=== PATIENT | female | born 1960 | race Caucasian/White ===

== ENCOUNTER 2020-01-17 07:58 | Outpatient (CLI) | payer OTHER, SELFPAY ==
--- NOTE | ~2020-01-17 | MM_ITS ---
EXAMINATION: MM screening [facility] w [facility]ianca HISTORY: Screening mammogram TECHNIQUE: Craniocaudal and mediolateral oblique 3-D tomosynthesis images were obtained and synthetic 2-D images were generated. CAD analysis was submitted and interpreted. COMPARISON: 12/21/2018, 12/15/2017, 12/09/2016 BREAST PARENCHYMAL COMPOSITION: The breasts are heterogeneously dense, which may obscure small masses . FINDINGS: Stable asymmetry is present in the outer left breast on the craniocaudal view. There is no evidence of suspicious mass, calcification, or architectural distortion to suggest malignancy in eith er breast. There has been no suspicious interval change. IMPRESSION: 1. No mammographic evidence of malignancy. 2. Recommend routine screening mammography in one year. BI-RADS Category 2: Benign finding(s). Reviewed, dictated and finalized at location A. PLANS INTELLIGENCE OFFICER
== END 2020-01-17 07:59 | disposition home or self-care (01) ==
LOC: ANHIMG 08:00
PROVIDERS: PCP Nurse Practitioner; Visit Provider Obstetrics & Gynecology
DX: Z12.31 Encounter for screening mammogram for malignant neoplasm of breast (principal)
CPT/HCPCS: 77063; 77067

== ENCOUNTER 2021-01-22 15:34 | Outpatient (CLI) | payer OTHER, SELFPAY ==
--- NOTE | ~2021-01-22 | MM_ITS ---
EXAMINATION: MM screening [facility] BI w bianca HISTORY: Screening mammogram TECHNIQUE: Craniocaudal and mediolateral oblique 3-D tomosynthesis images were obtained and synthetic 2-D images were generated. CAD analysis was submitted and interpreted. COMPARISON: 01/17/2020, 12/21/2018 BREAST PARENCHYMAL COMPOSITION: The breasts are heterogeneously dense, which may obscure small masses . FINDINGS: There is no evidence of suspicious mass, calcification, or architectural distortion to sugg est malignancy in either breast. There has been no suspicious interval change. IMPRESSION: 1. No mammographic evidence of malignancy. 2. Recommend routine screening mammography in one year. BI-RADS Category 1: Negative Reviewed, dictated and finalized at location A. DATABASE DEVELOPER
== END 2021-01-22 15:35 | disposition home or self-care (01) ==
PROVIDERS: PCP Nurse Practitioner; Visit Provider Obstetrics & Gynecology
DX: Z12.31 Encounter for screening mammogram for malignant neoplasm of breast (principal)
CPT/HCPCS: 77063; 77067

== ENCOUNTER 2022-02-08 07:11 | Outpatient (CLI) | payer OTHER, SELFPAY ==
--- NOTE | ~2022-02-08 | MM_ITS ---
EXAMINATION: MM screening [facility] BI w bianca HISTORY: Screening mammogram TECHNIQUE: Craniocaudal and mediolateral oblique 3-D tomosynthesis images were obtained and synthetic 2-D images were generated. CAD analysis was submitted and interpreted. COMPARISON: 01/22/2021, 01/17/2020, 12/21/2018 BREAST PARENCHYMAL COMPOSITION: The breasts are heterogeneously dense, which may obscure small masses . FINDINGS: No suspicious mass, calcification, or architectural distortion are identified in either ray ast to suggest malignancy. There has been no suspicious interval change. IMPRESSION: 1. No mammographic evidence of malignancy. 2. Recommend routine screening mammography in one year. BI-RADS Category 1: Negative Reviewed, dictated and finalized at location A. IPLE SCLEROSIS NURSE
== END 2022-02-08 07:12 | disposition home or self-care (01) ==
LOC: ANHIMG 07:12
PROVIDERS: PCP Nurse Practitioner; Visit Provider Obstetrics & Gynecology
DX: Z12.31 Encounter for screening mammogram for malignant neoplasm of breast (principal)
CPT/HCPCS: 77063; 77067

== ENCOUNTER 2023-04-02 13:32 | Outpatient (CLI) | payer BC, SELFPAY ==
--- NOTE | ~2023-04-02 | MM_ITS ---
EXAMINATION: MM screening [facility] BI w bianca HISTORY: Screening mammogram TECHNIQUE: Craniocaudal and mediolateral oblique 3-D tomosynthesis images were obtained and synthetic 2-D images were generated. CAD analysis was submitted and interpreted. COMPARISON: 02/08/2022, 01/22/2021, 01/17/2020 BREAST PARENCHYMAL COMPOSITION: The breasts are heterogeneously dense, which may obscure small masses . FINDINGS: No suspicious mass, calcification, or architectural distortion are identified in either ray ast to suggest malignancy. There has been no suspicious interval change. IMPRESSION: 1. No mammographic evidence of malignancy. 2. Recommend routine screening mammography in one year. BI-RADS Category 1: Negative Reviewed, dictated and finalized at location A. H TECH
== END 2023-04-02 13:33 | disposition home or self-care (01) ==
LOC: ANHIMG 13:35
PROVIDERS: PCP Nurse Practitioner; Visit Provider Obstetrics & Gynecology
DX: Z12.31 Encounter for screening mammogram for malignant neoplasm of breast (principal)
CPT/HCPCS: 77063; 77067

== ENCOUNTER 2024-02-25 13:50 | Outpatient (CLI) | payer BC, SELFPAY ==
[2024-02-25 14:56] LABS: Basophils Absolute Auto 0.1 K/mm3 (0.0-0.1); Basophils Percent Auto 0.7 % (0.2-1.2); Eosinophils Absolute Auto 0.1 K/mm3 (0-0.3); Eosinophils Percent Auto 1.9 % (0-4.4); Hematocrit 39.3 % (37.0-47.0); Immature Granulocyte Absolute 0.01 K/mm3 (0.00-0.031); Immature Granulocyte Percent A 0.1 % (0-0.5); Lymphocytes Absolute Auto 2.17 K/mm3 (0.9-3.2); Lymphocytes Percent Auto 32.1 % (18.3-44.2); Mean Corpuscular HGB Conc 33.1 g/dl (32-36); Mean Corpuscular Hemoglobin 29.5 pg (26-34); Mean Corpuscular Volume 89.1 fl (80-100); Mean Platelet Volume 8.8 fl (7.4-10.4); Monocytes Absolute Auto 0.5 K/mm3 (0.1-0.6); Monocytes Percent Auto 7.3 % (2.6-8.5); Neutrophils Absolute Auto 3.9 K/mm3 (1.3-6.7); Neutrophils Percent Auto 57.9 % (45.5-73.1); Platelet Count Result 264 k/mm3 (150-375); Red Blood Count 4.41 M/mm3 (4.2-5.4); Red Cell Distribution Width 12.7 % (11.5-14.5); White Blood Count 6.8 K/mm3 (4.5-10.0)
[2024-02-25 15:06] LABS: Albumin Level 4.3 g/dL (3.5-5.1); Estimated Glomerular Filt Rate > 60; Glucose 84 mg/dL (65-110)
[2024-02-25 15:12] LABS: Urine Cotinine NEGATIVE
[2024-02-25 16:07] LABS: MRSA (PCR) NOT DETECTED (NOT DETECTE)
[2024-02-25 16:36] LABS: Hemoglobin A1C 5.5 % (<5.7)
== END 2024-02-25 13:51 | disposition home or self-care (01) ==
LOC: ANHSURGERY 13:59
PROVIDERS: PCP Nurse Practitioner; Visit Provider Orthopaedic Surgery
DX: Z01.812 Encounter for preprocedural laboratory examination (principal); M17.11 Unilateral primary osteoarthritis, right knee
CPT/HCPCS: 80307; 82040; 82565; 82947; 83036; 85025; 87641

== ENCOUNTER 2024-03-23 00:40 | Day surgery (SDC) | payer BC, SELFPAY ==
[2024-02-25 14:08] VITALS: BMI 24.2
--- NOTE | 2024-02-25 14:25 | PC.NURSE ---
Report to the Outpatient Waiting Room, entrance under the green pavilion located off [facility], at time __0830am on date _03/23/24 . Planned Procedure Time: _10:30am .? Time changes happen often and if your time is changed the preop area will call you the afternoon before. - You and your visitor will be asked to self-screen and do not enter if you have any COVID symptoms. Please call surgeon if you need to reschedule. - A mask is optional within the hospital at this time. Patients may have clear liquids (water, carbonated beverages, clear teas, apple juice) until 3 hours prior to surgery with a maximum of 20 ounces. - No food from midnight until time of surgery and no smoking. This includes no chewing gum, candy or mints.(0730am) Take only the following medications with a SIP of water on the morning of surgery: None DO NOT STOP ANY OF YOUR OTHER PRESCRIPTION MEDICATIONS PRIOR TO SURGERY EXCEPT THE FOLLOWING Medications to discontinue per physician Hold Vitamins and supplements for 3 days prior per Anesthesia Date to take last dose____03/19/24 Hold Tirepatide for 10 days prior to surgery, date to take last dose 03/11/24. Please no make-up, nail pashto, hairspray, perfume, deodorant, or body powder the day of surgery.? No jewelry (including any body piercings) or valuables the day of surgery, leave them at home.? Please take a shower or bath the night before, or the morning of, surgery with an antibacterial soap.? Wear comfortable, loose fitting clothing.? - Jewelry must be removed prior to entering the operating room.? Rings and piercings that are not removed may be cut off. - The hospital will not accept responsibility for valuables.? - Please leave all valuables, including medications, at home the day of surgery. If you are going home after surgery, a licensed armored car driver must drive you home.? - NO public transportation without another adult if you receive anesthesia. - We recommend that an adult stay with you for 24 hours following discharge. - We also recommend that you do not drive, make important decision, drink alcoholic beverages, or take any drugs that were not prescribed by your health care provider for at least 24 hours after your discharge time. Follow any additional instructions given to you from your surgeon. Telephone instructions given to _patient and asked if any additional questions and then verbalized understanding. Patient advised to call surgeon office or pre surgery nurse liaison [phone] if any additional questions.
[2024-03-23] VITALS (11 sets, daily range): BP systolic 101–155; BP diastolic 58–93; PULSE 64–86; RESP 14–18; TEMP 36.3–37.3; O2SAT 96–100
--- NOTE | ~2024-03-23 | XR_ITS ---
EXAMINATION: [id number] DATE: 03/23/2024 15:15 INDICATION: Postoperative evaluation following right total knee arthroplasty. TECHNIQUE: Anteroposterior and lateral views of the right knee were obtained. COMPARISON: None. FINDINGS: Right total knee arthroplasty with patellar resurfacing appears well seated and in near anatomic alig nment. No fractures identified. Expected postoperative subcutaneous and intra-articular gas. IMPRESSION: 1. Right total knee arthroplasty, negative for postoperative purposes. Reviewed, dictated and finalized at location B. S CLIPPER
[2024-03-23] MEDS: TRANEXAMIC ACID 1,000MG/ISO100 1,000 MG/100 ML BAG 200 MG IVPB (10:30)
[2024-03-23] MEDS: ACETAMINOPHEN 500 MG TABLET 1000 MG PO (10:30)
[2024-03-23] MEDS: LACTATED RINGERS 1,000 ML 30 ML IV CONT ×2 (10:30→15:00)
--- NOTE | 2024-03-23 12:07 | P.PNAN_ITS ---
Anes - Initial Pre Proc Eval Procedure: Operation Date: 03/23/24 11:30 Proposed Procedures p Right Total Knee Arthroplasty - Rodney Saucedo MD Date/Time: 03/23/24 12:07 Surgeon: Rodney Saucedo MD Pre Op Diagnosis: Prim OA Rt Knee Patient Data Age: 63 Gender: F Height: 1.71 m Weight: 72 kg Last Vital Signs Temp 97.4 F L 03/23/24 10:30 Pulse 69 03/23/24 10:30 Resp 14 03/23/24 10:30 BP 148/90 H 03/23/24 10:30 Pulse Ox 100 03/23/24 10:30 O2 Del Method Room Air 03/23/24 10:30 Allergies Allergy/AdvReac Type Severity Reaction Status Date / Time No Known Allergies Allergy Verified 03/23/24 10:50 Home Medications ?Medication ?Instructions ?Recorded ?Confirmed ?Type multivitamin (Daily Multi-Vitamin 1 tablet PO DAILY 12/10/23 03/12/24 History tablet) tirzepatide 2.5 mg/0.5 mL 2.5 mg subcut WEEKLY 12/10/23 03/12/24 History subcutaneous pen injector cholecalciferol (vitamin D3) 25 25 mcg PO DAILY 02/25/24 03/12/24 History mcg (1,000 unit) tablet vitamin B complex-vitamin B12 1 drp sublingual DAILY PRN 02/25/24 03/12/24 History 1,200 mcg/mL sublingual drops supplement aspirin 81 mg tablet,delayed 81 mg PO BID 14 days #28 tabs 03/23/24 Rx release meloxicam 15 mg tablet 15 mg PO DAILY #30 tabs 03/23/24 Rx oxycodone-acetaminophen 5 mg-325 1 - 2 tablet PO Q4-6H PRN pain 7 03/23/24 Rx mg tablet days #30 tabs prednisone 5 mg tablet 5 mg PO DAILY 3 weeks #21 tabs 03/23/24 Rx Laboratory Tests 03/23/24 09:51 Blood Type O Positive Antibody Screen Negative Patient hx anesthesia problems: none Family hx anesthesia problems: none Results Review: All pre-operative results and documents have been reviewed as part of the pre- operative evaluation. PMFSH Past Medical History Medical History SCC (squamous cell carcinoma) right leg (knee) Mild episode of recurrent major depressive disorder Internal hemorrhoids Hyperlipidemia Cervical spinal stenosis Skin cancer Surgical History Surgical History History of appendectomy H/O: hysterectomy H/O knee surgery (~08/21/18) Left Knee PKA Family History Family History Mother Hypertension Heart disease Diabetes mellitus Social History Social History Smoking status: Never smoker Alcohol intake: current Alcohol use details: moderate Substance use: never Substance use type: marijuana Other substance usage details: Gummies and Vape socially Living arrangements: with family Occupation/Education: occupation 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 ) Neurological: alert and oriented Last oral intake: >/= 8 hours ASA classification: II Emergent: no Anesthetic plan: proceed Anesthesia type and monitoring: general ETT and standard monitoring Results Review: All pre-operative results and documents have been reviewed as part of the pre- operative evaluation. Prev hyperlipidemia, now diet controlled. Pt exercises w wts, 3 x weekly, no cp or sob. Informed Consent: The patient's anesthetic plan and its attendant risks and benefits were discussed with the patient/family/POA. Questions were solicited and answers provided to the satisfaction of the patient/family/POA.
--- NOTE | 2024-03-23 12:21 | WPDHPUPDATE1 ---
History and Physical Update Update Date/Time: 03/23/24 12:21 History and Physical has been reviewed, including an updated exam of the patient. There are NO changes in the patient's condition. Risks, benefits, and alternatives have been discussed and questions answered. Patient agrees to proceed with procedure.
[2024-03-23] MEDS: ceFAZolin 2 GM/D5W 50 ML 2 GM/50 ML BAG IVPB ×2 (12:40→21:03)
[2024-03-23] MEDS: SODIUM CHLORIDE 0.9% IV 37.7 ML, MORPHINE SULFATE INJ (*CRX) 2 MG, ROPivacaine HCL 1% 2... INFILTRATE (13:05)
[2024-03-23] MEDS: GENTAMICIN BONE CEMENT REFOBACIN 1 EACH TOPICAL (14:23)
[2024-03-23] MEDS: TRANEXAMIC ACID 1,000 MG/10 ML AMPUL 1000 MG IV PUSH (14:24)
[2024-03-23] MEDS: ONDANSETRON INJ 4 MG/2 ML VIAL IV PUSH ×2 (15:44→21:22)
--- NOTE | 2024-03-23 15:51 | P.OP_ITS ---
Procedure Note - Detailed Date of Procedure 03/23/24 Pre-op Diagnosis Right knee degenerative arthritis. Post-op Diagnosis Same Procedure Performed Calipered, kinematically aligned total knee replacement right knee. Surgeon Rodney Saucedo MD Glass Cutter Hand Dinah Hernandez PA-C Anesthesia General Findings According to the calipered kinematic alignment principles, the knee was balanced by the following verification checks incorporating 6 caliper measurements, using an insert goniometer to select the insert thickness, and adjusting the tibial resection following the kinematic alignment algorithm (see figure 160.10 published in [employer] chapter on kinematic alignment total knee arthroplasty.) The steps verified the femoral and tibial components were kinematically aligned coincident to the patient's pre arthritic joint lines, which closely restored the kotzebue tibial compartment forces and ligament laxities without ligament release. The FlashpointK BluPandariKA knee, designed specifically for kinematic alignment, fit optimally. The record of verification checks were documented and scanned into the chart. Distal Femoral Resection: Distal Medial 6 mm(cartilage worn), Distal Lateral 8 mm Target thickness of 8mm Unworn, 6mm Worn (No Cartilage). Posterior Femoral Resection: Posterior Medial 5 mm(cartilage worn), Posterior Lateral 7 mm. Target thickness of 7mm Unworn, 5mm Worn (No Cartilage). Description of Procedure General anesthesia was administered. A well-padded tourniquet was placed high on the thigh. The limb was prepped and draped in the usual sterile fashion. The limb was exsanguinated and the tourniquet inflated to 300 mmHg. A longitudinal incision was created over the midline of the knee. Sharp dissection was taken through subcutaneous tissues. Electrocautery was used for hemostasis. A trivector approach to the knee joint was performed. The ACL, anterior horns of the menisci, and fat pad were excised, and a subperiosteal dissection was carried along the posterior medial border of the tibia. The thickness of the kotzebue patella was measured with a caliper. The patella was resected using the oscillating saw. The best fitting anatomic patella button was selected. The fixation holes were drilled. When the patella and patella buttons combined thickness was thicker than the kotzebue patella, the patella was recut. Starting midway between the top of the notch in the anterior femoral cortex, I drilled a 9 mm diameter hole parallel to the anterior cortex to minimize flexion of the femoral component and promote patella tracking. I verified the existence of a 5-10 mm bone bridge between the posterior aspect of the hole and the anterior limit of the intercondylar notch. An intraosseous positioning eber was inserted 10 cm into the femur perpendicular to the distal joint line and parall el to the anterior cortex. I used a distal femoral referencing guide that compensated 2 mm when the cartilage was worn on the distal medial femoral condyle, and 2 mm when the cartilage was worn on the distal lateral femoral condyle. The basis for setting the distal and posterior femoral resection guide is knowing that the varus and valgus grade II to IV Kellegren-Gregory osteoarthritic knees have negligible bone wear at 0? and 90? and that the mean full-thickness cartilage wear approximates 2 mm. I measured the thickness of distal femoral resections with a caliper to +/- 0.5 mm. The thickness of each resection was adjusted to match the thickness of the respective condyle of the femoral component within 0.5 mm of target after compensating for cartilage wear and kerf. When the distal r esection was 1-2 mm too thin, a recut guide was used to adjust the cut. When the distal resection was too thick, a 1 or 2 mm thick washer was fixed to the back of the 4-in-1 chamfer block to mary ann a corrective gap between the femoral component and distal femur. I set posterior femoral referencing guide at 0? orientation to position the pin holes for the 4 in 1 chamfer block. The kiel wing measured the width of the distal femoral resection and selected the size of the 4 in 1 chamfer block and femoral component. The AP sizer confirmed the size. I measured the thickness of the posterior femoral resections with a caliper before making the anterior and chamfer cuts. I adjusted the thicknesses of each resection to match the thickness of the respective condyle of the femoral component within +/-0.5 mm after compensating for cartilage wear and curve. When a posterior resection femoral resection was 1-2 mm too thick or thin a corrective correction was made by shifting or rotating the 4 in 1 chamfer block as needed. The chamfer block was secured in the correct position with compression screws. The anterior and chamfer femoral resections were made. These caliper measurements and mable ections verified that the femoral component was set coincident with the patient's pre-arthritic distal and posterior femoral joint lines. I removed all the medial and lateral femoral and tibial osteophytes to restore the pre arthritic length of the medial and lateral collateral ligaments. I tyrone AP lines along the major axis of the lateral tibial plateau in between the tibial spines which identified the flexion extension plane of the knee. A conventional extramedullary tibial resection guide was applied to the ankle. An kiel wing was placed medially in the saw slot. The varus valgus angle of the tibial resection guide was adjusted until the guide paralleled the proximal tibial articular surface after compensating for cartilage and bone wear. The slope of flexion extension angle of the tibial resection guide was adjusted until the kiel wing paralleled the slope of the medial tibia after compensating for wear. The AP axis of the tibial resection guide was adjusted parallel to th e two lines. The proximal tibia was resected, partially releasing the insertion of the posterior cruciate ligament. The thickness of the medial and lateral lateral tibial condyle was measured at the base of the tibial spines. I visually verified the slope of the medial border of the resection was parallel to the patient's pre arthritic slope after compensating for cartilage and bone wear. I removed the remnants of the posterior horns of the menisci and posterior osteophytes and cauterized the inferior lateral genicular vessels. The Aquamantys bipolar device was also used to for additional hemostasis. When the knee had a preoperative flexion contracture of 20? or more I teased the capsule off the posterior femur with a curved 3 quarter-inch osteotome. I administered the posterior femoral periosteal injection by delivering 10 cc using a 20 gauge spinal needle at the most medial and 10 cc at the most lateral femoral spur surface which reduced the risk of injury to the posterior neurovascular structures. I followed 6 options in a decision tree to fine tune the varus valgus and posterior slope orientation of the tibial component to restore the patient's pre arthritic tibial joint line and limb alignment. First, I adjusted the varus- valgus orientation of the proximal tibia resection working in 1 degree to 2 degree increments until there was negligible medial and lateral lift off of the distal femoral and proximal tibial resection from the spacer block during a varus valgus laxity assessment in extension. I selected the largest anatomic shape trial tibial base plate that fit within the cortical boundary of the proximal tibial resection. The base plate was best fit parallel to the cortical boundary which set the Internal-external orientation of the anterior to posterior and medial to lateral positions. The best fit method set the AP axis of the tibial base plate and insert parallel to the flexion extension plane of the pre arthritic knee. I pinned the trial t ibial base plate, prepared the cruciate slot, and fixed the base plate to the tibia with the cruciate stem. I inserted the trial femoral component. The knee was placed in full extension. Varus valgus laxity is of the knee with trial components were assessed. When asymmetric laxity was observed a 1-2 degree varus or valgus recut guide was used to fine tune the tibial resection until the laxity was 1 degree or less in full extension like the kotzebue knee. The following steps determined the optimal insert thickness within +/-1 mm. First I inserted an insert goniometer that matched the thickness of the spacer block. I reduced the patella and then with the knee in maximum extension, I verified the knee hyperextended a few degrees and had negligible varus valgus laxity, like the pre arthritic knee. Next, I measured the external tibial orientation which was the angle the insert goniometer intersected the sagittal line on the medial condyle of the femoral trial component. Then with the knee in 15-30 degrees flexion I verified a 3-4 mm gap in the lateral compartment and no gap in the medial compartment during a 2nd varus valgus laxity test. Next, I placed the knee in 90? of flexion and the foot resting on the operating table and measured the internal tibial orientation. I repeated the steps until I identified the insert thickness that provided the highest external tibia orient ation in extension and the highest internal tibial orientation at 90? flexion without anterior lift-off of the insert from the tibial base plate. The insert with this thickness was implanted. I applied a posterior drawer test with the tibia distracted by gravity and verified no posterior subluxation of the tibia relative to the femur. The patella remained centered on the trochlea and tracked well throughout the entire arc of flexion and extension. I used pulse lavage to clean the bony surfaces of debris and dried bone. I cemented the tibial, femoral, and patellar components using 1 bag of methylmethacrylate with Gentamycin, then rechecked the stability at full extension, 15-30 degrees, and 90? flexion and verified congregation of the entire arc of motion of the knee. The circulating nurse confirmed the sponge and needle counts were correct. I used pulse lavage to rinse the joint and wound. The extensor mechanism was closed with interrupted #1 Vicryl suture and #1 running Stratafix suture. The subcutaneous layer was closed with interrupted #1 Vicryl suture followed by 2-0 Stratafix and 3-0 Stratafix. Steri-Strips placed on the skin. Silver impregnated occlusive dressing applied to the wound. A light gauze wrap and Joseph bandage were placed. The patient was transferred to the recovery room in stable condition. There were no complications. Implants Medacta GMK spheriKA Femoral component SpheriKA size 3+, tibial component size 3, vitamin-E flex insert, thickness 10mm, Anatomic patella implant size 2. Tourniquet Time Total Tourniquet Time: 81 Drains No Pathology None sent Complications No immediate complications Condition Stable Disposition PACU [facility] Billing Surgery - Charge Forward: Surgery Billing
[2024-03-23] MEDS: oxyCODONE/ACETAMINOPHEN (*CRX) 10-325 MG TABLET 1 TAB PO (16:34)
[2024-03-23] MEDS: SENNA/DOCUSATE SODIUM TABLET 2 TAB PO (16:39)
[2024-03-23] MEDS: MELOXICAM 7.5 MG TABLET PO (16:40)
[2024-03-23] MEDS: predniSONE 5 MG TABLET PO (16:40)
--- NOTE | 2024-03-23 16:57 | ADMGEN ---
This patient, Lisa Baxter, was admitted to [facility] Surg Room 322-01. Patient/family oriented to hospital policies and general routines including ID bracelet, bed and alarms, visiting hours, pain management, procedures, bathroom and other care routines, personal items, smoking policy, room service/diet, and visiting hours. Information on how to activate the Rapid Response Team has been discussed. Patient/Family are encouraged to report perceived risks to care and to ask questions if they do not understand what they are told or what they should do.
[2024-03-23] MEDS: ACETAMINOPHEN 325 MG TABLET 650 MG PO (17:57)
[2024-03-23] MEDS: FAMOTIDINE 20 MG TABLET PO (21:03)
[2024-03-23] MEDS: ASPIRIN 81 MG ENTERIC TABLET PO (21:03)
[2024-03-24 03:26] VITALS: BP 115/60; PULSE 73; RESP 17; TEMP 36.6; O2SAT 99
[2024-03-24] MEDS: ceFAZolin 2 GM/D5W 50 ML 2 GM/50 ML BAG IVPB (05:55)
[2024-03-24] MEDS: ACETAMINOPHEN 325 MG TABLET 650 MG PO (05:56)
[2024-03-24] MEDS: ONDANSETRON INJ 4 MG/2 ML VIAL IV PUSH (05:58)
[2024-03-24 07:13] LABS: Basophils Percent Auto 0.3 % (0.2-1.2); Eosinophils Percent Auto 0.3 % (0-4.4); Hemoglobin 11.1 g/dL (12.0-15.0); Immature Granulocyte Absolute 0.05 K/mm3 (0.00-0.031); Immature Granulocyte Percent A 0.4 % (0-0.5); Lymphocytes Absolute Auto 1.55 K/mm3 (0.9-3.2); Lymphocytes Percent Auto 13.4 % (18.3-44.2); Mean Corpuscular HGB Conc 32.6 g/dl (32-36); Mean Corpuscular Hemoglobin 29.3 pg (26-34); Mean Corpuscular Volume 89.7 fl (80-100); Mean Platelet Volume 9.1 fl (7.4-10.4); Monocytes Absolute Auto 0.8 K/mm3 (0.1-0.6); Monocytes Percent Auto 6.8 % (2.6-8.5); Neutrophils Absolute Auto 9.1 K/mm3 (1.3-6.7); Neutrophils Percent Auto 78.8 % (45.5-73.1); Platelet Count Result 235 k/mm3 (150-375); Red Blood Count 3.79 M/mm3 (4.2-5.4); Red Cell Distribution Width 12.9 % (11.5-14.5); White Blood Count 11.5 K/mm3 (4.5-10.0)
[2024-03-24 07:20] LABS: Anion Gap 5 mmol/L (4-12); Blood Urea Nitrogen 13 mg/dL (7-17); Calcium 9.1 mg/dL (8.4-10.2); Carbon Dioxide 28 mmol/L (22-30); Chloride 103 mmol/L (98-107); Estimated CRCL calculation 61 ml/min; Estimated Glomerular Filt Rate > 60; Glucose 91 mg/dL (65-110); Potassium 3.8 mmol/L (3.4-5.0); Sodium 136 mmol/L (137-145)
--- NOTE | 2024-03-24 07:48 | P.DS_ITS ---
DS: Admitting Diagnosis Discharge Date 03/24/24 Admitting Diagnosis Knee arthritis. DS: Discharge Diagnosis Discharge Diagnosis (1) Status post total right knee replacement: Code(s): Z96.651 - Presence of right artificial knee joint Status: Acute Assessment and Plan: Postop day 1: Right total knee arthroplasty. Patient tolerated procedure well. No complications. Pain manageable with pain medication. No numbness or tingling. We had a lengthy discussion regarding postoperative wound care, limitations, expectations, and exercises. Patient shows good understanding. She has had initial physical therapy and is tolerating it well. DVT prophylaxis: 81 mg baby aspirin b.i.d. for 14 days. Pain medication: Percocet. Meloxicam. Prednisone. Patient has followup appointment with Dr. Sauceod in 3 weeks. DS: Summary Hospital Course Reason for hospitalization: Total knee arthroplasty Hospital Course: Patient tolerated procedure well. Has had initial PT/OT. Status at Discharge Functional status at discharge: uses cane/walker Overall status at discharge: patient is progressing back to baseline Time Spent with Patient Time attestation: Total time spent providing and/or coordinating discharge services: Exam Narrative: Elderly 63-year-old normal weight female. Resting comfortably in bed. Alert and oriented x3. No acute distress. Wearing compression socks bilaterally. Dressing intact without drainage. Mild swelling. No ecchymosis. No erythema. No hematoma. Range of motion limited due to pain. Quad fires. Calf nontender. Neurologic status intact. No varicosities. Distal pulses palpable. DS: Data Data Completed and Pending Labs on day of discharge: Labs from last 24 hours 03/24/24 03/23/24 06:37 09:51 WBC 11.5 H RBC 3.79 L Hgb 11.1 L Hct 34.0 L MCV 89.7 MCH 29.3 MCHC 32.6 RDW 12.9 Plt Count 235 MPV 9.1 Immature Gran % (Auto) 0.4 Neut % (Auto) 78.8 H Lymph % (Auto) 13.4 L Frio % (Auto) 6.8 Eos % (Auto) 0.3 Baso % (Auto) 0.3 Lymph # (Auto) 1.55 Frio # (Auto) 0.8 H Eos # (Auto) 0.0 Baso # (Auto) 0.0 Abs Immat Gran (auto) 0.05 H Absolute Neuts (auto) 9.1 H Absolute Nucleated RBC 0.000 Nucleated RBC % 0.0 Sodium 136 L Potassium 3.8 Chloride 103 Carbon Dioxide 28 Anion Gap 5 BUN 13 Creatinine 0.82 Estim Creat Clear Calc 61 Estimated GFR > 60 Glucose 91 Calcium 9.1 Blood Type O Positive Antibody Screen Negative Discharge Plan Discharge Patient Disposition: Home, Self-Care Discharge Instructions: See green instruction sheets Patient Language: Spanish Stand Alone Forms: General Discharge Instructions Follow-up/Referrals: Dinah Hernandez PA [Physician Collections Professional] - Discharge Medications: New meloxicam 15 mg tablet 15 mg PO DAILY Qty: 30 0RF Rx Instructions: Cut in half. Take 1/2 in morning and 1/2 at night. Take with food. Stop if stomach upset. prednisone 5 mg tablet 5 mg PO DAILY 21 Days Qty: 21 0RF aspirin 81 mg tablet,delayed release (DR/EC) 81 mg PO BID 14 Days Qty: 28 0RF oxycodone-acetaminophen 5-325 mg tablet 1 - 2 tablet PO Q4-6H PRN (Reason: pain) 7 Days Qty: 30 0RF Continued multivitamin [Daily Multi-Vitamin] Tablet 1 tablet PO DAILY tirzepatide 2.5 mg/0.5 mL pen injector 2.5 mg subcut WEEKLY Patient Comments: HOLD 10 days prior per Anesthesia Rx Instructions: for 4 weeks cholecalciferol (vitamin D3) 25 mcg (1,000 unit) tablet 25 mcg PO DAILY Rx Instructions: Take 2 tablets (50 mcg total) by mouth daily. vitamin B complex-vit B12 1,200 mcg/mL drops 1 drp sublingual DAILY PRN (Reason: supplement)
[2024-03-24] MEDS: MELOXICAM 7.5 MG TABLET PO (08:25)
[2024-03-24] MEDS: SENNA/DOCUSATE SODIUM TABLET 2 TAB PO (08:25)
[2024-03-24] MEDS: FAMOTIDINE 20 MG TABLET PO (08:25)
[2024-03-24] MEDS: polyethylene glycoL 3350 17 GM POWD.PACK PO (08:25)
[2024-03-24] MEDS: ASPIRIN 81 MG ENTERIC TABLET PO (08:25)
--- NOTE | 2024-03-24 10:41 | WPDANESPN ---
Anes - Prog Note Post-Op Date/Time: 03/24/24 10:41 Cardiovascular status: normal Respiratory status: normal Airway patency: baseline Mental status: baseline Post-Op hydration status: normal Vital Signs: Last Vital Signs Temp 97.8 F 03/24/24 03:26 Pulse 73 03/24/24 03:26 Resp 17 03/24/24 03:26 BP 115/60 03/24/24 03:26 Pulse Ox 99 03/24/24 03:26 O2 Del Method Room Air 03/24/24 09:39 O2 Flow Rate 8 03/23/24 15:00 Pain Score (VAS): 0/10 I/O: Intake & Output 03/23/24 03/24/24 03/24/24 23:59 07:59 15:59 Intake Total 287 600 Balance 287 600 Laboratory Tests 03/24/24 06:37 03/24/24 06:37 03/23/24 03/24/24 09:51 06:37 WBC 11.5 H RBC 3.79 L Hgb 11.1 L Hct 34.0 L MCV 89.7 MCH 29.3 MCHC 32.6 RDW 12.9 Plt Count 235 MPV 9.1 Immature Gran % (Auto) 0.4 Neut % (Auto) 78.8 H Lymph % (Auto) 13.4 L [place] % (Auto) 6.8 Eos % (Auto) 0.3 Baso % (Auto) 0.3 Lymph # (Auto) 1.55 [place] # (Auto) 0.8 H Eos # (Auto) 0.0 Baso # (Auto) 0.0 Abs Immat Gran (auto) 0.05 H Absolute Neuts (auto) 9.1 H Absolute Nucleated RBC 0.000 Nucleated RBC % 0.0 Sodium 136 L Potassium 3.8 Chloride 103 Carbon Dioxide 28 Anion Gap 5 BUN 13 Creatinine 0.82 Estim Creat Clear Calc 61 Estimated GFR > 60 Glucose 91 Calcium 9.1 Antibody Screen Negative Post-procedural complaints: none Patient Feedback: Patient satisfied with anesthetic care.
--- OUTSIDE RECORDS SUMMARY | 2024-03-30 04:02 | XMS_ITS | Clinical Summary ---
Author Organization [facility] Address [address] [place] [address] Care Team Providers Care Human Resources Benefits Administrator Name Role Phone Unavailable Primary Care Provider Unavailabl e Source Comments [facility] [employer],non-owned Affiliates and Associated Physician Practices is amultiple site organization consisting of ambulatory clinics and hospital sitesin [place], [place], [place] and [place]. This disclosure is being madepursuant to the Care Everywhere program and may not contain all information available regarding this patient. Last updated 17.[facility] [employer] Social History Tobacco Use Types Packs/Day Years Used Date Smoking Tobacco: Never Assessed Sex and Gender Information Value Date Recorded Sex Assigned at Not on file Gender Identity Not on file Sexual Orientation Not on file Plan of Treatment Health Maintenance Due Date Last Done Comments COLOGUARD (AGES 45-75) - COL ON CA SCREENING 1960 COLON MONITORING 1960 COLONOSCOPY - COLON CA SCREENING 1960 CT COLONOGRAPHY - COLON CA SCREENING 1960 Colorectal Cancer Screening 1960 FIT - COLON CA SCREENING 1960 FLEX SIG - COLON CA SCREENING 1960 LIPID TESTING 1960 MAMMOGRAM 1960 PAP SMEAR 1960 HIV SCREENING 05/09/1975 HEPATITIS C SCREENING 05/04/1978 DTAP/TDAP/TD VACCINES (1 - Tdap) 05/09/1979 PNEUMOCOCCAL VACCINE 50+ (1 of 1 - PCV) 2010 ZOSTER VACCINE (1 of 2) 2010 COVID-19 VACCINE ( - 2023-2 5 season) 2023 INFLUENZA VACCINE (#1) 2023 DEPRESSION SCREENING 03/10/2024 Respiratory Syncytial Virus (RSV) Vaccine Pt: or over 60 yrs (1 - 1-dose 75+ series) 05/09/2035 HEPATITIS B VACCINE Aged Out No longe r eligible based on patient's age to complete this topic HIB VACCINE Aged Out No longer eligi ble based on patient's age to complete this topic HPV VACCINE Aged Out No longer eligi ble based on patient's age to complete this topic MENINGOCOCCAL (Group B) VACCINE Aged Out No longer eligible based on patient's age to complete this topic MENINGOCOCCAL VACCINE Aged Out No latasha julien eligible based on patient's age to complete this topic PNEUMOCOCCAL VACCINE Aged Out No long er eligible based on patient's age to complete this topic
--- OUTSIDE RECORDS SUMMARY | 2024-03-30 04:02 | XMS_ITS | Referral Summary ---
Author Organization [facility] Address [address] [place] [address] Care Team Providers Care Enroute Controller Name Role Phone Unavailable Primary Care Provider Unavailabl e Source Comments [facility],non-owned Affiliates and Associated Physician Practices is amultiple site organization consisting of ambulatory clinics and hospital sitesin [place], [place], [place] and [place]. This disclosure is being madepursuant to the Care Everywhere program and may not contain all information available regarding this patient. Last updated 17.[facility] [employer] Social History Tobacco Use Types Packs/Day Years Used Date Smoking Tobacco: Never Assessed Sex and Gender Information Value Date Recorded Sex Assigned at Not on file Gender Identity Not on file Sexual Orientation Not on file Plan of Treatment Not on file
--- OUTSIDE RECORDS SUMMARY | 2024-03-30 04:03 | XMS_ITS | Encounter Summary ---
Author Organization [facility] Address [address] [place] [address]. [place], [place] [address] [place] [address] Care Team Providers Care Veterinary Pathologist Name Role Phone Radha De La Cruz Primary Care Provider [phone] Reason for Referral * Consultation (Routine) - Authorized Specialty Diagnoses / Procedures Referred By Doug cartagena Referred To Contact ORTHOPAEDICS Diagnoses Chronic pain of right knee Procedures OFFICE/OUTPATIENT NEW LOW MDM 30-44 MINUTES OFFICE/OUTPT VISIT,NEW,LEVL IV OFFICE/OUTPT VISIT,NEW,LEVL V OFFICE/OUTPT VISIT,EST,LEVL III OFFICE/OUTPT VISIT,EST,LEVL IV OFFICE/OUTPT VISIT,EST,LEVL V Radha De La Cruz FNP [address] [place] [address] Phone: tel: fax: Rodney Saucedo MD [address] [place] [address] Phone: tel:[phone] fax: Referral ID Status Reason Start Date Expiration Date Visits Requested Visits Authorized [id number] Authorized Specialty Services 11/27/2023 11/26/2024 99 [address] Rodney Saucedo [facility] Reason for Visit * Reason Comments Knee Pain Right knee pain x a couple months Encounter Details Date Type Department Care Team (Late st Contact Info) Description 11/27/2023 3:00 PM CDT Office Visit [facility] [address] [place] [address] Radha De La Cruz FNP [address] [place] [address] Knee Pain (Right knee pain x a couple months ) Social History Tobacco Use Types Packs/Day Years Used Date Smoking Tobacco: Never Smokeless Tobacco: Never Tobacco Cessation:Counseling Given: Not Answered Alcohol Use Standard Drinks/Week Comments Yes 0 (1 standard drink = 0.6 oz pur e alcohol) AUDIT-C Answer Date Recorded Frequency of Alcohol Consumption 2-4 times a fri02/19/2018 Average Number of Drinks Not on file 018 Frequency of Binge Drinking Not on file 02/07 PHQ-2 Answer Date Recorded Patient Health Questionnaire-2 Score 0 07/08/2022 Comments No Sex and Gender Information Value Date Recorded Sex Assigned at Not on file Legal Sex Female 2:50 AM CDT Gender Identity Not on file Sexual Orientation Not on file documented as of this encounter Last Filed Vital Signs Vital Sign Reading Time Taken Comments Blood Pressure 122/78 11/27/2023 3:00 PM CDT Pulse 68 11/27/2023 3:00 PM CDT Temperature 36.7 ??C (98 ??F) 11/27/2023 3:00 PM CDT Respiratory Rate 18 11/27/2023 3:00 PM CDT Oxygen Saturation 98% 11/27/2023 3:00 PM CDT Inhaled Oxygen Concentration - - Weight 68.5 kg (151 lb) 11/27/2023 3:00 PM CDT Height 170.2 cm (5' 7 ) 11/27/2023 3:00 PM CDT Body Mass Index 23.65 11/27/2023 3:00 PM CDT documented in this encounter Patient Instructions * Patient Instructions* LEORA Joyner - 11/27/2023 3:00 PM CDT Referral Information Referral Call - You will receive a call regarding this referral. Depending on the type of referral,this call may come from the [facility] Referral team at [phone] or from an [facility] hospital or an [facility] clinic. Insurance Authorization - Our referral specialists will contact your insurance company to get priorauthorization, if applicable. Working with insurance companies can be cumbersome, but we are dedicated to processing your referral timely and efficiently. Please know you have a caring and competent team working on your behalf [facility] continuum of care as quickly as possible. If you have questions or concerns regarding your referral, or have not heard anything in 5 days, please call [phone]. Friday - Friday, 7:30 a.m. - 5 p.m. documented in this encounter Progress Notes * LEORA Joyner - 11/27/2023 3:00 PM CDT Lisa is a 63-year-old female patient. Reason for Visit: Knee Pain (Right knee pain x a couple months ) History of Present Illness: Lisa is a 63-year-old female patient here for right knee pain. She reports having right knee pain for several months. It worsened when she started working out regularly a few months ago. She has noticed that her right knee has been swollen. She is able to do her workout without difficulty. She does have more pain with weightbearing. She has a history of requiring a left knee replacement in 2019 due to significant osteoarthritis. She would like a referral to Dr. Saucedo for management of her right knee pain. She does have difficulty squatting. She does not kneel since she had her last knee replacement. Shecan go up and down stairs okay. She can get in and out of the car okay. She is not taking anything for the knee pain. Past Medical History: Diagnosis Date Cervical spinal stenosis 01/04/2022 H/O left knee surgery 08/21/2018 Left knee surgery [address] Dr. Dony Reyes. Left knee unicompartment replacement. Hyperlipidemia Hyperlipidemia 04/01/2014 Date Onset: 06/18/2013 Internal hemorrhoids Mild episode of recurrent major depressive disorder (CMS/HCC) 07/08/2019 SCC (squamous cell carcinoma), leg, right 06/14/[address] Barraza Past Surgical History: Procedure Laterality Date APPENDECTOMY COLONOSCOPY STOMA DX INCLUDING COLLJ SPEC SPX HYSTERECTOMY KNEE SURGERY 08/04/2018 Dr. Reyes. Left knee unicompartment replacement. Medications: Current Outpatient Medications: Multiple Vitamin (ONCE DAILY) Tab, Take 1 tablet by mouth., Disp: , Rfl: tirzepatide (ZEPBOUND) 2.5 MG/0.5ML injection, Inject 2.5 mg into the skin once a week. (Patient taking differently: Inject 5 mg into the skin once a week.), Disp: 2 mL, Rfl: 0 vitamin D3 (CHOLECALCIFEROL) 25 mcg tablet, Take 2 tablets (50 mcg total) by mouth daily., Disp: , Rfl: buPROPion XL (WELLBUTRIN XL) 300 MG 24 hr tablet, take 1 tablet by mouth every day (Patient not taking: Reported on 11/27/2023), Disp: 90 tablet, Rfl: 1 No Known Allergies No family history on file. No family status information on file. Social History Socioeconomic History Marital status: Single Tobacco Use Smoking status: Never Smokeless tobacco: Never Substance and Sexual Activity Alcohol use: Yes Drug use: No ROS: Review of Systems Constitutional: Negative. Musculoskeletal: Chronic worsening right knee pain Vitals: Filed Vitals: 11/27/23 1500 BP: 122/78 Pulse: 68 Resp: 18 Temp: 98 ??F (36.7 ??C) TempSrc: Temporal SpO2: 98% Weight: 68.5 kg (151 lb) Height: 1.702 m (5' 7 ) Physical Exam Constitutional: Appearance: Normal appearance. HENT: Head: Normocephalic and atraumatic. Pulmonary: Effort: Pulmonary effort is normal. Musculoskeletal: Comments: She has arthritic changes present to the right knee. There is some swelling present to the medial aspect. She has crepitus with range of motion. She is able to fully flex and extend the knee. Her gait is normal There is no warmth or redness of the joint Skin: General: Skin is warm and dry. Neurological: Mental Status: She is alert and oriented to person, place, and time. Psychiatric: Mood and Affect: Mood normal. Behavior: Behavior normal. Thought Content: Thought content normal. Judgment: Judgment normal. Diagnoses/Impression: Encounter Diagnose(s) ICD-10-CM SNOMED CT(R) 1. Chronic pain of right knee M25.561 PAIN OF KNEE REGION XR KNEE RT 3V G89.29 Ambulatory referral to Orthopedics (OTHER) Plan Orders Placed: Orders Placed This Encounter XR KNEE RT 3V Ambulatory referral to Orthopedics (OTHER) Will proceed with x-ray of the right knee and referral to Ortho as requested LEORA JOYNER 11/27/2023 3:09 PM Cosigned by Mery Witt DO at 11/27/2023 5:26 PM CDT documented in this encounter Plan of Treatment Scheduled Referrals Name Type Priority Associated Diagnoses Orde r Schedule Ambulatory referral to Orthopedics (OTHER) Referral Routine Chronic pain of right knee Ordered: 11/27/2023 documented as of this encounter Results * XR KNEE RT 3V (11/27/2023 3:40 PM CDT) Anatomical Region Laterality Modality Knee Computed Tomogra phy 11/29/2023 7:58 AM CDT Impressions 11/29/2023 8:01 AM CDT IMPRESSION: No acute findings. Referred By: ?? Interpreted By: Ronal Tran MD, 11/29/2023 7:58 AM Narrative 11/29/2023 8:01 AM CDT [address] [place] [address] IMAGING STUDIES: XR KNEE RT 3V ? DATE: 11/27/2023 3:31 PM CLINICAL HISTORY: chronic knee pain. COMPARISON: No Comparisons. FINDINGS: No evidence of acute fracture, dislocation or osseous erosion. Near-total loss of medial joint space with mild sclerosis and moderate osteophyte. Moderate tibial spine spurring. ??Lateral joint space is well-maintained. ??Mild patellofemoral degenerative change. Small joint effusion Procedure Note Ronal Tran MD - 11/29/2023 [facility] [address] [place] [address] IMAGING STUDIES: XR KNEE RT 3V DATE: 11/27/2023 3:31 PM CLINICAL HISTORY: chronic knee pain. COMPARISON: No Comparisons. FINDINGS: No evidence of acute fracture, dislocation or osseous erosion. Near-total loss of medial joint space with mild sclerosis and moderateosteophyte. Moderate tibial spine spurring. Lateral joint space is well-maintained.Mild patellofemoral degenerative change. Small joint effusion IMPRESSION: No acute findings. Referred By: Interpreted By: Ronal Tran MD, 11/29/2023 7:58 AM [facility] Final Result documented in this encounter Visit Diagnoses Diagnosis Chronic pain of right knee- Primary Chronic pain of right knee documented in this encounter Additional Health Concerns Assessment Noted Time PHQ-9 Depression Total Score: 0 06/02/19 22 10:42 AM CDT documented as of this encounter Care Teams Veterinary Pathologist Relationship Specialty Start Date End Date Radha De La Cruz FNP [address] [place] [address] [place] [id number] PCP - General Nurse Practitioner Family 01/28/18 documented as of this encounter
--- OUTSIDE RECORDS SUMMARY | 2024-03-30 04:03 | XMS_ITS | Encounter Summary ---
Author Organization [facility] Address [address] [place] [address]. [place], [place] [id number] [place] [id number] Care Team Providers Care Stretching Machine Operator Name Role Phone Radha De La Cruz [facility] Primary Care Provider [phone] Reason for Visit * Reason Comments URI Started Friday after mowing and burning brush. Nasal congestion, cough, this am woke up with chest tightness and wheezing, and when she coughs it hurts in her chest, body aches started today Encounter Details Date Type Department Care Team (Late st Contact Info) Description 07/08/2022 9:40 AM CDT Office Visit [facility] [address] [place] [address] Sridhar Salazar MD [address] [place] [address] URI (Started Friday after mowing and burning brush. Nasal congestion, cough, this am woke up with chest tightness and wheezing, and when she coughs it hurts in her chest, body aches started today) Social History Tobacco Use Types Packs/Day Years Used Date Smoking Tobacco: Never Smokeless Tobacco: Never Tobacco Cessation:Counseling Given: No Alcohol Use Standard Drinks/Week Comments Yes 0 [...] on file Sexual Orientation Not on file COVID-19 Exposure Response Date Recorded In the last 10 days, have yo u been in contact with someone who was confirmed or suspected to have Coronavirus/COVID-19? No / Unsure 07/08/2022 9:37 AM CDT documented as of this encounter Last Filed Vital Signs Vital Sign Reading Time Taken Comments Blood Pressure 128/80 07/08/2022 9:43 AM CDT Pulse 70 07/08/2022 9:43 AM CDT Temperature 37.3 ??C (99.1 ??F) 07/08/2022 9:43 AM CD T Respiratory Rate 16 07/08/2022 9:43 AM CDT Oxygen Saturation 97% 07/08/2022 9:43 AM CDT Inhaled Oxygen Concentration - - Weight 78.5 kg (173 lb) 07/08/2022 9:43 AM CDT Height 170.2 cm (5' 7 ) 07/08/2022 9:43 AM CDT Body Mass Index 27.1 07/08/2022 9:43 AM CDT documented in this encounter Patient Instructions * Patient Instructions* Sridhar Salazar MD - 07/08/2022 9:40 AM CDT Can take tylenol 1000mg 3x daily as needed for fever, chills, body aches or fatigue - 500mg tablet 2-2-2 Can take mucinex DM 2x daily for congestion related symptoms until they resolve Finish steroid course Increase fluid intake documented in this encounter Progress Notes * Sridhar Salazar MD - 07/08/2022 9:40 AM CDT Lisa Baxter is a 62-year-old female who presents today alone for evaluation of URI (Started Friday after mowing and burning brush. Nasal congestion, cough, this am woke up with chest tightness and wheezing, and when she coughs it hurts in her chest, body aches started today) History of Present Illness: Pt is coming in today with a 4 day history of cough, congestion, chest tightness, wheezing, myalgias. Pt denies N/V/D. Pt has been taking otc. Rapid covid/influenza testing performed in office. Pts rapid test was negative. PE notable for bilateral mid ear effusion. Pt counseled likely viral uri and on supportive measures. Health Maitenance due was reviewed Health Maintenance Due Topic Date Due ??? Annual Physical Never done ??? Hepatitis C Never done ??? COVID-19 Vaccine (2 - Booster for Komal series) 08/14/2020 Current Outpatient Medications Medication Sig Dispense Refill ??? amLODIPine (NORVASC) 2.5 MG tablet Take 1 tablet (2.5 mg total) by mouth daily. 90 tablet 1 ??? atorvastatin (LIPITOR) 10 MG tablet TAKE 1 TABLET BY MOUTH EVERYDAY AT BEDTIME 90 tablet 1 ??? buPROPion XL (WELLBUTRIN XL) 300 MG 24 hr tablet TAKE 1 TABLET BY MOUTH EVERY DAY 90 tablet 1 ??? dextromethorphan-guaiFENesin ER (MUCINEX DM) 30-600 MG TABLET SR 12 HR 12 hr tablet Take 1 tablet by mouth every 12 (twelve) hours as needed. 28 tablet 0 ??? Krill Oil 1000 MG Cap Take 1 capsule by mouth daily. ??? lisinopril (PRINIVIL) 30 MG tablet Take 1 tablet (30 mg total) by mouth daily. 90 tablet 1 ??? methylPREDNISolone, ARVIND, (MEDROL DOSEPAK) 4 MG tablet Take 1 tablet (4 mg total) by mouth daily. 6 TABLETS ON DAY ONE, 5 TABLETS DAY TWO, 4 TABLETS DAY THREE, 3 TABLETS DAY FOUR, 2 TABLETS DAY FIVE, AND 1 TABLET DAY SIX 1 each 0 ??? Multiple Vitamin (ONCE DAILY) Tab Take 1 tablet by mouth. No current facility-administered medications for this visit. Past Medical History: Diagnosis Date ??? Cervical spinal stenosis 01/04/2022 ??? H/O left knee surgery 08/21/[address] Dony Reyes. Left knee unicompartment replacement. ??? Hyperlipidemia ??? Hyperlipidemia 04/01/2014 Date Onset: 06/18/2013 ??? Internal hemorrhoids ??? Mild episode of recurrent major depressive disorder (CMS/HCC) 07/08/2019 ??? SCC (squamous cell carcinoma), leg, right 06/14/[address] Barraza Past Surgical History: Procedure Laterality Date ??? APPENDECTOMY ??? COLONOSCOPY ??? HYSTERECTOMY ??? KNEE SURGERY 08/04/2018 Dr. Reyes. Left knee unicompartment replacement. Social History Tobacco Use ??? Smoking status: Never ??? Smokeless tobacco: Never Substance Use Topics ??? Alcohol use: Yes ??? Drug use: No No family history on file. No Known Allergies Review of Systems: Review of Systems Constitutional: Negative for chills and fever. HENT: Positive for congestion. Negative for sore throat. Eyes: Negative for pain and discharge. Respiratory: Positive for cough, chest tightness and wheezing. Negative for shortness of breath. Cardiovascular: Negative for chest pain and palpitations. Gastrointestinal: Negative for abdominal pain, diarrhea, nausea and vomiting. Genitourinary: Negative for dysuria and hematuria. Musculoskeletal: Negative for neck pain and neck stiffness. Skin: Negative for rash. Neurological: Negative for seizures, syncope and headaches. Psychiatric/Behavioral: Negative for agitation and confusion. Objective / Physical Exam: Filed Vitals: 07/08/22 0943 BP: 128/80 Pulse: 70 Resp: 16 Temp: 99.1 ??F (37.3 ??C) SpO2: 97% Weight: 78.5 kg (173 lb) Height: 5' 7 (1.702 m) Body mass index is 27.1 kg/m??. Physical Exam Vitals and nursing note reviewed. Constitutional: General: She is not in acute distress. Appearance: Normal appearance. She is well-developed. She is not ill-appearing, toxic-appearing or diaphoretic. HENT: Head: Normocephalic and atraumatic. Right Ear: External ear normal. Tympanic membrane is bulging. Tympanic membrane is not erythematous. A middle ear effusion is present. Left Ear: External ear normal. Tympanic membrane is bulging. Tympanic membrane is not erythematous.A middle ear effusion is present. Nose: Nose normal. Mouth/Throat: Oropharynx is clear and moist and mucous membranes are normal. Eyes: General: No scleral icterus. Right eye: No discharge. Left eye: No discharge. Conjunctiva/sclera: Conjunctivae normal. Cardiovascular: Rate and Rhythm: Normal rate and regular rhythm. Heart sounds: No murmur heard. Pulmonary: Effort: Pulmonary effort is normal. No respiratory distress. Breath sounds: Normal breath sounds. No stridor. No wheezing, rhonchi or rales. Abdominal: General: Bowel sounds are normal. Palpations: Abdomen is soft. Tenderness: There is no abdominal tenderness. Musculoskeletal: General: No deformity or signs of injury. Normal range of motion. Cervical back: Normal range of motion and neck supple. Skin: General: Skin is warm and dry. Neurological: General: No focal deficit present. Mental Status: She is alert and oriented to person, place, and time. Psychiatric: Mood and Affect: Mood normal. Behavior: Behavior normal. Assessment/Plan: Lisa was seen today for uri. Diagnoses and all orders for this visit: Acute cough - CORONAVIRUS (COVID-19) INFLUENZA A & B ANTIGEN IA PANEL - dextromethorphan-guaiFENesin ER (MUCINEX DM) 30-600 MG TABLET SR 12 HR 12 hr tablet; Take 1 tablet by mouth every 12 (twelve) hours as needed. Viral URI with cough - methylPREDNISolone, ARVIND, (MEDROL DOSEPAK) 4 MG tablet; Take 1 tablet (4 mg total) by mouth daily.6 TABLETS ON DAY ONE, 5 TABLETS DAY TWO, 4 TABLETS DAY THREE, 3 TABLETS DAY FOUR, 2 TABLETS DAY FIVE, AND 1 TABLET DAY SIX - dextromethorphan-guaiFENesin ER (MUCINEX DM) 30-600 MG TABLET SR 12 HR 12 hr tablet; Take 1 tablet by mouth every 12 (twelve) hours as needed. Fluid level behind tympanic membrane of both ears - methylPREDNISolone, ARVIND, (MEDROL DOSEPAK) 4 MG tablet; Take 1 tablet (4 mg total) by mouth daily.6 TABLETS ON DAY ONE, 5 TABLETS DAY TWO, 4 TABLETS DAY THREE, 3 TABLETS DAY FOUR, 2 TABLETS DAY FIVE, AND 1 TABLET DAY SIX Followup Plan: Return if symptoms worsen or fail to improve. Instructions on the sign/symptoms of worsening problems were given and verbal acknowledgement of understanding was noted. Those present were instructed to call the office during business hours or go to convenient care when the office is closed. If it's an emergency then go to an ER if necessary to address these worsening conditions. Sridhar Salazar MD, MPH Board Certified Family Medicine and Obesity Medicine [facility], [facility] 07/08/2022 documented in this encounter Plan of Treatment Not on file documented as of this encounter Procedures Procedure Name Priority Date/Time Associated Diagnosis Comments CORONAVIRUS (COVID-19) INFLUENZA A & B ANTIGEN IA PANEL Routine 07/08/2022 Acute cough documented in this encounter Results * CORONAVIRUS (COVID-19) INFLUENZA A & B ANTIGEN IA PANEL (07/08/2022) Pathologist [facility] CORONAVIRUS ANTIGEN IA NEGATIVE [facility] ([facility]), [place] INFLUENZA A NEGATIVE [facility]), [place] INFLUENZA B NEGAT[facility] [place] Internal Control: VALID [facility] ([address]), [place] NASAL STRUCTURE / Unknown 07/08/2022 us Sridhar Salazar MD MICROBIOLOGY - GENERAL ORDER ANAND Final Result [facility] ([address]), [address] [address], documented in this encounter Visit Diagnoses Diagnosis Acute cough- Primary Viral URI with cough Acute upper respiratory infections of unspecified site Fluid level behind tympanic membrane of both ears documented in this encounter Additional Health Concerns Infection Onset Date Last Indicated Resolved Time COVID-19 Rule Out 07/08/2022 07/08/2022 07/08/2022 10:09 AM CDT Assessment Noted Time PHQ-9 Depression Total Score: 0 06/02/19 22 10:42 AM CDT documented as of this encounter Care Teams Stretching Machine Operator Relationship Specialty Start Date End Date Radha De La Cruz FNP [address] [place] [address] [place] [address] PCP - General Nurse Practitioner Family 01/28/18 documented as of this encounter
--- OUTSIDE RECORDS SUMMARY | 2024-03-30 04:03 | XMS_ITS | Encounter Summary ---
Author Organization [facility] Address [address] [place] [address]. [place], [place] [id number] [place] [id number] Care Team Providers Care Cloth Printing Utility Worker Name Role Phone Radha De La Cruz Primary Care Provider [phone] Encounter Details Date Type Department Care Team (Latest Contact Info) Description 05/07/2023 Travel Social History Tobacco Use Types Packs/Day Years Used Date Smoking Tobacco: Never Smokeless Tobacco: Never Alcohol Use Standard Drinks/Week Comments Yes 0 [...] on file documented as of this encounter Plan of Treatment Not on file documented as of this encounter Visit Diagnoses Not on filedocumented in this encounter Additional Health Concerns Assessment Noted Time PHQ-9 Depression Total Score: 0 06/02/19 22 10:42 AM CDT documented as of this encounter Care Teams Cloth Printing Utility Worker Relationship Specialty Start Date End Date Radha De La Cruz FNP [address] [place] [address] [place] [address] PCP - General Nurse Practitioner Family 01/28/18 documented as of this encounter
--- OUTSIDE RECORDS SUMMARY | 2024-03-30 04:03 | XMS_ITS | Encounter Summary ---
Author Organization [facility] Address [address] [place] [address]. [place], [place] [id number] [place] [id number] Care Team Providers Care Stenotype Machine Operator Name Role Phone Radha De La Cruz Primary Care Provider [phone] Encounter Details Date Type Department Care Team (Latest Contact Info) Description 09/09/2023 Travel Social History Tobacco Use Types Packs/Day [...] documented as of this encounter Care Teams Stenotype Machine Operator Relationship Specialty Start Date End Date Radha De La Cruz FNP [address] [place] [address] [place] [address] PCP - General Nurse Practitioner Family 01/28/18 documented as of this encounter
--- OUTSIDE RECORDS SUMMARY | 2024-03-30 04:03 | XMS_ITS | Encounter Summary ---
Author Organization [facility] Address [address] [place] [address]. [place], [place] [id number] [place] [address] Care Team Providers Care Ux Design Manager Name Role Phone Radha De La Cruz Primary Care Provider [phone] Reason for Referral * Imaging (Routine) - Authorized Specialty Diagnoses / Procedures Referred By Doug cartagena Referred To Contact RADIOLOGY Diagnoses Anosmia Procedures MRI BRAIN WWO CON Radha De La Cruz FNP [address] [place] [address] Phone: tel: fax: [address] [place] [address] Phone: tel: fax: Referral ID Status Reason Start Date Expiration Date V isits Requested Visits Authorized [id number] Authorized 05/07/2023 05/07/2024 1 1 RAL SCRAP WORKER * Medication Prior Authorization - Closed Specialty Diagnoses / Procedures Referred By Doug cartagena Referred To Contact Diagnoses Overweight (BMI 25.0-29.9) Encounter for weight management Radha De La Cruz FNP [address] [place] [address] Phone: tel: fax: Referral ID Status Reason Start Date Expiration Date Visits Re quested Visits Authorized [id number] Closed 1 1 RAL SCRAP WORKER Reason for Visit * Reason Comments Physical Patient is here for her annual wellness visit Encounter Details Date Type Department Care Team (Late st Contact Info) Description 05/07/2023 11:00 AM GENERAL SCRAP WORKER Office Visit [facility] [address] [place], [place] [id number] Radha De La Cruz FNP [address] [place] [address] Physical (Patient is here for her annual wellness visit ) Social History Tobacco Use Types Packs/Day [...] Sign Reading Time Taken Comments Blood Pressure 122/76 05/07/2023 10:58 AM GENERAL SCRAP WORKER Pulse 74 05/07/2023 10:58 AM GENERAL SCRAP WORKER Temperature 35.6 ??C (96 ??F) 05/07/2023 10:58 AM GENERAL SCRAP WORKER Respiratory Rate 18 05/07/2023 10:58 AM GENERAL SCRAP WORKER Oxygen Saturation 98% 05/07/2023 10:58 AM GENERAL SCRAP WORKER Inhaled Oxygen Concentration - - Weight 78 kg (172 lb) 05/07/2023 10:58 AM GENERAL SCRAP WORKER Height 170.2 cm (5' 7 ) 05/07/2023 10:58 AM GENERAL SCRAP WORKER Body Mass Index 26.94 05/07/2023 10:58 AM GENERAL SCRAP WORKER documented in this encounter Patient Instructions * Patient Instructions* LEORA Horne - 05/07/2023 11:00 AM GENERAL SCRAP WORKER Consider getting influenza and RSV vaccines at the health dept Call the pharmay when refills are needed Consider getting the MRI done and we will let you know the results when available Follow a healthy diet and exercise regularly Take Zepbound weekly as rx. Follow up in 4 weeks. RAL SCRAP WORKER RAL SCRAP WORKER RAL SCRAP WORKER RAL SCRAP WORKER documented in this encounter Progress Notes * LEORA Horne - 05/07/2023 11:00 AM CST Lisa is a 62-year-old female patient. Reason for Visit: Physical (Patient is here for her annual wellness visit ) History of Present Illness: Lisa is a 62 year old female here for annual wellness physical. Her PMH includes hyperlipidemia, hypertension, prediabetes, depression, stress. She has history of athletic team physician annually. Dr. Antoinette Zapata. Her Pap smear was abnormal showing an positive HPV so she required a colposcopy which was negative. She will follow-up with him again in 1 year. Her mammogram is up-to-date in March 2023. She declines COVID-vaccine. She is willing to get the influenza and RSV vaccines which she will do at the health department She has not had a colonoscopy for about 10 years. Her athletic team physician ordered Cologuard but it has been greater than 3 years. She is willing to get another 1. She denies any family history of colon cancer. No changes in her bowels. She is on lisinopril 30 mg daily for hypertension. Her blood pressure has been well-controlled on this. She is on bupropion XL 300 mg daily for depression and stress which she feels works well for her. Last labs were in October 2022. They were all normal except her lipids were elevated. She had quit taking her atorvastatin due to muscle aches. She was prescribed rosuvastatin and she is tolerating itwell. I encouraged her to get Friday wellness labs to get a lipid panel soon. When I saw her in October 2022, she reported having decreased taste and smell. Today she tells me that she is still having the same issues. She says that she had a URI illness prior to the symptoms starting but did not do a COVID test. She denies having any headaches, dizzy spells, no weakness. No vision changes. She has known history of chronic sinus issues. She denies any facial trauma. She is requesting a GLP-1 for weight loss. Her BMI is 26.94. She does have a history of prediabetesbut her last hemoglobin A1c was 5.6 in October 2022. She says she tries eat healthy and exercises and her excess weight is not improving. Past Medical History: Diagnosis Date Cervical spinal stenosis 01/04/2022 H/O left knee surgery 08/21/[address] Dony Reyes. Left knee unicompartment replacement. Hyperlipidemia Hyperlipidemia 04/01/2014 Date Onset: 06/18/2013 Internal hemorrhoids Mild episode of recurrent major depressive disorder ([facility]/HCC) 07/08/2019 SCC (squamous cell carcinoma), leg, right 06/14/[address] Barraza Past Surgical History: Procedure Laterality Date APPENDECTOMY COLONOSCOPY HYSTERECTOMY KNEE SURGERY 08/04/2018 Dr. Reyes. Left knee unicompartment replacement. Medications: Current Outpatient Medications: buPROPion XL (WELLBUTRIN XL) 300 MG 24 hr tablet, TAKE 1 TABLET BY MOUTH EVERY DAY, Disp: 90 tablet, Rfl: 1 Krill Oil 1000 MG Cap, Take 1 capsule by mouth daily., Disp: , Rfl: lisinopril (PRINIVIL) 30 MG tablet, Take 1 tablet (30 mg total) by mouth daily. CALL FOR AN APPOINTMENT, Disp: 30 tablet, Rfl: 0 Multiple Vitamin (ONCE DAILY) Tab, Take 1 tablet by mouth., Disp: , Rfl: rosuvastatin (CRESTOR) 5 MG tablet, take 1 tablet by mouth everyday at bedtime, Disp: 90 tablet, Rfl: 0 No Known Allergies No family history on file. No family status information on file. Social History Socioeconomic History Marital status: Single Tobacco Use Smoking status: Never Smokeless tobacco: Never Substance and Sexual Activity Alcohol use: Yes Drug use: No ROS: Review of Systems Constitutional: Negative for chills, fever, malaise/fatigue and weight loss. HENT: Negative for congestion, ear pain, hearing loss, sinus pain, sore throat and tinnitus. Decreased taste and smell Eyes: Negative for blurred vision and double vision. Respiratory: Negative for cough, shortness of breath and wheezing. Cardiovascular: Negative for chest pain, palpitations, orthopnea and leg swelling. Gastrointestinal: Negative for abdominal pain, constipation, diarrhea, heartburn, nausea and vomiting. Musculoskeletal: Negative for back pain, myalgias and neck pain. Skin: Negative. Neurological: Negative for dizziness, tingling, tremors, sensory change, speech change, focal weakness, seizures, weakness and headaches. Psychiatric/Behavioral: Positive for depression (stable). Vitals: Filed Vitals: 05/07/23 1058 BP: 122/76 Pulse: 74 Resp: 18 Temp: 96 ??F (35.6 ??C) TempSrc: Temporal SpO2: 98% Weight: 78 kg (172 lb) Height: 1.702 m (5' 7 ) Physical Exam Constitutional: Appearance: Normal appearance. HENT: Head: Normocephalic and atraumatic. Right Ear: Tympanic membrane, ear canal and external ear normal. Left Ear: Tympanic membrane, ear canal and external ear normal. Nose: Nose normal. Mouth/Throat: Mouth: Mucous membranes are moist. Pharynx: Oropharynx is clear. Eyes: Conjunctiva/sclera: Conjunctivae normal. Pupils: Pupils are equal, round, and reactive to light. Cardiovascular: Rate and Rhythm: Normal rate and regular rhythm. Pulses: Normal pulses. Heart sounds: Normal heart sounds. Pulmonary: Breath sounds: Normal breath sounds. Abdominal: General: Bowel sounds are normal. There is no distension. Palpations: Abdomen is soft. There is no mass. Tenderness: There is no abdominal tenderness. Musculoskeletal: General: Normal range of motion. Cervical back: Neck supple. Lymphadenopathy: Cervical: No cervical adenopathy. Skin: General: Skin is warm and dry. Neurological: Mental Status: She is alert and oriented to person, place, and time. Psychiatric: Mood and Affect: Mood normal. Behavior: Behavior normal. Thought Content: Thought content normal. Judgment: Judgment normal. Diagnoses/Impression: Encounter Diagnose(s) ICD-10-CM SNOMED CT(R) 1. Annual physical exam Z00.00 PATIENT ENCOUNTER STATUS 2. Encounter for weight management Z76.89 PATIENT ENCOUNTER STATUS tirzepatide (ZEPBOUND) 2.5 MG/0.5ML injection 3. Overweight (BMI 25.0-29.9) E66.3 BODY MASS INDEX 25-29 - OVERWEIGHT tirzepatide (ZEPBOUND) 2.5 MG/0.5ML injection 4. Anosmia R43.0 LOSS OF SENSE OF SMELL MRI BRAIN WWO CON 5. Primary hypertension I10 ESSENTIAL HYPERTENSION 6. Mixed hyperlipidemia E78.2 MIXED HYPERLIPIDEMIA 7. Mild episode of recurrent major depressive disorder (CMS/HCC) F33.0 RECURRENT MAJOR DEPRESSIVE EPISODES, MILD 8. Colon cancer screening Z12.11 PATIENT ENCOUNTER STATUS COLOGUARD (EXACT SCIENCE) Plan Orders Placed: Orders Placed This Encounter MRI BRAIN WWO CON tirzepatide (ZEPBOUND) 2.5 MG/0.5ML injection COLOGUARD (EXACT SCIENCE) Doing well. Will continue to discuss breast cancer screening and screen per patient preference and guidelines. Self-breast exams are a level D recommendation by the USPSTF. Follow up with PCM if any abnormalities are noted. Mammograms should continue annually. Reviewed with the patient BMI, blood pr essure, diet, exercise, and encouraged healthy lifestyle choices. I recommended weight-bearing exercise to decrease risks of osteoporosis. Screened for substance use, risk factors for STIs, diet and exercise habits, and symptoms of depression. Colon screening starting at 45. Recommended preventive immunizations according to age. Pt declines COVID-vaccine. She wants to get influenza and RSV at the health department Mammogram is up-to-date Patient sees her athletic team physician annually Declines colonoscopy but willing to get Cologuard Discussed her anosmia as well as taste distortion. I advised that she get an MRI of the brain sinceher symptoms are persistent greater than 6 months. She does not have any other neurological symptoms at this time. Patient request GLP-1 for weight management. We discussed the potential side effects. Prescription for zepbound sent to the pharmacy at 2.5 mg weekly. Follow-up in 4 weeks Instructions Patient Instructions Consider getting influenza and RSV vaccines at the health dept Call the pharmay when refills are needed Consider getting the MRI done and we will let you know the results when available Follow a healthy diet and exercise regularly Take Wegovy weekly as rx. Follow up in 4 weeks. RADHA K DE LA CRUZ, PARTRIDGE FARMER 05/07/2023 7:41 AM Cosigned by Mery Witt DO at 2023 4:55 PM GENERAL SCRAP WORKER RAL SCRAP WORKER RAL SCRAP WORKER * Lizabeth Post RN - 05/07/2023 11:00 AM CST Patient informed of test results on my chart documented in this encounter Plan of Treatment Scheduled Orders Name Type Priority Associated Diagnoses Orde r Schedule MRI BRAIN WWO CON MRI Routine Anosmia Expected: 05/07/2023, Expires: 05/07/2024 documented as of this encounter Procedures Procedure Name Priority Date/Time Associated Diagnosis Comments COLOGUARD (EXACT SCIENCE) Routine 07/07/2023 9:30 AM CDT Colon cancer screening documented in this encounter Results * COLOGUARD (EXACT SCIENCE) (07/07/2023 9:30 AM CDT) COLOGUARD RESULT Negative Negative [facility] (CLIA #:[id number]) Comment: NEGATIVE TEST RESULT. A negative Cologuard result indicates a low likelihood that a colorectal cancer (CRC) or advanced adenoma (adenomatous polyps with more advanced pre-malignant features) ??is present. The chance that a person with a negative Cologuard test has a colorectal cancer is less than 1 in 1500 (negative predictive value >99.9%) or has an ??advanced adenoma is less than ??5.3% (negative predictive value 94.7%). These data are based on a prospective cross-sectional study of 10,000 individuals at average risk for colorectal cancer who were screened with both Cologuard and colonoscopy. (Etta Sauer, N Engl J Med 2014;370(14):1286- 1297) The normal value (reference range) for this assay is negative. COLOGUARD RE-SCREENING RECOMMENDATION: Periodic colorectal cancer screening is an important part of preventive healthcare for asymptomatic individuals at average risk for colorectal cancer. ??Following a negative Cologuard result, the [place] [employer] and U.S. Multi-Society Task Force screening guidelines recommend a Cologuard re-screening interval of 3 years. References: [place] [employer] Guideline for Colorectal Cancer Screening: https://www.cancer.org/cancer/jrdva-ywbrbb-icyhix/wqwuuxidq-hsqfsxdjf-islpeya/ac s-rec ommendations.html.; Herman DK, Rom KNIGHT, Durga CarlinK, Colorectal Cancer Screening: Recommendations for Physicians and Patients from the U.S. Multi-Society Task Force on Colorectal Cancer Screening , Am J Gastroenterology 2017; 112:8906-6643. TEST DESCRIPTION: Composite algorithmic analysis of stool DNA-biomarkers with hemoglobin immunoassay. ?? Quantitative values of individual biomarkers are not reportable and are not associated with individual biomarker result reference ranges. Cologuard is intended for colorectal cancer screening of adults of either sex, 45 years or older, who are at average-risk for colorectal cancer (CRC). Cologuard has been approved for use by the U.S. FDA. The performance of Cologuard was established in a cross sectional study of average-risk adults aged 50-84. Cologuard performance in patients ages 45 to 49 years was estimated by sub-group analysis of near-age groups. Colonoscopies performed for a positive result may find as the most clinically significant lesion: colorectal cancer [4.0%], advanced adenoma (including sessile serrated polyps greater than or equal to 1cm diameter) [20%] or non- advanced adenoma [31%]; or no colorectal neoplasia [45%]. These estimates are derived from a prospective cross-sectional screening study of 10,000 individuals at average risk for colorectal cancer who were screened with both Cologuard and colonoscopy. (Etta Cortés al, N Engl J Med 2014;370(14):1635-7598.) Cologuard may produce a false negative or false positive result (no colorectal cancer or precancerous polyp present at colonoscopy follow up). A negative Cologuard test result does not guarantee the absence of CRC or advanced adenoma (pre-cancer). The current Cologuard screening interval is every 3 years. ([place] [employer] and U.S. Multi-Society Task Force). Cologuard performance data in a 10,000 patient pivotal study using colonoscopy as the reference method can be accessed at the following location: www.[employer]/results. Additional description of the Cologuard test process, warnings and precautions can be found at www.cologuard.com. STOOL STOOL SPECIMEN / Unknown 07/07/2023 9:30 AM CDT 07/10/2023 10:57 AM CDT Radha COREY BODY FLUIDS AND STOOLS ORDERA BLES Final Result [facility], [employer] [address] [place] [address], [place] [phone] [facility] (CLIA #:[id number]) [address] [place] [address] documented in this encounter Visit Diagnoses Diagnosis Annual physical exam- Primary Routine general medical examination at a health care facility Encounter for weight management Overweight (BMI 25.0-29.9) Overweight Anosmia Disturbances of sensation of smell and taste Primary hypertension Unspecified essential hypertension Mixed hyperlipidemia Mild episode of recurrent major depressive disorder (CMS/HCC) Colon cancer screening Special screening for malignant neoplasms, colon documented in this encounter Additional Health Concerns Assessment Noted Time PHQ-9 Depression Total Score: 0 06/02/19 22 10:42 AM CDT documented as of this encounter Care Teams Ux Design Manager Relationship Specialty Start Date End Date Radha De La Cruz FNP [address] [place] [address] [place] [address] PCP - General Nurse Practitioner Family 01/28/18 documented as of this encounter
--- OUTSIDE RECORDS SUMMARY | 2024-03-30 04:03 | XMS_ITS | Encounter Summary ---
Author Organization [facility] Address [facility] [facility]. [place], [place] [id number] [place] [address] Care Team Providers Care Lead Pharmacy Technician Name Role Phone Radha De La Cruz Primary Care Provider [phone] Encounter Details Date Type Department Care Team (Late st Contact Info) Description 11/01/2022 Orders Only [facility] [address] [place], [place] [id number] Reyna Perkins LPN Social History Tobacco Use Types Packs/Day Years [...] documented as of this encounter Visit Diagnoses Diagnosis Mixed hyperlipidemia- Primary documented in this encounter Additional Health Concerns Assessment Noted Time PHQ-9 Depression Total Score: 0 06/02/19 22 10:42 AM CDT documented as of this encounter Care Teams Lead Pharmacy Technician Relationship Specialty Start Date End Date Radha De La Cruz FNP [address] [place] [address] [place] [address] PCP - General Nurse Practitioner Family 01/28/18 documented as of this encounter
--- OUTSIDE RECORDS SUMMARY | 2024-03-30 04:03 | XMS_ITS | Encounter Summary ---
Author Organization [facility] Address Formerly [facility]. [place], [place] [address] [place] [address] Care Team Providers Care Web Applications Programmer Name Role Phone Radha De La Cruz [facility] Primary Care Provider [phone] Reason for Visit * Reason Comments Medication Management Stopped taking desi rvastatin on 08/2022. States her legs felt heavy and sore, and can not take that anymore. Encounter Details Date Type Department Care Team (Late st Contact Info) Description 10/31/2022 4:00 PM CDT Office Visit [facility] [address] [place] [address] Radha De La Cruz [address] [place] [address] Medication Management (Stopped taking atorvastatin on 08/2022. States her legs felt heavy and sore, and can not take that anymore. ) Social History Tobacco Use Types Packs/Day [...] Sign Reading Time Taken Comments Blood Pressure 124/74 10/31/2022 3:57 PM CDT Pulse 74 10/31/2022 3:57 PM CDT Temperature 37.2 ??C (98.9 ??F) 10/31/2022 3:57 PM CD T Respiratory Rate 18 10/31/2022 3:57 PM CDT Oxygen Saturation 100% 10/31/2022 3:57 PM CDT Inhaled Oxygen Concentration - - Weight 77.1 kg (170 lb) 10/31/2022 3:57 PM CDT Height 170.2 cm (5' 7 ) 10/31/2022 3:57 PM CDT Body Mass Index 26.63 10/31/2022 3:57 PM CDT documented in this encounter Patient Instructions * Patient Instructions* LEORA Joyner - 10/31/2022 4:00 PM CDT Take the Augmentin as directed for the sinus symptoms You may use nasal saline rinse to help remove the thick discharge from the nose Report back to me in a week and a half regarding the sense of taste and smell If not improving, will consider doing imaging Start rosuvastatin and let me know if you have any recurrent muscle aches Come back tomorrow morning for fasting blood work. You must fast for 12 hours. You can come anytimeafter 745. documented in this encounter Progress Notes * LEORA Joyner - 10/31/2022 4:00 PM CDT Lisa is a 62-year-old female patient. Reason for Visit: Medication Management (Stopped taking atorvastatin on 08/2022. States her legs felt heavy and sore, and can not take that anymore. ) History of Present Illness: Lisa is a 62-year-old female patient who is here today for medication refills and a checkup. Herpast medical history includes hyperlipidemia, hypertension, prediabetes, depression, stress. She stopped taking atorvastatin couple months ago due to her legs feeling heavy and sore. She did not like the side effect. The sx went away after stopping it. She is on lisinopril 30 mg daily plus amlodipine 2.5 mg daily for hypertension. Her blood pressure has been well controlled on this. She is on bupropion XL 300 mg daily for depression/stress. She says she is feeling better taking the medication and would like to continue it. Last labs were in January 2022 for the Friday wellness. Hemoglobin A1c was stable at 5.9%. Lipid panel was in the normal range (on statin) and vitamin D was normal She noted a sudden change in her smell. Her smell is ammonia like. Bread is the worst. Nothing smells normal . No known covid or COVID symptoms prior to the symptoms starting. The taste distortionwas ammonia too and seems to be getting a little better. She has had a lot of hard thick mucous that is dried every morning in her nose. She continues with sinus drainage through out the day. It is thick in her nose. No headaches. No cough or sore throat. She has not had any changes in her vision. No dizziness. No weakness. No numbness or tingling in the arms or legs. Past Medical History: Diagnosis Date Cervical spinal [...] knee unicompartment replacement. Medications: Current Outpatient Medications: amLODIPine (NORVASC) 2.5 MG tablet, TAKE 1 TABLET BY MOUTH EVERY DAY, Disp: 30 tablet, Rfl: 0 buPROPion XL (WELLBUTRIN XL) 300 MG 24 hr tablet, TAKE 1 TABLET BY MOUTH EVERY DAY, Disp: 90 tablet, Rfl: 1 Krill Oil 1000 MG Cap, Take 1 capsule by mouth daily., Disp: , Rfl: lisinopril (PRINIVIL) 30 MG tablet, TAKE 1 TABLET BY MOUTH EVERY DAY, Disp: 90 tablet, Rfl: 1 Multiple Vitamin (ONCE DAILY) Tab, Take 1 tablet by mouth., Disp: , Rfl: atorvastatin (LIPITOR) 10 MG tablet, TAKE 1 TABLET BY MOUTH EVERYDAY AT BEDTIME (Patient not taking: Reported on 10/31/2022), Disp: 90 tablet, Rfl: 0 No Known Allergies No family history on file. No family status information on file. reports that she has never smoked. She has never used smokeless tobacco. She reports current alcohol use. She reports that she does not use drugs. ROS: Review of Systems Constitutional: Negative for chills, fever and malaise/fatigue. HENT: See HPI Respiratory: Negative for cough and shortness of breath. Cardiovascular: Negative for chest pain, palpitations and leg swelling. Musculoskeletal: Negative for myalgias. Neurological: Negative for dizziness, tingling, tremors, sensory change, focal weakness, weakness and headaches. Endo/Heme/Allergies: Negative for environmental allergies. Psychiatric/Behavioral: Positive for depression (Stable). The patient is not nervous/anxious and does not have insomnia. Vitals: Filed Vitals: 10/31/22 1557 BP: 124/74 Pulse: 74 Resp: 18 Temp: 98.9 ??F (37.2 ??C) TempSrc: Tympanic SpO2: 100% Weight: 77.1 kg (170 lb) Height: 5' 7 (1.702 m) Physical Exam Constitutional: Appearance: Normal appearance. HENT: Head: Normocephalic and atraumatic. Right Ear: Tympanic membrane, ear canal and external ear normal. Left Ear: Tympanic membrane, ear canal and external ear normal. Nose: Comments: His mucosa is erythematous and swollen bilaterally. There is no sinus discomfort with palpation. I do not see any discharge right now. Mouth/Throat: Mouth: Mucous membranes are moist. Pharynx: Oropharynx is clear. Eyes: Conjunctiva/sclera: Conjunctivae normal. Cardiovascular: Rate and Rhythm: Normal rate and regular rhythm. Pulmonary: Effort: Pulmonary effort is normal. Breath sounds: Normal breath sounds. Musculoskeletal: Cervical back: Neck supple. Lymphadenopathy: Cervical: No cervical adenopathy. Skin: General: Skin is warm and dry. Neurological: General: No focal deficit present. Mental Status: She is alert and oriented to person, place, and time. Gait: Gait normal. Psychiatric: Mood and Affect: Mood normal. Behavior: Behavior normal. Thought Content: Thought content normal. Judgment: Judgment normal. Diagnoses/Impression: Encounter Diagnose(s) ICD-10-CM SNOMED CT(R) 1. Mixed hyperlipidemia E78.2 MIXED HYPERLIPIDEMIA LIPID PANEL rosuvastatin (CRESTOR) 5 MG tablet 2. Primary hypertension I10 ESSENTIAL HYPERTENSION CBC W/DIFF AUTOMATED COMPREHENSIVE METABOLIC PANEL THYROID STIM HORMONE, TSH 3. Prediabetes R73.03 PREDIABETES HEMOGLOBIN, GLYCOSYLATED 4. Mild episode of recurrent major depressive disorder (CMS/HCC) F33.0 RECURRENT MAJOR DEPRESSIVE EPISODES, MILD 5. Situational stress F43.9 STRESS 6. Acute non-recurrent frontal sinusitis J01.10 ACUTE FRONTAL SINUSITIS amoxicillin-clavulanate (AUGMENTIN) 875-125 MG tablet 7. Anosmia R43.0 LOSS OF SENSE OF SMELL 8. Taste impairment R43.2 TASTE SENSE ALTERED Plan Orders Placed: Orders Placed This Encounter CBC W/DIFF AUTOMATED COMPREHENSIVE METABOLIC PANEL HEMOGLOBIN, GLYCOSYLATED LIPID PANEL THYROID STIM HORMONE, TSH rosuvastatin (CRESTOR) 5 MG tablet amoxicillin-clavulanate (AUGMENTIN) 875-125 MG tablet She will come back fasting tomorrow morning for annual labs. Further recommendations once those results are reviewed. Hyperlipidemia: She was intolerant of atorvastatin. We will try rosuvastatin low-dose, 5 mg daily, patient encouraged to let me know if she has any recurrence of her myalgias. We will uptitrate as tolerated. Hypertension: Continue lisinopril and amlodipine as it is controlling her blood pressure well She has prediabetes: We will get a follow-up hemoglobin A1c For depression,/situational stress continue Wellbutrin XL 300 mg daily She has anosmia and taste impairment. This correlated with the same time she noticed a lot of thickmucus in the nose that is dry and discolored. We will treat with Augmentin 875 twice daily as it could be related to sinus infection. If her symptoms do not quickly improve with antibiotic use, we will consider MRI of the brain. She has no other neurological symptoms. I encouraged her to use nasal saline to help with the removal of the thick mucus. I asked her to call and report to me on November 12 on how her symptoms are. She should call soonerif she has any new or worsening symptoms Instructions Patient Instructions Take the Augmentin as directed for the sinus symptoms You may use nasal saline rinse to help remove the thick discharge from the nose Report back to me in a week and a half regarding the sense of taste and smell If not improving, will consider doing imaging Start rosuvastatin and let me know if you have any recurrent muscle aches Come back tomorrow morning for fasting blood work. You must fast for 12 hours. You can come anytimeafter 745. LEORA JOYNER 10/31/2022 4:07 PM Cosigned by Mery Witt DO at 10/31/2022 5:14 PM CDT documented in this encounter Plan of Treatment Not on file documented as of this encounter Results * THYROID STIM HORMONE, TSH (11/01/2022 7:55 AM CDT) Pathologist [facility] [place] TSH 2.201 0.358 - 3.740 uIU/ML 11/01/2022 8:52 AM CDT [facility] Comment: HIGH DOSES OF BIOTIN MAY INTERFERE WITH THIS TEST RESULT. CORRELATION TO CLINICAL HISTORY AND PRESENTATION RECOMMENDED. 11/01/2022 7:55 AM CDT us Radha [facility] Final Result [facility] [address] [place] [address], * (ABNORMAL) LIPID PANEL (11/01/2022 7:55 AM CDT) CHOLESTEROL 268(H) 0 - 200 MG/DL 11/01/2022 8:52 AM CDT [facility] TRIGLYCERIDES 105 0 - 150 MG/DL 11/01/2022 8:52 AM CDT [facility] HDL 67 >40 MG/DL 11/01/2022 8:52 AM [facility] LDL (CALCULATED) 180(H) <100 MG/DL 11/01/2022 8:52 AM [facility] NON HDL CHOLESTEROL 201(H) 0 - 130 MG/DL 11/01/2022 8:52 AM [facility] Comment: NOTE: WHEN THE TRIGLYCERIDES ARE >200 mg/dL, NON HDL C IS A SECONDARY TARGET OF THERAPY, WITH A GOAL 30 mg/dL HIGHER THAN THE IDENTIFIED LDL C GOAL. CHOL/HDL RATIO 4.0 0.0 - 4.5 11/01/2022 8:52 AM [facility] VLDL CALCULATION 21 5 - 55 MG/DL 11/01/2022 8:52 AM [facility] LIPID INTERPRETATION 11/01/2022 8:52 AM [facility] Comment: NIH CONCENSUS REPORT RECOMMENDATIONS: ?ADULT ?CHILD ??LOW RISK: ?CHOLESTEROL ? <200 ? <170 ?TRIGLYCERIDE ?<150 ?--- ?HDL ? >=60 ?--- ?LDL ? <100 ? <110 ??BORDERLINE: ?CHOLESTEROL ? 200-239 ?? 170-199 ?TRIGLYCERIDE ?150-199 ? --- ?HDL ?40-59 ?--- ?LDL ? 100-159 ?? 110-129 ??HIGH RISK: ?CHOLESTEROL ? >=240 ?>=200 ?TRIGLYCERIDE ?>=200 ? --- ?HDL ?<40 ?--- ?LDL ? >=160 ?>=130 11/01/2022 7:55 AM CDT Radha De La Cruz [facility] Final Result Performing Organization Address [facility] de Phone Number [facility] [address] [place] [address], * HEMOGLOBIN, GLYCOSYLATED (11/01/2022 7:55 AM CDT) HGB A1C 5.6 0.0 - 5.6 % 11/01/2022 8:36 AM CDT [facility] Comment: ADA GUIDELINES 2010 5.7 TO 6.4% INCREASED RISK OF DIABETES > OR = 6.5% CONSISTENT WITH DIABETES ESTIMATED AVG GLUCOSE 114 mg/dL 11/01/2022 8:36 AM CDT [facility] 11/01/2022 7:55 AM CDT Radha De La Cruz [facility] Final Result Performing Organization Address [facility] de Phone Number [facility] [address] [place] [address], * (ABNORMAL) COMPREHENSIVE METABOLIC PANEL (11/01/2022 7:55 AM CDT) GLUCOSE 90 70 - 99 MG/DL 11/01/2022 8:52 AM CDT [facility] BUN 18 7 - 18 MG/DL 11/01/2022 8:52 AM CDT [facility] CREATININE S/P/B 0.97 0.50 - 1.20 MG/DL 11/01/2022 8:52 AM CDT [facility] SODIUM S/P/B 138 136 - 145 MMOL/L 11/01/2022 8:52 AM CDT [facility] POTASSIUM S/P/B 4.3 3.5 - 5.1 MMOL/L 11/01/2022 8:52 AM CDT [facility] CHLORIDE S/P/B 103 100 - 108 MMOL/L 11/01/2022 8:52 AM CDT [facility] CO2 27.5 21.0 - 32.0 MMOL/L 11/01/2022 8:52 AM CDT [facility] CALCIUM S/P/B 9.5 8.5 - 10.1 MG/DL 11/01/2022 8:52 AM CDT [facility] BILIRUBIN TOTAL S/P/B 0.4 0.2 - 1.2 MG/DL 11/01/2022 8:52 AM CDT [facility] Comment: THIS ASSAY IS NOT RECOMMENDED FOR PATIENTS UNDERGOING TREATMENT WITH ELTROMBOPAG DUE TO THE POTENTIAL FOR FALSELY ELEVATED RESULTS. TOTAL PROTEIN S/P/B 6.9 6.4 - 8.2 G/DL 11/01/2022 8:52 AM CDT [facility] ALBUMIN S/P/B 3.8 3.4 - 5.0 G/DL 11/01/2022 8:52 AM CDT [facility] AST 16 15 - 37 U/L 11/01/2022 8:52 AM CDT [facility] ALT 24 14 - 55 U/L 11/01/2022 8:52 AM CDT [facility] ALKALINE PHOSPHATASE S/P/B 75 50 - 136 U/L 11/01/2022 8:52 AM CDT [facility] ANION GAP 7.5 5.0 - 15.0 MMOL/L 11/01/2022 8:52 AM CDT [facility] BUN CREATININE RATIO 18.6 6 - 26 11/01/2022 8:52 AM CDT [facility] A/G RATIO 1.2 1.0 - 2.5 RATIO 11/01/2022 8:52 AM CDT [facility] GFR ESTIMATE 66(L) >90 ML/MIN/1.7 3 M2 11/01/2022 8:52 AM CDT [facility] Comment: NOTE: eGFR is not calculated for patients <18 years of age. This is an estimated GFR calculation using the new CKD EPI creatinine equation without race and so does not require a correction factor for race. This estimated GFR should not be used for calculating drug doses. 11/01/2022 7:55 AM CDT us Radha De La Cruz CHIEF FINANCIAL OFFICER LABORATORY Final Result [facility] [address] [address], * CBC W/DIFF AUTOMATED (11/01/2022 7:55 AM CDT) WBC 5.25 4.50 - 11.00 x10'3/uL 11/01/2022 8:27 AM CDT [facility] RBC 4.41 4.00 - 5.20 x10'6/uL 11/01/2022 8:27 AM CDT [facility] HGB 13.5 12.0 - 16.0 G/DL 11/01/2022 8:27 AM CDT [facility] HCT 39.5 36.0 - 46.0 % 11/01/2022 8:27 AM CDT [facility] MCV 89.6 80.0 - 100.0 FL 11/01/2022 8:27 AM CDT [facility] MCH 30.6 26.0 - 34.0 PG 11/01/2022 8:27 AM CDT [facility] MCHC 34.2 31.0 - 37.0 G/DL 11/01/2022 8:27 AM CDT [facility] RDW 12.8 11.6 - 14.8 % 11/01/2022 8:27 AM CDT [facility] PLT 247 140 - 415 x10'3/uL 11/01/2022 8:27 AM CDT [facility] MPV 8.9 7.0 - 12.0 FL 11/01/2022 8:27 AM CDT [facility] CBC COMMENT AUTOMATED RBC MORPHOLOGY AND PLATELET EVALUATION NORMAL 11/01/2022 8:27 AM CDT [facility] NEUTROPHILS % 60.1 40.0 - 74.0 % 11/01/2022 8:27 AM CDT [facility] LYMPHOCYTES % 26.7 14.0 - 46.0 % 11/01/2022 8:27 AM CDT [facility] MONOCYTES % 9.9 4.0 - 13.0 % 11/01/2022 8:27 AM CDT [facility] EOSINOPHILS 2.5 0.0 - 7.0 % 11/01/2022 8:27 AM CDT [facility] BASOPHILS 0.6 0.0 - 3.0 % 11/01/2022 8:27 AM CDT [facility] IMMATURE GRANS % 0.2 0.0 - 0.43 % 11/01/2022 8:27 AM CDT [facility] NRBC 0.0 % 11/01/2022 8:27 AM CDT [facility] ABS. NEUTROPHILS TOTAL 3.16 1.69 - 7.81 x10'3/uL 11/01/2022 8:27 AM CDT [facility] ABS. LYMPHOCYTES 1.40 0.21 - 5.42 x10'3/uL 11/01/2022 8:27 AM CDT [facility] ABS. MONOCYTES 0.52 0.04 - 1.37 x10'3/uL 11/01/2022 8:27 AM CDT [facility] ABS. EOSINOPHILS 0.13 0.00 - 0.68 x10'3/uL 11/01/2022 8:27 AM CDT [facility] ABS. BASOPHILS 0.03 0.00 - 0.08 x10'3/uL 11/01/2022 8:27 AM CDT [facility] ABS. IMMATURE GRANULOCYTES 0.01 0.00 - 0.06 x10'3/uL 11/01/2022 8:27 AM CDT [facility] ABS. NUCLEATED RBC'S 0.00 0.00 x10'3/uL 11/01/2022 8:27 AM CDT [facility] 11/01/2022 7:55 AM CDT us Radha [facility] Final Result [facility] [address] [place] [address], documented in this encounter Visit Diagnoses Diagnosis Mixed hyperlipidemia- Primary Primary hypertension Unspecified essential hypertension Prediabetes Other abnormal glucose Mild episode of recurrent major depressive disorder (CMS/HCC) Situational stress Other psychological or physical stress, not elsewhere classified Acute non-recurrent frontal sinusitis Anosmia Disturbances of sensation of smell and taste Taste impairment Disturbances of sensation of smell and taste documented in this encounter Additional Health Concerns Assessment Noted Time PHQ-9 Depression Total Score: 0 06/02/19 22 10:42 AM CDT documented as of this encounter Care Teams Web Applications Programmer Relationship Specialty Start Date End Date Radha De La Cruz FNP [address] [place] [address] [place] [address] PCP - General Nurse Practitioner Family 01/28/18 documented as of this encounter
--- OUTSIDE RECORDS SUMMARY | 2024-03-30 04:03 | XMS_ITS | Encounter Summary ---
Author Organization [facility] Address [address] [place] [address]. [place], [place] [address] [place] [address] Care Team Providers Care Manager Universal Name Role Phone Radha De La Cruz Primary Care Provider [phone] Encounter Details Date Type Department Care Team (Latest Contact Info) Description 10/31/2022 Travel Social History Tobacco Use Types Packs/Day [...] documented as of this encounter Care Teams Manager Universal Relationship Specialty Start Date End Date Radha De La Cruz FNP [address] [place] [address] [place] [address] PCP - General Nurse Practitioner Family 01/28/18 documented as of this encounter
--- OUTSIDE RECORDS SUMMARY | 2024-03-30 04:03 | XMS_ITS | Clinical Summary ---
Author Organization [facility] Address [facility]. [place], [place] [address] [place] [address] Care Team Providers Care Staff Internist Office Based Only Name Role Phone Radha De La Cruz SUPERVISOR [employer]ING[employer] Primary Care Provider [phone] Allergies No known active allergies Medications Multiple Vitamin (ONCE DAILY) Tab Take 1 tablet by mouth. Active tirzepatide (ZEPBOUND) 2.5 MG/0.5ML injectionIndic ations:Overwei ght (BMI 25.0-29.9),Enc ounter for weight management Inject 2.5 mg into the skin once a week. 2 mL 4 Active Additional Information Patient taking differently: 5 mgSubcutaneous Weekly, Reported on 09/09/2023 buPROPion XL (WELLBUTRIN XL) 300 MG 24 hr tabletIndicati ons:Anxiety take 1 tablet by mouth every day 90 tablet 1 4 Active Additional Information Patient not taking.Reported on 11/27/2023 vitamin D3 (CHOLECALCIFER OL) 25 mcg tablet Take 2 tablets (50 mcg total) by mouth daily. Active Active Problems Problem Noted Date Diagnosed Date Prediabetes 03/14/2022 Situational stress 03/14/2022 Primary hypertension 02/15/2022 Family history of heart dise ase in male family member before age 55 02/15/2022 Cervical spinal stenosis 01/04/2022 Mild episode of recurrent major depressive disor manish 07/08/2019 H/O left knee surgery 08/21/2018 Overview (08/24/2018): Left knee surgery by Dr. Dony Reyes. Left knee unicompartment replacement. Hyperlipidemia 04/01/2014 Overview (02/19/2018): Date Onset: 06/18/2013 Encounters Date Type Department Care Team Description 12/29/2023 Scan HEALTH INFO SRVCS Scanned, [facility] from Last 3 Months Immunizations Name Administration Dates Next Due Fluzone 6 Months+ Quad (0.5 mL Prefilled Syringe) 01/04/2022,01/23/2021 Influenza (Generic) 01/27/2017,01/26/2017,2014 Influenza Adult (Generic) 01/17/2020,01/18/2019, 12/09/2017 Shingrix 05/29/2021,03/06/2021 Td (TDVAX) 10/19/2007 Td (Tenivac) preservative free 10/19/2007 Tdap (Generic) 09/15/2017 Social History Tobacco Use Types Packs/Day Years [...] on file Sexual Orientation Not on file Last Filed Vital Signs Vital Sign Reading [...] Mass Index 23.65 11/27/2023 3:00 PM CDT Plan of Treatment Health Maintenance Due Date Last Done Comments Hepatitis C 1978 PHQ-2 (Physician [place]) 07/09/2023 07/08/2022 COVID-19 Vaccine ( - season) 2023 06/19/2020 Influenza Adult (#1) 2023 01/04/2022, 01/23/2021, 01/17/2020, Additional history exists Annual Physical 05/07/2024 05/07/2023 Mammogram Screening 04/02/2025 04/02/2023, 02/08/2022, 01/22/2021, Additional history exists Colorectal Cancer Screening FIT-DNA (3 Years) 07/06/2026 07/07/2023, 07/07/2023 DTaP, Tdap and Td Vaccines (2 - Td or Tdap) 09/16/2027 09/15/2017, 10/19/2007, 10/19/2007 RSV Immunization or 60+ Years (1 - 1-dose 75+ series) 05/09/2035 Zoster Vaccines Completed 05/29/2021, 03/06/2021 Meningococcal Vaccine Aged Out No latasha julien eligible based on patient's age to complete this topic Pneumococcal Vaccine: Pediatrics (0 to 5 Years) and At-Risk Patients (6 to 64 Years) Aged Out No longer eligible based on patient's age to complete this topic RSV Immunizations Under 20 Months Aged Out No longer eligible based on patient's age to complete this topic Procedures Procedure Name Priority Date/Time Associated Diagnosis Comments COLOGUARD (EXACT SCIENCE) Routine 07/07/2023 9:30 AM CDT Colon cancer screening MAMMOGRAM GENERIC (SCAN ORDER) 04/02/2023 from Last 3 Months or Most Recently Relevant to Health Maintenance Results * COLOGUARD (EXACT SCIENCE) (07/07/2023 9:30 AM CDT) COLOGUARD RESULT Negative Negative EX [employer] [facility] (CLIA #:[id number]) Comment: NEGATIVE TEST RESULT. A negative Cologuard [...] screened with both Cologuard and colonoscopy. (Etta Estrada. et al, N Engl J Med 2014;370(14):1286- 1297) The normal value (reference range) for this assay is negative. COLOGUARD RE-SCREENING RECOMMENDATION: Periodic colorectal cancer screening is an important part of preventive healthcare for asymptomatic individuals at average risk for colorectal cancer. ??Following a negative Cologuard result, the [place] [employer] Society and U.S. Multi-Society Task Force screening guidelines recommend a Cologuard re-screening interval of 3 years. References: [place] [employer] Guideline for Colorectal Cancer Screening: https://www.cancer.org/cancer/pyyec-rfjdql-iqqbtv/ceodendyi-jgztnoszw-bmghhyp/ac s-rec ommendations.html.; Herman DK, Rom CR, Durga CarlinK, Colorectal Cancer Screening: Recommendations for Physicians and Patients from the U.S. Multi-Society Task Force on Colorectal Cancer Screening , Am J Gastroenterology 2017; 112:1468-7543. TEST DESCRIPTION: Composite algorithmic analysis of stool [...] (Etta Cortés al, N Engl J Med 2014;370(14):5315-9605.) Cologuard may produce a false negative or false positive result (no colorectal cancer or precancerous polyp present at colonoscopy follow up). A negative Cologuard test result does not guarantee the absence of CRC or advanced adenoma (pre-cancer). The current Cologuard screening interval is every 3 years. ([place] [employer] Society and U.S. Multi-Society Task Force). Cologuard performance data in a 10,000 patient pivotal study using colonoscopy as the reference method can be accessed at the following location: www.[employer]/results. Additional description of the Cologuard test process, warnings and precautions can be found at www.[employer].com. STOOL STOOL SPECIMEN / Unknown 07/07/2023 9:30 AM CDT 07/10/2023 10:57 AM CDT Radha De La Cruz SUPERVISOR CONTINGENTS BODY FLUIDS AND STOOLS ORDERA BLES Final Result [facility] [address] [place] [address], [facility] (CLIA #:[id number]) [address] [place] [address] * MAMMOGRAM GENERIC (SCAN ORDER) (04/02/2023) Anatomical Region Laterality Modality Other 04/02/2023 us Doc [facility] Scanned SCANNING Final Resu lt from Last 3 Months or Most Recently Relevant to Health Maintenance Insurance [facility] Care Teams Staff Internist Office Based Only Relationship Specialty Start Date End Date Radha De La Cruz FNP [address] [place] [address] [place] [address] PCP - General Nurse Practitioner Family 01/28/18
--- OUTSIDE RECORDS SUMMARY | 2024-03-30 04:03 | XMS_ITS | Encounter Summary ---
Author Organization [facility] Address [address] [place] [address]. [place], [place] [address] [place] [address] Care Team Providers Care Air Pollution Engineer Name Role Phone Radha De La CruzP Primary Care Provider [phone] Reason for Visit * Reason Comments Medication Management Encounter Details Date Type Department Care Team (Late st Contact Info) Description 09/09/2023 11:00 AM CDT Office Visit [facility] [address] [place] [address] Radha De La Cruz FNP [address] [place] [address] Medication Management Social History Tobacco Use Types Packs/Day Years [...] Sign Reading Time Taken Comments Blood Pressure 122/82 09/09/2023 11:34 AM CDT Pulse 64 09/09/2023 11:10 AM CDT Temperature 36.7 ??C (98 ??F) 09/09/2023 11:10 AM CDT Respiratory Rate 16 09/09/2023 11:10 AM CDT Oxygen Saturation 98% 09/09/2023 11:10 AM CDT Inhaled Oxygen Concentration - - Weight 66.7 kg (147 lb) 09/09/2023 11:10 AM CDT Height 170.2 cm (5' 7 ) 09/09/2023 11:10 AM CDT Body Mass Index 23.02 09/09/2023 11:10 AM CDT documented in this encounter Patient Instructions * Patient Instructions* LEORA Joyner - 09/09/2023 11:00 AM CDT Stop Crestor and recheck labs in 6 to 8 weeks Stay off lisinopril. Monitor blood pressures 3 times a week and send me readings in 3 to 4 weeks documented in this encounter Progress Notes * LEORA Joyner - 09/09/2023 11:00 AM CDT Lisa is a 63-year-old female patient. Reason for Visit: Medication Management History of Present Illness: Lisa is a 63-year-old female patient who is here today for medication refills and a checkup. Herpast medical history includes hyperlipidemia, hypertension, prediabetes, depression, stress. Her last labs were done in October 2022. Lipid panel was elevated. The rest of the labs were normal.She is advised to start taking atorvastatin. She didn't tolerate it. Is now on Crestor 5 mg daily and is tolerating it well. She was on lisinopril 30 mg daily for hypertension. Her blood pressure was running in low 100s after losing weight so stopped taking it 4 weeks ago. She is checking her BP regularly and running 119 to 130/ under 80. She is on bupropion XL 300 mg daily for depression/stress. She says she is feeling better taking the medication and would like to continue it. She would like to continue lowering the dose once she finishes her 3-month supply which will be for couple more months. She is taking Zepbound for weight loss. Her weight is down 25 pounds since her last office visit [facility] 2023. Patient reports that she is getting this medication from [facility] weight loss clinic. She met with a physician and gets it compounded. She has been seen twice. She is doing gym work out 3 times a week and working on weight training also. She started it 06/03/2023. Past Medical History: Diagnosis Date Cervical spinal [...] tablet, take 1 tablet by mouth every day, Disp: 90 tablet, Rfl: 1 Multiple Vitamin (ONCE DAILY) Tab, Take 1 tablet by mouth., Disp: , Rfl: tirzepatide (ZEPBOUND) 2.5 MG/0.5ML injection, Inject 2.5 mg into the skin once a week. (Patient taking differently: Inject 5 mg into the skin once a week.), Disp: 2 mL, Rfl: 0 Review of patient's allergies indicates: No Known Allergies No family history on file. No family status information on file. reports that she has never smoked. She has never used smokeless tobacco. She reports current alcohol use. She reports that she does not use drugs. ROS: Review of Systems Constitutional: Positive for weight loss. Negative for chills, fever and malaise/fatigue. HENT: See HPI Respiratory: Negative for cough and shortness of breath. Cardiovascular: Negative for chest pain, palpitations and leg swelling. Gastrointestinal: Negative for abdominal pain, constipation, diarrhea, nausea and vomiting. Musculoskeletal: Negative for myalgias. Neurological: Negative for dizziness, tingling, tremors, sensory change, focal weakness, weakness and headaches. Endo/Heme/Allergies: Negative for environmental allergies. Psychiatric/Behavioral: Positive for depression (Stable). Negative for suicidal ideas. The patient is not nervous/anxious and does not have insomnia. Vitals: Filed Vitals: 09/09/23 1110 09/09/23 1134 BP: 126/80 122/82 Pulse: 64 Resp: 16 Temp: 98 ??F (36.7 ??C) TempSrc: Temporal SpO2: 98% Weight: 66.7 kg (147 lb) Height: 1.702 m (5' 7 ) Physical Exam Constitutional: Appearance: Normal appearance. HENT: Head: Normocephalic and atraumatic. Eyes: Conjunctiva/sclera: Conjunctivae normal. Cardiovascular: Rate and [...] Diagnoses/Impression: Encounter Diagnose(s) ICD-10-CM SNOMED CT(R) 1. Mild episode of recurrent major depressive disorder (CMS/HCC) F33.0 RECURRENT MAJOR DEPRESSIVE EPISODES, MILD 2. Anxiety F41.9 ANXIETY 3. Mixed hyperlipidemia E78.2 MIXED HYPERLIPIDEMIA 4. Prediabetes R73.03 PREDIABETES Plan Orders Placed: Orders Placed This Encounter vitamin D3 (CHOLECALCIFEROL) 25 mcg tablet Her blood pressure has normalized with 25 pound weight loss. She has been off lisinopril for 4 weeks and her blood pressure is in the normal range. I encouraged her to stay off of lisinopril and monitor blood pressure 3 times a week and report readings to me in 3 to 4 weeks She would like to stop taking her cholesterol medicine. Advised that she could put on hold for now and do fasting lab work at the end of October and we can reevaluate at that time whether she needs itor not. Continue healthy diet and continue to workout regularly She is on bupropion XL 300 mg daily for anxiety and depression. She feels like she has mentally improved and would like to continue to try to get off this medication. She has a large supply left at home. She will continue her 300 mg dose for now and contact me if she wants to try lowering the dose She has prediabetes. She will repeat hemoglobin A1c next month Follow-up in 3 months or sooner if needed Instructions Patient Instructions Stop Crestor and recheck labs in 6 to 8 weeks Stay off lisinopril. Monitor blood pressures 3 times a week and send me readings in 3 to 4 weeks LEORA JOYNER 09/09/2023 11:11 AM I personally spent a total of 35 minutes on the day of the encounter. This includes ahnp-bc-mene and cfh-rcxm-gl-face time I provided on the day of the encounter & excludes time spent performing separately reportable services. documented in this encounter Plan of Treatment Not on file documented as of this encounter Visit Diagnoses Diagnosis Mild episode of recurrent major depressive disorder (CMS/HCC)- Primary Anxiety Anxiety state, unspecified Mixed hyperlipidemia Prediabetes Other abnormal glucose documented in this encounter Additional Health Concerns Assessment Noted Time PHQ-9 Depression Total Score: 0 06/02/19 22 10:42 AM CDT documented as of this encounter Care Teams Air Pollution Engineer Relationship Specialty Start Date End Date Radha De La Cruz FNP [address] [place] [address] [place] [address] PCP - General Nurse Practitioner Family 01/28/18 documented as of this encounter
--- OUTSIDE RECORDS SUMMARY | 2024-03-30 04:03 | XMS_ITS | Encounter Summary ---
Author Organization [facility] Address [address] [facility] [place] [address] Care Team Providers Care Director Of Sales Support Name Role Phone Unavailable Primary Care Provider Unavailabl e Encounter Details Date Type Department Care Team (Late st Contact Info) Description 05/19/2018 Lab Requisition [facility] Care DermPath Lab [address] [place] [id number] Enrique Lubin MD [address] [place], [place] [id number] Social History Tobacco Use Types Packs/Day Years Used Date Smoking Tobacco: Never Assessed Sex and Gender Information Value Date Recorded Sex Assigned at Not on file Gender Identity Not on file Sexual Orientation Not on file documented as of this encounter Plan of Treatment Not on file documented as of this encounter Procedures Procedure Name Priority Date/Time Associated Diagnosis Comments DERMATOPATHOLOGY Routine 05/18/2018 12:0 0 AM CDT documented in this encounter Results * DERMATOPATHOLOGY (05/18/2018 12:00 AM CDT) Case Report Dermatopathology Report ? Case: [id number] ? Authorizing Provider: ??Enrique Lubin MD ? Collected: ? 05/18/2018 12:00 AM ? Pathologist: ? Cassi Espinoza MD ?Received: ?05/19/2018 09:10 AM ? Specimen: ?Skin, right forearm ? 1:40 PM CDT DERMATOPATHOLOGY LABORATORY Final Diagnosis Specimen A. SKIN, right forearm: NON-INFLAMMATORY PURPURA (D69.2) (see microscopic description and comment) 1:40 PM T DERMATOPATHOLOGY LABORATORY Clinical History R/O neoplasia. 1:40 PM CDT DERMATOPATHOLOGY LABORATORY Gross Description Specimen A: Received is one formalin filled container labeled with the patient's name and designated right forearm. The specimen consists of a shave biopsy measuring [id number]. Jar 0. 1:40 PM T DERMATOPATHOLOGY LABORATORY Microscopic Description Specimen A. SKIN, right forearm: Sections show extravasation of red blood cells into the dermis from small cutaneous vessels. No associated inflammation is present in the vessel collins. COMMENT: These histological findings are consistent with a non-inflammatory purpura, which include idiopathic thrombocytopenic purpura, senile purpura, psychogenic purpura, traumatic purpura, and drug purpuras. 1:40 PM T DERMATOPATHOLOGY LABORATORY Disclaimer An external and internal positive and negative controls are appropriate for the histochemical, immunohistochemical and immunofluorescence stain(s) in this case (if any), except where stated explicitly. The performance characteristics of the stain(s) cited in this report were developed and its performance characteristic determined by the Dermatopathology Laboratory at [facility], directed by Dr. Jayna Guzman. These tests need not be, and therefore are not, approved by the [place] Food and Drug Administration. The tests are used for clinical purposes. Billing Codes Specimen Charges Stain Charges 95432 1 1:40 PM CDT DERMATOPATHOLOGY LABORATORY Embedded Images 1:40 PM CDT DERMATOPATHOLOGY LABORATORY Pathology/Cytolog y TISSUE SPECIMEN FROM SKIN / Unknown 05/18/2018 05/19/2018 9:10 AM CDT Enrique Lubin MD LAB - PATHOLOGY/CYTO LOGY ORDERABLES DERMATOPATHOLOGY LABORATORY [facility] - Department of Dermatology [address] [place] [address] 5th Floor Lab [address] [phone] documented in this encounter Visit Diagnoses Not on filedocumented in this encounter
--- OUTSIDE RECORDS SUMMARY | 2024-03-30 04:03 | XMS_ITS | Encounter Summary ---
Author Organization [facility] Address [address] [place] [address]. [place], [place] [address] [place] [address] Care Team Providers Care Toll Mechanic Name Role Phone Radha De La Cruz Primary Care Provider [phone] Encounter Details Date Type Department Care Team (Latest Contact Info) Description 11/27/2023 Travel Social History Tobacco Use Types Packs/Day [...] documented as of this encounter Care Teams Toll Mechanic Relationship Specialty Start Date End Date Radha De La Cruz FNP [address] [place] [address] [place] [address] PCP - General Nurse Practitioner Family 01/28/18 documented as of this encounter
--- OUTSIDE RECORDS SUMMARY | 2024-03-30 04:03 | XMS_ITS | Encounter Summary ---
Author Organization [facility] Address [address] [place] [address]. [place], [place] [id number] [place] [address] Care Team Providers Care Matte Cutter Name Role Phone Radha De La Cruz Primary Care Provider [phone] Encounter Details Date Type Department Care Team (Latest Contact Info) Description 11/19/2023 Travel Social History Tobacco Use Types Packs/Day [...] documented as of this encounter Care Teams Matte Cutter Relationship Specialty Start Date End Date Radha De La Cruz FNP [address] [place] [address] [place] [address] PCP - General Nurse Practitioner Family 01/28/18 documented as of this encounter
--- OUTSIDE RECORDS SUMMARY | 2024-03-30 04:03 | XMS_ITS | Encounter Summary ---
Author Organization [facility] Address [address] [place] [address]. [place], [place] [address] [place] [address] Care Team Providers Care Net Development Manager Name Role Phone Radha De La Cruz [facility] Primary Care Provider [phone] Encounter Details Date Type Department Care Team (Latest Contact Info) Description 07/08/2022 Travel Social History Tobacco Use Types Packs/Day [...] AM CDT documented as of this encounter Plan of Treatment Not on file documented as of this encounter Visit Diagnoses Not on filedocumented in this encounter Additional Health Concerns Infection Onset Date Last Indicated Resolved Time COVID-19 Rule Out 07/08/2022 07/08/2022 07/08/2022 10:09 AM CDT Assessment Noted Time PHQ-9 Depression Total Score: 0 06/02/19 10:42 AM CDT documented as of this encounter Care Teams Net Development Manager Relationship Specialty Start Date End Date Radha De La Cruz FNP [address] [place] [address] [place] [address] PCP - General Nurse Practitioner Family 01/28/18 documented as of this encounter
--- OUTSIDE RECORDS SUMMARY | 2024-03-30 04:03 | XMS_ITS | Patient Health Summary ---
Author Organization [facility] Address [address] [place] [address] Care Team Providers Care User Interface Designer Name Role Phone Unavailable Primary Care Provider Unavailabl e Note from [facility],non-owned Affiliates and Associated Physician Practices is amultiple site organization consisting of ambulatory clinics and hospital sitesin [place], [place], [place] and [place]. This disclosure is being madepursuant to the Care Everywhere program and may not contain all information available regarding this patient. Last updated 17.[facility] Social History Tobacco Use Types Packs/Day Years Used Date Smoking Tobacco: Never Assessed Sex and Gender Information Value Date Recorded Sex Assigned at Not on file Gender Identity Not on file Sexual Orientation Not on file Procedures * DERMATOPATHOLOGY(Performed 05/06/2022) * DERMATOPATHOLOGY(Performed 11/08/2020) * DERMATOPATHOLOGY(Performed 05/18/2018) Results * DERMATOPATHOLOGY (05/06/2022 12:00 AM INCINERATOR PLANT LABORER) Only the most recent of3 resultswithin the time period is included. Case Report Dermatopathology Report ? Case: [id number] ? Authorizing Provider: ??Enrique Bourne MD ?Collected: ? 05/06/2022 12:00 AM ? Ordering Location: ? [facility] Care DermPath Lab ?Received: ?05/06/2022 03:45 PM ? Pathologist: ? Kimberli Beyer, ? MD ? Specimen: ?Skin, right abdomen ? 3 1:28 PM [facility] DERMATOPATHOLOGY LABORATORY Final Diagnosis Specimen A. SKIN, right abdomen: BASAL CELL CARCINOMA, SUPERFICIAL MULTIFOCAL (C44.519) NOT PRESENT AT SAMPLED MARGIN 3 1:28 PM [facility] DERMATOPATHOLOGY LABORATORY Clinical History R/O Benign Nevus vs. Neoplasm. Please Check Margins. 3 1:28 PM [facility] DERMATOPATHOLOGY LABORATORY Gross Description Specimen A: Received is one formalin filled container labeled with the patient's name and designated right abdomen. The specimen consists of a shave biopsy measuring [id number] and it is inked. Jar 0. 3 1:28 PM [facility] DERMATOPATHOLOGY LABORATORY Microscopic Description Specimen A. SKIN, right abdomen: Attached to the undersurface of the epidermis, there are small aggregates of basaloid cells with a high nuclear to cytoplasmic ratio and peripheral palisading. This lesion is not present at the sampled margin of the specimen. 3 1:28 PM [facility] DERMATOPATHOLOGY LABORATORY Disclaimer An external and internal positive and negative controls are appropriate for the histochemical, immunohistochemical and immunofluorescence stain(s) in this case (if any), except where stated explicitly. The performance characteristics of the stain(s) cited in this report were developed and its performance characteristic determined by the Dermatopathology Laboratory at [facility], directed by Dr. Jayna Guzman. These tests need not be, and therefore are not, approved by the [place] Food and Drug Administration. The tests are used for clinical purposes. Billing Codes Specimen Charges Stain Charges 47180 1 3 1:28 PM INCINERATOR PLANT LABORER DERMATOPATHOLOGY LABORATORY Embedded Images 3 1:28 PM INCINERATOR PLANT LABORER DERMATOPATHOLOGY LABORATORY Pathology/Cytolog y TISSUE SPECIMEN FROM SKIN / Unknown 05/06/2022 05/06/2022 3:45 PM INCINERATOR PLANT LABORER Enrique Bourne MD LAB - PATHOLOGY/CYTO LOGY ORDERABLES DERMATOPATHOLOGY LABORATORY [facility] - Department of Dermatology [address] [phone]
--- OUTSIDE RECORDS SUMMARY | 2024-03-30 04:03 | XMS_ITS | Encounter Summary ---
Author Organization [facility] Address [address] [place] [address]. [place], [place] [address] [place] [address] Care Team Providers Care Toll Service Observer Name Role Phone Radha De La Cruz [facility] Primary Care Provider [phone] Reason for Visit * Reason Comments Mammogram (SCAN) Encounter Details Date Type Department Care Team ([facility] Contact Info) Description 04/02/2023 Scan HEALTH INFO [facility] Scanned, Doc Med Group Mammogram (SCAN) Social History Tobacco Use Types Packs/Day Years [...] Procedure Name Priority Date/Time Associated Diagnosis Comments MAMMOGRAM GENERIC (SCAN ORDER) 04/02/2023 documented in this encounter Results * MAMMOGRAM GENERIC (SCAN ORDER) (04/02/2023) Anatomical Region Laterality Modality Other 04/02/2023 us Doc Med Group Scanned SCANNING Final Resu lt documented in this encounter Visit Diagnoses Not on filedocumented in this encounter Additional Health Concerns Assessment Noted Time PHQ-9 Depression Total Score: 0 06/02/19 22 10:42 AM CDT documented as of this encounter Care Teams Toll Service Observer Relationship Specialty Start Date End Date Radha De La Cruz FNP [address] [place] [address] [place] [address] PCP - General Nurse Practitioner Family 01/28/18 documented as of this encounter
--- OUTSIDE RECORDS SUMMARY | 2024-03-30 04:03 | XMS_ITS | Encounter Summary ---
Author Organization [facility] Address [address] [place] [address]. [place], [place] [address] [place] [address] Care Team Providers Care Canceling And Cutting Control Clerk Name Role Phone Radha De La CruzP Primary Care Provider [phone] Reason for Visit * Reason Comments Follow Up 3 week follow up Encounter Details Date Type Department Care Team (Late st Contact Info) Description 05/31/2022 1:00 PM CDT Office Visit [facility] [address] [place], [place] [id number] Radha De La Cruz [facility] [address] [place] [id number] Follow Up (3 week follow up) Social History Tobacco Use Types Packs/Day Years [...] Date Recorded Patient Health Questionnaire-2 Score 0 05/31/2022 Comments No Sex and Gender Information Value Date Recorded Sex Assigned at Not on file Legal Sex Female 2:50 AM CDT Gender Identity Not on file Sexual Orientation Not on file COVID-19 Exposure Response Date Recorded In the last 10 days, have duncan reagan been in contact with someone who was confirmed or suspected to have Coronavirus/COVID-19? No / Unsure 05/31/2022 12:47 PM CDT documented as of this encounter Last Filed Vital Signs Vital Sign Reading Time Taken Comments Blood Pressure 124/72 05/31/2022 12:57 PM CDT Pulse 78 05/31/2022 12:57 PM CDT Temperature 36.9 ??C (98.5 ??F) 05/31/2022 12:57 PM C DT Respiratory Rate 18 05/31/2022 12:57 PM CDT Oxygen Saturation 98% 05/31/2022 12:57 PM CDT Inhaled Oxygen Concentration - - Weight 78.6 kg (173 lb 3.2 oz) 05/31/2022 12:57 PM CDT Height 170.2 cm (5' 7 ) 05/31/2022 12:57 PM CDT Body Mass Index 27.13 05/31/2022 12:57 PM CDT documented in this encounter Patient Instructions * Patient Instructions* LEORA Joyner - 05/31/2022 1:00 PM CDT Call the pharmacy when medication refills are needed Continue to follow heart healthy diet and exercise regularly. See me in 6 months or sooner if needed documented in this encounter Progress Notes * LEORA Joyner - 05/31/2022 1:00 PM CDT Lisa is a 62-year-old female patient. Reason for Visit: Follow Up (3 week follow up) History of Present Illness: Lisa is a 62-year-old female patient who is here today for follow-up on hypertension. She was last seen 3 weeks ago. Her blood pressure had been running high Despite being on lisinopril 30 mg daily. Due to having the elevated blood pressures, amlodipine 2.5 mg was added. She has been monitoring her blood pressures and they are running in the 110s to 120s over 60s to 70s. She says she feels better. No headaches, chest pain, shortness of breath, dizziness. She has not noticed any side effects from the amlodipine. At last office visit, she was also having some left pinpoint upper arm pain. EKG was done and it was normal. X-ray of the humerus was done and it was normal. She has a history of chronic neck pain. We discussed that it could be related to the neck pain. Therefore, she is seeing a chiropractor and she says that the arm pain is improving. She is working on losing weight through diet and exercise. This was advised by her hoop maker. Her goal weight is 160 pounds which would put her at a BMI of 25. She is down 3 pounds since her last office visit 3 weeks ago. Past Medical History: Diagnosis Date ??? Cervical [...] knee unicompartment replacement. Medications: Current Outpatient Medications: ??? amLODIPine (NORVASC) 2.5 MG tablet, Take 1 tablet (2.5 mg total) by mouth daily., Disp: 30 tablet, Rfl: 0 ??? atorvastatin (LIPITOR) 10 MG tablet, TAKE 1 TABLET BY MOUTH EVERYDAY AT BEDTIME, Disp: 90 tablet, Rfl: 1 ??? buPROPion XL (WELLBUTRIN XL) 300 MG 24 hr tablet, TAKE 1 TABLET BY MOUTH EVERY DAY, Disp: 90 tablet, Rfl: 1 ??? Krill Oil 1000 MG Cap, Take 1 capsule by mouth daily., Disp: , Rfl: ??? lisinopril (PRINIVIL) 30 MG tablet, Take 1 tablet (30 mg total) by mouth daily., Disp: 90 tablet, Rfl: 1 ??? Multiple Vitamin (ONCE DAILY) Tab, Take 1 tablet by mouth., Disp: , Rfl: No Known Allergies No family history on file. No family status information on file. Social History Socioeconomic History ??? Marital status: Tobacco Use ??? Smoking status: Never ??? Smokeless tobacco: Never Substance and Sexual Activity ??? Alcohol use: Yes ??? Drug use: No ROS: Review of Systems Constitutional: Positive for weight loss (Intentional). Negative for malaise/fatigue. Respiratory: Negative for cough and shortness of breath. Cardiovascular: Negative for chest pain, palpitations and leg swelling. Musculoskeletal: Arm pain is improving Neurological: Negative for dizziness and headaches. Vitals: Filed Vitals: 05/31/22 1257 BP: 124/72 Pulse: 78 Resp: 18 Temp: 98.5 ??F (36.9 ??C) TempSrc: Tympanic SpO2: 98% Weight: 78.6 kg (173 lb 3.2 oz) Height: 5' 7 (1.702 m) Physical Exam Constitutional: Appearance: Normal appearance. HENT: Head: Normocephalic and atraumatic. Cardiovascular: Rate and Rhythm: Normal rate. Pulmonary: Effort: Pulmonary effort is normal. Breath sounds: Normal breath sounds. Musculoskeletal: Cervical back: Normal range of motion and neck supple. No tenderness. Skin: General: Skin is warm and dry. Neurological: Mental Status: She is alert and oriented to person, place, and time. Psychiatric: Mood and Affect: Mood normal. Behavior: Behavior normal. Thought Content: Thought content normal. Judgment: Judgment normal. Diagnoses/Impression: Encounter Diagnose(s) ICD-10-CM ICD-9-CM SNOMED CT(R) 1. Primary hypertension I10 401.9 ESSENTIAL HYPERTENSION amLODIPine (NORVASC) 2.5 MG tablet 2. Mixed hyperlipidemia E78.2 272.2 MIXED HYPERLIPIDEMIA 3. Prediabetes R73.03 790.29 PREDIABETES 4. Situational stress F43.9 V62.89 STRESS 5. Cervical spinal stenosis M48.02 723.0 SPINAL STENOSIS IN CERVICAL REGION Plan Orders Placed: Orders Placed This Encounter ??? amLODIPine (NORVASC) 2.5 MG tablet Blood pressure is under good control at this time with the amlodipine 2.5 mg plus lisinopril 30 mg daily. Continue to monitor blood pressure weekly with a goal of less than 130 over less than 85. Continue to work on following a healthy diet and exercise for weight loss We will monitor labs again in the fall to assess the prediabetes and hyperlipidemia. Continue Wellbutrin for situational stress, anxiety Discussed the chronic neck pain and at this time she feels that it is under good control and does not want anything else done at this point Follow-up in 6 months or sooner if needed Instructions Patient Instructions Call the pharmacy when medication refills are needed Continue to follow heart healthy diet and exercise regularly. See me in 6 months or sooner if needed LEORA JOYNER 05/31/2022 1:11 PM Cosigned by Mery Witt DO at 05/31/2022 4:30 PM CDT documented in this encounter Plan of Treatment Not on file documented as of this encounter Visit Diagnoses Diagnosis Primary hypertension- Primary Unspecified essential hypertension Mixed hyperlipidemia Prediabetes Other abnormal glucose Situational stress Other psychological or physical stress, not elsewhere classified Cervical spinal stenosis Spinal stenosis in cervical region documented in this encounter Additional Health Concerns Assessment Noted Time PHQ-9 Depression Total Score: 0 06/02/19 22 10:42 AM CDT documented as of this encounter Care Teams Canceling And Cutting Control Clerk Relationship Specialty Start Date End Date Radha De La Cruz FNP [address] [place] [address] [place] [address] PCP - General Nurse Practitioner Family 01/28/18 documented as of this encounter
--- OUTSIDE RECORDS SUMMARY | 2024-03-30 04:03 | XMS_ITS | Encounter Summary ---
Author Organization [facility] Address [address] [facility] [place] [address] Care Team Providers Care Mortar Man Name Role Phone Unavailable Primary Care Provider Unavailabl e Encounter Details Date Type Department Care Team (Late st Contact Info) Description 11/09/2020 Lab Requisition [facility] [address] [place] [address] Enrique Bourne MD [address] [place] [address] Social History Tobacco Use Types Packs/Day Years Used Date Smoking Tobacco: Never Assessed Sex and Gender Information Value Date Recorded Sex Assigned at Not on file Gender Identity Not on file Sexual Orientation Not on file documented as of this encounter Plan of Treatment Not on file documented as of this encounter Procedures Procedure Name Priority Date/Time Associated Diagnosis Comments DERMATOPATHOLOGY Routine 11/08/2020 3:33 AM CDT documented in this encounter Results * DERMATOPATHOLOGY (11/08/2020 3:33 AM CDT) Case Report Dermatopathology Report ? Case: [id number] ? Authorizing Provider: ??Enrique Bourne MD ?Collected: ? 11/08/2020 03:33 AM ? Ordering Location: ? [facility] ?Received: ?11/09/2020 06:56 AM ? Pathologist: ? Cathy Jernigan MD ? Specimen: ?Skin, right knee ? 11:10 AM [facility] Final Diagnosis Specimen A. SKIN, right knee: SQUAMOUS CELL CARCINOMA, WELL DIFFERENTIATED (C44.722) 11:10 AM [facility]ER[facility] Clinical History R/O verruca vs SCC. 11:10 AM [facility] Gross Description Specimen A: Received is one formalin filled container labeled with the patient's name and designated right knee. The specimen consists of a shave biopsy measuring [id number]. Jar 0. 11:10 AM [facility] DERMATOPATH[facility] Microscopic Description Specimen A. SKIN, right knee: Arising in the epidermis and extending into the dermis there are irregularly shaped aggregates of keratinocytes showing evidence of premature cornification. 11:10 AM [facility] DERMATOPATHOLOGY [facility]OR[facility]ORY Disclaimer An external and internal positive and negative controls are appropriate for the histochemical, immunohistochemical and immunofluorescence stain(s) in this case (if any), except where stated explicitly. The performance characteristics of the stain(s) cited in this report were developed and its performance characteristic determined by the Dermatopathology Laboratory at [facility], directed by Dr. Jayna Guzman. These tests need not be, and therefore are not, approved by the [place] Food and Drug Administration. The tests are used for clinical purposes. Billing Codes Specimen Charges Stain Charges 96677 1 09/03/202 1 11:10 AM CDT DERMATOPATHOLOGY LABORATORY Embedded Images 1 11:10 AM CDT DERMATOPATHOLOGY LABORATORY Pathology/Cytolo gy TISSUE SPECIMEN FROM SKIN / Unknown 11/08/2020 3:33 AM CDT 11/09/2020 6:56 AM CDT Enrique Bourne MD LAB - PATHOLOGY/CYTO LOGY ORDERABLES DERMATOPATHOLOGY LABORATORY [facility] - Department of Dermatology [facility] [address] [place] [address], [address] [phone] documented in this encounter Visit Diagnoses Not on filedocumented in this encounter
--- OUTSIDE RECORDS SUMMARY | 2024-03-30 04:03 | XMS_ITS | Encounter Summary ---
Author Organization [facility] Address [address] [place] [address]. [place], [place] [address] [place] [address] Care Team Providers Care Cable Puller Name Role Phone Radha De La Cruz [facility] Primary Care Provider [phone] Reason for Visit * Reason Onset Date Comments Medication 06/23/2023 Encounter Details Date Type Department Care Team (Late st Contact Info) Description 06/23/2023 Telephone [facility] [address] [place] [address] Radha De La Cruz [facility] [address] [place] [address] Medication Social History Tobacco Use Types Packs/Day Years [...] on file documented as of this encounter Progress Notes * Suri Jj LPN - 06/24/2023 9:49 AM CDTAddended by: SURI JJ on: 06/24/2023 09:49 AM Modules accepted: Orders * Suri Jj LPN - 06/24/2023 9:49 AM CDT Rx. Sent to pharm. * LEORA Horne - 06/23/2023 7:38 PM CDT Ok to refill x 90 days * Susanna Medina LPN - 06/23/2023 2:50 PM CDT Patient asking for refill on lisinopril. I checked the PDMP; Dr. Duque is filled. Last refill # 15 in May 2023. Patient notes she is no longer seeing Dr. Duque re; does not feel like he can offer anything morefor her. Patient asking if Isabela GLEZP-C would fill? * Kalie Dubois - 06/23/2023 2:43 PM CDT Patient is needing a refill on her Lisinopril sais they only gave her 7 pills last time BEN [place] documented in this encounter Plan of Treatment Not on file documented as of this encounter Visit Diagnoses Diagnosis Primary hypertension Unspecified essential hypertension documented in this encounter Additional Health Concerns Assessment Noted Time PHQ-9 Depression Total Score: 0 06/02/19 22 10:42 AM CDT documented as of this encounter Care Teams Cable Puller Relationship Specialty Start Date End Date Radha De La Cruz FNP [address] [place] [address] [place] [address] PCP - General Nurse Practitioner Family 01/28/18 documented as of this encounter
--- OUTSIDE RECORDS SUMMARY | 2024-03-30 04:03 | XMS_ITS | Encounter Summary ---
Author Organization [facility] Address [address] [place] [address]. [place], [place] [address] [place] [address] Care Team Providers Care Electrical Control Assembler Name Role Phone Radha De La Cruz Primary Care Provider [phone] Encounter Details Date Type Department Care Team (Latest Contact Info) Description 12/29/2023 Scan HEALTH INFO [facility] Scanned, Doc Med Group Social History Tobacco Use Types Packs/Day Years [...] documented as of this encounter Care Teams Electrical Control Assembler Relationship Specialty Start Date End Date Radha De La Cruz FNP [address] [place] [address] [place] [address] PCP - General Nurse Practitioner Family 01/28/18 documented as of this encounter
--- OUTSIDE RECORDS SUMMARY | 2024-03-30 04:03 | XMS_ITS | Encounter Summary ---
Author Organization [facility] Address [facility] [facility]. [place], [place] [address] [place] [address] Care Team Providers Care Puppy Walker Name Role Phone Radha De La Cruz [facility] Primary Care Provider [phone] Encounter Details Date Type Department Care Team (Late st Contact Info) Description 09/23/2022 Orders Only [facility] [address] [place] [phone] Radha De La Cruz [facility] [address] [place] [address] Social History Tobacco Use Types Packs/Day Years [...] documented as of this encounter Care Teams Puppy Walker Relationship Specialty Start Date End Date Radha De La Cruz FNP [address] [place] [address] [place] [address] PCP - General Nurse Practitioner Family 01/28/18 documented as of this encounter
--- OUTSIDE RECORDS SUMMARY | 2024-03-30 04:03 | XMS_ITS | Encounter Summary ---
Author Organization [facility] Address [facility]. [place], [place] [address] [place] [address] Care Team Providers Care Hemodialysis Technician Name Role Phone Radha De La Cruz [facility] Primary Care Provider [phone] Encounter Details Date Type Department Care Team (Late st Contact Info) Description 11/20/2023 [facility] Only [facility] [address] [place] [id number] Radha De La Cruz [facility] [address] [place] [id number] Social History Tobacco Use Types Packs/Day Years [...] as of this encounter Plan of Treatment Scheduled Orders Name Type Priority Associated Diagnoses Orde r Schedule LIPID PANEL Lab Routine Mixed hyperlipidemia Expected: 11/19/2024, Expires: 11/19/2025 documented as of this encounter Visit Diagnoses Diagnosis Mixed hyperlipidemia- Primary documented in this encounter Additional Health Concerns Assessment Noted Time PHQ-9 Depression Total Score: 0 06/02/19 22 10:42 AM CDT documented as of this encounter Care Teams Hemodialysis Technician Relationship Specialty Start Date End Date Radha De La Cruz FNP [address] [place] [address] [place] [address] PCP - General Nurse Practitioner Family 01/28/18 documented as of this encounter
--- OUTSIDE RECORDS SUMMARY | 2024-03-30 04:03 | XMS_ITS | Encounter Summary ---
Author Organization [facility] Address [address] [place] [address]. [place], [place] [address] [place] [address] Care Team Providers Care Corrugator Helper Name Role Phone Radha De La Cruz PUBLIC WORKS COMMISSIONER Primary Care Provider [phone] Encounter Details Date Type Department Care Team (Late st Contact Info) Description 11/19/2023 8:20 AM CDT Laboratory Only [facility] [address] [place], [place] [id number] Mihir Lauren MD [facility] [place] [address] Social History Tobacco Use Types Packs/Day Years [...] Progress Notes * Suri Jj LPN - 11/19/2023 8:20 AM CDT Pt. Notified. Verbalized understanding. documented in this encounter Plan of Treatment Not on file documented as of this encounter Procedures Procedure Name Priority Date/Time Associated Diagnosis Comments [facility] LIPID W/CALC LDL Routine 11/19/2023 8:35 AM CDT [facility] HEMOGLOBIN A1C Routine 11/19/2023 8:35 AM CDT documented in this encounter Results * (ABNORMAL) LIPID PROFILE (11/19/2023 8:35 AM CDT) CHOLESTEROL 233(H) <200 MG/DL 11/19/2023 2:25 PM CDT [facility] TRIGLYCERIDES 95 <150 MG/DL 11/19/2023 2:25 PM CDT [facility] HDL 68 >40.0 MG/DL 11/19/2023 2:25 PM CDT [facility] LDL (CALCULATED) 146(H) <100 MG/DL 11/19/2023 2:25 PM CDT [facility] NON HDL CHOLESTEROL 165(H) <130 MG/DL 11/19/2023 2:25 PM CDT [facility] CHOL/HDL RATIO 3.4 0.0 - 4.5 11/19/2023 2:25 PM CDT [facility] VLDL CALCULATION 19 5 - 55 MG/DL 11/19/2023 2:25 PM CDT [facility] LIPID INTERPRETATION 11/19/2023 2:25 PM CDT [facility] Comment: NIH CONCENSUS REPORT RECOMMENDATIONS: ?ADULT ?CHILD ??LOW RISK: ?CHOLESTEROL ? <200 ? <170 ?TRIGLYCERIDE ?<150 ?--- ?HDL ? >=60 ?--- ?LDL ? <100 ? <110 ??BORDERLINE: ?CHOLESTEROL ? 200-239 ?? 170-199 ?TRIGLYCERIDE ?150-199 ? --- ?HDL ?40-59 ?--- ?LDL ? 100-159 ?? 110-129 ??HIGH RISK: ?CHOLESTEROL ? >=240 ?>=200 ?TRIGLYCERIDE ?>=200 ? --- ?HDL ?<40 ?--- ?LDL ? >=160 ?>=130 11/19/2023 8:35 AM CDT us Mihir Lauren MD LABORATORY Final Result [facility] [address] [place] [address], [place] [phone] * HEMOGLOBIN A1C (11/19/2023 8:35 AM CDT) HGB A1C 5.2 <5.7 % 11/19/2023 11:50 PM CDT [facility] Comment: ADA GUIDELINES 2010 5.7 TO 6.4% INCREASED RISK OF DIABETES > OR = 6.5% CONSISTENT WITH DIABETES ESTIMATED AVG GLUCOSE 103 mg/dL 11/19/2023 11:50 PM CDT [facility] 11/19/2023 8:35 AM CDT Mhiir Lauren MD LABORATORY Final Result [facility] [address] [place] [address], documented in this encounter Visit Diagnoses Not on filedocumented in this encounter Additional Health Concerns Assessment Noted Time PHQ-9 Depression Total Score: 0 06/02/19 22 10:42 AM CDT documented as of this encounter Care Teams Corrugator Helper Relationship Specialty Start Date End Date Radha De La Cruz FNP [address] [place] [address] [place] [address] PCP - General Nurse Practitioner Family 01/28/18 documented as of this encounter
--- OUTSIDE RECORDS SUMMARY | 2024-03-30 04:03 | XMS_ITS | Encounter Summary ---
Author Organization [facility] Address [address] [place] [address]. [place], [place] [address] [place] [address] Care Team Providers Care Personalized Living Manager Nurse Name Role Phone Radha De La Cruz Primary Care Provider [phone] Encounter Details Date Type Department Care Team (Late st Contact Info) Description 11/27/2023 3:30 PM CDT - 11/27/2023 11:59 PM CDT Hospital Encounter [facility] Diagnostic Imaging [address] [place] [address] Radha De La Cruz FNP [address] [place] [phone] Discharge Disposition: Home or Self Care (Routine Discharge) Social History Tobacco Use Types Packs/Day Years [...] on file documented as of this encounter Medications at Time of Discharge buPROPion XL (WELLBUTRIN XL) 300 MG 24 hr tabletIndications :Anxiety take 1 tablet by mouth every day 90 tablet 1 08/06/2023 Multiple Vitamin (ONCE DAILY) Tab Take 1 tablet by mouth. tirzepatide (ZEPBOUND) 2.5 MG/0.5ML injectionIndicati ons:Overweight (BMI 25.0-29.9),Encoun ter for weight management Inject 2.5 mg into the skin once a week. 2 mL 05/07/2023 vitamin D3 (CHOLECALCIFEROL) 25 mcg tablet Take 2 tablets (50 mcg total) by mouth daily. documented as of this encounter Progress Notes * Eileen Munoz - 11/27/2023 3:30 PM CDT Pt. Notified. Verbalized understanding. documented in this encounter Plan of Treatment Not on file documented as of this encounter Procedures Procedure Name Priority Date/Time Associated Diagnosis Comments XR KNEE RT 3V Routine 11/27/2023 3:40 PM CDT Chronic pain of right knee documented in this encounter Results * XR KNEE RT 3V (11/27/2023 3:40 PM CDT) Anatomical Region Laterality Modality Knee Computed Tomogra phy 11/29/2023 7:58 AM CDT Impressions 11/29/2023 8:01 AM CDT IMPRESSION: No acute findings. Referred By: ?? Interpreted By: Ronal Tran MD, 11/29/2023 7:58 AM Narrative 11/29/2023 8:01 AM CDT [address] [place] [address] IMAGING STUDIES: XR KNEE RT 3V ? [...] Procedure Note Ronal Tran MD - 11/29/2023 [facility] [address] [place] [address] IMAGING STUDIES: XR KNEE RT 3V DATE: [...] Visit Diagnoses Diagnosis Chronic pain of right knee documented in this encounter Additional Health Concerns Assessment Noted Time PHQ-9 Depression Total Score: 0 06/02/19 22 10:42 AM CDT documented as of this encounter Care Teams Personalized Living Manager Nurse Relationship Specialty Start Date End Date Radha De La Cruz FNP [address] [place] [address] [place] [address] PCP - General Nurse Practitioner Family 01/28/18 documented as of this encounter
--- OUTSIDE RECORDS SUMMARY | 2024-03-30 04:03 | XMS_ITS | Encounter Summary ---
Author Organization [facility] Address [address] [place] [address]. [place], [place] [address] [place] [address] Care Team Providers Care Sourcing Manager Name Role Phone Radha De La Cruz Primary Care Provider [phone] Encounter Details Date Type Department Care Team (Late st Contact Info) Description 11/01/2022 7:56 AM CDT - 11/01/2022 11:59 PM CDT Hospital Encounter [facility] [address] [place], [place] [id number] Radha De La Cruz FNP [address] [place] [id number] Discharge Disposition: Home or Self Care (Routine [...] this encounter Medications at Time of Discharge Multiple Vitamin (ONCE DAILY) Tab Take 1 tablet by mouth. amLODIPine (NORVASC) 2.5 MG tabletIndications:Pr imary hypertension TAKE 1 TABLET BY MOUTH EVERY DAY 30 tablet 10/24/2022 4 amoxicillin-clavulan ate (AUGMENTIN) 875-125 MG tabletIndications:Ac gonzales non-recurrent frontal sinusitis Take 1 tablet (875 mg total) by mouth 2 (two) times daily for 10 days. 20 tablet 10/31/2022 3 buPROPion XL (WELLBUTRIN XL) 300 MG 24 hr tabletIndications:An xiety TAKE 1 TABLET BY MOUTH EVERY DAY 90 tablet 1 07/17/2022 3 Krill Oil 1000 MG Cap Take 1 capsule by mouth daily. 4 lisinopril (PRINIVIL) 30 MG tabletIndications:Pr imary hypertension TAKE 1 TABLET BY MOUTH EVERY DAY 90 tablet 1 10/01/2022 4 rosuvastatin (CRESTOR) 5 MG tabletIndications:Mi xed hyperlipidemia Take 1 tablet (5 mg total) by mouth nightly at bedtime. 30 tablet 2 10/31/2022 3 documented as of this encounter Plan of Treatment Not on file documented as of this encounter Procedures Procedure Name Priority Date/Time Associated Diagnosis Comments HEMOGLOBIN, GLYCOSYLATED Routine 11/01/2022 7:55 AM CDT Prediabetes COMPREHENSIVE METABOLIC PANEL Routine 11/01/2022 7:55 AM CDT Primary hypertension LIPID PANEL Routine 11/01/2022 7:55 AM CDT Mixed hyperlipidemia CBC W/DIFF AUTOMATED Routine 11/01/2022 7:55 AM CDT Primary hypertension THYROID STIM HORMONE TSH Routine 11/01/2022 7:55 AM CDT Primary hypertension documented in this encounter Results * CBC W/DIFF AUTOMATED (11/01/2022 7:55 AM CDT) WBC 5.25 4.50 - 11.00 x10'3/uL 11/01/2022 8:27 AM CDT [facility] RBC 4.41 4.00 - 5.20 x10'6/uL 11/01/2022 8:27 AM CDT [facility] HGB 13.5 12.0 - 16.0 G/DL 11/01/2022 8:27 AM CDT [facility] HCT 39.5 36.0 - 46.0 % 11/01/2022 8:27 AM CDT [facility] MCV 89.6 80.0 - 100.0 FL 11/01/2022 8:27 AM CDT [facility] MCH 30.6 26.0 - 34.0 PG 11/01/2022 8:27 AM CDT [facility] MCHC 34.2 31.0 - 37.0 G/DL 11/01/2022 8:27 AM CDT [facility] RDW 12.8 11.6 - 14.8 % 11/01/2022 8:27 AM CDT [facility] PLT 247 140 - 415 x10'3/uL 11/01/2022 8:27 AM CDT [facility] MPV 8.9 7.0 - 12.0 FL 11/01/2022 8:27 AM CDT [facility] CBC COMMENT AUTOMATED RBC MORPHOLOGY AND PLATELET EVALUATION NORMAL 11/01/2022 8:27 AM CDT [facility] NEUTROPHILS % 60.1 40.0 - 74.0 % 11/01/2022 8:27 AM CDT [facility] LYMPHOCYTES % 26.7 14.0 - 46.0 % 11/01/2022 8:27 AM CDT [facility] MONOCYTES % 9.9 4.0 - 13.0 % 11/01/2022 8:27 AM CDT [facility] EOSINOPHILS 2.5 0.0 - 7.0 % 11/01/2022 8:27 AM CDT [facility] BASOPHILS 0.6 0.0 - 3.0 % 11/01/2022 8:27 AM CDT [facility] IMMATURE GRANS % 0.2 0.0 - 0.43 % 11/01/2022 8:27 AM CDT [facility] NRBC 0.0 % 11/01/2022 8:27 AM CDT [facility] ABS. NEUTROPHILS TOTAL 3.16 1.69 - 7.81 x10'3/uL 11/01/2022 8:27 AM CDT [facility] ABS. LYMPHOCYTES 1.40 0.21 - 5.42 x10'3/uL 11/01/2022 8:27 AM CDT [facility] ABS. MONOCYTES 0.52 0.04 - 1.37 x10'3/uL 11/01/2022 8:27 AM CDT [facility] ABS. EOSINOPHILS 0.13 0.00 - 0.68 x10'3/uL 11/01/2022 8:27 AM CDT [facility] ABS. BASOPHILS 0.03 0.00 - 0.08 x10'3/uL 11/01/2022 8:27 AM CDT [facility] ABS. IMMATURE GRANULOCYTES 0.01 0.00 - 0.06 x10'3/uL 11/01/2022 8:27 AM CDT [facility] ABS. NUCLEATED RBC'S 0.00 0.00 x10'3/uL 11/01/2022 8:27 AM CDT [facility] 11/01/2022 7:55 AM CDT [facility] Final Result [address] [place] [address], * (ABNORMAL) COMPREHENSIVE METABOLIC PANEL (11/01/2022 7:55 AM CDT) [facility] GLUCOSE 90 70 - 99 MG/DL 11/01/2022 8:52 AM CDT [facility] BUN 18 7 - 18 MG/DL 11/01/2022 8:52 AM CDT [facility] CREATININE S/P/B 0.97 0.50 - 1.20 MG/DL 11/01/2022 8:52 AM CDT [facility] SODIUM S/P/B 138 136 - 145 MMOL/L 11/01/2022 8:52 AM CDT [facility] POTASSIUM S/P/B 4.3 3.5 - 5.1 MMOL/L 11/01/2022 8:52 AM CDT [facility] CHLORIDE S/P/B 103 100 - 108 MMOL/L 11/01/2022 8:52 AM CDT [facility] CO2 27.5 21.0 - 32.0 MMOL/L 11/01/2022 8:52 AM CDT [facility] CALCIUM S/P/B 9.5 8.5 - 10.1 MG/DL 11/01/2022 8:52 AM CDT [facility] BILIRUBIN TOTAL S/P/B 0.4 0.2 - 1.2 MG/DL 11/01/2022 8:52 AM CDT [facility] Comment: THIS ASSAY IS NOT RECOMMENDED FOR PATIENTS UNDERGOING TREATMENT WITH ELTROMBOPAG DUE TO THE POTENTIAL FOR FALSELY ELEVATED RESULTS. TOTAL PROTEIN S/P/B 6.9 6.4 - 8.2 G/DL 11/01/2022 8:52 AM CDT [facility] ALBUMIN S/P/B 3.8 3.4 - 5.0 G/DL 11/01/2022 8:52 AM CDT [facility] AST 16 15 - 37 U/L 11/01/2022 8:52 AM CDT [facility] ALT 24 14 - 55 U/L 11/01/2022 8:52 AM CDT [facility] ALKALINE PHOSPHATASE S/P/B 75 50 - 136 U/L 11/01/2022 8:52 AM CDT [facility] ANION GAP 7.5 5.0 - 15.0 MMOL/L 11/01/2022 8:52 AM CDT [facility] BUN CREATININE RATIO 18.6 6 - 26 11/01/2022 8:52 AM CDT [facility] A/G RATIO 1.2 1.0 - 2.5 RATIO 11/01/2022 8:52 AM CDT [facility] GFR ESTIMATE 66(L) >90 ML/MIN/1.7 3 M2 11/01/2022 8:52 AM CDT [facility] Comment: NOTE: eGFR is not calculated for patients <18 years of age. This is an estimated GFR calculation using the new CKD EPI creatinine equation without race and so does not require a correction factor for race. This estimated GFR should not be used for calculating drug doses. 11/01/2022 7:55 AM CDT Radha De La Cruz [facility] Final Result Performing Organization Address City/[facility]/ZIP Co de Phone Number [facility] [address] [place] [address], * HEMOGLOBIN, GLYCOSYLATED (11/01/2022 7:55 AM CDT) [facility] Signature HGB A1C 5.6 0.0 - 5.6 % 11/01/2022 8:36 AM CDT [facility] Comment: ADA GUIDELINES 2010 5.7 TO 6.4% INCREASED RISK OF DIABETES > OR = 6.5% CONSISTENT WITH DIABETES ESTIMATED AVG GLUCOSE 114 mg/dL 11/01/2022 8:36 AM CDT [facility] 11/01/2022 7:55 AM CDT Radha De La Cruz SECURITIES RESEARCH ANALYST [facility] Final Result [facility] [address] [address], * (ABNORMAL) LIPID PANEL (11/01/2022 7:55 AM CDT) [facility] CHOLESTEROL 268(H) 0 - 200 MG/DL 11/01/2022 8:52 AM CDT [facility] TRIGLYCERIDES 105 0 - 150 MG/DL 11/01/2022 8:52 AM CDT [facility] HDL 67 >40 MG/DL 11/01/2022 8:52 AM CDT [facility] LDL (CALCULATED) 180(H) <100 MG/DL 11/01/2022 8:52 AM CDT [facility] NON HDL CHOLESTEROL 201(H) 0 - 130 MG/DL 11/01/2022 8:52 AM CDT [facility] Comment: NOTE: WHEN THE TRIGLYCERIDES ARE >200 mg/dL, NON HDL C IS A SECONDARY TARGET OF THERAPY, WITH A GOAL 30 mg/dL HIGHER THAN THE IDENTIFIED LDL C GOAL. CHOL/HDL RATIO 4.0 0.0 - 4.5 11/01/2022 8:52 AM CDT [facility] VLDL CALCULATION 21 5 - 55 MG/DL 11/01/2022 8:52 AM CDT [facility] LIPID INTERPRETATION 11/01/2022 8:52 AM CDT [facility] Comment: [facility] REPORT RECOMMENDATIONS: ?ADULT ?CHILD ??LOW RISK: [...] 7:55 AM CDT Radha De La Cruz SECURITIES RESEARCH ANALYST [facility] Final Result Performing Organization Address [facility] de Phone Number [facility] [address] * THYROID STIM HORMONE, TSH (11/01/2022 7:55 AM CDT) TSH 2.201 0.358 - 3.740 uIU/ML 11/01/2022 8:52 AM CDT [facility] Comment: HIGH DOSES OF BIOTIN MAY INTERFERE WITH THIS TEST RESULT. CORRELATION TO CLINICAL HISTORY AND PRESENTATION RECOMMENDED. 11/01/2022 7:55 AM CDT Radha De La Cruz SECURITIES RESEARCH ANALYST [facility] Final Result Performing Organization Address [facility] de Phone Number [facility] [address] [facility] [place] [address], documented in this encounter Visit Diagnoses Diagnosis Primary hypertension Unspecified essential hypertension Mixed hyperlipidemia Prediabetes Other abnormal glucose documented in this encounter Additional Health Concerns Assessment Noted Time PHQ-9 Depression Total Score: 0 06/02/19 22 10:42 AM CDT documented as of this encounter Care Teams Sourcing Manager Relationship Specialty Start Date End Date Radha De La Cruz FNP [address] [place] [address] [place] [address] PCP - General Nurse Practitioner Family 01/28/18 documented as of this encounter
--- OUTSIDE RECORDS SUMMARY | 2024-03-30 04:03 | XMS_ITS | Encounter Summary ---
Author Organization [facility] Address [address] [place] [address] Care Team Providers Care Rainbow Trout Farm Manager Name Role Phone Unavailable Primary Care Provider Unavailabl e Encounter Details Date Type Department Care Team (Late st Contact Info) Description 05/06/2022 Lab Requisition [facility] [address] [place] [id number] Enrique Bourne MD [address] [place] [address] Social History Tobacco Use Types [...] Priority Date/Time Associated Diagnosis Comments DERMATOPATHOLOGY Routine 05/06/2022 12:0 0 AM CONTAINER FILLER documented in this encounter Results * DERMATOPATHOLOGY (05/06/2022 12:00 AM CONTAINER FILLER) Case Report Dermatopathology Report ? Case: [id number] ? Authorizing Provider: ??Enrique Bourne MD ?Collected: ? 05/06/2022 12:00 AM ? Ordering Location: ? [facility] ?Received: ?05/06/2022 03:45 PM ? Pathologist: ? Kimberli Beyer, ? MD ? Specimen: ?Skin, right abdomen ? 3 1:28 PM [facility] Final Diagnosis Specimen A. SKIN, right abdomen: BASAL CELL CARCINOMA, SUPERFICIAL MULTIFOCAL (C44.519) NOT PRESENT AT SAMPLED MARGIN 3 1:28 PM [facility] Clinical History R/O Benign Nevus vs. Neoplasm. Please Check Margins. 3 1:28 PM [facility] Gross Description Specimen A: Received is one formalin filled container labeled with the patient's name and designated right abdomen. The specimen consists of a shave biopsy measuring [id number] and it is inked. Jar 0. 3 1:28 PM [facility] Microscopic Description Specimen A. SKIN, right abdomen: Attached to the undersurface of the epidermis, there are small aggregates of basaloid cells with a high nuclear to cytoplasmic ratio and peripheral palisading. This lesion is not present at the sampled margin of the specimen. 3 1:28 PM [facility] Disclaimer An external and internal positive and negative controls are appropriate for the histochemical, immunohistochemical and immunofluorescence stain(s) in this case (if any), except where stated explicitly. The performance characteristics of the stain(s) cited in this report were developed and its performance characteristic determined by the Dermatopathology Laboratory at [facility], directed by Dr. Jayna Guzman. These tests need not be, and therefore are not, approved by the [place] Food and Drug Administration. The tests are used for clinical purposes. Billing Codes Specimen Charges Stain Charges 50455 1 3 1:28 PM [facility] Embedded Images 3 1:28 PM [facility] Pathology/Cytolog y TISSUE SPECIMEN FROM SKIN / Unknown 05/06/2022 05/06/2022 3:45 PM CONTAINER FILLER Enrique Bourne MD LAB - PATHOLOGY/CYTO LOGY ORDERABLES DERMATOPATHOLOGY LABORATORY [facility] - Department of Dermatology [address] [phone] documented in this encounter Visit Diagnoses Not on filedocumented in this encounter
--- OUTSIDE RECORDS SUMMARY | 2024-03-30 04:03 | XMS_ITS | Encounter Summary ---
Author Organization [facility] Address [address] [place] [address]. [place], [place] [id number] [place] [address] Care Team Providers Care Residential Mortgage Underwriter Name Role Phone Radha De La Cruz CIRCULATING NURSE Primary Care Provider [phone] Encounter Details Date Type Department Care Team (Latest Contact Info) Description 05/31/2022 Travel Social History Tobacco Use Types Packs/Day [...] PM CDT documented as of this encounter Plan of Treatment Not on file documented as of this encounter Visit Diagnoses Not on filedocumented in this encounter Additional Health Concerns Assessment Noted Time PHQ-9 Depression Total Score: 0 06/02/19 22 10:42 AM CDT documented as of this encounter Care Teams Residential Mortgage Underwriter Relationship Specialty Start Date End Date Radha De La Cruz FNP [address] [place] [address] [place] [address] PCP - General Nurse Practitioner Family 01/28/18 documented as of this encounter
--- OUTSIDE RECORDS SUMMARY | 2024-03-30 04:04 | XMS_ITS | Encounter Summary ---
Author Organization [facility] Address [address] [place] [address]. [place], [place] [id number] [place] [address] Care Team Providers Care Medical Resident Name Role Phone Radha DeL a Cruz [facility] Primary Care Provider Reason for Visit * Reason Onset Date Comments Poison Jacey/ Poison [place]/ Poison [place] 10/03/2021 Encounter Details Date Type Department Care Team (Late st Contact Info) Description 10/03/2021 Telephone [facility] [address] [place] [address] Radha De La Cruz FNP [address] [place] [address] Poison Jacey/ Poison [place]/ Poison [place] Social History Tobacco Use Types Packs/Day Years Used Date Smoking Tobacco: Never Smokeless Tobacco: Never Alcohol Use Standard Drinks/Week Comments Yes 0 (1 standard drink = 0.6 oz pur e alcohol) AUDIT-C Answer Date Recorded Frequency of Alcohol Consumption 2-4 times a fri02/19/2018 Average Number of Drinks Not on file 018 Frequency of Binge Drinking Not on file 02/07 PHQ-2 Answer Date Recorded PHQ-2 Score - If the patient scores above 3, please move on to questions 3-9 0 06/01/2021 Comments No Sex and Gender Information Value Date Recorded Sex Assigned at Not on file Legal Sex Female 2:50 AM CDT Gender Identity Not on file Sexual Orientation Not on file COVID-19 Exposure Response Date Recorded In the last 10 days, have yo u been in contact with someone who was confirmed or suspected to have Coronavirus/COVID-19? No / Unsure 09/25/2021 3:15 PM CDT documented as of this encounter Progress Notes * Reyna Perkins LPN - 10/03/2021 4:40 PM CDT Pt notified of new orders. Medication added and sent to [facility]. * LEORA Horne - 10/03/2021 3:16 PM CDT Triamcinolone 0.1 % cream. Apply bid to affected area. Do not use on face. OV If sx worsen * Reyna Perkins LPN - 10/03/2021 1:58 PM CDT Called pt asked when she noticed the rash. She said on last Thursday 09/28 she was cutting down a lot of brush and by Friday 09/29 she noticed the rash appearing. Isabela johnson advise * Suri Martinez - 10/03/2021 12:21 PM CDT Pt called asking to see if [facility] would give her something for poison jacey/oak she has it on her neck both wrist and her leg she is worried about it getting in her eyes. documented in this encounter Plan of Treatment Not on file documented as of this encounter Visit Diagnoses Diagnosis Rash- Primary Rash and other nonspecific skin eruption documented in this encounter Additional Health Concerns Assessment Noted Time PHQ-9 Depression Total Score: 0 06/02/19 22 10:42 AM CDT documented as of this encounter Care Teams Medical Resident Relationship Specialty Start Date End Date Radha De La Cruz FNP [address] [place] [address] [place] [address] PCP - General Nurse Practitioner Family 01/28/18 documented as of this encounter
--- OUTSIDE RECORDS SUMMARY | 2024-03-30 04:04 | XMS_ITS | Encounter Summary ---
Author Organization [facility] Address Formerly [facility], [facility] [facility]. [place], [place] [id number] [place] [address] Care Team Providers Care Retail And Restaurant Associate Name Role Phone Radha De La Cruz [facility] Primary Care Provider [phone] Reason for Visit * Reason Comments Ear Problem Complains of fluid i n her right ear,complains of drainage down her throat, sl runny nose,hoarsenessx 1 week; JSD Encounter Details Date Type Department Care Team (Late st Contact Info) Description 09/25/2021 3:00 PM CDT Office Visit [facility] [address] [place] [address] Radha De La Cruz, [facility] [address] [place] [address] Ear Problem (Complains of fluid in her right ear,complains of drainage down her throat, sl runny nose,hoarsenessx 1 week; JSD) Social History Tobacco Use Types Packs/Day Years [...] Sign Reading Time Taken Comments Blood Pressure 128/70 09/25/2021 3:21 PM CDT Pulse 80 09/25/2021 3:21 PM CDT Temperature 36.6 ??C (97.8 ??F) 09/25/2021 3:21 PM CD T Respiratory Rate 12 09/25/2021 3:21 PM CDT Oxygen Saturation 99% 09/25/2021 3:21 PM CDT Inhaled Oxygen Concentration - - Weight 81.2 kg (179 lb) 09/25/2021 3:21 PM CDT Height 170.2 cm (5' 7 ) 09/25/2021 3:21 PM CDT Body Mass Index 28.04 09/25/2021 3:21 PM CDT documented in this encounter Patient Instructions * Patient Instructions* LEORA Joyner - 09/25/2021 3:00 PM CDT We will treat the sinus infection with Augmentin 875 twice a day for 10 days May continue Flonase. May use Mucinex as needed for nasal symptoms Prednisone 40 mg daily x3 days Follow-up office visit in 10 to 14 days if symptoms are not significantly better. Will consider referral to ENT if ear symptoms persist. documented in this encounter Progress Notes * LEORA Joyner - 09/25/2021 3:00 PM CDT Lisa is a 61-year-old female patient. Reason for Visit: Ear Problem (Complains of fluid in her right ear,complains of drainage down her throat, sl runny nose,hoarsenessx 1 week; JSD) History of Present Illness: Lisa is a 61-year-old female patient here for sinus symptoms and ear pain. She was seen here last week for similar symptoms. At that time she also had redness and drainage from her eye. COVID testing was negative. She was given antibiotic eyedrop and the eye symptoms resolved in a couple of days. Now she has persistent nasal drainage, congestion, postnasal drainage, sinus pressure, right ear pain and pressure. She has been afebrile. She does not have a cough. She has been using Flonase and Claritin and it is not helping. Past Medical History: Diagnosis Date ??? H/O left knee surgery 08/21/2018 Left [...] unicompartment replacement. Medications: Current Outpatient Medications: ??? ATORVASTATIN 10 MG tablet, TAKE 1 TABLET BY MOUTH EVERYDAY AT BEDTIME, Disp: 90 tablet, Rfl: 1 ??? buPROPion XL 300 MG 24 hr tablet, Take 1 tablet (300 mg total) by mouth daily., Disp: 30 tablet, Rfl: 0 ??? Krill Oil 1000 MG Cap, Take 1 capsule by mouth daily., Disp: , Rfl: ??? Multiple Vitamin (ONCE DAILY) Tab, Take 1 tablet by mouth., Disp: , Rfl: No Known Allergies No family history on file. No family status information on file. Social History Socioeconomic History ??? Marital status: Tobacco Use ??? Smoking status: Never Smoker ??? Smokeless tobacco: Never Used Substance and Sexual Activity ??? Alcohol use: Yes ??? Drug use: No ROS: Review of Systems Constitutional: Negative for chills, fever and malaise/fatigue. HENT: Positive for congestion, ear pain and sinus pain. Negative for ear discharge and sore throat. Respiratory: Negative for cough and shortness of breath. Cardiovascular: Negative for chest pain. Musculoskeletal: Negative for myalgias. Neurological: Negative for dizziness and headaches. Vitals: Filed Vitals: 09/25/21 1521 BP: 128/70 Pulse: 80 Resp: 12 Temp: 97.8 ??F (36.6 ??C) TempSrc: Temporal SpO2: 99% Weight: 81.2 kg (179 lb) Height: 5' 7 (1.702 m) PainSc: 0 (0-10 Scale) Physical Exam Vitals and nursing note reviewed. Constitutional: General: She is not in acute distress. Appearance: Normal appearance. She is not ill-appearing. HENT: Head: Normocephalic and atraumatic. Left Ear: Tympanic membrane, ear canal and external ear normal. Ears: Comments: She has fluid present behind the right TM. No erythema Nose: Comments: Frontal sinus pain with palpation Mouth/Throat: Mouth: Mucous membranes are moist. Pharynx: Oropharynx is clear. Cardiovascular: Rate and Rhythm: Normal rate and regular rhythm. Pulmonary: Effort: Pulmonary effort is normal. Breath sounds: Normal breath sounds. Musculoskeletal: Cervical back: Neck supple. Lymphadenopathy: Cervical: No cervical adenopathy. Skin: General: Skin is warm and dry. Neurological: Mental Status: She is alert and oriented to person, place, and time. Diagnoses/Impression: Encounter Diagnose(s) ICD-10-CM ICD-9-CM SNOMED CT(R) 1. Acute non-recurrent frontal sinusitis J01.10 461.1 ACUTE FRONTAL SINUSITIS amoxicillin-clavulanate (AUGMENTIN) 875-125 MG tablet 2. Non-recurrent acute serous otitis media of right ear H65.01 381.01 ACUTE NON- SUPPURATIVE OTITIS MEDIA - SEROUS predniSONE (DELTASONE) 20 MG tablet Plan Orders Placed: Orders Placed This Encounter ??? amoxicillin-clavulanate (AUGMENTIN) 875-125 MG tablet ??? predniSONE (DELTASONE) 20 MG tablet We will treat the sinusitis with Augmentin 875 twice a day for 10 days May continue Flonase. May use Mucinex as needed for nasal symptoms Prednisone 40 mg daily x3 days Follow-up office visit in 10 to 14 days if symptoms are not significantly better. Will consider referral to ENT if her ear symptoms persist. Instructions Patient Instructions We will treat the sinus infection with Augmentin 875 twice a day for 10 days May continue Flonase. May use Mucinex as needed for nasal symptoms Prednisone 40 mg daily x3 days Follow-up office visit in 10 to 14 days if symptoms are not significantly better. Will consider referral to ENT if ear symptoms persist. LEORA JOYNER 09/25/2021 3:30 PM Cosigned by Mery Witt DO at 09/25/2021 5:27 PM CDT documented in this encounter Plan of Treatment Not on file documented as of this encounter Visit Diagnoses Diagnosis Acute non-recurrent frontal sinusitis- Primary Non-recurrent acute serous otitis media of right ear documented in this encounter Additional Health Concerns Assessment Noted Time PHQ-9 Depression Total Score: 0 06/02/19 22 10:42 AM CDT documented as of this encounter Care Teams Retail And Restaurant Associate Relationship Specialty Start Date End Date Radha De La Cruz FNP [address] [place] [address] [place] [address] PCP - General Nurse Practitioner Family 01/28/18 documented as of this encounter
--- OUTSIDE RECORDS SUMMARY | 2024-03-30 04:04 | XMS_ITS | Encounter Summary ---
Author Organization [facility] Address [address] [place] [address]. [place], [place] [id number] [place] [address] Care Team Providers Care Rn Faculty Name Role Phone Radha De La Cruz GOVERNMENT CLERK Primary Care Provider [phone] Encounter Details Date Type Department Care Team (Latest Contact Info) Description 03/19/2022 Travel Social History Tobacco Use Types Packs/Day [...] please move on to questions 3-9 0 02/11/2022 Comments No Sex and Gender Information Value Date Recorded Sex Assigned at Not on file Legal Sex Female 2:50 AM CDT Gender Identity Not on file Sexual Orientation Not on file COVID-19 Exposure Response Date Recorded In the last 10 days, have yo u been in contact with someone who was confirmed or suspected to have Coronavirus/COVID-19? No / Unsure 03/19/2022 7:59 AM NEWS WRITER documented as of this encounter Plan of Treatment Not on file documented as of this encounter Visit Diagnoses Not on filedocumented in this encounter Additional Health Concerns Assessment Noted Time PHQ-9 Depression Total Score: 0 06/02/19 10:42 AM CDT documented as of this encounter Care Teams Rn Faculty Relationship Specialty Start Date End Date Radha De La Cruz FNP [address] [place] [address] [place] [address] PCP - General Nurse Practitioner Family 01/28/18 documented as of this encounter
--- OUTSIDE RECORDS SUMMARY | 2024-03-30 04:04 | XMS_ITS | Encounter Summary ---
Author Organization [facility] Address [address] [place] [address]. [place], [place] [address] [place] [address] Care Team Providers Care Setter Out Name Role Phone Radha De La Cruz COMBAT SYSTEMS OPERATOR Primary Care Provider [phone] Reason for Visit * Reason Onset Date Comments Consult 02/18/2022 Encounter Details Date Type Department Care Team (Late st Contact Info) Description 02/18/2022 Telephone [facility] [id number] Meredith High, RMA Consult Social History Tobacco Use Types Packs/Day Years [...] suspected to have Coronavirus/COVID-19? No / Unsure 02/15/2022 3:14 PM METAL SOLDERER documented as of this encounter Progress Notes * RUBINA Avitia - 02/18/2022 9:47 AM CST Left message to schedule cardiology consult per Radha De La Cruz NP L SOLDERER documented in this encounter Plan of Treatment Not on file documented as of this encounter Visit Diagnoses Not on filedocumented in this encounter Additional Health Concerns Assessment Noted Time PHQ-9 Depression Total Score: 0 06/02/19 22 10:42 AM CDT documented as of this encounter Care Teams Setter Out Relationship Specialty Start Date End Date Radha De La Cruz FNP [address] [place] [address] [place] [address] PCP - General Nurse Practitioner Family 01/28/18 documented as of this encounter
--- OUTSIDE RECORDS SUMMARY | 2024-03-30 04:04 | XMS_ITS | Encounter Summary ---
Author Organization [facility] Address [address] [place] [address]. [place], [place] [address] [place] [address] Care Team Providers Care Health Support Specialist Name Role Phone Radha De La Cruz CUPROUS CHLORIDE OPERATOR Primary Care Provider [phone] Encounter Details Date Type Department Care Team (Latest Contact Info) Description 02/11/2022 Travel Social History Tobacco Use Types Packs/Day [...] suspected to have Coronavirus/COVID-19? No / Unsure 02/11/2022 2:59 PM ELECTRIC CONTAINER TESTER documented as of this encounter Plan of Treatment Not on file documented as of this encounter Visit Diagnoses Not on filedocumented in this encounter Additional Health Concerns Assessment Noted Time PHQ-9 Depression Total Score: 0 06/02/19 10:42 AM CDT documented as of this encounter Care Teams Health Support Specialist Relationship Specialty Start Date End Date Radha De La Cruz FNP [address] [place] [address] [place] [address] PCP - General Nurse Practitioner Family 01/28/18 documented as of this encounter
--- OUTSIDE RECORDS SUMMARY | 2024-03-30 04:04 | XMS_ITS | Encounter Summary ---
Author Organization [facility] Address [address] [place] [address]. [place], [place] [address] [place] [address] Care Team Providers Care Metal Turner Name Role Phone Radha De La Cruz CLOTH COVERER Primary Care Provider [phone] Encounter Details Date Type Department Care Team (Latest Contact Info) Description 01/04/2022 Travel Social History Tobacco Use Types Packs/Day [...] please move on to questions 3-9 0 01/04/2022 Comments No Sex and Gender Information Value Date Recorded Sex Assigned at Not on file Legal Sex Female 2:50 AM CDT Gender Identity Not on file Sexual Orientation Not on file COVID-19 Exposure Response Date Recorded In the last 10 days, have yo u been in contact with someone who was confirmed or suspected to have Coronavirus/COVID-19? No / Unsure 01/04/2022 8:36 AM CDT documented as of this encounter Plan of Treatment Not on file documented as of this encounter Visit Diagnoses Not on filedocumented in this encounter Additional Health Concerns Assessment Noted Time PHQ-9 Depression Total Score: 0 06/02/19 10:42 AM CDT documented as of this encounter Care Teams Metal Turner Relationship Specialty Start Date End Date Radha De La Cruz FNP [address] [place] [address] [place] [address] PCP - General Nurse Practitioner Family 01/28/18 documented as of this encounter
--- OUTSIDE RECORDS SUMMARY | 2024-03-30 04:04 | XMS_ITS | Encounter Summary ---
Author Organization [facility] Address [facility]. [place], [place] [address] [place] [address] Care Team Providers Care Pest Control Service Representative Name Role Phone Radha De La Cruz [facility] Primary Care Provider [phone] Reason for Visit * Reason Comments Hypertension Follow Up Pt presents today for HTN and Lisinopril 20 mg f/u. States BP has still been irregular. SR Encounter Details Date Type Department Care Team (Late st Contact Info) Description 03/14/2022 2:20 PM DIRECTOR OPERATING Office Visit [facility] [address] [address] Radha De La Cruz [address] [place] [address] Hypertension Follow Up (Pt presents today for HTN and Lisinopril 20 mg f/u. States BP has still been irregular. SR ) Social History Tobacco Use Types Packs/Day [...] suspected to have Coronavirus/COVID-19? No / Unsure 03/14/2022 2:12 PM DIRECTOR OPERATING documented as of this encounter Last Filed Vital Signs Vital Sign Reading Time Taken Comments Blood Pressure 134/82 03/14/2022 2:48 PM DIRECTOR OPERATING Pulse 67 03/14/2022 2:18 PM DIRECTOR OPERATING Temperature 37 ??C (98.6 ??F) 03/14/2022 2:18 PM DIRECTOR OPERATING Respiratory Rate 15 03/14/2022 2:18 PM DIRECTOR OPERATING Oxygen Saturation 97% 03/14/2022 2:18 PM DIRECTOR OPERATING Inhaled Oxygen Concentration - - Weight 78 kg (172 lb) 03/14/2022 2:18 PM DIRECTOR OPERATING Height 170.2 cm (5' 7 ) 03/14/2022 2:18 PM DIRECTOR OPERATING Body Mass Index 26.94 03/14/2022 2:18 PM DIRECTOR OPERATING documented in this encounter Progress Notes * Radha De La Cruz, OPTICAL GLASS SILVERER - 03/14/2022 2:20 PM CST Lisa is a 61-year-old female patient. Reason for Visit: Hypertension Follow Up (Pt presents today for HTN and Lisinopril 20 mg f/u. States BP has still been irregular. SR ) History of Present Illness: Lisa is a 61 year old female pt who is here today for follow up on Hypertension. She saw Luba for elevated blood pressure readings on 02/11/2022. She was started on lisinopril 5 mg daily.She saw me for follow-up on 02/15/2022. We discussed cardiology referral due to family history of early heart disease (her brother of an CO at age 47). I also ordered an EKG and echocardiogram. EKG was okay. The echocardiogram is scheduled for 03/19/2022. She has not yet seen the civil division commander deputy sheriff. She has an appointment with Dr. Olivia on 03/28/2022. She sent in her blood pressure readings on the and were still running high so I increased lisinopril to 10 mg daily. She reported on 02/26/2022 elevated readings so it was increased to 20 mg daily. Today, patient reports that some days her blood pressure is good and running 120s over 70-80. On workdays it can go up to the 150 160/90 range. She reports very stressful job. No chest pain, dizziness. HOBBS or SOB. She checks her BP at various times of the day. She had lipids done in January 2022 and they were normal. Hemoglobin A1c showed prediabetes at 5.9%. She is on bupropion XL 300 mg daily for depression. She feels like she is doing well on that and does not think she needs medication adjustment. She has work- related stress but knows there is nothingthat can be done about that. She says she is handling it fine. Past Medical History: Diagnosis Date ??? Cervical [...] unicompartment replacement. Medications: Current Outpatient Medications: ??? atorvastatin (LIPITOR) 10 MG tablet, TAKE 1 TABLET BY MOUTH EVERYDAY AT BEDTIME, Disp: 90 tablet, Rfl: 1 ??? buPROPion XL (WELLBUTRIN XL) 300 MG 24 hr tablet, TAKE 1 TABLET BY MOUTH EVERY DAY, Disp: 90 tablet, Rfl: 1 ??? Krill Oil 1000 MG Cap, Take 1 capsule by mouth daily., Disp: , Rfl: ??? lisinopril (PRINIVIL) 10 MG tablet, Take 2 tablets (20 mg total) by mouth daily., Disp: 90 tablet, Rfl: 0 ??? Multiple Vitamin (ONCE DAILY) Tab, Take 1 tablet by mouth., Disp: , Rfl: No Known Allergies No family history on file. No family status information on file. reports that she has never smoked. She has never used smokeless tobacco. She reports current alcohol use. She reports that she does not use drugs. ROS: Review of Systems Constitutional: Negative for malaise/fatigue and weight loss. Respiratory: Negative for shortness of breath. Cardiovascular: Negative for chest pain, palpitations and leg swelling. Neurological: Negative for dizziness and headaches. Psychiatric/Behavioral: Positive for depression (stable). The patient is not nervous/anxious. Situational stress Vitals: Filed Vitals: 03/14/22 1418 BP: 126/84 Pulse: 67 Resp: 15 Temp: 98.6 ??F (37 ??C) TempSrc: Skin SpO2: 97% Weight: 78 kg (172 lb) Height: 5' 7 (1.702 m) Physical Exam Constitutional: Appearance: Normal appearance. HENT: Head: Normocephalic and atraumatic. Cardiovascular: Rate and Rhythm: Normal rate and [...] 1. Primary hypertension I10 401.9 ESSENTIAL HYPERTENSION 2. Mixed hyperlipidemia E78.2 272.2 MIXED HYPERLIPIDEMIA 3. Family history of heart disease in male family member before age 55 Z82.49 V17.49 FAMILY HISTORYOF CARDIOVASCULAR DISEASE IN FIRST DEGREE MALE RELATIVE LESS THAN 55 YEARS OF AGE 4. Mild episode of recurrent major depressive disorder (CMS/HCC) F33.0 296.31 RECURRENT MAJOR DEPRESSIVE EPISODES, MILD 5. Situational stress F43.9 V62.89 STRESS 6. Prediabetes R73.03 790.29 PREDIABETES Plan Hypertension: She is still having some random elevated blood pressure readings which she attributesto her situational stress on her workdays. Her blood pressure today is pretty good. She is only been on the lisinopril for about 4 weeks. I would like her to proceed with the echocardiogram next week and see Dr. Olivia the following weekfor evaluation prior to adding another hypertensive agent. I encouraged her to continue to check her blood pressure and to record the readings and bring them along to her appointment with the civil division commander deputy sheriff. Hyperlipidemia: Her lipid panel and November was within normal range. I encouraged her to continue to follow a heart healthy diet. I also encouraged her to try to limit her salt intake. Proceed with cardiology consult due to hypertension, and family history of early heart disease For the depression, it is stable on bupropion XL 300 mg daily Call the pharmacy when medication refills are needed LEORA JOYNER 03/14/2022 2:23 PM Cosigned by Mery Witt DO at 03/14/2022 5:23 PM DIRECTOR OPERATING CTOR OPERATING CTOR OPERATING documented in this encounter Plan of Treatment Not on file documented as of this encounter Visit Diagnoses Diagnosis Primary hypertension- Primary Unspecified essential hypertension Mixed hyperlipidemia Family history of heart disease in male family member before age 55 Family history of other cardiovascular diseases Mild episode of recurrent major depressive disorder (CMS/HCC) Situational stress Other psychological or physical stress, not elsewhere classified Prediabetes Other abnormal glucose documented in this encounter Additional Health Concerns Assessment Noted Time PHQ-9 Depression Total Score: 0 06/02/19 22 10:42 AM CDT documented as of this encounter Care Teams Pest Control Service Representative Relationship Specialty Start Date End Date Radha De La Cruz FNP [address] [place] [address] [place] [address] PCP - General Nurse Practitioner Family 01/28/18 documented as of this encounter
--- OUTSIDE RECORDS SUMMARY | 2024-03-30 04:04 | XMS_ITS | Encounter Summary ---
Author Organization [facility] Address [address] [place] [address]. [place], [place] [address] [place] [address] Care Team Providers Care Sheet Taker Name Role Phone John De La Cruz Primary Care Provider Reason for Referral * Imaging (Routine) - Closed Specialty Diagnoses / Procedures Referred By Doug cartagena Referred To Contact RADIOLOGY Diagnoses Chronic neck pain Spondylolisthesis Narrowing of intervertebral disc space Procedures MRI CERV SPINE WO CON John De La Cruz FNP [address] [place] [address] [place] [address] Phone: tel: fax: Referral ID Status Reason Start Date Expiration Date Visits Re quested Visits Authorized [id number] Closed 10/31/2021 11/30/2022 1 1 Reason for Visit * Imaging (Routine) - Closed Specialty Diagnoses / Procedures Referred By Doug cartagena Referred To Contact RADIOLOGY Diagnoses Chronic neck pain Spondylolisthesis Narrowing of intervertebral disc space Procedures MRI CERV SPINE WO John Tillman FNP [address] [place] [address] [place] [address] Phone: tel: fax: Referral ID Status Reason Start Date Expiration Date Visits Re quested Visits Authorized [id number] Closed 10/31/2021 11/30/2022 1 1 Encounter Details Date Type Department Care Team (Late st Contact Info) Description 11/14/2021 10:49 AM CDT - 11/14/2021 11:59 PM CDT Hospital Encounter [facility] MRI [address] [place] [address] John De La Cruz FNP [address] [place] [address] Discharge Disposition: Home or Self Care (Routine [...] suspected to have Coronavirus/COVID-19? No / Unsure 11/14/2021 10:47 AM CDT documented as of this encounter Medications at Time of Discharge Multiple Vitamin (ONCE DAILY) Tab Take 1 tablet by mouth. ATORVASTATIN 10 MG tabletIndications:Mi xed hyperlipidemia TAKE 1 TABLET BY MOUTH EVERYDAY AT BEDTIME 90 tablet 1 07/25/2021 2 buPROPion XL (WELLBUTRIN XL) 300 MG 24 hr tabletIndications:An xiety TAKE 1 TABLET BY MOUTH EVERY DAY 30 tablet 1 10/29/2021 2 Krill Oil 1000 MG Cap Take 1 capsule by mouth daily. 4 triamcinolone (KENALOG) 0.1 % creamIndications:Loi h Apply topically 2 (two) times daily. To affected areas. Do not use on face. 45 g 10/03/2021 documented as of this encounter Progress Notes * Suri Jj LPN - 11/14/2021 11:00 AM CDT Pt. Notified. Verbalized understanding. Pt. Will proceed with Pain management consult. Pt. States that symptoms have not worsened since last OV. documented in this encounter Plan of Treatment Not on file documented as of this encounter Procedures Procedure Name Priority Date/Time Associated Diagnosis Comments MRI CERV SPINE WO CON Routine 11/14/2021 11:38 AM CDT Chronic neck pain Spondylolisthesis Narrowing of intervertebral disc space documented in this encounter Results * MRI CERV SPINE WO CON (11/14/2021 11:38 AM CDT) Anatomical Region Laterality Modality Spine Computed Tomogra phy 11/15/2021 8:48 AM CDT Impressions 11/15/2021 9:08 AM CDT IMPRESSION: 1. ??Moderate spinal stenosis at C4-5 and C5-6. Worsening of spinal stenosis at these 2 levels since 2008 exam.. 2. ??Neural foramen narrowing with locations and percentages as detailed above. Ordered By: JOHN DE LA CRUZ Interpreted By: Miranda Tran, 11/15/2021 8:48 AM Narrative 11/15/2021 9:08 AM CDT IMAGING STUDIES: ??MRI CERV SPINE WO CON ?DATE: ??11/14/2021 10:51 AM INDICATION: ??spondylolistheses, disc space narrowing c spine xray 06/01/21 Neck pain, chronic, degenerative changes on xray ?? . COMPARISON: ??April 01, 2007 This exam is slightly limited due to patient motion. FINDINGS: 1. ??The vertebral bodies have a grossly normal height and marrow signal. Normal signal within the cervical spinal cord and visualized posterior fossa..Mild advancement of multilevel endplate degenerative change. Stable multilevel disc dehydration.. Moderate loss of disc space height at C4-5 and C5-6. Development of minimal grade 1 anterior spondylolisthesis of C3 on C4. Stable minimal retrolisthesis of C4 on C5 and C5 on C6. No neck mass.. 2 ??At C2-C3: ??No disc herniation or spinal stenosis. Bilateral neural foramen are patent. 3 ??At C3-C4: Development of mild posterior disc/osteophyte complex. Mild narrowing of the AP dimension of thecal sac. Development of minor 25% bilateral neural foramen narrowing due to degenerative change. 4 ??At C4-C5: Mild increase in moderate posterior disc/osteophyte complex. Slight worsening of spinal stenosis which is of a moderate degree on today's exam. Stable 25% right-sided neural foramen narrowing due to degenerative change. Mild advancement of left-sided neural foramen narrowing which is approximately 75% on today's exam. Prior narrowing of 50% 5 ??At C5-C6: Minimal increase in posterior disc/osteophyte complex. Moderate spinal stenosis with mild increase since prior exam. Interval increase in bilateral neural foramen narrowing. 90% on the left side. 75% on the right side. 6 ??At C6-C7: No disc herniation or spinal stenosis. Bilateral neural foramen are patent. Stable benign bilateral perineural cysts in the neural foramen. 7 ??At C7-T1: No disc herniation or spinal stenosis. Bilateral neural foramen are patent. Procedure Note Ronal Tran MD - 11/15/2021 IMAGING STUDIES: MRI CERV SPINE WO CONDATE: 11/14/2021 10:51 AM INDICATION: spondylolistheses, disc space narrowing c spine xray 06/01/21 Neck pain, chronic, degenerative changes on xray . COMPARISON: April 01, 2007 This exam is slightly limited due to patient motion. FINDINGS: 1. The vertebral bodies have a grossly normal height and marrow signal.Normal signal within the cervical spinal cord and visualized posteriorfossa..Mild advancement of multilevel endplate degenerative change. Stablemultilevel disc dehydration.. Moderate loss of disc space height at C4-5and C5-6. Development of minimal grade 1 anterior spondylolisthesis of C3on C4. Stable minimal retrolisthesis of C4 on C5 and C5 on C6. No neckmass.. 2 At C2-C3: No disc herniation or spinal stenosis. Bilateral neuralforamen are patent. 3 At C3-C4: Development of mild posterior disc/osteophyte complex. Mildnarrowing of the AP dimension of thecal sac. Development of minor 25%bilateral neural foramen narrowing due to degenerative change. 4 At C4-C5: Mild increase in moderate posterior disc/osteophyte complex.Slight worsening of spinal stenosis which is of a moderate degree ontoday's exam. Stable 25% right-sided neural foramen narrowing due todegenerative change. Mild advancement of left-sided neural foramennarrowing which is approximately 75% on today's exam. Prior narrowing of50% 5 At C5-C6: Minimal increase in posterior disc/osteophyte complex.Moderate spinal stenosis with mild increase since prior exam. Intervalincrease in bilateral neural foramen narrowing. 90% on the left side. 75%on the right side. 6 At C6-C7: No disc herniation or spinal stenosis. Bilateral neuralforamen are patent. Stable benign bilateral perineural cysts in the neuralforamen. 7 At C7-T1: No disc herniation or spinal stenosis. Bilateral neuralforamen are patent. IMPRESSION: 1. Moderate spinal stenosis at C4-5 and C5-6. Worsening of spinalstenosis at these 2 levels since 2007 exam.. 2. Neural foramen narrowing with locations and percentages as detailedabove. Ordered By: JOHN DE LA CRUZ Interpreted By: Miranda Tran, 11/15/2021 8:48 AM John [facility] MRI Final Result documented in this encounter Visit Diagnoses Diagnosis Chronic neck pain Cervicalgia Spondylolisthesis Congenital spondylolisthesis Narrowing of intervertebral disc space Degeneration of intervertebral disc, site unspecified documented in this encounter Additional Health Concerns Assessment Noted Time PHQ-9 Depression Total Score: 0 06/02/19 22 10:42 AM CDT documented as of this encounter Care Teams Sheet Taker Relationship Specialty Start Date End Date John De La Cruz FNP [address] [place] [address] [place] [address] PCP - General Nurse Practitioner Family 01/28/18 documented as of this encounter
--- OUTSIDE RECORDS SUMMARY | 2024-03-30 04:04 | XMS_ITS | Encounter Summary ---
Author Organization [facility] Address [address] [place] [address]. [place], [place] [id number] [place] [address] Care Team Providers Care Academic Support Center Director Name Role Phone Radha De La CruzP Primary Care Provider [phone] Encounter Details Date Type Department Care Team (Late st Contact Info) Description 09/19/2021 8:16 AM CDT - 09/19/2021 11:59 PM CDT Hospital Encounter [facility] [address] [place] [address] Radha De La Cruz, LEORA [address] [place] [address] [place] [address] Discharge Disposition: Home or Self Care (Routine [...] suspected to have Coronavirus/COVID-19? No / Unsure 09/19/2021 7:55 AM CDT documented as of this encounter Medications at Time of Discharge Multiple Vitamin (ONCE DAILY) Tab Take 1 tablet by mouth. ATORVASTATIN 10 MG tabletIndications:M ixed hyperlipidemia TAKE 1 TABLET BY MOUTH EVERYDAY AT BEDTIME 90 tablet 1 07/25/2021 2 buPROPion XL 300 MG 24 hr tabletIndications:A nxiety Take 1 tablet (300 mg total) by mouth daily. 30 tablet 09/07/2021 2 ciprofloxacin (CILOXAN) 0.3 % ophthalmic solutionIndications :Bacterial conjunctivitis of both eyes Administer 1 drop, every 2 hours, while awake, for 2 days. Then 1 drop qid while awake for 5 days 5 mL 09/19/2021 2 Krill Oil 1000 MG Cap Take 1 capsule by mouth daily. 4 documented as of this encounter Plan of Treatment Not on file documented as of this encounter Procedures Procedure Name Priority Date/Time Associated Diagnosis Comments CORONAVIRUS (COVID 19) PCR Routine 09/19/2021 9:18 AM CDT Nasal congestion documented in this encounter Results * CORONAVIRUS (COVID 19) PCR (09/19/2021 9:18 AM CDT) SPEC DESCRIPTION NASAL 09/21/19 8:17 AM CDT [facility] CORONAVIRUS SARS COV 2 PCR (RESP) NEGATIVE NEGATIVE 09/20/2021 1:34 PM CDT [facility] Comment: THE SARS-CoV-2 TEST HAS BEEN AUTHORIZED BY THE FDA UNDER AN EUA FOR USE BY AUTHORIZED LABORATORIES. PERFORMED BY NUCLEIC ACID AMPLIFICATION PCR FIRST TEST NO 09/20/2021 8:17 AM CDT [facility] EMPLOYED IN HEALTHCARE NO 09/20/2021 8:17 AM CDT [facility] SYMPTOMATIC DEFINED BY CDC YES 09/20/2021 8:17 AM CDT [facility] DATE OF SYMPTOM ONSET [id number]/20/2021 8:17 AM CDT [facility] HOSPITALIZATION STATUS NO 09/20/2021 8:17 AM CDT [facility] PATIENT IN ICU NO 09/20/2021 8:17 AM CDT [facility] RESIDENT OF [facility] NO 09/20/2021 8:17 AM CDT [facility] NASOPHARYNGEAL SWAB / Unknown 09/19/2021 9:18 AM CDT Radha COREY MICROBIOLOGY - GENERAL ORDERA BLES Final Result Performing Organization Address City/State/[facility] Co de Phone Number [facility] [address] [place] [address], documented in this encounter Visit Diagnoses Diagnosis Nasal congestion Other diseases of nasal cavity and sinuses documented in this encounter Additional Health Concerns Infection Onset Date Last Indicated Resolved Time COVID-19 Rule Out 09/19/2021 09/19/2021 09/19/2021 9:16 AM CDT Assessment Noted Time PHQ-9 Depression Total Score: 0 06/02/19 22 10:42 AM CDT documented as of this encounter Care Teams Academic Support Center Director Relationship Specialty Start Date End Date Radha De La Cruz FNP [address] [place] [address] [place] [address] PCP - General Nurse Practitioner Family 01/28/18 documented as of this encounter
--- OUTSIDE RECORDS SUMMARY | 2024-03-30 04:04 | XMS_ITS | Encounter Summary ---
Author Organization [facility] Address [address] [place] [address]. [place], [place] [id number] [place] [address] Care Team Providers Care Surgical Scheduler Name Role Phone Radha De La Cruz BRAND REPRESENTATIVE Primary Care Provider Encounter Details Date Type Department Care Team (Latest Contact Info) Description 11/14/2021 Travel Social History Tobacco Use Types Packs/Day [...] documented as of this encounter Care Teams Surgical Scheduler Relationship Specialty Start Date End Date Radha De La Cruz FNP [address] [place] [address] [place] [address] PCP - General Nurse Practitioner Family 01/28/18 documented as of this encounter
--- OUTSIDE RECORDS SUMMARY | 2024-03-30 04:04 | XMS_ITS | Encounter Summary ---
Author Organization [facility] Address [address] [place] [address]. [place], [place] [address] [place] [address] Care Team Providers Care Transportation Program Director Name Role Phone Radha De La Cruz MARKET RESEARCH SENIOR PROJECT MANAGER Primary Care Provider [phone] Encounter Details Date Type Department Care Team (Latest Contact Info) Description 01/22/2022 Travel Social History Tobacco Use Types Packs/Day [...] suspected to have Coronavirus/COVID-19? No / Unsure 01/22/2022 9:36 AM PRODUCTION ASSEMBLY OPERATOR documented as of this encounter Plan of Treatment Not on file documented as of this encounter Visit Diagnoses Not on filedocumented in this encounter Additional Health Concerns Assessment Noted Time PHQ-9 Depression Total Score: 0 06/02/19 10:42 AM CDT documented as of this encounter Care Teams Transportation Program Director Relationship Specialty Start Date End Date Radha De La Cruz FNP [address] [place] [address] [place] [address] PCP - General Nurse Practitioner Family 01/28/18 documented as of this encounter
--- OUTSIDE RECORDS SUMMARY | 2024-03-30 04:04 | XMS_ITS | Encounter Summary ---
Author Organization [facility] Address [address] [place] [address]. [place], [place] [address] [place] [address] Care Team Providers Care Wheat Farmer Name Role Phone Radha De La Cruz PIE CRUST MIXER Primary Care Provider [phone] Encounter Details Date Type Department Care Team (Latest Contact Info) Description 09/25/2021 Travel Social History Tobacco Use Types Packs/Day [...] documented as of this encounter Care Teams Wheat Farmer Relationship Specialty Start Date End Date Radha De La Cruz FNP [address] [place] [address] [place] [address] PCP - General Nurse Practitioner Family 01/28/18 documented as of this encounter
--- OUTSIDE RECORDS SUMMARY | 2024-03-30 04:04 | XMS_ITS | Encounter Summary ---
Author Organization [facility] Address [address] [place] [address]. [place], [place] [address] [place] [address] Care Team Providers Care Lithographer Apprentice Name Role Phone Radha De La Cruz SERVICES EXECUTIVE Primary Care Provider [phone] Encounter Details Date Type Department Care Team (Latest Contact Info) Description 03/28/2022 Travel Social History Tobacco Use Types Packs/Day [...] suspected to have Coronavirus/COVID-19? No / Unsure 03/28/2022 2:57 PM SNOW BLOWER documented as of this encounter Plan of Treatment Not on file documented as of this encounter Visit Diagnoses Not on filedocumented in this encounter Additional Health Concerns Assessment Noted Time PHQ-9 Depression Total Score: 0 06/02/19 10:42 AM CDT documented as of this encounter Care Teams Lithographer Apprentice Relationship Specialty Start Date End Date Radha De La Cruz FNP [address] [place] [address] [place] [address] PCP - General Nurse Practitioner Family 01/28/18 documented as of this encounter
--- OUTSIDE RECORDS SUMMARY | 2024-03-30 04:04 | XMS_ITS | Encounter Summary ---
Author Organization [facility] Address [address] [place] [address]. [place], [place] [address] [place] [address] Care Team Providers Care Nurse Licensed Practical Name Role Phone Radha De La Cruz [facility] Primary Care Provider Reason for Visit * Reason Onset Date Comments Follow Up Call 10/08/2021 Office visit due ? Encounter Details Date Type Department Care Team (Late st Contact Info) Description 10/08/2021 Telephone [facility] [address] [place] [address] Radha De La Cruz [facility] [address] [place] [address] Follow Up Call (Office visit due? ) Social History Tobacco Use Types Packs/Day [...] Progress Notes * Reyna Perkins LPN - 10/08/2021 12:43 PM CDT Pt has already picked up the 30 day supply. * Reyna Perkins LPN - 10/08/2021 12:43 PM CDT Ok to refill x 90 days per Isabela. * Susanna Medina LPN - 10/08/2021 8:45 AM CDTSummary: Office visit. Wellbutrin refilled. I advised patient she was due for visit. Patient voiced I was just seen . Is patient due for a visit? documented in this encounter Plan of Treatment Not on file documented as of this encounter Visit Diagnoses Not on filedocumented in this encounter Additional Health Concerns Assessment Noted Time PHQ-9 Depression Total Score: 0 06/02/19 22 10:42 AM CDT documented as of this encounter Care Teams Nurse Licensed Practical Relationship Specialty Start Date End Date Radha De La Cruz FNP [address] [place] [address] [place] [address] PCP - General Nurse Practitioner Family 01/28/18 documented as of this encounter
--- OUTSIDE RECORDS SUMMARY | 2024-03-30 04:04 | XMS_ITS | Encounter Summary ---
Author Organization [facility] Address [address] [place] [address]. [place], [place] [address] [place] [address] Care Team Providers Care Account Support Associate Name Role Phone Radha De La Cruz Primary Care Provider Reason for Referral * Consultation/Treatment (Routine) - Closed Specialty Diagnoses / Procedures Referred By Contact Referred To Contact PAIN MANAGEMENT / HS Pain Management Diagnoses Abnormal MRI, cervical spine Spinal stenosis Procedures OFFICE/OUTPT VISIT,NEW,LEVL III OFFICE/OUTPT VISIT,NEW,LEVL IV OFFICE/OUTPT VISIT,NEW,LEVL V OFFICE/OUTPT VISIT,EST,LEVL III OFFICE/OUTPT VISIT,EST,LEVL IV OFFICE/OUTPT VISIT,EST,LEVL V Radha De La Cruz FNP [address] [place] [address] Phone: tel: fax: [facility] [place] [address] Phone: [phone]: [phone] Referral ID Status Reason Start Date Expiration Date V isits Requested Visits Authorized [id number] Closed Specialty Services 11/15/2021 12/16/2022 10 10 Encounter Details Date Type Department Care Team (Late st Contact Info) Description 11/15/2021 Orders Only [facility] [address] [place] [address] Radha De La Cruz FNP [address] [place] [address] Social History Tobacco Use Types Packs/Day Years [...] of this encounter Plan of Treatment Scheduled Referrals Name Type Priority Associated Diagnoses Orde r Schedule Ambulatory Referral to Pain Management Referral Routine Abnormal MRI, cervical spine Spinal stenosis Ordered: 11/15/2021 documented as of this encounter Visit Diagnoses Diagnosis Abnormal MRI, cervical spine- Primary Nonspecific (abnormal) findings on radiological and other examination of musculoskeletal system Spinal stenosis Spinal stenosis, unspecified region other than cervical documented in this encounter Additional Health Concerns Assessment Noted Time PHQ-9 Depression Total Score: 0 06/02/19 22 10:42 AM CDT documented as of this encounter Care Teams Account Support Associate Relationship Specialty Start Date End Date Radha De La Cruz FNP [address] [place] [address] PCP - General Nurse Practitioner Family 01/28/18 documented as of this encounter
--- OUTSIDE RECORDS SUMMARY | 2024-03-30 04:04 | XMS_ITS | Encounter Summary ---
Author Organization [facility] Address [facility]. [place], [place] [address] [place] [address] Care Team Providers Care Ditching Machine Operator Name Role Phone Radha De La Cruz LEORA Primary Care Provider [phone] Reason for Visit * Reason Comments Blood Pressure Here for elevated b/ p ; pt reports her b/p at obstetrician gynecologist today was 190/110; pt also reports that her bilateral hands are tingling.JSD Encounter Details Date Type Department Care Team (Late st Contact Info) Description 02/11/2022 4:00 PM [facility] Office Visit [address] [place] [address] Erica Hall FNP Blood Pressure (Here for elevated b/p ; pt reports her b/p at obstetrician gynecologist today was 190/110; pt also reports that her bilateral hands are tingling.JSD) Social History Tobacco Use Types Packs/Day Years [...] Coronavirus/COVID-19? No / Unsure 02/11/2022 2:59 PM [facility] documented as of this encounter Last Filed Vital Signs Vital Sign Reading Time Taken Comments Blood Pressure 152/84 02/11/2022 3:38 PM [facility] Pulse 80 02/11/2022 3:38 PM [facility] Temperature 37.2 ??C (98.9 ??F) 02/11/2022 3:38 PM CS T Respiratory Rate 12 02/11/2022 3:38 PM [facility] Oxygen Saturation 98% 02/11/2022 3:38 PM [facility] Inhaled Oxygen Concentration - - Weight 78.9 kg (174 lb) 02/11/2022 3:38 PM [facility] Height 170.2 cm (5' 7 ) 02/11/2022 3:38 PM [facility] Body Mass Index 27.25 02/11/2022 3:38 PM [facility] documented in this encounter Patient Instructions * Patient Instructions* LEORA Rowe - 02/11/2022 4:00 PM [facility] -Monitor blood pressure at home. -Try to limit salt in diet. -Make sure to take blood pressure medication every day. -Go to emergency room (ER) if any chest pain, shortness of breath, vision changes, severe headache,stroke symptoms (difficulty speaking, tingling or numbness on one side of face or body, muscle weakness on one side of body, unresponsiveness) develop. -Get blood work done in 2 weeks. -Follow up in 1 week. Return to clinic sooner if needed. [facility] documented in this encounter Progress Notes * LEORA Rowe - 02/11/2022 4:00 PM CST Lisa is a 61-year-old female patient. Reason for Visit: Blood Pressure (Here for elevated b/p ; pt reports her b/p at obstetrician gynecologist today was 190/110; pt also reports that her bilateral hands are tingling.JSD) History of Present Illness: Patient came here for a blood pressure check. She saw her MAPPING ENGINEER earlier today and her blood pressure was 190/110. She came here for blood pressure check and her blood pressure was elevated in the office. So she is being worked into my schedule for elevated blood pressure. She denies chest pain, shortness of breath, tingling or numbness on one side of her face or body. She does complain of her bilateral hands tingling a little , but no other areas of her arms. This started at our office when she found out her blood pressure was high. She normally does not have this. She denies speech difficulties, mental status changes, new or severe headache. Denies vision changes. Drinks 2 cups of coffee a day, no other caffeine. Is a non smoker. She says she does not eat a lot of processed food and does not salt her food much. Brother had hypertension and DM and of [place] at 47, mom had hypertension and DM and has . Past Medical History: Diagnosis Date ??? Cervical [...] Left knee unicompartment replacement. Medications: Current Outpatient Medications Medication Sig ??? atorvastatin (LIPITOR) 10 MG tablet TAKE 1 TABLET BY MOUTH EVERYDAY AT BEDTIME ??? buPROPion XL (WELLBUTRIN XL) 300 MG 24 hr tablet TAKE 1 TABLET BY MOUTH EVERY DAY ??? Krill Oil 1000 MG Cap Take 1 capsule by mouth daily. ??? lisinopril (PRINIVIL) 5 MG tablet Take 1 tablet (5 mg total) by mouth daily. ??? Multiple Vitamin (ONCE DAILY) Tab Take 1 tablet by mouth. No Known Allergies ROS: Review of Systems Constitutional: Negative for chills, fever and malaise/fatigue. HENT: Negative for congestion and sinus pain. Eyes: Negative for blurred vision and double vision. No vision changes Respiratory: Negative for cough and shortness of breath. Cardiovascular: Negative for chest pain and palpitations. No syncope Gastrointestinal: Negative for abdominal pain and blood in stool. Skin: Negative for rash. Neurological: Positive for tingling (see HPI). Negative for dizziness, tremors, speech change, focal weakness, loss of consciousness and headaches. Psychiatric/Behavioral: Negative for depression. The patient is not nervous/anxious. Objective: Filed Vitals: 02/11/22 1538 BP: (!) 152/84 Pulse: 80 Resp: 12 Temp: 98.9 ??F (37.2 ??C) TempSrc: Tympanic SpO2: 98% Weight: 78.9 kg (174 lb) Height: 5' 7 (1.702 m) Body mass index is 27.25 kg/m??. Physical Exam: Const: Alert, in no acute distress, non toxic, calm, pleasant, conversational Head: Atraumatic, normocephalic Face: Face symmetric Eyes: PERRLA, sclera clear Ears: Hearing in tact to conversational voice Nose: External nose without obvious deformity Oral Cavity: Lip appearance without pallor or cyanosis, oral mucosa moist without pallor or cyanosis Pharynx; Pharynx pink without lesions Neck: Neck soft, supple, no masses, no thyromegaly, trachea midline Respiratory: Respirations non labored, Lungs clear all lung smyth CV: Heart regular without murmur, gallops or rubs Peripheral vascular: 2+ radial pulse bilaterally Neuro: Alert and oriented x3, speech WNL, coumminication ability WNL, normal gait for age, CN 2-12 grossly in tact, +5 hand carbon paste mixer operator and hip flexion bilat, patellar reflexes +2 bilat, romberg neg, heel to toe straight line walking WNL MSK: Bilateral hands without obvious deformity Lymphatic: No neck lymphadenopathy Skin: Warm and dry with good color Psych: Mood normal, affect appropriate Diagnoses/Impression: Lisa was seen today for blood pressure. Diagnoses and all orders for this visit: Primary hypertension - lisinopril (PRINIVIL) 5 MG tablet; Take 1 tablet (5 mg total) by mouth daily. - THYROID STIM HORMONE, TSH; Future - COMPREHENSIVE METABOLIC PANEL; Future Mixed hyperlipidemia - COMPREHENSIVE METABOLIC PANEL; Future Paresthesia of both hands Plan: Patient has new onset hypertension. We will start lisinopril 5 mg daily. CMP and TSH ordered to do in 2 weeks. Advised of rare risk of altered kidney function and hyperkalemia with HARVEY inhibitor's. Also advised the risk of dry cough. If she develops this, we can stop medication and switch to another one. I recommend she try to limit salt in her diet, read labels carefully to look for hidden sources of salt. Monitor blood pressure at home. Discussed risks of elevated blood pressure including stroke and heart attack. Go to ER if any chest pain, shortness of breath, stroke symptoms develop. Discussed these in detail with the patient. Recent A1c, vitamin D and lipid profile reviewed with patient. We will check a CMP and TSH in 2 weeks to monitor hyperlipidemia, new onset hypertension. Tingling of hands possibly related to anxiety, it does not sound like a stroke symptom. We will monitor. Further work-up may be needed if tingling persists. Follow-up on blood pressure with me or Isabela De La Cruz,her PCP in 1 week, RTC sooner if needed. Instructions: Patient Instructions -Monitor blood pressure at home. -Try to limit salt in diet. -Make sure to take blood pressure medication every day. -Go to emergency room (ER) if any chest pain, shortness of breath, vision changes, severe headache,stroke symptoms (difficulty speaking, tingling or numbness on one side of face or body, muscle weakness on one side of body, unresponsiveness) develop. -Get blood work done in 2 weeks. -Follow up in 1 week. Return to clinic sooner if needed. LEORA ROWE Cosigned by Richard Huerta MD at 02/13/2022 9:57 PM [facility] documented in this encounter Plan of Treatment Not on file documented as of this encounter Visit Diagnoses Diagnosis Primary hypertension- Primary Unspecified essential hypertension Mixed hyperlipidemia Paresthesia of both hands documented in this encounter Additional Health Concerns Assessment Noted Time PHQ-9 Depression Total Score: 0 06/02/19 22 10:42 AM CDT documented as of this encounter Care Teams Ditching Machine Operator Relationship Specialty Start Date End Date Radha De La Cruz FNP [address] [place] [address] [place] [address] PCP - General Nurse Practitioner Family 01/28/18 documented as of this encounter
--- OUTSIDE RECORDS SUMMARY | 2024-03-30 04:04 | XMS_ITS | Encounter Summary ---
Author Organization [facility] Address [address] [place] [address]. [place], [place] [address] [place] [address] Care Team Providers Care Lead Technical Architect Name Role Phone Radha De La Cruz Primary Care Provider [phone] Encounter Details Date Type Department Care Team (Late st Contact Info) Description 01/22/2022 9:36 AM DISC SANDER - 01/22/2022 11:59 PM [facility] Hospital Encounter [facility] [address] [place] [address] Radha De La Cruz FNP [address] [place] [facility]246 Discharge Disposition: Home or Self Care (Routine [...] In the last 10 days, have duncan u been in contact with someone who was confirmed or suspected to have Coronavirus/COVID-19? No / Unsure 01/22/2022 9:36 AM DISC SANDER documented as of this encounter Medications at Time of Discharge Multiple Vitamin (ONCE DAILY) Tab Take 1 tablet by mouth. ATORVASTATIN 10 MG tabletIndications:Mi xed hyperlipidemia TAKE 1 TABLET BY MOUTH EVERYDAY AT BEDTIME 90 tablet 1 07/25/2021 2 buPROPion XL (WELLBUTRIN XL) 300 MG 24 hr tabletIndications:An xiety TAKE 1 TABLET BY MOUTH EVERY DAY 90 tablet 1 01/15/2022 3 Krill Oil 1000 MG Cap Take 1 capsule by mouth daily. 4 triamcinolone (KENALOG) 0.1 % creamIndications:Loi h Apply topically 2 (two) times daily. To affected areas. Do not use on face. 45 g 10/03/2021 2 documented as of this encounter Progress Notes * Suri Jj LPN - 01/22/2022 9:40 AM CST Pt. Notified. Verbalized understanding. SANDER documented in this encounter Plan of Treatment Not on file documented as of this encounter Procedures Procedure Name Priority Date/Time Associated Diagnosis Comments HEMOGLOBIN, GLYCOSYLATED Routine 01/22/2022 9:25 AM DISC SANDER Prediabetes LIPID PANEL Routine 01/22/2022 9:25 AM DISC SANDER Mixed hyperlipidemia VITAMIN D, 25 OH Routine 01/22/2022 9:25 AM DISC SANDER Encounter for vitamin deficiency screening documented in this encounter Results * VITAMIN D, 25 OH (01/22/2022 9:25 AM DISC SANDER) VITAMIN D 25 HYDROXY S/P/B 40 30 - 100 NG/ML 01/23/2022 12:50 PM DISC SANDER [facility] Comment: ? INTERPRETATION ? DEFICIENT ??<20 ? INSUFFICIENT 20-29 ?SUFFICIENT 30-100 01/22/2022 9:25 AM DISC SANDER Radha De La Cruz [facility] Final Result Performing Organization Address [facility] de Phone Number [facility] [address] [facility] [place] [address], * (ABNORMAL) HEMOGLOBIN, GLYCOSYLATED (01/22/2022 9:25 AM DISC SANDER) Pathologist [facility] HGB A1C 5.9(H) 0.0 - 5.6 % 01/22/2022 1:39 PM DISC SANDER [facility] Comment: ADA GUIDELINES 2010 5.7 TO 6.4% INCREASED RISK OF DIABETES > OR = 6.5% CONSISTENT WITH DIABETES ESTIMATED AVG GLUCOSE 123 mg/dL 01/22/2022 1:39 PM DISC SANDER [facility] 01/22/2022 9:25 AM DISC SANDER Radha De La Cruz [facility] Final Result Performing Organization Address [facility] de Phone Number [facility] [address] [place] [address], * LIPID PANEL (01/22/2022 9:25 AM DISC SANDER) CHOLESTEROL 187 0 - 200 MG/DL 01/23/2022 12:50 PM DISC SANDER [facility] TRIGLYCERIDES 121 0 - 150 MG/DL 01/23/2022 12:50 PM DISC SANDER [facility] HDL 70 >40 MG/DL 01/23/2022 12:50 PM DISC SANDER [facility] LDL (CALCULATED) 93 <100 MG/DL 01/23/2022 12:50 PM DISC SANDER [facility] NON HDL CHOLESTEROL 117 0 - 130 MG/DL 01/23/2022 12:50 PM [facility] Comment: NOTE: WHEN THE TRIGLYCERIDES ARE >200 mg/dL, NON HDL C IS A SECONDARY TARGET OF THERAPY, WITH A GOAL 30 mg/dL HIGHER THAN THE IDENTIFIED LDL C GOAL. CHOL/HDL RATIO 2.7 0.0 - 4.5 01/23/2022 12:50 PM [facility] VLDL CALCULATION 24 5 - 55 MG/DL 01/23/2022 12:50 PM [facility] LIPID INTERPRETATION 01/23/2022 12:50 PM [facility] Comment: NIH CONCENSUS REPORT RECOMMENDATIONS: ?ADULT ?CHILD ??LOW RISK: ?CHOLESTEROL ? <200 ? <170 ?TRIGLYCERIDE ?<150 ?--- ?HDL ? >=60 ?--- ?LDL ? <100 ? <110 ??BORDERLINE: ?CHOLESTEROL ? 200-239 ?? 170-199 ?TRIGLYCERIDE ?150-199 ? --- ?HDL ?40-59 ?--- ?LDL ? 100-159 ?? 110-129 ??HIGH RISK: ?CHOLESTEROL ? >=240 ?>=200 ?TRIGLYCERIDE ?>=200 ? --- ?HDL ?<40 ?--- ?LDL ? >=160 ?>=130 01/22/2022 9:25 AM DISC SANDER us Rad[facility] Final Result Performing Organization Address City/State/[facility] de Phone Number [facility] [address] [place] [address], documented in this encounter Visit Diagnoses Diagnosis Mixed hyperlipidemia Prediabetes Other abnormal glucose Encounter for vitamin deficiency screening Screening for other and unspecified endocrine, nutritional, metabolic, and immunity disorders documented in this encounter Additional Health Concerns Assessment Noted Time PHQ-9 Depression Total Score: 0 06/02/19 22 10:42 AM CDT documented as of this encounter Care Teams Lead Technical Architect Relationship Specialty Start Date End Date Radha De La Cruz FNP [address] [place] [address] [place] [address] PCP - General Nurse Practitioner Family 01/28/18 documented as of this encounter
--- OUTSIDE RECORDS SUMMARY | 2024-03-30 04:04 | XMS_ITS | Encounter Summary ---
Author Organization [facility] Address [address] [place] [address]. [place], [place] [address] [place] [address] Care Team Providers Care Line Service Person Name Role Phone Radha De La Cruz Primary Care Provider [phone] Reason for Referral * Imaging (Routine) - Closed Specialty Diagnoses / Procedures Referred By Doug cartagena Referred To Contact RADIOLOGY Diagnoses Primary hypertension Family history of heart disease in male family member before age 55 Procedures USE ECHOCARDIOGRAM Radha De La Cruz FNP [address] [facility] [address] [place] [address] Phone: tel: fax: Referral ID Status Reason Start Date Expiration Date Visits Re quested Visits Authorized [id number] Closed 02/15/2022 02/15/2023 1 1 FURNACE OPERATOR Reason for Visit * Imaging (Routine) - Closed Specialty Diagnoses / Procedures Referred By Doug cartagena Referred To Contact RADIOLOGY Diagnoses Primary hypertension Family history of heart disease in male family member before age 55 Procedures USE ECHOCARDIOGRAM Radha De La Cruz FNP [address] [facility] [address] Phone: tel: fax: Referral ID Status Reason Start Date Expiration Date Visits Re quested Visits Authorized [id number] Closed 02/15/2022 02/15/2023 1 1 Encounter Details Date Type Department Care Team (Late st Contact Info) Description 03/19/2022 8:00 AM PIT FURNACE OPERATOR - 03/19/2022 11:59 PM PIT FURNACE OPERATOR Hospital Encounter [facility] Ultrasound [address] [place] [address] Radha De La Cruz FNP [address] [place] [address] Discharge Disposition: Home or Self Care (Routine [...] Coronavirus/COVID-19? No / Unsure 03/19/2022 7:59 AM PIT FURNACE OPERATOR documented as of this encounter Medications at Time of Discharge Multiple Vitamin (ONCE DAILY) Tab Take 1 tablet by mouth. atorvastatin (LIPITOR) 10 MG tabletIndications:Mi xed hyperlipidemia TAKE 1 TABLET BY MOUTH EVERYDAY AT BEDTIME 90 tablet 1 01/29/2022 3 buPROPion XL (WELLBUTRIN XL) 300 MG 24 hr tabletIndications:An xiety TAKE 1 TABLET BY MOUTH EVERY DAY 90 tablet 1 01/15/2022 3 Krill Oil 1000 MG Cap Take 1 capsule by mouth daily. 4 lisinopril (PRINIVIL) 10 MG tabletIndications:Pr imary hypertension Take 2 tablets (20 mg total) by mouth daily. 90 tablet 02/26/2022 3 documented as of this encounter Progress Notes * Jazmyne Acosta RN - 03/19/2022 8:00 AM CST Pt notified. FURNACE OPERATOR documented in this encounter Plan of Treatment Not on file documented as of this encounter Procedures Procedure Name Priority Date/Time Associated Diagnosis Comments USE ECHOCARDIOGRAM Routine 03/19/2022 8: 36 AM PIT FURNACE OPERATOR Primary hypertension Family history of heart disease in male family member before age 55 documented in this encounter Results * USE ECHOCARDIOGRAM (03/19/2022 8:36 AM PIT FURNACE OPERATOR) Anatomical Region Laterality Modality Cardiac Ultrasound Radha [facility] Final Result documented in this encounter Visit Diagnoses Diagnosis Primary hypertension Unspecified essential hypertension Family history of heart disease in male family member before age 55 Family history of other cardiovascular diseases documented in this encounter Additional Health Concerns Assessment Noted Time PHQ-9 Depression Total Score: 0 06/02/19 22 10:42 AM CDT documented as of this encounter Care Teams Line Service Person Relationship Specialty Start Date End Date Radha De La Cruz FNP [address] [place] [address] [place] [address] PCP - General Nurse Practitioner Family 01/28/18 documented as of this encounter
--- OUTSIDE RECORDS SUMMARY | 2024-03-30 04:04 | XMS_ITS | Encounter Summary ---
Author Organization [facility] Address [address] [place] [address]. [place], [place] [address] [place] [address] Care Team Providers Care Datapower Developer Name Role Phone Radha De La Cruz [facility] Primary Care Provider [phone] Reason for Visit * Reason Onset Date Comments Concerns 09/24/2021 Encounter Details Date Type Department Care Team (Late st Contact Info) Description 09/24/2021 Telephone [facility] [address] [place] [address] Radha De La Cruz [facility] [address] [place] [address] Concerns Social History Tobacco Use Types Packs/Day Years [...] AM CDT documented as of this encounter Progress Notes * Lizabeth Post RN - 09/25/2021 8:10 AM CDT Appt made for 320 today. * LEORA Horne - 09/24/2021 10:14 PM CDT I need to see her again. You can fit her in my schedule on Friday for acute visit * Reyna Perkins LPN - 09/24/2021 9:23 AM CDT Called pt she said that she is using the Flonase daily and taking Claritin. But nothing is helping and getting worse. Now painful. Offered OV with CC or another provider in the office but wanted to wait for Isabela to advise. * Kalie Dubois - 09/24/2021 8:48 AM CDT Patient called was seen on 09/19 said she still has fluid on her ear wanting to see if she needs to be seen again or what she should do [phone] documented in this encounter Plan of Treatment Not on file documented as of this encounter Visit Diagnoses Not on filedocumented in this encounter Additional Health Concerns Assessment Noted Time PHQ-9 Depression Total Score: 0 06/02/19 22 10:42 AM CDT documented as of this encounter Care Teams Datapower Developer Relationship Specialty Start Date End Date Radha De La Cruz FNP [address] [place] [address] [place] [address] PCP - General Nurse Practitioner Family 01/28/18 documented as of this encounter
--- OUTSIDE RECORDS SUMMARY | 2024-03-30 04:04 | XMS_ITS | Encounter Summary ---
Author Organization [facility] Address [address] [place] [address]. [place], [place] [address] [place] [address] Care Team Providers Care Pharmacy Tech Customer Service Name Role Phone John De La Cruz Primary Care Provider [phone] Encounter Details Date Type Department Care Team (Late st Contact Info) Description 02/15/2022 4:06 PM SCALE MODEL MAKER - 02/15/2022 11:59 PM [facility] Hospital Encounter [facility] Cardiopulmonary Services [address] [place] [id number] John De La Cruz FNP [address] [place] [facility]246 Discharge Disposition: Home or Self Care (Routine [...] Coronavirus/COVID-19? No / Unsure 02/15/2022 3:14 PM SCALE MODEL MAKER documented as of this encounter Medications at [...] capsule by mouth daily. 4 lisinopril (PRINIVIL) 5 MG tabletIndications:Pr imary hypertension Take 1 tablet (5 mg total) by mouth daily. 30 tablet 1 02/11/2022 2 documented as of this encounter Plan of Treatment Not on file documented as of this encounter Procedures Procedure Name Priority Date/Time Associated Diagnosis Comments ECG 12-LEAD Routine 02/15/2022 4:19 PM SCALE MODEL MAKER Primary hypertension documented in this encounter Results * ECG 12 lead (Hosp Performed) (02/15/2022 4:19 PM SCALE MODEL MAKER) 02/15/2022 4:19 PM SCALE MODEL MAKER Narrative [facility] - 02/17/2022 9:26 PM SCALE MODEL MAKER ? HFG ? Test Date: ?2022-02-15 Pat Name: ? LISA GROTTS ? Department: ?? 100 ? Room: ? Gender: ? Female ? Patient Accounts Coordinator: ?? HW : ?1960 ? Requested By: JOHN DE LA CRUZ Order Number: [id number] ? Reading MD: ?? Alejandro Ochieng ? Measurements Intervals ?[place] ? Rate: ? 71 ? P: ?24 IN: ? 158 ?QRS: ?5 QRSD: ? 81 ? T: ?30 QT: ? 366 ? QTc: ?400 ? Interpretive Statements SINUS RHYTHM LOW QRS VOLTAGE IN PRECORDIAL LEADS [QRS DEFLECTION < 1.0 mV IN CHEST LEADS] No prior ECG for comparison E MODEL MAKER Procedure Note Alejandro Turcios MD - 02/17/2022 HFG Test Date: 2022-02-15 Pat Name: [facility] Department: [facility] Room: Gender: Female Patient Accounts Coordinator: : 1960 Requested By: JOHN DE LA CRUZ Order Number: [id number] Reading MD: Alejandro Turcios Measurements Intervals [place] Rate: 71 P: 24 IN: 158 QRS: 5 QRSD: 81 T: 30 QT: 366 QTc: 400 Interpretive Statements SINUS RHYTHM LOW QRS VOLTAGE IN PRECORDIAL LEADS [QRS DEFLECTION < 1.0 mV IN CHESTLEADS] No prior ECG for comparison E MODEL MAKER us John [facility] ECG ORDERABLES Final Result [facility] [address] documented in this encounter Visit Diagnoses Diagnosis Primary hypertension Unspecified essential hypertension documented in this encounter Additional Health Concerns Assessment Noted Time PHQ-9 Depression Total Score: 0 06/02/19 22 10:42 AM CDT documented as of this encounter Care Teams Pharmacy Tech Customer Service Relationship Specialty Start Date End Date John De La Cruz FNP [address] [place] [address] PCP - General Nurse Practitioner Family 01/28/18 documented as of this encounter
--- OUTSIDE RECORDS SUMMARY | 2024-03-30 04:04 | XMS_ITS | Encounter Summary ---
Author Organization [facility] Address [address] [place] [address]. [place], [place] [address] [place] [address] Care Team Providers Care Regrinder Name Role Phone Radha De La Cruz Primary Care Provider [phone] Reason for Visit * Reason Comments Consult * Consultation (Routine) - Closed Specialty Diagnoses / Procedures Referred By Contact Referred To Contact HEART & VASCULAR CARE / Cardiology Diagnoses Primary hypertension Family history of heart disease in male family member before age 55 Procedures OFFICE/OUTPT VISIT,NEW,LEVL III OFFICE/OUTPT VISIT,NEW,LEVL IV OFFICE/OUTPT VISIT,NEW,LEVL V OFFICE/OUTPT VISIT,EST,LEVL III OFFICE/OUTPT VISIT,EST,LEVL IV OFFICE/OUTPT VISIT,EST,LEVL V Radha De La Cruz FNP [address] [place] [address] Phone: tel: fax: [facility] [address] [facility] [place] [address] Phone: tel: fax: Referral ID Status Reason Start Date Expiration Date V isits Requested Visits Authorized [id number] Closed Specialty Services 02/15/2022 03/17/2023 99 99 Encounter Details Date Type Department Care Team (Late st Contact Info) Description 03/28/2022 3:15 PM SUPERVISOR SUNGLASSES Office Visit [facility] [place] [id number] Marco Olivia MD [address] [address] Consult Social History Tobacco Use Types Packs/Day [...] Coronavirus/COVID-19? No / Unsure 03/28/2022 2:57 PM SUPERVISOR SUNGLASSES documented as of this encounter Last Filed Vital Signs Vital Sign Reading Time Taken Comments Blood Pressure 140/92 03/28/2022 3:13 PM SUPERVISOR SUNGLASSES Pulse 84 03/28/2022 3:11 PM SUPERVISOR SUNGLASSES Temperature - - Respiratory Rate 17 03/28/2022 3:11 PM SUPERVISOR SUNGLASSES Oxygen Saturation 96% 03/28/2022 3:11 PM SUPERVISOR SUNGLASSES Inhaled Oxygen Concentration - - Weight 78 kg (172 lb) 03/28/2022 3:11 PM SUPERVISOR SUNGLASSES Height 170.2 cm (5' 7 ) 03/28/2022 3:11 PM SUPERVISOR SUNGLASSES Body Mass Index 26.94 03/28/2022 3:11 PM SUPERVISOR SUNGLASSES documented in this encounter Progress Notes * Marco Olivia MD - 03/28/2022 3:15 PM CST Reason for Visit: Consult History of Present Illness: Lisa Baxter is a 61-year-old woman being seen today in consultation at the request of Radha De La Cruz NP, for new onset hypertension. She was diagnosed with new hypertension about 5 weeks ago when she was found to have a blood pressure 180/120 at her TRAFFIC SERGEANT appointment. Since then she has checked blood pressures at home and has typically been in the 130s in the morning, but more than 160s after work. She denies any chest pain, shortness of breath, heart failure symptoms. She has no previous cardiovascular history. 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 She has no history of tobacco, reports social alcohol use 2-3 times a week. Acknowledges occasional cannabis use, no other illicit substance use. She has no family history of premature coronary artery disease. ASSESSMENT AND PLAN: PROBLEM LIST: 1. Hypertension. 2. Dyslipidemia. Hypertension: Blood pressure is mildly elevated today and it is certainly a bit more elevated at home after work.We will increase her Lisinopril from 20 to 30 with BMP in 1 week. Dyslipidemia: 01/2022 labs included LDL 93. Her 10-year cardiovascular risk is estimated at 4.8%. We discussed the fact that Krill oil has not been shown to improve cardiovascular outcomes. She was started on Atorvastatin approximately 7 months ago and we will continue on her current regimen. I will plan to see her back in 6 months unless issues arise in the interim. Thank you very much for allowing me to participate in the care of your patient. Please feel free tocontact me with any further questions or concerns. #[id number] /OLGA Medications: Current Outpatient Medications: ??? lisinopril (PRINIVIL) 30 MG tablet, Take 1 tablet (30 mg total) by mouth daily., Disp: 90 tablet, Rfl: 1 ??? atorvastatin (LIPITOR) 10 MG tablet, TAKE [...] mouth., Disp: , Rfl: No Known Allergies Past Medical History: Diagnosis Date ??? Cervical [...] No No family history on file. No family status information on file. Review of Systems Constitutional: Negative for recent unintentional weight gain, recent unintentional weight loss andnew or significant fatigue. HENT: Negative for new or significant hearing loss. Eyes: Negative for blurred vision and double vision. Respiratory: Negative for cough, new or significant shortness of breath and snoring. Cardiovascular: See HPI. Gastrointestinal: Negative for blood in stool and melena. Genitourinary: Negative for dysuria. Musculoskeletal: Negative for myalgias and new or worsening joint stiffness/pain. Skin: Negative for rash. Neurological: Negative for tingling/numbness and focal weakness. Endo/Heme/Allergies: Negative for new or significant bruising/bleeding and polydipsia. Psychiatric/Behavioral: Negative for depression and new or significant memory loss. Vitals: 03/28/22 1511 03/28/22 1513 BP: (!) 140/98 (!) 140/92 Patient Position: Sitting Sitting BP Location: Left arm Right arm Pulse: 84 Weight: 78 kg (172 lb) Height: 5' 7 (1.702 m) Body mass index is 26.94 kg/m??. Cardiac Exam Rate/Rhythm: Normal rate and regular rhythm. PMI: PMI is not displaced. Pulses: Normal pulses. Femoral pulses are 2+ on the right side and 2+ on the left side. Heart Sounds: Normal heart sounds. Normal S1 sounds. Normal S2 sounds. No gallop present. No S3. NoS4. Murmurs: Physical Exam Constitutional: No distress. Healthy Appearance. HENT: Oropharynx clear. Eyes: Pupils equal, round, and reactive to light. Conjunctivae normal. Neck: Neck supple. No JVD. Abdomen: Abdomen soft. Bowel sounds normal. No tenderness. No mass. No hepatomegaly. No splenomegaly. Abdominal aorta not palpably enlarged. No abdominal bruit present. Pulmonary: Effort normal. Breath sounds normal. Skin: No rash. No cyanosis. No clubbing. No xanthoma. Musculoskeletal: No kyphosis. Normal ROM. Neurological: Alert. Oriented x 3. Appropriate mood and affect. Normal motor skills. Normal gait. Comments: Diagnoses/Impression: 1. Essential (primary) hypertension BASIC METABOLIC PANEL 2. Primary hypertension lisinopril (PRINIVIL) 30 MG tablet 3. Hyperlipidemia, mixed Referring Provider: LEORA Joyner PCP: LEORA JOYNER RVISOR SUNGLASSES documented in this encounter Plan of Treatment Not on file documented as of this encounter Visit Diagnoses Diagnosis Essential (primary) hypertension- Primary Unspecified essential hypertension Primary hypertension Unspecified essential hypertension Hyperlipidemia, mixed Mixed hyperlipidemia documented in this encounter Additional Health Concerns Assessment Noted Time PHQ-9 Depression Total Score: 0 06/02/19 22 10:42 AM CDT documented as of this encounter Care Teams Regrinder Relationship Specialty Start Date End Date Radha De La Cruz FNP [address] [place] [address] [place] [address] PCP - General Nurse Practitioner Family 01/28/18 documented as of this encounter
--- OUTSIDE RECORDS SUMMARY | 2024-03-30 04:04 | XMS_ITS | Encounter Summary ---
Author Organization [facility] Address [address] [place] [address]. [place], [place] [id number] [place] [address] Care Team Providers Care Chief Engineer'S Helper Name Role Phone John De La Cruz Primary Care Provider [phone] Encounter Details Date Type Department Care Team (Late st Contact Info) Description 05/10/2022 12:55 PM WIDE AREA NETWORK ADMINISTRATOR - 05/10/2022 12:59 PM WIDE AREA NETWORK ADMINISTRATOR Hospital Encounter [facility] [address] [place] [address] John De La Cruz FNP [address] [place] [address] Discharge Disposition: Home or Self Care [...] suspected to have Coronavirus/COVID-19? No / Unsure 05/10/2022 12:21 PM WIDE AREA NETWORK ADMINISTRATOR documented as of this encounter Medications at Time of Discharge Multiple Vitamin (ONCE DAILY) Tab Take 1 tablet by mouth. amLODIPine (NORVASC) 2.5 MG tabletIndications:Pr imary hypertension Take 1 tablet (2.5 mg total) by mouth daily. 30 tablet 05/10/2022 3 atorvastatin (LIPITOR) 10 MG tabletIndications:Mi xed hyperlipidemia TAKE 1 TABLET BY MOUTH EVERYDAY AT BEDTIME 90 tablet 1 01/29/2022 3 buPROPion XL (WELLBUTRIN XL) 300 MG 24 hr tabletIndications:An xiety TAKE 1 TABLET BY MOUTH EVERY DAY 90 tablet 1 01/15/2022 3 Krill Oil 1000 MG Cap Take 1 capsule by mouth daily. 4 lisinopril (PRINIVIL) 30 MG tabletIndications:Pr imary hypertension Take 1 tablet (30 mg total) by mouth daily. 90 tablet 1 03/28/2022 3 documented as of this encounter Plan of Treatment Not on file documented as of this encounter Procedures Procedure Name Priority Date/Time Associated Diagnosis Comments XR HUMERUS LT MIN 2V Routine 05/10/2022 1:18 PM WIDE AREA NETWORK ADMINISTRATOR Left upper arm pain documented in this encounter Results * XR HUMERUS LT MIN 2V (05/10/2022 1:18 PM WIDE AREA NETWORK ADMINISTRATOR) Anatomical Region Laterality Modality Humerus Computed Tomogra phy 05/10/2022 1:30 PM WIDE AREA NETWORK ADMINISTRATOR Impressions 05/10/2022 1:31 PM WIDE AREA NETWORK ADMINISTRATOR IMPRESSION: 1. ??There is no evidence of acute fracture, dislocation, or osseous erosion. Normal contour to the humeral head. 2. ??No radiopaque foreign bodies or abnormal soft tissue calcifications noted. 3. ?? Mild degenerative change about the left shoulder. Ordered By: JOHN DE LA CRUZ Interpreted By: Miranda Tran, 05/10/2022 1:30 PM Narrative 05/10/2022 1:31 PM WIDE AREA NETWORK ADMINISTRATOR IMAGING STUDIES: ??XR HUMERUS LT MIN 2V ? DATE: ??05/10/2022 1:06 PM COMPARISON: ??No comparisons. CLINICAL HISTORY: ??left upper arm pain ?? . ??No history of trauma Procedure Note Ronal Tran MD - 05/10/2022 IMAGING STUDIES: XR HUMERUS LT MIN 2V DATE: 05/10/2022 1:06 PM COMPARISON: No comparisons. CLINICAL HISTORY: left upper arm pain . No history of trauma IMPRESSION: 1. There is no evidence of acute fracture, dislocation, or osseouserosion. Normal contour to the humeral head. 2. No radiopaque foreign bodies or abnormal soft tissue calcificationsnoted. 3. Mild degenerative change about the left shoulder. Ordered By: JOHN DE LA CRUZ Interpreted By: Miranda Tran, 05/10/2022 1:30 PM John [facility] GENERAL IMAGING Final Result documented in this encounter Visit Diagnoses Diagnosis Left upper arm pain Pain in limb documented in this encounter Additional Health Concerns Assessment Noted Time PHQ-9 Depression Total Score: 0 06/02/19 22 10:42 AM CDT documented as of this encounter Care Teams Chief Engineer'S Helper Relationship Specialty Start Date End Date John De La Cruz FNP [address] [place] [address] [place] [address] PCP - General Nurse Practitioner Family 01/28/18 documented as of this encounter
--- OUTSIDE RECORDS SUMMARY | 2024-03-30 04:04 | XMS_ITS | Encounter Summary ---
Author Organization [facility] Address [facility]. [place], [place] [id number] [place] [address] Care Team Providers Care Powder Worker Name Role Phone John De La Cruz [facility] Primary Care Provider [phone] Reason for Visit * Reason Comments Arm Pain Patient has been hav ing some pain in her left arm for the past week. In the last three days she has also noticed her left thumb is numb as well. She has taken some ibuprofen for the pain but it does not help. Holding her arm up over her head does seem to help though. It is not constant pain. It is not the whole arm, just one specific spot.-nkw Encounter Details Date Type Department Care Team (Late st Contact Info) Description 05/10/2022 12:20 PM HAND BUNCH MAKER Office Visit [address] [place] [address] John De La Cruz, [address] [place] [address] Arm Pain (Patient has been having some pain in her left arm for the past week. In the last three days she has also noticed her left thumb is numb as well. She has taken some ibuprofen for the pain but it does not help. Holding her arm up over her head does seem to help though. It is not constant pain. It is not the whole arm, just one specific spot./-nkw) Social History Tobacco Use Types Packs/Day Years [...] Coronavirus/COVID-19? No / Unsure 05/10/2022 12:21 PM HAND BUNCH MAKER documented as of this encounter Last Filed Vital Signs Vital Sign Reading Time Taken Comments Blood Pressure 142/80 05/10/2022 12:25 PM HAND BUNCH MAKER Pulse 73 05/10/2022 12:25 PM HAND BUNCH MAKER Temperature 37.2 ??C (99 ??F) 05/10/2022 12:25 PM HAND BUNCH MAKER Respiratory Rate 16 05/10/2022 12:25 PM HAND BUNCH MAKER Oxygen Saturation 97% 05/10/2022 12:25 PM HAND BUNCH MAKER Inhaled Oxygen Concentration - - Weight 79.8 kg (176 lb) 05/10/2022 12:25 PM HAND BUNCH MAKER Height 170.2 cm (5' 7 ) 05/10/2022 12:25 PM HAND BUNCH MAKER Body Mass Index 27.57 05/10/2022 12:25 PM HAND BUNCH MAKER documented in this encounter Patient Instructions * Patient Instructions* LEORA Joyner - 05/10/2022 12:20 PM HAND BUNCH MAKER Get the EKG and x-ray done now and I will call later with the results Continue to take lisinopril 30 mg in the morning Add amlodipine 2.5 mg in the evening Monitor your blood pressure and record the readings See me in 3 weeks for follow-up Call sooner if any concerns Consider seeing pain management if neck pain continues to bother you BUNCH MAKER documented in this encounter Progress Notes * John Eng LEORA De La Cruz - 05/10/2022 12:20 PM CST Lisa is a 62-year-old female patient. Reason for Visit: Arm Pain (Patient has been having some pain in her left arm for the past week. In the last three days she has also noticed her left thumb is numb as well. She has taken some ibuprofen for the pain but it does not help. Holding her arm up over her head does seem to help though. It is not constant pain. It is not the whole arm, just one specific spot./-nkw) History of Present Illness: Lisa is a 62 year old female patient here for concerns of having elevated blood pressure. She has a history of having hypertension, hyperlipidemia, anxiety disorder. She is currently on lisinopril 30 mg daily for hypertension. She takes atorvastatin for hyperlipidemia and Wellbutrin for anxiety. She was referred to cardiology in March and saw Dr Olivia. 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 She was then started on lisinopril and has been uptitrated. He increased it to 30 mg daily at that visit. He advised follow up in September 2022. Echo ws done and it was normal. 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 She has no history of tobacco use,reports social alcohol use 2-3 times a week, occasional cannabis use, no other illicit substance use. She has no family history of premature coronary artery disease. Her BP are higher in am before taking her med. 150s/ 80s to 90. Blood pressure usually improves after taking her medication but it is never lower than 140s over 80s. Rarely will get a 70s diastolic. She has had a stabbing left arm pain off and on x 1 week. Now her left thumb is a little numb. No known injury. She does lift her grandkids often but does not remember hurting herself. She has not had any arm swelling. She has point tenderness over the anterior proximal humerus. She has a history of chronic neck pain. She had MRI done in November. She does have stenosis and neural foraminal narrowing. She says right now her pain is not too bad. It bothers her occasionally at the base of the neck. She does not usually have pain down her arm. It does not wake her up at night. She has done some home physical therapy with the direction of her son-in-law who is a physical therapist. She is not doing anything right now. Past Medical History: Diagnosis Date ??? Cervical spinal stenosis 01/04/2022 ??? H/O left knee surgery 08/21/[address] Left knee surgery [address] Dr. Dony Ryees. Left knee unicompartment replacement. ??? Hyperlipidemia ??? [...] for chills, fever, malaise/fatigue and weight loss. Respiratory: Negative for cough and shortness of breath. Cardiovascular: Negative for chest pain, palpitations, orthopnea, claudication and leg swelling. Musculoskeletal: Positive for neck pain (Chronic). Left upper arm pain Neurological: Negative for dizziness and headaches. Vitals: Filed Vitals: 05/10/22 1225 BP: (!) 142/80 Pulse: 73 Resp: 16 Temp: 99 ??F (37.2 ??C) TempSrc: Temporal SpO2: 97% Weight: 79.8 kg (176 lb) Height: 5' 7 (1.702 m) Physical Exam Vitals and nursing note reviewed. Constitutional: General: She is not in acute distress. Appearance: Normal appearance. HENT: Head: Normocephalic and atraumatic. Cardiovascular: Rate and Rhythm: Normal rate and regular rhythm. Pulses: Normal pulses. Heart sounds: Normal heart sounds. Pulmonary: Effort: Pulmonary effort is normal. Breath sounds: Normal breath sounds. Musculoskeletal: Cervical back: Neck supple. Comments: Neck range of motion is normal. Left shoulder range of motion is normal. She has some discomfort to palpate the anterior proximal humerus. She has point tenderness. Normal skin exam in that area. There is no swelling. Bilateral hand grasps are strong and equal Skin: General: Skin is warm and dry. Neurological: Mental Status: She is alert and oriented to person, place, and time. Psychiatric: Mood and Affect: Mood normal. Behavior: Behavior normal. Thought Content: Thought content normal. Judgment: Judgment normal. Diagnoses/Impression: Encounter Diagnose(s) ICD-10-CM ICD-9-CM SNOMED CT(R) 1. Primary hypertension I10 401.9 ESSENTIAL HYPERTENSION ECG 12 lead (Hosp Performed) amLODIPine (NORVASC) 2.5 MG tablet 2. Left upper arm pain M79.622 729.5 PAIN OF LEFT UPPER ARM ECG 12 lead (Hosp Performed) XR HUMERUS LT MIN 2V 3. Elevated blood pressure reading with diagnosis of hypertension I10 401.9 ELEVATED BLOOD PRESSURE Plan Orders Placed: Orders Placed This Encounter ??? XR HUMERUS LT MIN 2V ??? amLODIPine (NORVASC) 2.5 MG tablet ??? ECG 12 lead (Hosp Performed) We will get an EKG today as well as an x-ray of the humerus due to the point tenderness in the leftupper arm with no known injury Further recommendations once those results are reviewed. She continues to have elevated blood pressure readings. I advised that she continue lisinopril 30 mg daily in the morning and add amlodipine 2.5 mg in the evening Monitor blood pressure every other day and record the readings Follow-up in 3 weeks Call sooner if any concerns or questions Instructions Patient Instructions Get the EKG and x-ray done now and I will call later with the results Continue to take lisinopril 30 mg in the morning Add amlodipine 2.5 mg in the evening Monitor your blood pressure and record the readings See me in 3 weeks for follow-up Call sooner if any concerns Consider seeing pain management if neck pain continues to bother you LEORA JOYNER 05/10/2022 12:23 PM Cosigned by Mery Witt DO at 05/10/2022 3:48 PM HAND BUNCH MAKER BUNCH MAKER BUNCH MAKER documented in this encounter Plan of Treatment Not on file documented as of this encounter Results * XR HUMERUS LT MIN 2V (05/10/2022 1:18 PM HAND BUNCH MAKER) Anatomical Region Laterality Modality Humerus Computed Tomogra phy 05/10/2022 1:30 PM HAND BUNCH MAKER Impressions 05/10/2022 1:31 PM HAND BUNCH MAKER IMPRESSION: 1. ??There is no evidence of acute fracture, dislocation, or osseous erosion. Normal contour to the humeral head. 2. ??No radiopaque foreign bodies or abnormal soft tissue calcifications noted. 3. ?? Mild degenerative change about the left shoulder. Ordered By: JOHN DE LA CRUZ Interpreted By: Miranda Tran, 05/10/2022 1:30 PM Narrative 05/10/2022 1:31 PM HAND BUNCH MAKER IMAGING STUDIES: ??XR HUMERUS LT MIN 2V [...] By: Miranda Tran, 05/10/2022 1:30 PM John De La Cruz INJECTION MAINTENANCE TECHNICIAN GENERAL IMAGING Final Result * ECG 12 lead (Hosp Performed) (05/10/2022 1:14 PM HAND BUNCH MAKER) 05/10/2022 1:14 PM HAND BUNCH MAKER Narrative [facility] - 05/10/2022 3:52 PM HAND BUNCH MAKER ? HFG ? Test Date: ?2022-05-10 Pat Name: ? LISA AMADO ? Department: ?? 100 ? Room: ? Gender: ? Female ? Property Staff Accountant: ?? ME : ?1960 ? Requested By: JOHN DE LA CRUZ Order Number: [id number] ? Reading MD: ?? Gabino Bedolla ? Measurements Intervals ?Parkin ? Rate: ? 67 ? P: ?51 NE: ? 150 ?QRS: ?59 QRSD: ? 82 ? T: ?58 QT: ? 379 ? QTc: ?402 ? Interpretive Statements SINUS RHYTHM Since prior tracing no significant change BUNCH MAKER Procedure Note Gabino Bedolla MD - 05/10/2022 HFG Test Date: 2022-05-10 Pat Name: LISA GROTTS Department: 100 Room: Gender: Female Property Staff Accountant: [place] : 1960 Requested By: JOHN DE LA CRUZ Order Number: [id number] Reading MD: Gabino Bedolla Measurements Intervals Parkin Rate: 67 P: 51 NE: 150 QRS: 59 QRSD: 82 T: 58 QT: 379 QTc: 402 Interpretive Statements SINUS RHYTHM Since prior tracing no significant change BUNCH MAKER us John [facility] ECG ORDERABLES Final Result [place] [address] documented in this encounter Visit Diagnoses Diagnosis Primary hypertension- Primary Unspecified essential hypertension Left upper arm pain Pain in limb Elevated blood pressure reading with diagnosis of hypertension Left upper arm pain Pain in limb Primary hypertension Unspecified essential hypertension Left upper arm pain Pain in limb documented in this encounter Additional Health Concerns Assessment Noted Time PHQ-9 Depression Total Score: 0 06/02/19 22 10:42 AM CDT documented as of this encounter Care Teams Powder Worker Relationship Specialty Start Date End Date John De La Cruz FNP [address] [place] [address] [place] [address] PCP - General Nurse Practitioner Family 01/28/18 documented as of this encounter
--- OUTSIDE RECORDS SUMMARY | 2024-03-30 04:04 | XMS_ITS | Encounter Summary ---
Author Organization [facility] Address [address] [place] [address]. [place], [place] [address] [place] [address] Care Team Providers Care Buckle Stapler Name Role Phone Radha De La Cruz [facility] Primary Care Provider [phone] Reason for Visit * Reason Comments Mammogram (SCAN) Encounter Details Date Type Department Care Team ([facility] Contact Info) Description 02/08/2022 Scan HEALTH INFO SRVCS Scanned, Doc Med [...] Coronavirus/COVID-19? No / Unsure 02/15/2022 3:14 PM BUS AND TROLLEY INSPECTING DISPATCHER documented as of this encounter Plan of Treatment Not on file documented as of this encounter Procedures Procedure Name Priority Date/Time Associated Diagnosis Comments MAMMOGRAM GENERIC (SCAN ORDER) 02/08/2022 documented in this encounter Results * MAMMOGRAM GENERIC (02/08/2022) Anatomical Region Laterality Modality Other 02/08/2022 us Doc Med [facility] Scanned SCANNING Final Resu lt documented in this encounter Visit Diagnoses Not on filedocumented in this encounter Additional Health Concerns Assessment Noted Time PHQ-9 Depression Total Score: 0 06/02/19 22 10:42 AM CDT documented as of this encounter Care Teams Buckle Stapler Relationship Specialty Start Date End Date Radha De La Cruz FNP [address] [place] [address] [place] [address] PCP - General Nurse Practitioner Family 01/28/18 documented as of this encounter
--- OUTSIDE RECORDS SUMMARY | 2024-03-30 04:04 | XMS_ITS | Encounter Summary ---
Author Organization [facility] Address [address] [place] [address]. [place], [place] [address] [place] [address] Care Team Providers Care Excel Expert Name Role Phone Radha De La Cruz [facility] Primary Care Provider [phone] Reason for Visit * Reason Comments Blood Pressure Reports that her b/p was elevated at her health care analyst appointment today, reports b/p 190/110 Encounter Details Date Type Department Care Team (Late st Contact Info) Description 02/11/2022 3:00 PM GRAPHIC ILLUSTRATOR Allied Health/Nurse Visit Replaced by [facility] [address] [place] [address] Radha De La Cruz, [facility] [address] [place] [address] Blood Pressure (Reports that her b/p was elevated at her health care analyst appointment today, reports b/p 190/110) Social History Tobacco Use Types Packs/Day Years [...] Coronavirus/COVID-19? No / Unsure 02/11/2022 2:59 PM GRAPHIC ILLUSTRATOR documented as of this encounter Last Filed Vital Signs Vital Sign Reading Time Taken Comments Blood Pressure 172/84 02/11/2022 3:23 PM GRAPHIC ILLUSTRATOR Pulse 56 02/11/2022 3:22 PM GRAPHIC ILLUSTRATOR Temperature - - Respiratory Rate - - Oxygen Saturation - - Inhaled Oxygen Concentration - - Weight - - Height - - Body Mass Index - - documented in this encounter Progress Notes * Jazmyne Acosta RN - 02/11/2022 3:00 PM CST Pt complains of her hands tingling; appointment scheduled with Pauline morrison; HIC ILLUSTRATOR documented in this encounter Plan of Treatment Not on file documented as of this encounter Visit Diagnoses Diagnosis Elevated blood pressure reading- Primary Elevated blood pressure reading without diagnosis of hypertension documented in this encounter Additional Health Concerns Assessment Noted Time PHQ-9 Depression Total Score: 0 06/02/19 22 10:42 AM CDT documented as of this encounter Care Teams Excel Expert Relationship Specialty Start Date End Date Radha De La Cruz FNP [address] [place] [address] [place] [address] PCP - General Nurse Practitioner Family 01/28/18 documented as of this encounter
--- OUTSIDE RECORDS SUMMARY | 2024-03-30 04:04 | XMS_ITS | Encounter Summary ---
Author Organization [facility] Address [address] [place] [address]. [place], [place] [address] [place] [address] Care Team Providers Care Advocacy Director Name Role Phone Radha De La Cruz [facility] Primary Care Provider [phone] Reason for Visit * Reason Comments Medication Management No issues with med s right now. Encounter Details Date Type Department Care Team (Late st Contact Info) Description 01/04/2022 8:40 AM CDT Office Visit [facility] [address] [place] [address] Radha De La Cruz FNP [address] [place] [address] Medication Management (No issues with meds right now. ) Social History Tobacco Use Types Packs/Day [...] Sign Reading Time Taken Comments Blood Pressure 138/78 01/04/2022 8:44 AM CDT Pulse 75 01/04/2022 8:44 AM CDT Temperature 37.1 ??C (98.7 ??F) 01/04/2022 8:44 AM CD T Respiratory Rate 16 01/04/2022 8:44 AM CDT Oxygen Saturation 98% 01/04/2022 8:44 AM CDT Inhaled Oxygen Concentration - - Weight 78.4 kg (172 lb 12.8 oz) 01/04/2022 8:44 AM CDT Height 170.2 cm (5' 7 ) 01/04/2022 8:44 AM CDT Body Mass Index 27.06 01/04/2022 8:44 AM CDT documented in this encounter Patient Instructions * Patient Instructions* LEORA Joyner - 01/04/2022 8:40 AM CDT Come back next week for fasting blood test You must fast for 12 hours before After 8 am M T TH F Call the pharmacy when refills are needed documented in this encounter Progress Notes * LEORA Joyner - 01/04/2022 8:40 AM CDT Lisa is a 61-year-old female patient. Reason for Visit: Medication Management History of Present Illness: Lisa is a 61-year-old female patient who is here for medication refills and a checkup. Her past medical history significant for hyperlipidemia, depression. She is on atorvastatin 10 mg daily for hyperlipidemia. Her last lipid panel was done in March 2021. At that time fenofibrate was stopped and she was started on atorvastatin. She was advised to follow-up lipid panel in 3 months. Patient reports she has some restless leg at night but not aches. She takes bupropion XL 300 mg daily for depression. Patient reports she is doing well on the medication as she has a lot of work stress. She has a history of having chronic neck pain. She had an MRI of the neck done due to worsening symptoms. It shows cervical spinal stenosis. She had done physical therapy without much improvement. She was then referred to pain management. She was researching who to see. She went down a slide with her grandson and landed on her tailbone 2.5 weeks ago. Her tailbone hurts but her neck is better. Pain mngt on hold right now. Using neck stretching pillow. She had a colonoscopy in 2015 and it ws normal. Told to recheck in 10 years (2025) She sees her specialty foods cook, Dr. Barahona annually. Mammogram is up-to-date in January 2021. she will talk to about bone density. she had one done several years ago and it was fine. She would like the flu shot today. She declines COVID booster. Past Medical History: Diagnosis Date ??? H/O left knee surgery 08/21/[address] Dr[address] Dony Reyes. Left knee unicompartment replacement. ??? Hyperlipidemia ??? Hyperlipidemia 04/01/2014 Date Onset: 06/18/2013 ??? Internal hemorrhoids ??? Mild episode of recurrent major depressive disorder ([facility]/HCC) 07/08/2019 ??? SCC (squamous cell carcinoma), leg, right 06/14/[address] Barraza Past Surgical History: Procedure Laterality Date ??? APPENDECTOMY ??? COLONOSCOPY ??? HYSTERECTOMY ??? KNEE SURGERY 08/04/2018 Dr. Reeys. Left knee unicompartment replacement. Medications: Current Outpatient Medications: ??? ATORVASTATIN 10 MG tablet, TAKE 1 TABLET BY MOUTH EVERYDAY AT BEDTIME, Disp: 90 tablet, Rfl: 1 ??? buPROPion XL (WELLBUTRIN XL) 300 MG 24 hr tablet, TAKE 1 TABLET BY MOUTH EVERY DAY, Disp: 30 tablet, Rfl: 0 ??? Krill Oil 1000 MG Cap, Take 1 capsule by mouth daily., Disp: , Rfl: ??? Multiple Vitamin (ONCE DAILY) Tab, Take 1 tablet by mouth., Disp: , Rfl: ??? triamcinolone (KENALOG) 0.1 % cream, Apply topically 2 (two) times daily. To affected areas. Donot use on face., Disp: 45 g, Rfl: 0 No Known Allergies No family history on file. No family status information on file. reports that she has never smoked. She has never used smokeless tobacco. She reports current alcohol use. She reports that she does not use drugs. She is . ROS: Review of Systems Constitutional: Negative for malaise/fatigue and weight loss. HENT: Negative. Respiratory: Negative for cough and shortness of breath. Cardiovascular: Negative for chest pain and palpitations. Musculoskeletal: Negative for myalgias. See HPI Neurological: Negative for dizziness and headaches. Psychiatric/Behavioral: See HPI Vitals: Filed Vitals: 01/04/22 0844 Pulse: 75 Temp: 98.7 ??F (37.1 ??C) TempSrc: Tympanic Weight: 78.4 kg (172 lb 12.8 oz) Height: 5' 7 (1.702 m) Physical Exam Constitutional: Appearance: Normal appearance. HENT: Head: Normocephalic and atraumatic. Cardiovascular: Rate and Rhythm: Normal rate and regular rhythm. Pulmonary: Effort: Pulmonary effort is normal. Breath sounds: Normal breath sounds. Musculoskeletal: Cervical back: Neck supple. Comments: Her neck range of motion is normal. She has minimal discomfort with palpation to the paracervical muscles. She has some mild discomfort to pressure over the coccyx. She is able to sit without difficulty. Her gait is normal. Skin: General: Skin is warm and dry. Neurological: Mental Status: She is alert and oriented to person, place, and time. Psychiatric: Mood and Affect: Mood normal. Behavior: Behavior normal. Thought Content: Thought content normal. Judgment: Judgment normal. Diagnoses/Impression: Encounter Diagnose(s) ICD-10-CM ICD-9-CM SNOMED CT(R) 1. Mild episode of recurrent major depressive disorder (CMS/HCC) F33.0 296.31 RECURRENT MAJOR DEPRESSIVE EPISODES, MILD 2. Mixed hyperlipidemia E78.2 272.2 MIXED HYPERLIPIDEMIA LIPID PANEL 3. Cervical spinal stenosis M48.02 723.0 SPINAL STENOSIS IN CERVICAL REGION 4. Prediabetes R73.03 790.29 PREDIABETES HEMOGLOBIN, GLYCOSYLATED 5. Encounter for vitamin deficiency screening Z13.21 V77.99 PATIENT ENCOUNTER STATUS VITAMIN D, 25 OH 6. Need for immunization against influenza Z23 V04.81 NEEDS INFLUENZA IMMUNIZATION [90104] FLU VACCQUAD 6 MONTHS+ 0.5 ML (SINGLE DOSE SYRINGE FLUZONE, FLUARIX, FLULAVAL OR SINGLE DOSE VIAL FLUZONE) 7. Contusion of coccyx, initial encounter Improving S30.0XXA 922.32 CONTUSION OF COCCYX Plan Orders Placed: Orders Placed This Encounter ??? LIPID PANEL ??? HEMOGLOBIN, GLYCOSYLATED ??? VITAMIN D, 25 OH ??? [90569] FLU VACC QUAD 6 MONTHS+ 0.5 ML (SINGLE DOSE SYRINGE FLUZONE, FLUARIX, FLULAVAL OR SINGLE DOSE VIAL FLUZONE) For the depression, she is doing well on Wellbutrin XL 300 mg daily For hyperlipidemia, continue atorvastatin 10 mg daily. We will get a follow-up lab work including alipid panel and further recommendations once those results are reviewed. Follow heart healthy diet. She has cervical stenosis and chronic neck pain. It has improved. She is using home treatment modalities which is helping. She wants to wait on pain management for now. For the coccyx contusion, it is improving. Imaging is not needed. Report back if symptoms get worse Follow-up in 6 months or sooner if needed. Instructions Patient Instructions Come back next week for fasting blood test You must fast for 12 hours before After 8 am M T TH F Call the pharmacy when refills are needed LEORA JOYNER 01/04/2022 8:45 AM Cosigned by Mery Witt DO at 01/04/2022 9:15 AM CDT documented in this encounter Plan of Treatment Not on file documented as of this encounter Results * VITAMIN D, 25 OH (01/22/2022 9:25 AM SIDING COREBOARD INSPECTOR) VITAMIN D 25 HYDROXY S/P/B 40 30 - 100 NG/ML 01/23/2022 12:50 PM SIDING COREBOARD INSPECTOR [facility] Comment: ? INTERPRETATION ? DEFICIENT ??<20 ? INSUFFICIENT 20-29 ?SUFFICIENT 30-100 01/22/2022 9:25 AM SIDING COREBOARD INSPECTOR Radha De La Cruz DIRECTOR CARDIAC LABORATORY Final Result Performing Organization Address [facility] de Phone Number [facility] [address] [place] [address], * (ABNORMAL) HEMOGLOBIN, GLYCOSYLATED (01/22/2022 9:25 AM SIDING COREBOARD INSPECTOR) Pathologist [facility] HGB A1C 5.9(H) 0.0 - 5.6 % 01/22/2022 1:39 PM SIDING COREBOARD INSPECTOR [facility] Comment: ADA GUIDELINES 2010 5.7 TO 6.4% INCREASED RISK OF DIABETES > OR = 6.5% CONSISTENT WITH DIABETES ESTIMATED AVG GLUCOSE 123 mg/dL 01/22/2022 1:39 PM SIDING COREBOARD INSPECTOR [facility] 01/22/2022 9:25 AM SIDING COREBOARD INSPECTOR Radha De La Cruz [facility] Final Result Performing Organization Address [facility] de Phone Number [facility] [address] [place] [address], * LIPID PANEL (01/22/2022 9:25 AM SIDING COREBOARD INSPECTOR) CHOLESTEROL 187 0 - 200 MG/DL 01/23/2022 12:50 PM SIDING COREBOARD INSPECTOR [facility] TRIGLYCERIDES 121 0 - 150 MG/DL 01/23/2022 12:50 PM SIDING COREBOARD INSPECTOR [facility] HDL 70 >40 MG/DL 01/23/2022 12:50 PM SIDING COREBOARD INSPECTOR [facility] LDL (CALCULATED) 93 <100 MG/DL 01/23/2022 12:50 PM SIDING COREBOARD INSPECTOR [facility] NON HDL CHOLESTEROL 117 0 - 130 MG/DL 01/23/2022 12:50 PM [facility] Comment: NOTE: WHEN THE TRIGLYCERIDES ARE >200 mg/dL, NON HDL C IS A SECONDARY TARGET OF THERAPY, WITH A GOAL 30 mg/dL HIGHER THAN THE IDENTIFIED LDL C GOAL. CHOL/HDL RATIO 2.7 0.0 - 4.5 01/23/2022 12:50 PM [facility] VLDL CALCULATION 24 5 - 55 MG/DL 01/23/2022 12:50 PM [facility] LIPID INTERPRETATION 01/23/2022 12:50 PM [facility] Comment: NIH CONCENSUS REPORT RECOMMENDATIONS: ?ADULT ?CHILD [...] ?LDL ? >=160 ?>=130 01/22/2022 9:25 AM SIDING COREBOARD INSPECTOR us Radha COREY LABORATORY Final Result Performing Organization Address City/State/[facility] de Phone Number [facility] [address] [place] [address], documented in this encounter Visit Diagnoses Diagnosis Mild episode of recurrent major depressive disorder (CMS/HCC)- Primary Mixed hyperlipidemia Cervical spinal stenosis Spinal stenosis in cervical region Prediabetes Other abnormal glucose Encounter for vitamin deficiency screening Screening for other and unspecified endocrine, nutritional, metabolic, and immunity disorders Need for immunization against influenza Need for prophylactic vaccination and inoculation against influenza Contusion of coccyx, initial encounter documented in this encounter Additional Health Concerns Assessment Noted Time PHQ-9 Depression Total Score: 0 06/02/19 10:42 AM CDT documented as of this encounter Care Teams Advocacy Director Relationship Specialty Start Date End Date Radha De La Cruz FNP [address] [place] [address] [place] [address] PCP - General Nurse Practitioner Family 01/28/18 documented as of this encounter
--- OUTSIDE RECORDS SUMMARY | 2024-03-30 04:04 | XMS_ITS | Encounter Summary ---
Author Organization [facility] Address [address] [place] [address]. [place], [place] [address] [place] [address] Care Team Providers Care Data Abstractor Name Role Phone Radha De La Cruz [facility] Primary Care Provider [phone] Reason for Visit * Reason Onset Date Comments Information 02/26/2022 Encounter Details Date Type Department Care Team (Late st Contact Info) Description 02/26/2022 Telephone [facility] [address] [place] [address] Radha De La Cruz [facility] [address] [place] [address] Information Social History Tobacco Use Types Packs/Day Years [...] Coronavirus/COVID-19? No / Unsure 02/15/2022 3:14 PM POLITICAL ANTHROPOLOGIST documented as of this encounter Progress Notes * Jazmyne Acosta RN - 02/26/2022 1:42 PM CST Pt notified and voiced understanding. TICAL ANTHROPOLOGIST * LEORA Horne - 02/26/2022 12:43 PM CST Increase lisinopril to 20 mg daily. It is improving some based on the readings at [facility]. Cont BP monitoring and see me next week as scheduled TICAL ANTHROPOLOGIST * Jazmyne Acosta RN - 02/26/2022 12:26 PM CST Please note and advise TICAL ANTHROPOLOGIST * Renetta Mejia - 02/26/2022 10:40 AM CST Yesterday morning patient's blood pressure was 153/89, last night BP was 145/80, when patient got up this morning BP was 144/87, and a little while ago BP was 153/90, patient said her BP medication does not seem to be working TICAL ANTHROPOLOGIST documented in this encounter Plan of Treatment Not on file documented as of this encounter Visit Diagnoses Diagnosis Primary hypertension Unspecified essential hypertension documented in this encounter Additional Health Concerns Assessment Noted Time PHQ-9 Depression Total Score: 0 06/02/19 10:42 AM CDT documented as of this encounter Care Teams Data Abstractor Relationship Specialty Start Date End Date Radha De La Cruz FNP [address] [place] [address] [place] [address] PCP - General Nurse Practitioner Family 01/28/18 documented as of this encounter
--- OUTSIDE RECORDS SUMMARY | 2024-03-30 04:04 | XMS_ITS | Encounter Summary ---
Author Organization [facility] Address [address] [place] [address]. [place], [place] [id number] [place] [address] Care Team Providers Care 21 Dealer Name Role Phone Radha De La Cruz PRESCHOOL PROGRAM DIRECTOR Primary Care Provider [phone] Encounter Details Date Type Department Care Team (Latest Contact Info) Description 03/14/2022 Travel Social History Tobacco Use Types Packs/Day [...] Coronavirus/COVID-19? No / Unsure 03/14/2022 2:12 PM COMMERCIAL LOAN ADMINISTRATOR documented as of this encounter Plan of Treatment Not on file documented as of this encounter Visit Diagnoses Not on filedocumented in this encounter Additional Health Concerns Assessment Noted Time PHQ-9 Depression Total Score: 0 06/02/19 10:42 AM CDT documented as of this encounter Care Teams 21 Dealer Relationship Specialty Start Date End Date Radha De La Cruz FNP [address] [place] [address] [place] [address] PCP - General Nurse Practitioner Family 01/28/18 documented as of this encounter
--- OUTSIDE RECORDS SUMMARY | 2024-03-30 04:04 | XMS_ITS | Encounter Summary ---
Author Organization [facility] Address [address] [place] [address]. [place], [place] [address] [place] [address] Care Team Providers Care Sales Order Coordinator Name Role Phone John De La Cruz Primary Care Provider [phone] Reason for Referral * Consultation (Routine) - Closed Specialty Diagnoses / Procedures Referred By Contact Referred To Contact HEART & VASCULAR CARE / Cardiology Diagnoses Primary hypertension Family history of heart disease in male family member before age 55 Procedures OFFICE/OUTPT VISIT,NEW,LEVL III OFFICE/OUTPT VISIT,NEW,LEVL IV OFFICE/OUTPT VISIT,NEW,LEVL V OFFICE/OUTPT VISIT,EST,LEVL III OFFICE/OUTPT VISIT,EST,LEVL IV OFFICE/OUTPT VISIT,EST,LEVL V John De La Cruz FNP [address] [place] [address] Phone: tel: fax: [facility] [address] [address] Phone: tel: fax: Referral ID Status Reason Start Date Expiration Date V isits Requested Visits Authorized [id number] Closed Specialty Services 02/15/2022 03/17/2023 99 99 MNIST * Imaging (Routine) - Closed Specialty Diagnoses / Procedures Referred By Contac t Referred To Contact RADIOLOGY Diagnoses Primary hypertension Family history of heart disease in male family member before age 55 Procedures USE ECHOCARDIOGRAM John De La Cruz FNP [address] [place] [address] Phone: tel: fax: Referral ID Status Reason Start Date Expiration Date Visits Re quested Visits Authorized [id number] Closed 02/15/2022 02/15/2023 1 1 MNIST Reason for Visit * Reason Comments Hypertension Follow Up Pt presents today for 1 wk HTN f/u. Newly dx'd HTN with fam hx of brother sudden r/t [place] at 47 yo. SR Encounter Details Date Type Department Care Team (Late st Contact Info) Description 02/15/2022 3:20 PM COLUMNIST Office Visit [facility] [address] [place], [place] [id number] John De La Cruz FNP [address] [place] [id number] Hypertension Follow Up (Pt presents today for 1 wk HTN f/u. Newly dx'd HTN with fam hx of brother sudden r/t [place] at 47 yo. SR ) Social History Tobacco Use Types [...] Coronavirus/COVID-19? No / Unsure 02/15/2022 3:14 PM COLUMNIST documented as of this encounter Last Filed Vital Signs Vital Sign Reading Time Taken Comments Blood Pressure 134/88 02/15/2022 3:19 PM COLUMNIST Pulse 85 02/15/2022 3:19 PM COLUMNIST Temperature - - Respiratory Rate 16 02/15/2022 3:19 PM COLUMNIST Oxygen Saturation 97% 02/15/2022 3:19 PM COLUMNIST Inhaled Oxygen Concentration - - Weight 78.9 kg (174 lb) 02/15/2022 3:19 PM COLUMNIST Height 170.2 cm (5' 7 ) 02/15/2022 3:19 PM COLUMNIST Body Mass Index 27.25 02/15/2022 3:19 PM COLUMNIST documented in this encounter Patient Instructions * Patient Instructions* LEORA Joyner - 02/15/2022 3:20 PM COLUMNIST Continue lisinopril 5 mg daily We will schedule an echo and cardiology appt Get EKG done at the hospital when you are able. Get fasting labs done on 02/25/2022 MNIST documented in this encounter Progress Notes * LEORA Joyner - 02/15/2022 3:20 PM CST Lisa is a 61-year-old female patient. Reason for Visit: Hypertension Follow Up (Pt presents today for 1 wk HTN f/u. SR ) History of Present Illness: Patient is a 61-year-old female patient here for follow-up on recent onset of hypertension. She sawher CENTRIFUGAL STATION OPERATOR on 02/11/2022 and her blood pressure was 190/110. She came here for blood pressure check andher blood pressure was elevated in the office. Therefore, in my absence, she saw Erica farris willy for evaluation of elevated blood pressure. She denied chest pain, shortness of breath, tingling or numbness on one side of her face or body, new or severe headache. Denies vision changes. ?? Drinks 2 cups of coffee a day, no other caffeine. ?? She is a non smoker. She says she does not eat a lot of processed food and does not salt her food much. ?? Brother had hypertension and DM and of [place] at 47, mom had hypertension and DM and has . Due to the elevated blood pressure, she started her on lisinopril 5 mg daily and advised to follow-up with me in 1 week. She was given an order to have a CMP and TSH done 2 weeks after the starting the medication. Her PMH also includes anxiety and depression and hyperlipidemia. She has been monitoring her BP this week 147/83 earlier today. Past Medical History: Diagnosis Date ??? Cervical [...] daily., Disp: , Rfl: ??? lisinopril (PRINIVIL) 5 MG tablet, Take 1 tablet (5 mg total) by mouth daily., Disp: 30 tablet,Rfl: 1 ??? Multiple Vitamin (ONCE DAILY) Tab, [...] No ROS: Review of Systems Constitutional: Negative. HENT: Negative. Respiratory: Negative for shortness of breath. Cardiovascular: Negative for chest pain, palpitations and leg swelling. Neurological: Negative for dizziness and headaches. Vitals: Filed Vitals: 02/15/22 1519 BP: 134/88 Pulse: 85 Resp: 16 SpO2: 97% Weight: 78.9 kg (174 lb) Height: 5' 7 (1.702 m) Physical [...] ESSENTIAL HYPERTENSION ECG 12 lead (Hosp Performed) USE ECHOCARDIOGRAM Ambulatory referral to Cardiology, Adult ([facility]) 2. Family history of heart disease in male family member before age 55 Z82.49 V17.49 FAMILY HISTORYOF CARDIOVASCULAR DISEASE IN FIRST DEGREE MALE RELATIVE LESS THAN 55 YEARS OF AGE USE ECHOCARDIOGRAM Ambulatory referral to Cardiology, Adult ([facility]) 3. Mixed hyperlipidemia E78.2 272.2 MIXED HYPERLIPIDEMIA 4. Mild episode of recurrent major depressive disorder ([facility]) F33.0 296.31 RECURRENT MAJOR DEPRESSIVE EPISODES, MILD 5. Situational stress F43.9 V62.89 STRESS Plan Orders Placed: Orders Placed This Encounter ??? Ambulatory referral to Cardiology, Adult ([facility]) ??? USE ECHOCARDIOGRAM ??? ECG 12 lead (Hosp Performed) Continue lisinopril 5 mg daily for hypertension. Monitor blood pressure every 2 to 3 days and record the readings. See me in 3 weeks for follow-up. Will get an EKG and echocardiogram as well as a referral to cardiology due to new onset of hypertension as well as family history of early heart disease. Continue atorvastatin for hyperlipidemia Continue Wellbutrin 300 mg daily for anxiety and stress/depression. Instructions Patient Instructions Continue lisinopril 5 mg daily We will schedule an echo and cardiology appt Get EKG done at the hospital when you are able. Get fasting labs done on 02/25/2022 LEORA JOYNER 02/15/2022 3:21 PM Cosigned by Mery Witt DO at 02/18/2022 5:39 PM COLUMNIST MNIST MNIST documented in this encounter Plan of Treatment Scheduled Referrals Name Type Priority Associated Diagnoses Orde r Schedule Ambulatory referral to Cardiology, Adult ([facility]) Referral Routine Primary hypertension Family history of heart disease in male family member before age 55 Ordered: 02/15/2022 documented as of this encounter Results * USE ECHOCARDIOGRAM (03/19/2022 8:36 AM COLUMNIST) Anatomical Region Laterality Modality Cardiac Ultrasound us John COREY ECHO Final Result * ECG 12 lead (Hosp Performed) (02/15/2022 4:19 PM COLUMNIST) 02/15/2022 4:19 PM COLUMNIST Narrative [facility] - 02/17/2022 9:26 PM COLUMNIST ? HFG ? Test Date: ?2022-02-15 Pat Name: ? LISA INGRIS ? Department: ?? 100 ? Room: ? Gender: ? Female ? Installer Inspector Final: ?? HW : ?1960 ? Requested By: JOHN DE LA CRUZ Order Number: [id number] ? Reading MD: ?? Alejandro Ochieng ? Measurements Intervals ?[place] ? Rate: ? 71 ? P: ?24 WV: ? 158 ?QRS: ?5 QRSD: ? 81 ? T: ?30 QT: ? 366 ? QTc: ?400 ? Interpretive Statements SINUS RHYTHM LOW QRS VOLTAGE IN PRECORDIAL LEADS [QRS DEFLECTION < 1.0 mV IN CHEST LEADS] No prior ECG for comparison MNIST Procedure Note Alejandro Turcios MD - 02/17/2022 HFG Test Date: 2022-02-15 Pat [facility] Department[facility] Room: Gender: Female Installer Inspector Final: : 1960 Requested By: JOHN DE LA CRUZ Order Number: [id number] Reading MD: Alejandro Turcios Measurements Intervals [place] Rate: 71 P: 24 WV: 158 QRS: 5 QRSD: 81 T: 30 QT: 366 QTc: 400 Interpretive Statements SINUS RHYTHM LOW QRS VOLTAGE IN PRECORDIAL LEADS [QRS DEFLECTION < 1.0 mV IN CHESTLEADS] No prior ECG for comparison MNIST us John COREY ECG ORDERABLES Final Result [address] [address] documented in this encounter Visit Diagnoses Diagnosis Primary hypertension- Primary Unspecified essential hypertension Family history of heart disease in male family member before age 55 Family history of other cardiovascular diseases Mixed hyperlipidemia Mild episode of recurrent major depressive disorder (CMS/HCC) Situational stress Other psychological or physical stress, not elsewhere classified Primary hypertension Unspecified essential hypertension documented in this encounter Additional Health Concerns Assessment Noted Time PHQ-9 Depression Total Score: 0 06/02/19 22 10:42 AM CDT documented as of this encounter Care Teams Sales Order Coordinator Relationship Specialty Start Date End Date John De La Cruz FNP [address] [place] [address] PCP - General Nurse Practitioner Family 01/28/18 documented as of this encounter
--- OUTSIDE RECORDS SUMMARY | 2024-03-30 04:04 | XMS_ITS | Encounter Summary ---
Author Organization [facility] Address [address] [place] [address]. [place], [place] [address] [place] [address] Care Team Providers Care Channel Supervisor Name Role Phone Radha De La Cruz BUSINESS RELATIONSHIP MANAGER Primary Care Provider [phone] Encounter Details Date Type Department Care Team (Latest Contact Info) Description 05/10/2022 Travel Social History Tobacco Use Types Packs/Day [...] Coronavirus/COVID-19? No / Unsure 05/10/2022 12:21 PM PRODUCT DESIGNER documented as of this encounter Plan of Treatment Not on file documented as of this encounter Visit Diagnoses Not on filedocumented in this encounter Additional Health Concerns Assessment Noted Time PHQ-9 Depression Total Score: 0 06/02/19 10:42 AM CDT documented as of this encounter Care Teams Channel Supervisor Relationship Specialty Start Date End Date Radha De La Cruz FNP [address] [place] [address] [place] [address] PCP - General Nurse Practitioner Family 01/28/18 documented as of this encounter
--- OUTSIDE RECORDS SUMMARY | 2024-03-30 04:04 | XMS_ITS | Encounter Summary ---
Author Organization [facility] Address [address] [place] [address]. [place], [place] [address] [place] [address] Care Team Providers Care Warehouse Sorter Name Role Phone John De La Cruz Primary Care Provider [phone] Encounter Details Date Type Department Care Team (Late st Contact Info) Description 05/10/2022 1:00 PM LOCK OPERATOR - 05/10/2022 11:59 PM LOCK OPERATOR Hospital Encounter [facility] Cardiopulmonary Services [address] [place] [id number] John De La Cruz FNP [address] [place] [facility] Discharge Disposition: Home or Self Care (Routine [...] Coronavirus/COVID-19? No / Unsure 05/10/2022 12:21 PM LOCK OPERATOR documented as of this encounter Medications [...] 03/28/2022 3 documented as of this encounter Progress Notes * Susanna Medina LPN - 05/10/2022 1:00 PM CST Patient notified. OPERATOR documented in this encounter Plan of Treatment Not on file documented as of this encounter Procedures Procedure Name Priority Date/Time Associated Diagnosis Comments ECG 12-LEAD Routine 05/10/2022 1:14 PM LOCK OPERATOR Primary hypertension Left upper arm pain documented in this encounter Results * ECG 12 lead (Hosp Performed) (05/10/2022 1:14 PM LOCK OPERATOR) 05/10/2022 1:14 PM LOCK OPERATOR Narrative [facility] RAD - 05/10/2022 3:52 PM LOCK OPERATOR ? HFG ? Test Date: ?2022-05-10 Pat Name: ? LISA GROTTS ? Department: ?? 100 ? Room: ? Gender: ? Female ? Basket Bottom Machine Operator: ?? ME : ?1960 ? Requested By: JOHN DE LA CRUZ Order Number: [id number] ? Reading MD: ?? Gabino Bedolla ? Measurements Intervals ?Lindsay ? Rate: ? 67 ? P: ?51 MA: ? 150 ?QRS: ?59 QRSD: ? 82 ? T: ?58 QT: ? 379 ? QTc: ?402 ? Interpretive Statements SINUS RHYTHM Since prior tracing no significant change OPERATOR Procedure Note Gabino Bedolla MD - 05/10/2022 HFG Test Date: 2022-05-10 Pat Name: [facility] Department: [facility] Room: Gender: Female Basket Bottom Machine Operator: : 1960 Requested By: JOHN DE LA CRUZ Order Number: [id number] Reading MD: Gabino Bedolla Measurements Intervals Lindsay Rate: 67 P: 51 MA: 150 QRS: 59 QRSD: 82 T: 58 QT: 379 QTc: 402 Interpretive Statements SINUS RHYTHM Since prior tracing no significant change OPERATOR us John COREY ECG ORDERABLES Final Result Performing Organization Address City/State/[facility] Co de Phone Number [id number] [address] documented in this encounter Visit Diagnoses Diagnosis Primary hypertension Unspecified essential hypertension Left upper arm pain Pain in limb documented in this encounter Additional Health Concerns Assessment Noted Time PHQ-9 Depression Total Score: 0 06/02/19 22 10:42 AM CDT documented as of this encounter Care Teams Warehouse Sorter Relationship Specialty Start Date End Date John De La Cruz FNP [address] [place] [address] PCP - General Nurse Practitioner [facility] 01/28/18 documented as of this encounter
--- OUTSIDE RECORDS SUMMARY | 2024-03-30 04:04 | XMS_ITS | Encounter Summary ---
Author Organization [facility] Address [address] [place] [address]. [place], [place] [address] [place] [address] Care Team Providers Care Alternative Education Teacher Name Role Phone Radha De La Cruz LABORER CHEESEMAKING Primary Care Provider [phone] Encounter Details Date Type Department Care Team (Latest Contact Info) Description 02/15/2022 Travel Social History Tobacco Use Types Packs/Day [...] Coronavirus/COVID-19? No / Unsure 02/15/2022 3:14 PM RESIDENT CARE AIDE documented as of this encounter Plan of Treatment Not on file documented as of this encounter Visit Diagnoses Not on filedocumented in this encounter Additional Health Concerns Assessment Noted Time PHQ-9 Depression Total Score: 0 06/02/19 10:42 AM CDT documented as of this encounter Care Teams Alternative Education Teacher Relationship Specialty Start Date End Date Radha De La Cruz FNP [address] [place] [address] [place] [address] PCP - General Nurse Practitioner Family 01/28/18 documented as of this encounter
--- OUTSIDE RECORDS SUMMARY | 2024-03-30 04:04 | XMS_ITS | Encounter Summary ---
Author Organization [facility] Address [address] [place] [address]. [place], [place] [address] [place] [address] Care Team Providers Care Sap Bi Architect Name Role Phone Radha De La Cruz [facility] Primary Care Provider [phone] Reason for Visit * Reason Onset Date Comments Blood Pressure 02/19/2022 Encounter Details Date Type Department Care Team (Late st Contact Info) Description 02/19/2022 Telephone [facility] [address] [place] [address] Radha De La Cruz [facility] [address] [place] [address] Blood Pressure Social History Tobacco Use Types Packs/Day Years [...] Coronavirus/COVID-19? No / Unsure 02/15/2022 3:14 PM CONCRETE PIPE MAKING MACHINE OPERATOR documented as of this encounter Progress Notes * Suri Jj LPN - 02/19/2022 10:11 AM CSTAddended by: SURI JJ on: 02/19/2022 10:11 AM Modules accepted: Orders RETE PIPE MAKING MACHINE OPERATOR * Suri Jj LPN - 02/19/2022 10:09 AM CST Pt. Notified of all. Verbalized understanding. RETE PIPE MAKING MACHINE OPERATOR * LEORA Horne - 02/19/2022 10:03 AM CST I meant report readings end of the week RETE PIPE MAKING MACHINE OPERATOR * LEORA Horne - 02/19/2022 10:02 AM CST Take an extra lisinopril and then continue the 10 mg daily Report readings at the end of the month RETE PIPE MAKING MACHINE OPERATOR * Suri Jj LPN - 02/19/2022 9:58 AM CST Pt. Called this AM stating that B/P elevated this morning. 189/100. Pt. Is currently on Lisinopril 5mg PO DAILY. Pt. Is 2 hrs away for work, questioning what she should do. Please review/advise. Pt. Denies headache, chest pain, SOB. RETE PIPE MAKING MACHINE OPERATOR documented in this encounter Plan of Treatment Not on file documented as of this encounter Visit Diagnoses Diagnosis Primary hypertension Unspecified essential hypertension documented in this encounter Additional Health Concerns Assessment Noted Time PHQ-9 Depression Total Score: 0 06/02/19 10:42 AM CDT documented as of this encounter Care Teams Sap Bi Architect Relationship Specialty Start Date End Date Radha De La Cruz FNP [address] [place] [address] [place] [address] PCP - General Nurse Practitioner Family 01/28/18 documented as of this encounter
--- OUTSIDE RECORDS SUMMARY | 2024-03-30 04:04 | XMS_ITS | Encounter Summary ---
Author Organization [facility] Address [address] [place] [address]. [place], [place] [address] [place] [address] Care Team Providers Care Data Modeling Specialist Name Role Phone Radha De La Cruz OUTSIDE CUTTER HAND Primary Care Provider [phone] Reason for Visit * Reason Onset Date Comments Consult 02/19/2022 Encounter Details Date Type Department Care Team (Late st Contact Info) Description 02/19/2022 Telephone [facility] [place] [id number] Meredith High, RMA Consult Social History Tobacco [...] Coronavirus/COVID-19? No / Unsure 02/15/2022 3:14 PM SHOP SUPERINTENDENT documented as of this encounter Progress Notes * RUBINA Avitia - 02/19/2022 5:16 PM CST Returned call and left message to schedule cardiology consult per Radha De La Cruz NP SUPERINTENDENT documented in this encounter Plan of Treatment Not on file documented as of this encounter Visit Diagnoses Not on filedocumented in this encounter Additional Health Concerns Assessment Noted Time PHQ-9 Depression Total Score: 0 06/02/19 22 10:42 AM CDT documented as of this encounter Care Teams Data Modeling Specialist Relationship Specialty Start Date End Date Radha De La Cruz FNP [address] [place] [address] [place] [address] PCP - General Nurse Practitioner Family 01/28/18 documented as of this encounter
--- OUTSIDE RECORDS SUMMARY | 2024-03-30 04:04 | XMS_ITS | Encounter Summary ---
Author Organization [facility] Address [address] [place] [address]. [place], [place] [address] [place] [address] Care Team Providers Care Recycling Specialist Name Role Phone John De La Cruz Primary Care Provider [phone] Reason for Referral * Imaging (Routine) - Closed Specialty Diagnoses / Procedures Referred By Doug cartagena Referred To Contact RADIOLOGY Diagnoses Chronic neck pain Spondylolisthesis Narrowing of intervertebral disc space Procedures MRI CERV SPINE WO CON John De La Cruz FNP [facility] [place] [address] [place] [address] Phone: tel: fax: Referral ID Status Reason Start Date Expiration Date Visits Re quested Visits Authorized [id number] Closed 10/31/2021 11/30/2022 1 1 Reason for Visit * Reason Onset Date Comments Referral 10/29/2021 Encounter Details Date Type Department Care Team (Late st Contact Info) Description 10/29/2021 Telephone [facility] [address] [place] [address] John De La Cruz FNP [address] [place] [address] [place] [address] Referral Social History Tobacco Use Types Packs/Day Years [...] as of this encounter Progress Notes * Kae Acosta RN - 10/31/2021 11:39 AM CDT Left detailed message for pt. * Kae Acosta RN - 10/31/2021 7:08 AM CDTAddended by: KAE ACOSTA on: 10/31/2021 07:08 AM Modules accepted: Orders * Reyna Jamil LPN - 10/30/2021 8:54 AM CDT Left message to call the office. * LEORA Horne - 10/29/2021 8:51 PM CDT Ok for MRI Dx: chronic neck pain, spondylolistheses, disc space narrowing * Reyna Jamil LPN - 10/29/2021 2:43 PM CDTAddended by: REYNA JAMIL on: 10/29/2021 02:43 PM Modules accepted: Orders * Reyna Jamil LPN - 10/29/2021 2:42 PM CDT Called pt she thought that the next step was MRI and then maybe proceed with pain management. * LEORA Horne - 10/29/2021 1:12 PM CDT Ok for referral * Angie Gtz MA - 10/29/2021 10:49 AM CDT Please advise. * Suri Martinez - 10/29/2021 10:45 AM CDT PT called asking if [facility] would refer her to pain management for her neck pain as previously discussed. [phone] documented in this encounter Plan of Treatment Not on file documented as of this encounter Results * MRI CERV SPINE [...] JOHN DE LA CRUZ Interpreted By: Miranda rTan, 11/15/2021 8:48 AM Narrative 11/15/2021 9:08 AM [...] this encounter Visit Diagnoses Diagnosis Chronic neck pain- Primary Cervicalgia Spondylolisthesis Congenital spondylolisthesis Narrowing of intervertebral disc space Degeneration of intervertebral disc, site unspecified Chronic neck pain Cervicalgia Spondylolisthesis Congenital spondylolisthesis Narrowing of intervertebral disc space Degeneration of intervertebral disc, site unspecified documented in this encounter Additional Health Concerns Assessment Noted Time PHQ-9 Depression Total Score: 0 06/02/19 22 10:42 AM CDT documented as of this encounter Care Teams Recycling Specialist Relationship Specialty Start Date End Date John De La Cruz, LEORA [address] [place] [address] [place] [address] PCP - General Nurse Practitioner Family 01/28/18 documented as of this encounter
--- OUTSIDE RECORDS SUMMARY | 2024-03-30 04:05 | XMS_ITS | Encounter Summary ---
Author Organization [facility] Address [address] [place] [address]. [place], [place] [address] [place] [address] Care Team Providers Care Shuttle Spotter Name Role Phone Radha De La Cruz Primary Care Provider [phone] Encounter Details Date Type Department Care Team (Late st Contact Info) Description 04/09/2021 Orders Only [facility] [address] [place] [address] Radha De La Cruz FNP [address] [place] [address] Social History Tobacco Use Types Packs/Day [...] please move on to questions 3-9 0 01/23/2021 Comments No Sex and Gender Information Value Date Recorded Sex Assigned at Not on file Legal Sex Female 2:50 AM CDT Gender Identity Not on file Sexual Orientation Not on file COVID-19 Exposure Response Date Recorded In the last month, have you been in contact with someone who was confirmed or suspected to have Coronavirus / COVID-19? No / Unsure 04/09/2021 8:03 AM PIPELINE ENGINEER documented as of this encounter Plan of Treatment Not on file documented as of this encounter Results * (ABNORMAL) COMPREHENSIVE METABOLIC PANEL (04/09/2021 8:28 AM PIPELINE ENGINEER) [facility] GLUCOSE 98 70 - 99 MG/DL 04/09/2021 9:38 AM [facility] BUN 19(H) 7 - 18 MG/DL 04/09/2021 9:38 AM [facility] CREATININE S/P/B 1.01 0.50 - 1.20 MG/DL 04/09/2021 9:38 AM [facility] SODIUM S/P/B 138 136 - 145 MMOL/L 04/09/2021 9:38 AM [facility] POTASSIUM S/P/B 4.0 3.5 - 5.1 MMOL/L 04/09/2021 9:38 AM [facility] CHLORIDE S/P/B 104 100 - 108 MMOL/L 04/09/2021 9:38 AM [facility] CO2 26.6 21.0 - 32.0 MMOL/L 04/09/2021 9:38 AM [facility] CALCIUM S/P/B 9.3 8.5 - 10.1 MG/DL 04/09/2021 9:38 AM [facility] BILIRUBIN TOTAL S/P/B 0.3 0.2 - 1.2 MG/DL 04/09/2021 9:38 AM [facility] Comment: THIS ASSAY IS NOT RECOMMENDED FOR PATIENTS UNDERGOING TREATMENT WITH ELTROMBOPAG DUE TO THE POTENTIAL FOR FALSELY ELEVATED RESULTS. TOTAL PROTEIN S/P/B 6.7 6.4 - 8.2 G/DL 04/09/2021 9:38 AM [facility] ALBUMIN S/P/B 4.1 3.4 - 5.0 G/DL 04/09/2021 9:38 AM [facility] AST 16 15 - 37 U/L 04/09/2021 9:38 AM [facility] ALT 23 14 - 55 U/L 04/09/2021 9:38 AM [facility] ALKALINE PHOSPHATASE S/P/B 63 50 - 136 U/L 04/09/2021 9:38 AM [facility] ANION GAP 7.4 5.0 - 15.0 MMOL/L 04/09/2021 9:38 AM [facility] BUN CREATININE RATIO 18.8 6 - 26 04/09/2021 9:38 AM [facility] A/G RATIO 1.6 1.0 - 2.5 RATIO 04/09/2021 9:38 AM [facility] EGFR NON-AFR. AMER. 60(L) >90 ML/MIN/1.7 3 M2 04/09/2021 9:38 AM [facility] EGFR AFR. AMER. 70(L) >90 ML/MIN/1.7 3 M2 04/09/2021 9:38 AM [facility] Comment: NOTE: eGFR is not calculated for patients <18 years of age. This is an estimated GFR (CKD EPI) and should not be used for calculating drug doses. 04/09/2021 8:28 AM PIPELINE ENGINEER Radha [facility] Final Result [address] [place] [address], * CBC W/DIFF AUTOMATED (04/09/2021 8:28 AM PIPELINE ENGINEER) WBC 5.2 4.5 - 11.0 x10'3/uL 04/09/2021 8:41 AM PIPELINE ENGINEER [facility] RBC 4.34 4.0 - 5.2 x10'6/uL 04/09/2021 8:41 AM [facility] HGB 12.6 12.0 - 16.0 G/DL 04/09/2021 8:41 AM [facility] HCT 38.7 36.0 - 46.0 % 04/09/2021 8:41 AM [facility] MCV 89.2 80.0 - 100.0 FL 04/09/2021 8:41 AM [facility] MCH 29.0 26.0 - 34.0 PG 04/09/2021 8:41 AM [facility] MCHC 32.6 31.0 - 37.0 G/DL 04/09/2021 8:41 AM [facility] RDW 13.4 11.6 - 14.8 % 04/09/2021 8:41 AM [facility] PLT 243 140 - 415 x10'3/uL 04/09/2021 8:41 AM [facility] MPV 8.8 7.0 - 12.0 FL 04/09/2021 8:41 AM [facility] CBC COMMENT AUTOMATED RBC MORPHOLOGY AND PLATELET EVALUATION NORMAL 04/09/2021 8:41 AM [facility] NEUTROPHILS % 59.0 40.0 - 74.0 % 04/09/2021 8:41 AM [facility] LYMPHOCYTES % 26.9 14.0 - 46.0 % 04/09/2021 8:41 AM [facility] MONOCYTES % 9.9 4.0 - 13.0 % 04/09/2021 8:41 AM [facility] EOSINOPHILS 3.4 0.0 - 7.0 % 04/09/2021 8:41 AM [facility] BASOPHILS 0.6 0.0 - 3.0 % 04/09/2021 8:41 AM [facility] IMMATURE GRANS % 0.2 0.0 - 0.43 % 04/09/2021 8:41 AM [facility] ABS. NEUTROPHILS TOTAL 3.09 1.69 - 7.81 x10'3/uL 04/09/2021 8:41 AM PIPELINE ENGINEER [facility] ABS. LYMPHOCYTES 1.41 0.21 - 5.42 x10'3/uL 04/09/2021 8:41 AM PIPELINE ENGINEER [facility] ABS. MONOCYTES 0.52 0.04 - 1.37 x10'3/uL 04/09/2021 8:41 AM PIPELINE ENGINEER [facility] ABS. EOSINOPHILS 0.18 0.00 - 0.68 x10'3/uL 04/09/2021 8:41 AM PIPELINE ENGINEER [facility] ABS. BASOPHILS 0.03 0.00 - 0.08 x10'3/uL 04/09/2021 8:41 AM [facility] ABS. IMMATURE GRANULOCYTES 0.01 0.00 - 0.06 x10'3/uL 04/09/2021 8:41 AM [facility] 04/09/2021 8:28 AM PIPELINE ENGINEER Radha De La Cruz GILL BOX FIXER LABORATORY Final Result [facility] [address] [place] [address], * (ABNORMAL) LIPID PANEL (04/09/2021 8:28 AM PIPELINE ENGINEER) [facility] CHOLESTEROL 238(H) 0 - 200 MG/DL 04/09/2021 9:38 AM [facility] TRIGLYCERIDES 104 0 - 150 MG/DL 04/09/2021 9:38 AM [facility] HDL 86 >40 MG/DL 04/09/2021 9:38 AM [facility] Comment: Note: Reference Range Updated TO >40 LDL (CALCULATED) 131(H) <100 MG/DL 04/09/2021 9:38 AM [facility] NON HDL CHOLESTEROL 152(H) 0 - 130 MG/DL 04/09/2021 9:38 AM [facility] Comment: NOTE: WHEN THE TRIGLYCERIDES ARE >200 mg/dL, NON HDL C IS A SECONDARY TARGET OF THERAPY, WITH A GOAL 30 mg/dL HIGHER THAN THE IDENTIFIED LDL C GOAL. CHOL/HDL RATIO 2.8 0.0 - 4.5 04/09/2021 9:38 AM [facility] VLDL CALCULATION 21 5 - 55 MG/DL 04/09/2021 9:38 AM [facility] LIPID INTERPRETATION 04/09/2021 9:38 AM [facility] Comment: NIH CONCENSUS REPORT RECOMMENDATIONS: ?ADULT ?CHILD ??LOW RISK: ?CHOLESTEROL ? <200 ? <170 ?TRIGLYCERIDE ?<150 ?--- ?HDL ? >=60 ?--- ?LDL ? <100 ? <110 ??BORDERLINE: ?CHOLESTEROL ? 200-239 ?? 170-199 ?TRIGLYCERIDE ?150-199 ? --- ?HDL ?40-59 ?--- ?LDL ? 100-159 ?? 110-129 ??HIGH RISK: ?CHOLESTEROL ? >=240 ?>=200 ?TRIGLYCERIDE ?>=200 ? --- ?HDL ?<40 ?--- ?LDL ? >=160 ?>=130 04/09/2021 8:28 AM PIPELINE ENGINEER us [facility] Final Result Performing Organization Address City/State/[facility] Co de Phone Number [facility] [address] [place] [address], documented in this encounter Visit Diagnoses Diagnosis Mixed hyperlipidemia- Primary documented in this encounter Additional Health Concerns Assessment Noted Time PHQ-9 Depression Total Score: 0 01/24/20 8:18 AM PIPELINE ENGINEER documented as of this encounter Care Teams Shuttle Spotter Relationship Specialty Start Date End Date Radha De La Cruz FNP [address] [address] PCP - General Nurse Practitioner Family 01/28/18 documented as of this encounter
--- OUTSIDE RECORDS SUMMARY | 2024-03-30 04:05 | XMS_ITS | Encounter Summary ---
Author Organization [facility] Address [address] [place] [address]. [place], [place] [phone] [place] [address] Care Team Providers Care Building Appraiser Name Role Phone Radha De La Cruz ENGLISH DRAWER Primary Care Provider [phone] Encounter Details Date Type Department Care Team (Late st Contact Info) Description 04/10/2021 Orders Only [facility] [address] [place], [place] [id number] Reyna Perkins LPN Social History Tobacco Use [...] COVID-19? No / Unsure 04/09/2021 8:03 AM DIRECTOR PRESALES documented as of this encounter Plan of Treatment Not on file documented as of this encounter Visit Diagnoses Diagnosis Mixed hyperlipidemia- Primary documented in this encounter Additional Health Concerns Assessment Noted Time PHQ-9 Depression Total Score: 0 01/24/20 21 8:18 AM DIRECTOR PRESALES documented as of this encounter Care Teams Building Appraiser Relationship Specialty Start Date End Date Radha De La Cruz FNP [address] [place] [address] [place] [address] PCP - General Nurse Practitioner Family 01/28/18 documented as of this encounter
--- OUTSIDE RECORDS SUMMARY | 2024-03-30 04:05 | XMS_ITS | Encounter Summary ---
Author Organization [facility] Address [address] [place] [address]. [place], [place] [address] [place] [address] Care Team Providers Care Specialist Employee Labor Relations Name Role Phone Radha De La Cruz [facility] Primary Care Provider [phone] Reason for Visit * Reason Comments Rash Follow Up Meds Encounter Details Date Type Department Care Team (Late st Contact Info) Description 07/08/2019 9:00 AM CDT Telemedicine [facility] [address] [place] [address] Radha De La Cruz [facility] [address] [place] [address] Rash; Follow Up (Meds) Social History Tobacco Use Types Packs/Day Years Used Date Smoking Tobacco: Never Smokeless Tobacco: Never Alcohol Use Standard Drinks/Week Comments Yes 0 (1 standard drink = 0.6 oz pur e alcohol) AUDIT-C Answer Date Recorded Frequency of Alcohol Consumption 2-4 times a fri02/19/2018 Average Number of Drinks Not on file 018 Frequency of Binge Drinking Not on file 02/07 Comments No Sex and Gender Information Value Date Recorded Sex Assigned at Not on file Legal Sex Female 2:50 AM CDT Gender Identity Not on file Sexual Orientation Not on file COVID-19 Exposure Response Date Recorded In the last month, have you been in contact with someone who was confirmed or suspected to have Coronavirus / COVID-19? No / Unsure 07/08/2019 8:20 AM CDT documented as of this encounter Progress Notes * Radha De La Cruz, APPRENTICE STYLIST - 07/08/2019 9:00 AM CDT Lisa is a 59-year-old female patient. Reason for Visit: Rash and Follow Up (Meds) History of Present Illness: I introduced and identified myself, received verbal consent?? from the patient to proceed with thisvideo visit and made the patient aware that the same confidentiality and information assistant practices apply. The patient joined the video visit from Home. I completed the virtual visit from Office.The following clinical staff helped with this visit Nurse: Ruchi Novak RN. Total Time Spent in Minutes 14 minutes She reports having a rash which she assumes is poison oak. She was cleaning out some brush several days ago and had short sleeves on. She had long pants on however. She got a very pruritic rash to her left arm. She has tried using calamine lotion which briefly helps with the itching but it is not drying it up and she thinks it may have spread a little. She has a couple more spots on the same arm.She has not had any other rash present anywhere. She is also needing refills on her bupropion XL 300 mg daily. She has been on it at 150 mg daily for over a year. She is going through a divorce and therefore she increased it on her own to 2 pills daily 2 months ago. She spoke with her nephew who is a physician who told her she could take 2 a day.She called in to the office in May to report that she was taking 300 mg daily. She feels that dose is working well for her. She is also on fenofibrate for hyperlipidemia. She had annual screening labs including lipid panel,CMP, CBC, TSH, vitamin D, hemoglobin A1c in March 2019. There were no significant abnormalities. 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 Her last mammogram was in December 2018. Past Medical History: Diagnosis Date ??? H/O left knee surgery 08/21/[address] Dony Reyes. Left knee unicompartment replacement. ??? Hyperlipidemia ??? Hyperlipidemia 04/01/2014 Date Onset: 06/18/2013 ??? Internal hemorrhoids ??? Mild episode of recurrent major depressive disorder ([facility]/HCC) 07/08/2019 Past Surgical History: Procedure Laterality Date ??? APPENDECTOMY ??? COLONOSCOPY ??? HYSTERECTOMY ??? KNEE SURGERY 08/04/2018 Dr. Reyes. Left knee unicompartment replacement. Medications: Current Outpatient Medications: ??? ALPRAZolam 0.25 MG tablet, Take 1 tab. PO DAILY PRN, Disp: 10 tablet, Rfl: 0 ??? BUPROPION XL 300 MG 24 hr tablet, TAKE 1 TABLET BY MOUTH EVERY DAY, Disp: 30 tablet, Rfl: 2 ??? ESTROGEL 0.75 MG/1.25 GM (0.06%) Gel, APPLY 1 OR 2 PUMPS TO UPPER ARM EVERY DAY DIRECTED, Disp: , Rfl: 3 ??? fenofibrate 54 MG tablet, TAKE 1 TABLET DAILY (OFFICEVISIT DUE FOR FURTHER REFILLS), Disp: 90 tablet, Rfl: 0 ??? Krill Oil 1000 MG Cap, Take 1 capsule by mouth daily., Disp: , Rfl: ??? Multiple Vitamin (ONCE DAILY) Tab, Take 1 tablet by mouth., Disp: , Rfl: No Known Allergies No family history on file. No family status information on file. reports that she has never smoked. She has never used smokeless tobacco. She reports that she drinks alcohol. She reports that she does not use drugs. She is . ROS: Review of Systems Constitutional: Negative for chills, fever, malaise/fatigue and weight loss. Respiratory: Negative. Cardiovascular: Negative. Skin: Positive for itching and rash. Neurological: Negative. Psychiatric/Behavioral: Positive for depression (Stable on Wellbutrin). The patient is not nervous/anxious and does not have insomnia. Vitals: Video visit Physical Exam Constitutional: She is oriented to person, place, and time. She appears well- developed and well-nourished. HENT: Head: Normocephalic and atraumatic. Pulmonary/Chest: Effort normal. Neurological: She is alert and oriented to person, place, and time. Skin: Skin is warm and dry. Rash noted. Erythematous raised very pruritic linear appearing rash present to the left forearm and there are few erythematous vesicular spots to the upper arm as well that are surrounded by erythema. Appears randy typical allergic contact dermatitis Psychiatric: She has a normal mood and affect. Nursing note and vitals reviewed. Diagnoses/Impression: Encounter Diagnose(s) ICD-10-CM ICD-9-CM SNOMED CT(R) 1. Allergic contact dermatitis due to plants, except food L23.7 692.6 ALLERGIC CONTACT DERMATITIS CAUSED BY PLANT MATERIAL triamcinolone 0.1 % cream 2. Mixed hyperlipidemia E78.2 272.2 MIXED HYPERLIPIDEMIA 3. Mild episode of recurrent major depressive disorder (CMS/HCC) F33.0 296.31 RECURRENT MAJOR DEPRESSIVE EPISODES, MILD Plan Orders Placed: Orders Placed This Encounter ??? triamcinolone 0.1 % cream We discussed treatment of allergic contact dermatitis. Will use topical triamcinolone twice daily to the affected area until resolved. Patient encouraged to call me back if it spreads or gets any worse or if it is not resolving next week. We discussed her meds. Patient encouraged to call the pharmacy when refills are needed. Follow-up in 6 months See gyne as planned. LEORA HORNE 07/08/2019 8:55 AM Cosigned by Mery Witt DO at 07/08/2019 5:28 PM CDT documented in this encounter Plan of Treatment Not on file documented as of this encounter Visit Diagnoses Diagnosis Allergic contact dermatitis due to plants, except food- Primary Contact dermatitis and other eczema due to plants (except food) Mixed hyperlipidemia Mild episode of recurrent major depressive disorder (CMS/HCC) documented in this encounter Care Teams Specialist Employee Labor Relations Relationship Specialty Start Date End Date Radha De La Cruz FNP [address] [place] [address] [place] [address] PCP - General Nurse Practitioner Family 01/28/18 documented as of this encounter
--- OUTSIDE RECORDS SUMMARY | 2024-03-30 04:05 | XMS_ITS | Encounter Summary ---
Author Organization [facility] Address [address] [place] [address]. [place], [place] [address] [place] [address] Care Team Providers Care Aircraft Engine Dismantler Name Role Phone Radha De La Cruz CERAMIST Primary Care Provider [phone] Encounter Details Date Type Department Care Team (Latest Contact Info) Description 04/09/2021 Travel Social History Tobacco Use Types Packs/Day [...] COVID-19? No / Unsure 04/09/2021 8:03 AM SENIOR SOFTWARE QUALITY ANALYST documented as of this encounter Plan of Treatment Not on file documented as of this encounter Visit Diagnoses Not on filedocumented in this encounter Additional Health Concerns Assessment Noted Time PHQ-9 Depression Total Score: 0 01/24/20 8:18 AM SENIOR SOFTWARE QUALITY ANALYST documented as of this encounter Care Teams Aircraft Engine Dismantler Relationship Specialty Start Date End Date Radha De La Cruz FNP [address] [place] [address] [place] [address] PCP - General Nurse Practitioner Family 01/28/18 documented as of this encounter
--- OUTSIDE RECORDS SUMMARY | 2024-03-30 04:05 | XMS_ITS | Encounter Summary ---
Author Organization [facility] Address [address] [place] [address]. [place], [place] [address] [place] [address] Care Team Providers Care Industrial Health Engineer Name Role Phone Radha De La Cruz [facility] Primary Care Provider [phone] Reason for Visit * Reason Onset Date Comments Concerns 09/18/2021 Encounter Details Date Type Department Care Team (Late st Contact Info) Description 09/18/2021 Telephone [facility] [address] [address] Radha De La Cruz [facility] [address] [place] [address] Concerns Social History Tobacco Use Types [...] Progress Notes * Reyna Perkins LPN - 09/18/2021 11:13 AM CDT Pt aware and verbalized understanding. * LEORA Horne - 09/18/2021 11:09 AM CDT Have her try OTC optivar for her eye symptoms. If not improving in the next 1 to 2 days she should have OV to evaluate and determine if bacterial. * Reyna Perkins LPN - 09/18/2021 8:20 AM CDT Pt called in stating that she had an appt today with Isabela for med check but cancelled it d/t cold symptoms. She did a COVID test it is negative. But she started with pink eye. She said it is red andhaving greenish drainage in the corner of her eye. No fever no body aches. Has laryngitis. She is wanting to know if Isabela can order some drops or does she need OV? Isabela please advise documented in this encounter Plan of Treatment Not on file documented as of this encounter Visit Diagnoses Not on filedocumented in this encounter Additional Health Concerns Assessment Noted Time PHQ-9 Depression Total Score: 0 06/02/19 22 10:42 AM CDT documented as of this encounter Care Teams Industrial Health Engineer Relationship Specialty Start Date End Date Radha De La Cruz FNP [address] [place] [address] [place] [address] PCP - General Nurse Practitioner Family 01/28/18 documented as of this encounter
--- OUTSIDE RECORDS SUMMARY | 2024-03-30 04:05 | XMS_ITS | Encounter Summary ---
Author Organization [facility] Address [address] [place] [address]. [place], [place] [address] [place] [address] Care Team Providers Care Jewelry Department Supervisor Name Role Phone John De La Cruz Primary Care Provider [phone] Reason for Referral * Physical Medicine (Routine) - Closed Specialty Diagnoses / Procedures Referred By Doug cartagena Referred To Contact PHYSICAL THERAPY / [facility] Physical Therapy Diagnoses Chronic neck pain John De La Cruz FNP [address] [place] [address] Phone: tel: fax: [facility] [address] [place] [address] Phone: tel: fax: Referral ID Status Reason Start Date Expiration Date V isits Requested Visits Authorized [id number] Closed Physical Therapy 06/01/2021 07/01/2022 1 1 Reason for Visit * Reason Comments Neck Pain mostly right side. X 1 year. sees chiro but not helping Encounter Details Date Type Department Care Team (Late st Contact Info) Description 06/01/2021 10:40 AM CDT Office Visit [facility] [address] [place] [address] John De La Cruz FNP [address] [place] [address] Neck Pain (mostly right side. X 1 year. sees chiro but not helping) Social History Tobacco Use Types Packs/Day Years [...] was confirmed or suspected to have Coronavirus/COVID-19? Yes 06/01/2021 10:38 AM CDT documented as of this encounter Last Filed Vital Signs Vital Sign Reading Time Taken Comments Blood Pressure 130/82 06/01/2021 10:40 AM CDT Pulse 77 06/01/2021 10:40 AM CDT Temperature 36.7 ??C (98 ??F) 06/01/2021 10:40 AM CDT Respiratory Rate 16 06/01/2021 10:40 AM CDT Oxygen Saturation 98% 06/01/2021 10:40 AM CDT Inhaled Oxygen Concentration - - Weight 78 kg (172 lb) 06/01/2021 10:40 AM CDT Height 170.2 cm (5' 7 ) 06/01/2021 10:40 AM CDT Body Mass Index 26.94 06/01/2021 10:40 AM CDT documented in this encounter Patient Instructions * Patient Instructions* LEORA Joyner - 06/01/2021 10:40 AM CDT Get imaging today Proceed with Physical Therapy Follow good body mechanics with postioning while working on the computer Report back after PT if symptoms not improved May continue advil as needed for discomfort documented in this encounter Progress Notes * LEORA Joyner - 06/01/2021 10:40 AM CDT Lisa is a 61-year-old female patient. Reason for Visit: Neck Pain (mostly right side. X 1 year. sees chiro but not helping) History of Present Illness: Lisa is a 61-year-old female patient here to discuss chronic back pain. She reports onset with right-sided neck pain over a year ago. 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 She has soreness to the right side of the neck. It occasionally radiates into her shoulder. It is aggravated with turning her head especially when she is driving. She denies having any numbness or tingling in the arms. She takes ibuprofen a couple times a week and that helps a little. She denies having any injury. She decided to try going to a chiropractor and had 4 visits over 2-month span with minimal relief. She has not had any imaging done. Past Medical History: Diagnosis Date ??? H/O left knee surgery 08/21/[address] Dony Reyes. Left knee unicompartment replacement. ??? Hyperlipidemia ??? Hyperlipidemia 04/01/2014 Date Onset: 06/18/2013 ??? Internal hemorrhoids ??? Mild episode of recurrent major depressive disorder (CMS/HCC) 07/08/2019 Past Surgical History: Procedure Laterality Date ??? APPENDECTOMY ??? COLONOSCOPY ??? HYSTERECTOMY ??? KNEE SURGERY 08/04/2018 Dr. Reyes. Left knee unicompartment replacement. Medications: Current Outpatient Medications: ??? ATORVASTATIN 10 MG tablet, TAKE 1 TABLET BY MOUTH EVERYDAY AT BEDTIME, Disp: 30 tablet, Rfl: 1 ??? buPROPion XL 150 MG 24 hr tablet, Take 1 tablet (150 mg total) by mouth daily., Disp: 90 tablet, Rfl: 1 ??? Krill Oil 1000 MG Cap, Take 1 capsule by mouth daily., Disp: , Rfl: ??? Multiple Vitamin (ONCE DAILY) Tab, Take 1 tablet by mouth., Disp: , Rfl: No Known Allergies No family history on file. No family status information on file. Social History Socioeconomic History ??? Marital status: Spouse name: Not on file ??? Number of children: Not on file ??? Years of education: Not on file ??? Highest education level: Not on file Occupational History ??? Not on file Tobacco Use ??? Smoking status: Never Smoker ??? Smokeless tobacco: Never Used Substance and Sexual Activity ??? Alcohol use: Yes ??? Drug use: No ??? Sexual activity: Not on file Other Topics Concern ??? Not on file Social History Narrative ??? Not on file Social Determinants of Health Financial Resource Strain: Not on file Food Insecurity: Not on file Transportation Needs: Not on file Physical Activity: Not on file Stress: Not on file Social Connections: Not on file Intimate Partner Violence: Not on file ROS: Review of Systems Constitutional: Negative. Respiratory: Negative. Cardiovascular: Negative. Musculoskeletal: Positive for neck pain (Chronic right-sided neck pain x1 year). Neurological: Negative for dizziness, tingling, sensory change, weakness and headaches. Vitals: Filed Vitals: 06/01/21 1040 BP: 130/82 Pulse: 77 Resp: 16 Temp: 98 ??F (36.7 ??C) TempSrc: Temporal SpO2: 98% Weight: 78 kg (172 lb) Height: 5' 7 (1.702 m) PainSc: 3 Mild Pain (0-10 Scale) Physical Exam Vitals and nursing note reviewed. Constitutional: Appearance: Normal appearance. HENT: Head: Normocephalic and atraumatic. Neck: Comments: She has normal neck range of motion but has soreness with lateral rotation She has discomfort to palpate the posterior paracervical muscle on the right. Cardiovascular: Rate and Rhythm: Normal rate and regular rhythm. Pulmonary: Effort: Pulmonary effort is normal. Breath sounds: Normal breath sounds. Musculoskeletal: Cervical back: Neck supple. Comments: Normal range of motion bilateral shoulders. She has normal strength to bilateral upper extremities. Skin: General: Skin is warm and dry. Neurological: Mental Status: She is alert and oriented to person, place, and time. Psychiatric: Mood and Affect: Mood normal. Diagnoses/Impression: Encounter Diagnose(s) ICD-10-CM ICD-9-CM SNOMED CT(R) 1. Chronic neck pain M54.2 723.1 CHRONIC NECK PAIN XR CERV SPINE 3V G89.29 338.29 Ambulatory referral to Physical Therapy Plan Orders Placed: Orders Placed This Encounter ??? XR CERV SPINE 3V ??? Ambulatory referral to Physical Therapy Will proceed with x-ray of the cervical spine today since she has had discomfort for greater than 1year We discussed treatment of chronic neck pain including physical therapy, massage, NSAIDs, muscle relaxants, stretching. We also briefly discussed pain management. She was given an order for physical therapy to do and advised to follow-up with physical therapy has completed if not improved. At that time we will consider MRI. Instructions Patient Instructions Get imaging today Proceed with Physical Therapy Follow good body mechanics with postioning while working on the computer Report back after PT if symptoms not improved May continue advil as needed for discomfort LEORA JOYNER 06/01/2021 10:49 AM documented in this encounter Plan of Treatment Scheduled Referrals Name Type Priority Associated Diagnoses Orde r Schedule Ambulatory referral to Physical Therapy Referral Routine Chronic neck pain Ordered: 06/01/2021 documented as of this encounter Results * XR CERV SPINE 3V (06/01/2021 11:26 AM CDT) Anatomical Region Laterality Modality Spine Computed Tomogra phy 06/01/2021 11:3 5 AM CDT Impressions 06/01/2021 11:37 AM CDT IMPRESSION: Reversal of usual cervical lordosis centered at C3-4 level with clinical correlation for muscle spasm suggested. Grade I/IV spondylolisthesis of C3 anterior on C4. Vertebral alignment otherwise unremarkable. Vertebral heights appear normally maintained. No prevertebral soft tissue swelling noted. Moderate to marked C4-5 and C5-6 disc space narrowing with remaining cervical disc spaces appearing fairly well-maintained. Bilateral facet arthropathy noted throughout cervical spine. No fractures or bone destruction identified. Atherosclerotic aorta noted at margin of study. Ordered By: JOHN DE LA CRUZ Interpreted By: Kaleb Ty, 06/01/2021 11:35 AM Narrative 06/01/2021 11:37 AM CDT EXAMINATION: XR CERV SPINE 3V EXAM DATE/TIME: 06/01/2021 11:19 AM CLINICAL HISTORY: Chronic right neck pain. COMPARISON: No comparison. Procedure Note Kaleb Ty MD - 06/01/2021 EXAMINATION: XR CERV SPINE 3V EXAM DATE/TIME: 06/01/2021 11:19 AM CLINICAL HISTORY: Chronic right neck pain. COMPARISON: No comparison. IMPRESSION: Reversal of usual cervical lordosis centered at C3-4 level with clinicalcorrelation for muscle spasm suggested. Grade I/IV spondylolisthesis of [id number] on C4. Vertebral alignment otherwise unremarkable. Vertebralheights appear normally maintained. No prevertebral soft tissue swellingnoted. Moderate to marked C4-5 and C5-6 disc space narrowing with remainingcervical disc spaces appearing fairly well-maintained. Bilateral facetarthropathy noted throughout cervical spine. No fractures or bonedestruction identified. Atherosclerotic aorta noted at margin of study. Ordered By: JOHN DE LA CRUZ Interpreted By: Kaleb Ty, 06/01/2021 11:35 AM John [facility] Final Result documented in this encounter Visit Diagnoses Diagnosis Chronic neck pain- Primary Cervicalgia Chronic neck pain Cervicalgia documented in this encounter Additional Health Concerns Assessment Noted Time PHQ-9 Depression Total Score: 0 06/02/19 22 10:42 AM CDT documented as of this encounter Care Teams Jewelry Department Supervisor Relationship Specialty Start Date End Date John De La Cruz FNP [address] [place] [address] [place] [address] PCP - General Nurse Practitioner Family 01/28/18 documented as of this encounter
--- OUTSIDE RECORDS SUMMARY | 2024-03-30 04:05 | XMS_ITS | Encounter Summary ---
Author Organization [facility] Address [address] [place] [address]. [place], [place] [address] [place] [address] Care Team Providers Care Production Clerk Name Role Phone John De La Cruz Primary Care Provider [phone] Encounter Details Date Type Department Care Team (Late st Contact Info) Description 06/01/2021 11:18 AM CDT - 06/01/2021 11:59 PM CDT Hospital Encounter [facility] [address] [place] [address] John De La Cruz FNP [address] [facility] Discharge Disposition: Home or Self Care [...] 1 TABLET BY MOUTH EVERYDAY AT BEDTIME 30 tablet 1 05/07/2021 2 buPROPion XL 150 MG 24 hr tabletIndications:An xiety Take 1 tablet (150 mg total) by mouth daily. 90 tablet 1 01/23/2021 2 Krill Oil 1000 MG Cap Take 1 capsule by mouth daily. 4 documented as of this encounter Plan of Treatment Not on file documented as of this encounter Procedures Procedure Name Priority Date/Time Associated Diagnosis Comments XR CERV SPINE 3V Routine 06/01/2021 11:2 6 AM CDT Chronic neck pain documented in this encounter Results * XR CERV SPINE [...] muscle spasm suggested. Grade I/IV spondylolisthesis of [id number] on C4. Vertebral alignment otherwise unremarkable. Vertebralheights [...] Visit Diagnoses Diagnosis Chronic neck pain Cervicalgia documented in this encounter Additional Health Concerns Assessment Noted Time PHQ-9 Depression Total Score: 0 06/02/19 10:42 AM CDT documented as of this encounter Care Teams Production Clerk Relationship Specialty Start Date End Date John De La Cruz FNP [address] [place] [address] [place] [address] PCP - General Nurse Practitioner Family 01/28/18 documented as of this encounter
--- OUTSIDE RECORDS SUMMARY | 2024-03-30 04:05 | XMS_ITS | Encounter Summary ---
Author Organization [facility] Address [address] [place] [address]. [place], [place] [address] [place] [address] Care Team Providers Care Pigeon Fancier Name Role Phone Radha De La Cruz ERECTOR OPERATOR Primary Care Provider [phone] Encounter Details Date Type Department Care Team (Latest Contact Info) Description 06/01/2021 Travel Social History Tobacco Use Types Packs/Day [...] documented as of this encounter Care Teams Pigeon Fancier Relationship Specialty Start Date End Date Radha De La Cruz FNP [address] [place] [address] [place] [address] PCP - General Nurse Practitioner Family 01/28/18 documented as of this encounter
--- OUTSIDE RECORDS SUMMARY | 2024-03-30 04:05 | XMS_ITS | Encounter Summary ---
Author Organization [facility] Address [address] [place] [address]. [place], [place] [address] [place] [address] Care Team Providers Care Industrial Aerial Installer Name Role Phone Radha De La Cruz Primary Care Provider [phone] Encounter Details Date Type Department Care Team (Latest Contact Info) Description 02/09/2020 Travel Social History Tobacco Use Types Packs/Day [...] have Coronavirus / COVID-19? No / Unsure 02/09/2020 9:25 AM SHEET METAL JOURNEYMAN documented as of this encounter Plan of Treatment Not on file documented as of this encounter Visit Diagnoses Not on filedocumented in this encounter Care Teams Industrial Aerial Installer Relationship Specialty Start Date End Date Radha De La Cruz FNP [address] [place] [address] [place] [address] PCP - General Nurse Practitioner Family 01/28/18 documented as of this encounter
--- OUTSIDE RECORDS SUMMARY | 2024-03-30 04:05 | XMS_ITS | Encounter Summary ---
Author Organization [facility] Address [address] [place] [address]. [place], [place] [id number] [place] [address] Care Team Providers Care Ager Tender Name Role Phone Radha De La Cruz [facility] Primary Care Provider [phone] Reason for Visit * Reason Comments Medication Management denies any problem s or concerns. Requesting flu shot today Encounter Details Date Type Department Care Team (Late st Contact Info) Description 01/23/2021 8:20 AM VICE PRESIDENT OF NEWS Office Visit [facility] [address] [place] [address] Radha De La Cruz [place] [address] [address] [place], [place] [id number] Medication Management (denies any problems or concerns. Requesting flu shot today) Social History Tobacco Use Types Packs/Day [...] have Coronavirus / COVID-19? No / Unsure 01/23/2021 8:09 AM VICE PRESIDENT OF NEWS documented as of this encounter Last Filed Vital Signs Vital Sign Reading Time Taken Comments Blood Pressure 138/86 01/23/2021 8:15 AM VICE PRESIDENT OF NEWS Pulse 70 01/23/2021 8:15 AM VICE PRESIDENT OF NEWS Temperature 36.6 ??C (97.8 ??F) 01/23/2021 8:15 AM CS T Respiratory Rate 16 01/23/2021 8:15 AM VICE PRESIDENT OF NEWS Oxygen Saturation 97% 01/23/2021 8:15 AM VICE PRESIDENT OF NEWS Inhaled Oxygen Concentration - - Weight 76.7 kg (169 lb) 01/23/2021 8:15 AM VICE PRESIDENT OF NEWS Height - - Body Mass Index 26.08 03/18/2019 1:08 PM VICE PRESIDENT OF NEWS documented in this encounter Patient Instructions * Patient Instructions* LEORA Joyner - 01/23/2021 8:20 AM VICE PRESIDENT OF NEWS Decrease Wellbutrin to 150 mg daily Report back if any issues regarding decreasing this medication. Follow up in 6 months or sooner if needed Get fasting labs done soon. You must fast for 12 hours before. Consider getting the shingles vaccine at health dept or phamacy PRESIDENT OF NEWS documented in this encounter Progress Notes * LEORA Joyner - 01/23/2021 8:20 AM CST Lisa is a 60-year-old female patient. Reason for Visit: Medication Management (denies any problems or concerns. Requesting flu shot today) History of Present Illness: Lisa is a 60-year-old female patient here today for medication refills and a checkup. Has a pastmedical history significant for depression, hyperlipidemia. She is currently on bupropion XL 300 mgdaily for depression. She is on fenofibrate 54 mg daily for hyperlipidemia. Last lipid panel was in March 2019. She has not had any labs since March 2019. She saw her flat drier, Dr. Arechiga yesterday for her physical exam. She had her mammogram done yesterday but no results yet. She had a colonoscopy in 2015 and it ws normal. Told to recheck in 10 years (2025) She would like to get the flu vaccine today. She has not yet had the covid booster. She had [employer] in 06/2020. She declines any additional Covid vaccines. Has not yet had shingrix. She is willing to get this. She is doing well on the wellbuttin. She is on 300 mg daily. She is considering trying to go off ofit. She had a lot of stress related to her divorce but that is slowly resolving. Past Medical History: Diagnosis Date ??? H/O [...] unicompartment replacement. Medications: Current Outpatient Medications: ??? buPROPion XL 150 MG 24 hr tablet, Take 1 tablet (150 mg total) by mouth daily., Disp: 90 tablet, Rfl: 1 ??? fenofibrate 54 MG tablet, Take 1 tablet (54 mg total) by mouth daily with breakfast., Disp: 90 tablet, Rfl: 1 ??? Krill [...] weight loss. HENT: Negative. Respiratory: Negative for shortness of breath. Cardiovascular: Negative for chest pain and palpitations. Neurological: Negative for dizziness and headaches. Psychiatric/Behavioral: Negative for depression (Stable on Wellbutrin) and substance abuse. The patient is not nervous/anxious and does not have insomnia. Vitals: Filed Vitals: 01/23/21 0815 BP: 138/86 Pulse: 70 Resp: 16 Temp: 97.8 ??F (36.6 ??C) TempSrc: Temporal SpO2: 97% Weight: 76.7 kg (169 lb) Physical Exam Constitutional: Appearance: Normal appearance. She is well-developed. HENT: Head: Normocephalic and atraumatic. Eyes: Conjunctiva/sclera: Conjunctivae normal. Pupils: Pupils are equal, round, and reactive to light. Neck: Thyroid: No thyromegaly. Comments: No thyromegaly Cardiovascular: Rate and Rhythm: Normal rate and regular rhythm. Pulmonary: Effort: Pulmonary effort is normal. Breath sounds: Normal breath sounds. Musculoskeletal: Cervical back: Neck supple. Lymphadenopathy: Cervical: No cervical adenopathy. Skin: General: Skin is warm and dry. Neurological: Mental Status: She is alert and oriented to person, place, and time. Psychiatric: Mood and Affect: Mood normal. Thought Content: Thought content normal. Judgment: Judgment normal. Results: PHQ-9: Over the last two weeks, how often have you been bothered by any of the following problems? 01/23/2021 LITTLE INTEREST OR PLEASURE IN DOING THINGS 0-Not at All FEELING DOWN, DEPRESSSED,OR HOPELESS 0-Not at All PHQ2 DEPRESSION TOTAL SCORE 0 DEPRESSION SCREENING TOTAL SCORE 0 Diagnoses/Impression: Encounter Diagnose(s) ICD-10-CM ICD-9-CM SNOMED CT(R) 1. Mild episode of recurrent major depressive disorder (CMS/HCC) F33.0 296.31 RECURRENT MAJOR DEPRESSIVE EPISODES, MILD 2. Anxiety F41.9 300.00 ANXIETY buPROPion XL 150 MG 24 hr tablet 3. Mixed hyperlipidemia E78.2 272.2 MIXED HYPERLIPIDEMIA COMPREHENSIVE METABOLIC PANEL CBC W/DIFF AUTOMATED LIPID PANEL COMPREHENSIVE METABOLIC PANEL CBC W/DIFF AUTOMATED LIPID PANEL fenofibrate 54 MG tablet 4. Need for immunization against influenza Z23 V04.81 NEEDS INFLUENZA IMMUNIZATION [07916] FLU VACCQUAD 6 MONTHS+ 0.5 ML (SINGLE DOSE SYRINGE FLUZONE, FLUARIX, FLULAVAL OR SINGLE DOSE VIAL FLUZONE) Plan Orders Placed: Orders Placed This Encounter ??? COMPREHENSIVE METABOLIC PANEL ??? CBC W/DIFF AUTOMATED ??? LIPID PANEL ??? [61951] FLU VACC QUAD 6 MONTHS+ 0.5 ML (SINGLE DOSE SYRINGE FLUZONE, FLUARIX, FLULAVAL OR SINGLE DOSE VIAL FLUZONE) ??? fenofibrate 54 MG tablet ??? buPROPion XL 150 MG 24 hr tablet Will get updated labs. She will return fasting to get these done. Lowering the bupropion dose to 150 mg daily. She is agreeable to this. Will reevaluate at 6-month checkup and discuss possible weaning off completely. Patient declines Covid booster We will give her influenza vaccine today. Order sent to the pharmacy for shingles vaccine. Follow-up in 6 months or sooner if needed. Instructions Patient Instructions Decrease Wellbutrin to 150 mg daily Report back if any issues regarding decreasing this medication. Follow up in 6 months or sooner if needed Get fasting labs done soon. You must fast for 12 hours before. Consider getting the shingles vaccine at [facility] dept or [facility] LEORA JOYNER 01/23/2021 8:18 AM Cosigned by Mery Witt DO at 01/23/2021 10:33 AM VICE PRESIDENT OF NEWS PRESIDENT OF NEWS PRESIDENT OF NEWS documented in this encounter Plan of Treatment Not on file documented as of this encounter Visit Diagnoses Diagnosis Mild episode of recurrent major depressive disorder (CMS/HCC)- Primary Anxiety Anxiety state, unspecified Mixed hyperlipidemia Need for immunization against influenza Need for prophylactic vaccination and inoculation against influenza Need for shingles vaccine Need for prophylactic vaccination and inoculation against other viral diseases documented in this encounter Additional Health Concerns Assessment Noted Time PHQ-9 Depression Total Score: 0 01/24/20 8:18 AM VICE PRESIDENT OF NEWS documented as of this encounter Care Teams Ager Tender Relationship Specialty Start Date End Date Radha De La Cruz FNP [address] [place] [address] [place] [address] PCP - General Nurse Practitioner Family 01/28/18 documented as of this encounter
--- OUTSIDE RECORDS SUMMARY | 2024-03-30 04:05 | XMS_ITS | Encounter Summary ---
Author Organization [facility] Address [address] [place] [address]. [place], [place] [address] [place] [address] Care Team Providers Care Slitting And Shipping Supervisor Name Role Phone Radha De La Cruz Primary Care Provider [phone] Encounter Details Date Type Department Care Team (Latest Contact Info) Description 11/09/2019 Scan HEALTH INFO SRVCS Scanned, Documents Social History Tobacco Use Types Packs/Day Years [...] have Coronavirus / COVID-19? No / Unsure 11/09/2019 10:12 AM CDT documented as of this encounter Plan of Treatment Not on file documented as of this encounter Visit Diagnoses Not on filedocumented in this encounter Care Teams Slitting And Shipping Supervisor Relationship Specialty Start Date End Date Radha De La Cruz FNP [address] [place] [address] [place] [address] PCP - General Nurse Practitioner Family 01/28/18 documented as of this encounter
--- OUTSIDE RECORDS SUMMARY | 2024-03-30 04:05 | XMS_ITS | Encounter Summary ---
Author Organization [facility] Address [address] [place] [address]. [place], [place] [id number] [place] [address] Care Team Providers Care Hot Die Picker Name Role Phone Radha De La Cruz [facility] Primary Care Provider [phone] Reason for Visit * Reason Onset Date Comments Medication 12/22/2020 Encounter Details Date Type Department Care Team (Late st Contact Info) Description 12/22/2020 Telephone Replaced by [facility] [address] [place] [address] [address] [facility] [address] [place] [address] Medication Social History Tobacco Use Types [...] as of this encounter Progress Notes * Miriam Sapp RN - 12/23/2020 10:38 AM CDT Pt aware of this and has Rx. * Reyna Perkins LPN - 12/22/2020 4:01 PM CDT Pt called in regarding her Bupropion stating that [facility] has told her they are waiting for [facility] to approve this. This medication was refilled on 12/18/2020 #30. Calling [facility] to find out what they are needing. Obdulia said that it might be because her insurance requires a 90 day supply and #30 was only sent. Obdulia ran it and it went through. Left message to call the office. documented in this encounter Plan of Treatment Not on file documented as of this encounter Visit Diagnoses Not on filedocumented in this encounter Care Teams Hot Die Picker Relationship Specialty Start Date End Date Radha De La Cruz FNP [address] [place] [address] [place] [address] PCP - General Nurse Practitioner Family 01/28/18 documented as of this encounter
--- OUTSIDE RECORDS SUMMARY | 2024-03-30 04:05 | XMS_ITS | Encounter Summary ---
Author Organization [facility] Address [address] [place] [address]. [place], [place] [address] [place] [address] Care Team Providers Care Customer Support Engineer Name Role Phone Radha De La Cruz Primary Care Provider [phone] Reason for Visit * Reason Onset Date Comments Medication Request 05/12/2020 Encounter Details Date Type Department Care Team (Late st Contact Info) Description 05/12/2020 Telephone [facility] [address] [place] [address] Radha De La Cruz FNP [address] [place] [address] Medication Request Social History Tobacco Use Types Packs/Day Years [...] as of this encounter Progress Notes * LEORA Horne - 05/12/2020 5:01 PM CST Ok to refill for 90 days OSAL MAN * Cassi Meng LPN - 05/12/2020 4:12 PM CST Last refill: 01/31/2020 #90 Last OV: 02/09/2020 (Heartburn) 11/09/2019 (Med management) OSAL MAN * Suri Martinez - 05/12/2020 2:19 PM CST PT would like a refill on her bupropion she is out of refills. [facility] [place] [facility] documented in this encounter Plan of Treatment Not on file documented as of this encounter Visit Diagnoses Diagnosis Anxiety Anxiety state, unspecified documented in this encounter Care Teams Customer Support Engineer Relationship Specialty Start Date End Date Radha De La Cruz FNP [address] [place] [address] [place] [address] PCP - General Nurse Practitioner Family 01/28/18 documented as of this encounter
--- OUTSIDE RECORDS SUMMARY | 2024-03-30 04:05 | XMS_ITS | Encounter Summary ---
Author Organization [facility] Address [facility]. [place], [place] [address] [place] [address] Care Team Providers Care Quality Head Name Role Phone Radha De La Cruz Primary Care Provider Encounter Details Date Type Department Care Team (Late st Contact Info) Description 01/26/2019 Orders Only [facility] [address] [place] [address] Suri Jj LPN Social History Tobacco Use Types Packs/Day Years Used Date Smoking Tobacco: Never Smokeless Tobacco: Never Alcohol Use Standard Drinks/Week Comments Yes 0 (1 standard drink = 0.6 oz pur e alcohol) AUDIT-C Answer Date Recorded Frequency of Alcohol Consumption 2-4 times a fri02/19/2018 Average Number of Drinks Not on file 018 Frequency of Binge Drinking Not on file 02/07 Comments Unknown Sex and Gender Information Value Date Recorded Sex Assigned at Not on file Legal Sex Female 2:50 AM CDT Gender Identity Not on file Sexual Orientation Not on file documented as of this encounter Plan of Treatment Not on file documented as of this encounter Visit Diagnoses Diagnosis Hyperlipidemia Other and unspecified hyperlipidemia documented in this encounter Care Teams Quality Head Relationship Specialty Start Date End Date Radha De La Cruz FNP [address] [place] [address] PCP - General Nurse Practitioner Family 01/28/18 documented as of this encounter
--- OUTSIDE RECORDS SUMMARY | 2024-03-30 04:05 | XMS_ITS | Encounter Summary ---
Author Organization [facility] Address [facility]. [place], [place] [address] [place] [address] Care Team Providers Care Game Designer Name Role Phone Radha De La Cruz [facility] Primary Care Provider [phone] Reason for Visit * Reason Comments Heartburn Started worsening ov er the last month Nail Problem right thumb-injury 1 week ago Encounter Details Date Type Department Care Team (Late st Contact Info) Description 02/09/2020 9:20 AM CHEMICAL LABORATORY TESTER Office Visit [facility] [address] [place] [id number] Radha De La Cruz [facility] [address] [place], [place] [id number] Heartburn (Started worsening over the last month); Nail Problem (right thumb-injury 1 week ago ) Social History Tobacco Use Types Packs/Day [...] COVID-19? No / Unsure 02/09/2020 9:25 AM CHEMICAL LABORATORY TESTER documented as of this encounter Last Filed Vital Signs Vital Sign Reading Time Taken Comments Blood Pressure 124/90 02/09/2020 9:32 AM CHEMICAL LABORATORY TESTER Pulse 64 02/09/2020 9:32 AM CHEMICAL LABORATORY TESTER Temperature 36.8 ??C (98.2 ??F) 02/09/2020 9:32 AM CS T Respiratory Rate 20 02/09/2020 9:32 AM CHEMICAL LABORATORY TESTER Oxygen Saturation 100% 02/09/2020 9:32 AM CHEMICAL LABORATORY TESTER Inhaled Oxygen Concentration - - Weight 81.2 kg (179 lb) 02/09/2020 9:32 AM CHEMICAL LABORATORY TESTER Height - - Body Mass Index 27.62 03/18/2019 1:08 PM CHEMICAL LABORATORY TESTER documented in this encounter Progress Notes * Radha De La Cruz, INSERT OPERATOR - 02/09/2020 9:20 AM CST Lisa is a 59-year-old female patient. Reason for Visit: Heartburn (Started worsening over the last month) and Nail Problem (right thumb- injury 1 week ago ) History of Present Illness: Lisa is a 59 year old female pt here for concerns of having increased heartburn over the past month. She reports that she occasionally has mild heartburn but it has gotten much worse over the lastmonth. It is now waking her up at night. Sometimes difficulty swallowing. Has been sleeping with 2 pillowsto try to keep the acid from coming up into her throat. She rarely has any symptoms during the day.It is mostly present when she lies down at night. She has not noticed any nausea or vomiting. She denies having any abdominal pain. No weight loss. No changes in her bowels. No diet change recently. However, since her divorce a year ago, she says she does not eat as healthy as she used to. She does not make meals so she just eats what ever she has. She is also working from home now since the COVID-19 pandemic started. Therefore, she drinks coffee all day long. She saysshe sometimes drinks and all the way up until bedtime as it does not keep her from sleeping. She has not used any medications to help with her heartburn as she was not sure what she could take. She had an injury to her right thumb last week. She was doing some yard work and hit her thumb at the base of the nail. Part of the nail came off. It was loose so she was able to pull it to completely remove it. The rest of the nail looks healthy. She has not noticed any redness or drainage around the area of injury. She really does not have any discomfort. Past Medical History: Diagnosis Date ??? H/O [...] PRN, Disp: 10 tablet, Rfl: 0 ??? buPROPion XL 300 MG 24 hr tablet, Take 1 tablet (300 mg total) by mouth daily., Disp: 90 tablet, Rfl: 1 ??? clobetasol (TEMOVATE) 0.05 % ointment, Apply topically 2 (two) times daily., Disp: 15 g, Rfl: 0 ??? cyclobenzaprine 10 MG tablet, Take one half to one tab QHS prn, Disp: 10 tablet, Rfl: 0 ??? fenofibrate 54 MG tablet, Take 1 [...] file Occupational History ??? Not on file Social Needs ??? Financial resource strain: Not on file ??? Food insecurity Worry: Not on file Inability: Not on file ??? Transportation needs Medical: Not on file Non-medical: Not on file Tobacco Use ??? Smoking status: Never Smoker ??? Smokeless tobacco: Never Used Substance and Sexual Activity ??? Alcohol use: Yes Frequency: 2-4 times a month ??? Drug use: No ??? Sexual activity: Not on file Lifestyle ??? Physical activity Days per week: Not on file Minutes per session: Not on file ??? Stress: Not on file Relationships ??? Social connections Talks on phone: Not on file Gets together: Not on file Attends yazdanism service: Not on file Active member of club or organization: Not on file Attends meetings of clubs or organizations: Not on file Relationship status: Not on file ??? Intimate partner violence Fear of current or ex partner: Not on file Emotionally abused: Not on file Physically abused: Not on file Forced sexual activity: Not on file Other Topics Concern ??? Not on file Social History Narrative ??? Not on file ROS: Review of Systems Constitutional: Negative for chills, fever, malaise/fatigue and weight loss. HENT: Negative. Respiratory: Negative for cough and shortness of breath. Cardiovascular: Negative for chest pain and palpitations. Gastrointestinal: Positive for heartburn. Negative for abdominal pain, blood in stool, constipation, diarrhea, nausea and vomiting. Skin: Partially avulsed thumbnail Neurological: Negative for dizziness and headaches. Vitals: Filed Vitals: 02/09/20 0932 BP: 124/90 Pulse: 64 Resp: 20 Temp: 98.2 ??F (36.8 ??C) TempSrc: Temporal SpO2: 100% Weight: 81.2 kg (179 lb) Physical Exam Vitals signs and nursing note reviewed. Constitutional: Appearance: Normal appearance. HENT: Head: Normocephalic and atraumatic. Neck: Musculoskeletal: Neck supple. Cardiovascular: Rate and Rhythm: Normal rate and regular rhythm. Pulmonary: Effort: Pulmonary effort is normal. Breath sounds: Normal breath sounds. Abdominal: General: Bowel sounds are normal. There is no distension. Palpations: Abdomen is soft. There is no mass. Tenderness: There is no abdominal tenderness. Lymphadenopathy: Cervical: No cervical adenopathy. Skin: General: Skin is warm and dry. Comments: To the right thumbnail, part of the base of the nail has avulsed. The rest of the nail ishealthy including the surrounding skin. There is no sign of any trauma or infection. Neurological: Mental Status: She is alert and oriented to person, place, and time. Psychiatric: Mood and Affect: Mood normal. Diagnoses/Impression: Encounter Diagnose(s) ICD-10-CM ICD-9-CM SNOMED CT(R) 1. Gastroesophageal reflux disease without esophagitis K21.9 530.81 GASTROESOPHAGEAL REFLUX DISEASEWITHOUT ESOPHAGITIS omeprazole 20 MG capsule 2. Fingernail injury, right, initial encounter S69.91XA 959.5 FINGERNAIL INJURY Plan Orders Placed: Orders Placed This Encounter ??? omeprazole 20 MG capsule Will start omeprazole 20 mg daily for 4 weeks. I encouraged her to significantly decrease her coffee intake by at least half. She may need to do this slowly to avoid getting headaches. We also discussed avoiding tomato based products, spicy foods, cinnamon, peppermint. I advised that she avoid eating or drinking anything 2 hours before bedtime. Continue to sleep withthe head elevated slightly to help with her nighttime symptoms. She is to report back in 4 weeks. If the symptoms have not completely resolved, she will need a GI referral for EGD. Patient encouraged to call sooner if any symptoms get worse or any new symptoms. Regarding the nail injury, the rest of the nail looks healthy and is intact. I told her it may take6 to 12 months for the nail to completely grow out to look normal again. She should watch for any signs of infection and notify me immediately LEORA JOYNER 02/09/2020 9:42 AM Cosigned by Mery Witt DO at 02/11/2020 8:30 AM CHEMICAL LABORATORY TESTER ICAL LABORATORY TESTER ICAL LABORATORY TESTER documented in this encounter Plan of Treatment Not on file documented as of this encounter Visit Diagnoses Diagnosis Gastroesophageal reflux disease without esophagitis- Primary Esophageal reflux Fingernail injury, right, initial encounter documented in this encounter Care Teams Game Designer Relationship Specialty Start Date End Date Radha De La Cruz FNP [address] [place] [address] [place] [address] PCP - General Nurse Practitioner Family 01/28/18 documented as of this encounter
--- OUTSIDE RECORDS SUMMARY | 2024-03-30 04:05 | XMS_ITS | Encounter Summary ---
Author Organization [facility] Address [address] [place] [address]. [place], [place] [id number] [place] [address] Care Team Providers Care Director Fundraising Name Role Phone Radha De La Cruz [facility] Primary Care Provider [phone] Reason for Visit * Reason Onset Date Comments Derm Problem 07/07/2019 Encounter Details Date Type Department Care Team (Late st Contact Info) Description 07/07/2019 Telephone [facility] [address] [place] [address] Radha De La Cruz [facility] [address] [place] [address] Derm Problem Social History Tobacco Use Types Packs/Day Years [...] as of this encounter Progress Notes * Ruchi Galvin RN - 07/07/2019 2:58 PM CDT Scheduled for video visit tomorrow. * LEORA Horne - 07/07/2019 2:11 PM CDT Lets get a video visit today or tomorrow so she can show me and I can treat without her having to come in * Ruchi Galvin RN - 07/07/2019 2:04 PM CDT Patient calls and reports rash (poison alexandrea/oak) on her left forearm. Started as 1 spot and has spread now to four areas. She was out in the yard clearing brush. She has been using caladryl. She cannot come into office. She is helping her daughter with her 3 week old and has not been going anywhere except to help her. She would like to take care of this remotely. I asked if she had MyChartand she does not. She was asking if she could send us pictures. Would you do a video visit? Or can she send pictures through [employer]? Or office visit? Please advise. documented in this encounter Plan of Treatment Not on file documented as of this encounter Visit Diagnoses Not on filedocumented in this encounter Care Teams Director Fundraising Relationship Specialty Start Date End Date Radha De La Cruz FNP [address] [place] [address] [place] [address] PCP - General Nurse Practitioner Family 01/28/18 documented as of this encounter
--- OUTSIDE RECORDS SUMMARY | 2024-03-30 04:05 | XMS_ITS | Encounter Summary ---
Author Organization [facility] Address [address] [place] [address]. [place], [place] [id number] [place] [address] Care Team Providers Care Herd Tester Name Role Phone Radha De La Cruz [employer] Primary Care Provider Encounter Details Date Type Department Care Team (Latest Contact Info) Description 01/23/2021 Travel Social History Tobacco Use Types Packs/Day [...] COVID-19? No / Unsure 01/23/2021 8:09 AM CHEMICAL PREPARER documented as of this encounter Plan of Treatment Not on file documented as of this encounter Visit Diagnoses Not on filedocumented in this encounter Additional Health Concerns Assessment Noted Time PHQ-9 Depression Total Score: 0 01/24/20 8:18 AM CHEMICAL PREPARER documented as of this encounter Care Teams Herd Tester Relationship Specialty Start Date End Date Radha De La Cruz FNP [address] [place] [address] [place] [address] PCP - General Nurse Practitioner Family 01/28/18 documented as of this encounter
--- OUTSIDE RECORDS SUMMARY | 2024-03-30 04:05 | XMS_ITS | Encounter Summary ---
Author Organization [facility] Address [address] [place] [address]. [place], [place] [address] [place] [address] Care Team Providers Care Contracts Administrator Name Role Phone Radha De La Cruz [facility] Primary Care Provider [phone] Reason for Visit * Reason Comments Medication Management will need refills on fenofibrate Encounter Details Date Type Department Care Team (Late st Contact Info) Description 11/09/2019 10:20 AM CDT Office Visit On license of [facility] [address] [place] [address] Radha De La Cruz FNP [address] [place] [address] Medication Management (will need refills on fenofibrate ) Social History Tobacco Use Types Packs/Day [...] Sign Reading Time Taken Comments Blood Pressure 112/72 11/09/2019 10:22 AM CDT Pulse 80 11/09/2019 10:22 AM CDT Temperature 37.7 ??C (99.8 ??F) 11/09/2019 10:22 AM C DT Respiratory Rate 16 11/09/2019 10:22 AM CDT Oxygen Saturation 97% 11/09/2019 10:22 AM CDT Inhaled Oxygen Concentration - - Weight 78.9 kg (174 lb) 11/09/2019 10:22 AM CDT Height - - Body Mass Index 26.85 03/18/2019 1:08 PM INFECTION CONTROL NURSE documented in this encounter Patient Instructions * Patient Instructions* LEORA Joyner - 11/09/2019 10:20 AM CDT = documented in this encounter Progress Notes * LEORA Joyner - 11/09/2019 10:20 AM CDT Lisa is a 59-year-old female patient. Reason for Visit: Medication Management (will need refills on fenofibrate ) History of Present Illness: Lisa is a 59-year-old female patient here for medication refills. She is currently on fenofibrate for hyperlipidemia and Wellbutrin for depression and anxiety. She reports lifting heavy items at home and hurt her back 3 weeks ago. Has pain rt lower back and radiates into her posterior rt thigh. Some mild numbess in her rt leg off and on. She went to dr hartlye twice and no help. She is doing back exercises given to her by her son in law who is a PT. Has helped quite a bit and she reports now she can move a lot better. Her back improing but not completely better. Can move better now. aggravated by certain movements. bending forward still bothers her some. It also hurts to roll overin bed occasionally but still reports much better than she was 2 weeks ago. No history of back injuries in the past. She is still on bupropion. She feels it is helping her depression and anxiety very well. She would like to continue it. Uses xanax very rarely. None for a year. She does not need a refill today. She had labs done in March 2019. Lipids, TSH, CMP, CBC, vitamin D were all within normal limits. Is having allergy sx of watery eyes and sneezing and runny nose. No cough. No fever. No sore throat. She is taking zyrtec which makes her tired and not helping. The watery eyes was the worst symptom.She says this happens this time every year. She has a rash noted to her right palmar surface of the hand. It is dry and scaly and itches a lot.No rashes present anywhere else besides on her hand. Past Medical History: Diagnosis Date ??? H/O [...] unicompartment replacement. Medications: Current Outpatient Medications: ??? BUPROPION XL 300 MG 24 hr tablet, TAKE 1 TABLET BY MOUTH EVERY DAY, Disp: 90 tablet, Rfl: 1 ??? fenofibrate 54 MG tablet, TAKE 1 TABLET DAILY (OFFICEVISIT DUE FOR FURTHER REFILLS), Disp: 90 tablet, Rfl: 0 ??? Krill Oil 1000 MG Cap, Take 1 capsule by mouth daily., Disp: , Rfl: ??? Multiple Vitamin (ONCE DAILY) Tab, Take 1 tablet by mouth., Disp: , Rfl: ??? ALPRAZolam 0.25 MG tablet, Take 1 tab. PO DAILY PRN, Disp: 10 tablet, Rfl: 0 No Known Allergies No [...] resource strain: Not on file ??? Food insecurity: Worry: Not on file Inability: Not on file ??? Transportation needs: Medical: Not on file Non-medical: Not on file Tobacco Use ??? Smoking status: Never Smoker ??? Smokeless tobacco: Never Used Substance and Sexual Activity ??? Alcohol use: Yes Frequency: 2-4 times a month ??? Drug use: No ??? Sexual activity: Not on file Lifestyle ??? Physical activity: Days per week: Not on file Minutes per session: Not on file ??? Stress: Not on file Relationships ??? Social connections: Talks on phone: Not on file Gets together: Not on file Attends caodaism service: Not on file Active member of club or organization: Not on file Attends meetings of clubs or organizations: Not on file Relationship status: Not on file ??? Intimate partner violence: Fear of current or ex partner: Not on file Emotionally abused: Not on file Physically abused: Not on file Forced sexual activity: Not on file Other Topics Concern ??? Not on file Social History Narrative ??? Not on file ROS: Review of Systems Constitutional: Negative for chills, fever, malaise/fatigue and weight loss. HENT: Runny nose, sneezing, postnasal drip, watery itchy eyes Eyes: Positive for discharge. Negative for blurred vision, double vision and redness. Respiratory: Negative. Negative for cough and shortness of breath. Cardiovascular: Negative. Gastrointestinal: Negative. Skin: Positive for itching and rash. Neurological: Negative for dizziness and headaches. Psychiatric/Behavioral: See HPI Vitals: Filed Vitals: 11/09/19 1022 BP: 112/72 Pulse: 80 Resp: 16 Temp: 99.8 ??F (37.7 ??C) TempSrc: Temporal SpO2: 97% Weight: 78.9 kg (174 lb) Physical Exam Constitutional: She is oriented to person, place, and time. She appears well- developed and well-nourished. HENT: Head: Normocephalic and atraumatic. Right Ear: External ear normal. Left Ear: External ear normal. She has clear postnasal drainage present. No erythema or swelling of the throat. Nasal mucosa is erythematous but no swelling. Some clear rhinorrhea present. No sinus tenderness with palpation Eyes: Conjunctivae are normal. She has some clear watery eye discharge bilaterally. No conjunctival redness Neck: Neck supple. No thyromegaly present. Cardiovascular: Normal rate and regular rhythm. Pulmonary/Chest: Effort normal and breath sounds normal. Lymphadenopathy: She has no cervical adenopathy. Neurological: She is alert and oriented to person, place, and time. Skin: Skin is warm and dry. She has a dry scaly rash present with some small erythematous bumps to the right palmar surface of the hand. No other skin rashes present to visible areas of the skin Psychiatric: She has a normal mood and affect. Nursing note and vitals reviewed. Diagnoses/Impression: Encounter Diagnose(s) ICD-10-CM ICD-9-CM SNOMED CT(R) 1. Low back strain, initial encounter S39.012A 847.2 LOW BACK STRAIN triamcinolone acetonide (KENALOG-40) injection 40 mg cyclobenzaprine 10 MG tablet 2. Hand dermatitis L30.9 692.9 HAND ECZEMA clobetasol (TEMOVATE) 0.05 % ointment 3. Anxiety F41.9 300.00 ANXIETY buPROPion XL 300 MG 24 hr tablet 4. Mixed hyperlipidemia E78.2 272.2 MIXED HYPERLIPIDEMIA fenofibrate 54 MG tablet 5. Seasonal allergic rhinitis due to pollen J30.1 477.0 ALLERGIC RHINITIS DUE TO POLLEN Plan Orders Placed: Orders Placed This Encounter ??? triamcinolone acetonide (KENALOG-40) injection 40 mg ??? cyclobenzaprine 10 MG tablet ??? clobetasol (TEMOVATE) 0.05 % ointment ??? buPROPion XL 300 MG 24 hr tablet ??? fenofibrate 54 MG tablet Will refill the fenofibrate and bupropion for 6 months as they both working well for her. We will administer a Kenalog 40 mg injection today for relief of her seasonal allergies as well as to improve her low back pain. Advised to try Sima in place of Zyrtec for her allergies. She can also use an [id number] allergy eyedrop relief for the itchy watery eyes. Flexeril at bedtime for her back strain. Advised it will make her very tired so only take it at bedtime. Continue home therapy stretching and exercises as advised by the therapist Report back to me in 2 weeks if her back is not completely better. May consider imaging at that time We will add clobetasol ointment twice a day to the rash on her hand and report back if that is not improving in 7 to 10 days. LEORA JOYNER 11/09/2019 10:42 AM Cosigned by Mery Witt DO at 11/11/2019 8:23 PM CDT documented in this encounter Plan of Treatment Not on file documented as of this encounter Visit Diagnoses Diagnosis Low back strain, initial encounter- Primary Hand dermatitis Contact dermatitis and other eczema, due to unspecified cause Anxiety Anxiety state, unspecified Mixed hyperlipidemia Seasonal allergic rhinitis due to pollen documented in this encounter Administered Medications Inactive Administered Medications - up to 3 most recent administrations Medication Order MAR Action Action Date Dose Rate Site triamcinolone acetonide (KENALOG-40) injection 40 mg 40 mg, Intramuscular, Once, 1 dose, On Fri11/09/19 at 1130, Shake WellIndications:Low back strain, initial encounter Given 11/09/2019 10:45 AM CDT 40 mg Right Ventrogluteal documented in this encounter Care Teams Contracts Administrator Relationship Specialty Start Date End Date Radha De La Cruz FNP [address] [place] [address] [place] [address] PCP - General Nurse Practitioner Family 01/28/18 documented as of this encounter
--- OUTSIDE RECORDS SUMMARY | 2024-03-30 04:05 | XMS_ITS | Encounter Summary ---
Author Organization [facility] Address [facility]. [place], [place] [address] [place] [address] Care Team Providers Care Brake Repair Supervisor Name Role Phone Radha De La Cruz [facility] Primary Care Provider [phone] Reason for Visit * Reason Comments Eye Problem Right eye irritation and right ear hearing swooshing sound , hoarse voice, and ongoing neck x 5 days. Has taken multiple home COVID tests that have come back negative. Encounter Details Date Type Department Care Team (Late st Contact Info) Description 09/19/2021 8:00 AM CDT Office Visit [facility] [address] [place] [address] Radha De La Cruz [facility] [address] [place] [address] Eye Problem (Right eye irritation and right ear hearing swooshing sound , hoarse voice, and ongoing neck x 5 days. Has taken multiple home COVID tests that have come back negative. ) Social History Tobacco Use Types Packs/Day Years Used Date Smoking Tobacco: Never Smokeless Tobacco: Never Alcohol Use Standard Drinks/Week Comments Yes 0 (1 standard drink = 0.6 oz pur e alcohol) AUDIT-C Answer Date Recorded Frequency of Alcohol Consumption 2-4 times a mon 02/19/2018 Average Number of Drinks Not on file [...] Sign Reading Time Taken Comments Blood Pressure 120/64 09/19/2021 8:08 AM CDT Pulse 75 09/19/2021 8:08 AM CDT Temperature - - Respiratory Rate 16 09/19/2021 8:08 AM CDT Oxygen Saturation 98% 09/19/2021 8:08 AM CDT Inhaled Oxygen Concentration - - Weight 78 kg (172 lb) 09/19/2021 8:08 AM CDT Height 170.2 cm (5' 7 ) 09/19/2021 8:08 AM CDT Body Mass Index 26.94 09/19/2021 8:08 AM CDT documented in this encounter Patient Instructions * Patient Instructions* LEORA Joyner - 09/19/2021 10:30 AM CDT We will notify you when the results of the Covid PCR test are completed. Quarantine per CDC guidelines as discussed at your visit today. Symptomatic treatment including claritin as needed for post nasal drainage Increase oral fluids and rest You may use Tylenol or ibuprofen as needed for body aches, headache You may use throat lozenges or salt water gargles as needed for throat discomfort Use ciloxin as directed and report back if eye sx not resolving in 2 to 3 days or sooner if any worsening symptoms develop documented in this encounter Progress Notes * LEORA Joyner - 09/19/2021 8:00 AM CDT Lisa is a 61-year-old female patient. Reason for Visit: Eye Problem (Right eye irritation and right ear hearing swooshing sound , hoarse voice, and ongoing neck x 5 days. Has taken multiple home COVID tests that have come back negative. ) History of Present Illness: Lisa is a 61-year-old female patient here for URI symptoms. She reports having right eye rednessand irritation for couple of days. She has also noticed some congestion and a swishing sound in herright ear. She also reports hoarseness to her voice. Symptoms started about 5 days ago. She really has not noticed any runny nose or sneezing. She has had some mild postnasal drainage. No cough. No loss of taste or smell. No headaches or dizziness. She has taken home COVID test and they have been negative so far. She received the J&J COVID-vaccine in June 2020 but she has not been boosted. Yesterday morning she noticed that her right eye was red and matted when she woke up in the morning. She does not have any eye pain. No tearing. Some mild itching. She started using Naphcon-A drops yesterday and it only helped a little. Later last night she noticed that she was also having some left eye symptoms. Last week she called in and requested to have her bupropion increased. She was having some increased depression issues along with situational stress. She says her personal life is great but she is having a lot of work related issues. 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 She has been having to work a lot of hours. I advised that she increase from 150 to 300 mg daily and see me for follow-up. I last saw her in January 2021. At that time she was on 300 mg daily but requested to try to decrease the dose. She was successful on the 150 mg daily until recently. Past Medical History: Diagnosis Date ??? H/O [...] chills, fever and malaise/fatigue. HENT: Positive for congestion. Negative for ear discharge, ear pain, hearing loss, sinus pain and sore throat. Right ear fullness, postnasal drainage, hoarseness Eyes: Positive for discharge and redness. Negative for blurred vision, double vision, photophobia and pain. Respiratory: Negative for cough, shortness of breath and stridor. Cardiovascular: Negative for chest pain. Musculoskeletal: Negative for myalgias. Neurological: Negative for dizziness and headaches. Psychiatric/Behavioral: See HPI Vitals: Filed Vitals: 09/19/21 0808 BP: 120/64 Pulse: 75 Resp: 16 SpO2: 98% Weight: 78 kg (172 lb) Height: 5' 7 (1.702 m) Physical Exam Vitals and nursing note reviewed. Constitutional: Appearance: Normal appearance. HENT: Head: Normocephalic and atraumatic. Cardiovascular: Rate and Rhythm: Normal rate and regular rhythm. Pulmonary: Effort: Pulmonary effort is normal. Breath sounds: Normal breath sounds. Musculoskeletal: Cervical back: Neck supple. Skin: General: Skin is warm and dry. Neurological: Mental Status: She is alert and oriented to person, place, and time. Psychiatric: Comments: See HPI Rapid COVID test negative Diagnoses/Impression: Encounter Diagnose(s) ICD-10-CM ICD-9-CM SNOMED CT(R) 1. Bacterial conjunctivitis of both eyes H10.9 372.30 CONJUNCTIVITIS OF BILATERAL EYES CAUSED BY BACTERIA ciprofloxacin (CILOXAN) 0.3 % ophthalmic solution B96.89 2. Nasal congestion R09.81 478.19 NASAL CONGESTION CORONAVIRUS (COVID-19) INFLUENZA A & B ANTIGEN IA PANEL CORONAVIRUS (COVID 19) PCR 3. Non-recurrent acute serous otitis media of right ear H65.01 381.01 ACUTE NON- SUPPURATIVE OTITIS MEDIA - SEROUS 4. Mild episode of recurrent major depressive disorder ([facility]) F33.0 296.31 RECURRENT MAJOR DEPRESSIVE EPISODES, MILD Plan Orders Placed: Orders Placed This Encounter ??? ciprofloxacin (CILOXAN) 0.3 % ophthalmic solution ? ? CORONAVIRUS (COVID-19) INFLUENZA A & B ANTIGEN IA PANEL ??? CORONAVIRUS (COVID 19) PCR We will treat the bacterial conjunctivitis with Ciloxin ophthalmic drops 1 drop both eyes every 2 hours while awake x2 days then 4 times daily x5 days. Use Flonase 2 sprays each nostril daily for nasal and ear symptoms May use Claritin daily for postnasal drainage Increase oral fluids Tylenol or ibuprofen if taking this for headache develops. Quarantine per CDC guidelines discussed until the PCR result is back. I encourage patient to get the COVID booster once her symptoms have completely resolved. Report back in 3 to 4 days if the eye symptoms are not resolving or sooner if they get worse. Patient advised that the ear fullness may persist for a couple of weeks. Let me know if the symptoms are not gone within 2 weeks. Continue Wellbutrin XL 300 mg daily. Call the pharmacy when refills are needed. Instructions Patient Instructions We will notify you when the results of the Covid PCR test are completed. Quarantine per CDC guidelines as discussed at your visit today. Symptomatic treatment including claritin as needed for post nasal drainage Increase oral fluids and rest You may use Tylenol or ibuprofen as needed for body aches, headache You may use throat lozenges or salt water gargles as needed for throat discomfort Use ciloxin as directed and report back if eye sx not resolving in 2 to 3 days or sooner if any worsening symptoms develop LEORA JOYNER 09/19/2021 8:17 AM Cosigned by Mery Witt DO at 09/20/2021 8:28 AM CDT documented in this encounter Plan of Treatment Not on file documented as of this encounter Procedures Procedure Name Priority Date/Time Associated Diagnosis Comments CORONAVIRUS (COVID-19) INFLUENZA A & B ANTIGEN IA PANEL Routine 09/19/2021 Nasal congestion documented in this encounter Results * CORONAVIRUS (COVID 19) PCR (09/19/2021 9:18 AM CDT) SPEC DESCRIPTION NASAL 09/21/19 8:17 AM CDT [facility] CORONAVIRUS SARS COV 2 PCR (RESP) NEGATIVE NEGATIVE 09/20/2021 1:34 PM CDT [facility] Comment: THE SARS-CoV-2 TEST HAS BEEN AUTHORIZED BY THE FDA UNDER AN EUA FOR USE BY AUTHORIZED LABORATORIES. PERFORMED BY NUCLEIC ACID AMPLIFICATION PCR FIRST TEST NO 09/20/2021 8:17 AM CDT [facility] EMPLOYED IN HEALTHCARE NO 09/20/2021 8:17 AM CDT [facility] SYMPTOMATIC DEFINED BY CDC YES 09/20/2021 8:17 AM CDT [facility] DATE OF SYMPTOM ONSET [id number]/20/2021 8:17 AM CDT [facility] HOSPITALIZATION STATUS NO 09/20/2021 8:17 AM CDT [facility] PATIENT IN ICU NO 09/20/2021 8:17 AM CDT [facility] RESIDENT OF [facility] NO 09/20/2021 8:17 AM CDT [facility] NASOPHARYNGEAL SWAB / Unknown 09/19/2021 9:18 AM CDT us Radha COREY MICROBIOLOGY - GENERAL ORDERA BLES Final Result [facility] [address] [place] [address], [place] [phone] * CORONAVIRUS (COVID-19) INFLUENZA A & B ANTIGEN IA PANEL (09/19/2021) Pathologist [facility] CORONAVIRUS ANTIGEN IA NEGATIVE NEGATIVE [facility] (201), [place] INFLUENZA A NEGATIVE NEGATIVE [facility] [facility] (201), [place] INFLUENZA B NEGATIVE NEGATIVE -[facility] [facility] (201), [place] Internal Control: [facility] (201), [place] NASAL STRUCTURE / Unknown 09/19/2021 Radha GLEZP MICROBIOLOGY - GENERAL ORDERA BLES Final Result Performing Organization Address [facility]/ZIP Co de Phone Number [facility] ([address]), [address] [address], documented in this encounter Visit Diagnoses Diagnosis Bacterial conjunctivitis of both eyes- Primary Nasal congestion Other diseases of nasal cavity and sinuses Non-recurrent acute serous otitis media of right ear Mild episode of recurrent major depressive disorder (CMS/HCC) documented in this encounter Additional Health Concerns Infection Onset Date Last Indicated Resolved Time COVID-19 Rule Out 09/19/2021 09/19/2021 09/19/2021 9:16 AM CDT Assessment Noted Time PHQ-9 Depression Total Score: 0 06/02/19 10:42 AM CDT documented as of this encounter Care Teams Brake Repair Supervisor Relationship Specialty Start Date End Date Radha De La Cruz FNP [address] [place] [address] PCP - General Nurse Practitioner Family 01/28/18 documented as of this encounter
--- OUTSIDE RECORDS SUMMARY | 2024-03-30 04:05 | XMS_ITS | Encounter Summary ---
Author Organization [facility] Address [address] [place] [address]. [place], [place] [address] [place] [address] Care Team Providers Care Ethanol Operator Name Role Phone Radha De La Cruz [facility] Primary Care Provider [phone] Reason for Visit * Reason Onset Date Comments Medication Request 12/18/2020 Encounter Details Date Type Department Care Team (Late st Contact Info) Description 12/18/2020 Telephone [facility] [address] [place] [address] Radha De La Cruz [facility] [address] [place] [address] Medication Request Social History Tobacco Use [...] Progress Notes * Susanna Medina LPN - 12/18/2020 11:59 AM CDT refilled * Kalie Dubois - 12/18/2020 9:24 AM CDT Patient is needing a refill on her Bupropion to [facility] in [place] documented in this encounter Plan of Treatment Not on file documented as of this encounter Visit Diagnoses Diagnosis Anxiety Anxiety state, unspecified documented in this encounter Care Teams Ethanol Operator Relationship Specialty Start Date End Date Radha De La Cruz FNP [address] [place] [address] [place] [address] PCP - General Nurse Practitioner Family 01/28/18 documented as of this encounter
--- OUTSIDE RECORDS SUMMARY | 2024-03-30 04:05 | XMS_ITS | Encounter Summary ---
Author Organization [facility] Address [address] [place] [address]. [place], [place] [address] [place] [address] Care Team Providers Care Dye Weigher Name Role Phone Radha De La Cruz [facility] Primary Care Provider [phone] Reason for Visit * Reason Onset Date Comments Medication Request 05/27/2019 Encounter Details Date Type Department Care Team (Late st Contact Info) Description 05/27/2019 Telephone [facility] [address] [place] [address] Radha De La Cruz [facility] [address] [place] [address] Medication Request Social History Tobacco Use [...] as of this encounter Progress Notes * Cate Brumfield MA - 05/27/2019 2:03 PM CDT Patient notified * Cate Brumfield MA - 05/27/2019 2:00 PM CDT Patient has refills at the pharmacy. This was filled 03/18/19 for #90 with 3 refills * Renetta Mejia - 05/27/2019 9:42 AM CDT Patient is requesting a refill of BUPROPION XL 150 24 HR TABLET [place], [place] documented in this encounter Plan of Treatment Not on file documented as of this encounter Visit Diagnoses Not on filedocumented in this encounter Care Teams Dye Weigher Relationship Specialty Start Date End Date Radha De La Cruz FNP [address] [place] [address] [place] [address] PCP - General Nurse Practitioner Family 01/28/18 documented as of this encounter
--- OUTSIDE RECORDS SUMMARY | 2024-03-30 04:05 | XMS_ITS | Encounter Summary ---
Author Organization [facility] Address [address] [place] [address]. [place], [place] [id number] [place] [address] Care Team Providers Care Database Development Project Manager Name Role Phone Radha De La Cruz Primary Care Provider [phone] Encounter Details Date Type Department Care Team (Latest Contact Info) Description 11/09/2019 Travel Social History Tobacco Use Types Packs/Day [...] on filedocumented in this encounter Care Teams Database Development Project Manager Relationship Specialty Start Date End Date Radha De La Cruz FNP [address] [place] [address] [address] [place], [place] [id number] PCP - General Nurse Practitioner Family 01/28/18 documented as of this encounter
--- OUTSIDE RECORDS SUMMARY | 2024-03-30 04:05 | XMS_ITS | Encounter Summary ---
Author Organization [facility] Address [address] [place] [address]. [place], [place] [id number] [place] [address] Care Team Providers Care Senior Chemical Process Engineer Name Role Phone Radha De La Cruz Primary Care Provider [phone] Encounter Details Date Type Department Care Team (Latest Contact Info) Description 08/26/2019 Scan HEALTH INFO SRVCS Scanned, Documents Social [...] on filedocumented in this encounter Care Teams Senior Chemical Process Engineer Relationship Specialty Start Date End Date Radha De La Cruz FNP [address] [place] [address] [place] [address] PCP - General Nurse Practitioner Family 01/28/18 documented as of this encounter
--- OUTSIDE RECORDS SUMMARY | 2024-03-30 04:05 | XMS_ITS | Encounter Summary ---
Author Organization [facility] Address [address] [place] [address]. [place], [place] [address] [place] [address] Care Team Providers Care Engineering Technologist Name Role Phone Radha De La Cruz [facility] Primary Care Provider [phone] Reason for Visit * Reason Onset Date Comments Medication Request 08/18/2020 Encounter Details Date Type Department Care Team (Late st Contact Info) Description 08/18/2020 Telephone [facility] [address] [place] [address] Radha De La Cruz [facility] [address] [place] [address] Medication Request Social History Tobacco Use [...] as of this encounter Progress Notes * Cassi Meng LPN - 08/18/2020 11:18 AM CDT Refilled. * LEORA Horne - 08/18/2020 11:14 AM CDT Ok to refill x 90 days * Cassi Meng LPN - 08/18/2020 10:54 AM CDT Last refill: 05/12/2020 #90 Last OV: 02/09/2020 (Heartburn) Ok for refill? * Suri Martinez - 08/18/2020 10:51 AM CDT PT LM she would like a refill on her bupropion xl [facility] documented in this encounter Plan of Treatment Not on file documented as of this encounter Visit Diagnoses Diagnosis Anxiety Anxiety state, unspecified documented in this encounter Care Teams Engineering Technologist Relationship Specialty Start Date End Date Radha De La Cruz FNP [address] [place] [address] [place] [address] PCP - General Nurse Practitioner Family 01/28/18 documented as of this encounter
--- OUTSIDE RECORDS SUMMARY | 2024-03-30 04:05 | XMS_ITS | Encounter Summary ---
Author Organization [facility] Address [address] [place] [address]. [place], [place] [phone] [place] [address] Care Team Providers Care Poultry Sexer Name Role Phone Radha De La Cruz [facility] Primary Care Provider [phone] Reason for Visit * Reason Onset Date Comments Question 12/19/2020 Encounter Details Date Type Department Care Team (Late st Contact Info) Description 12/19/2020 Telephone [facility] [address] [place] [address] Radha De La Cruz [facility] [address] [place] [address] Question Social History Tobacco Use Types Packs/Day Years [...] Progress Notes * Suri Jj LPN - 12/19/2020 11:24 AM CDT This med was sent via [facility] to [facility] yesterday. Pt. To call pharm. * Carmencita Mary MA - 12/19/2020 11:17 AM CDT Patient needs a refill on her Bupropion, send to [facility]. She said it needs to be authorized. documented in this encounter Plan of Treatment Not on file documented as of this encounter Visit Diagnoses Not on filedocumented in this encounter Care Teams Poultry Sexer Relationship Specialty Start Date End Date Radha De La Cruz FNP [address] [place] [address] [place] [address] PCP - General Nurse Practitioner Family 01/28/18 documented as of this encounter
--- OUTSIDE RECORDS SUMMARY | 2024-03-30 04:05 | XMS_ITS | Encounter Summary ---
Author Organization [facility] Address [address] [place] [address]. [place], [place] [id number] [place] [address] Care Team Providers Care Silk Examiner Name Role Phone Radha De La Cruz [facility] Primary Care Provider [phone] Reason for Visit * Reason Comments Follow Up med management/needs refills/anxiety Encounter Details Date Type Department Care Team (Late st Contact Info) Description 03/18/2019 1:00 PM ORTHOPEDICALLY IMPAIRED TEACHER Office Visit [facility] [address] [place] [address] Radha De La Cruz [facility] [address] [place], [place] [id number] Follow Up (med management/needs refills/anxiety) Social History Tobacco Use Types Packs/Day Years [...] Sign Reading Time Taken Comments Blood Pressure 124/78 03/18/2019 1:08 PM ORTHOPEDICALLY IMPAIRED TEACHER Pulse 62 03/18/2019 1:08 PM ORTHOPEDICALLY IMPAIRED TEACHER Temperature 36.6 ??C (97.9 ??F) 03/18/2019 1:08 PM CS T Respiratory Rate 16 03/18/2019 1:08 PM ORTHOPEDICALLY IMPAIRED TEACHER Oxygen Saturation - - Inhaled Oxygen Concentration - - Weight 79.8 kg (176 lb) 03/18/2019 1:08 PM ORTHOPEDICALLY IMPAIRED TEACHER Height 171.5 cm (5' 7.5 ) 03/18/2019 1:08 PM ORTHOPEDICALLY IMPAIRED TEACHER Body Mass Index 27.16 03/18/2019 1:08 PM ORTHOPEDICALLY IMPAIRED TEACHER documented in this encounter Progress Notes * Radha De La Cruz, MMA FIGHTER - 03/18/2019 1:00 PM CST Lisa is a 58-year-old female patient. Reason for Visit: Follow Up (med management/needs refills/anxiety) History of Present Illness: Lisa is a 58 year old female pt here for medication refills and a checkup. She has a PMH significant for hyperlipidemia, depression, anxiety. She is on wellbutrin 150 mg daily and has xanax to useas needed. She is not using Xanax for many months. She feels the depression and anxiety are under good control at this time. She is on fenofibrate for HLD. Her last lipid panel was in 2018 at [facility]. She was out of townlast year and was not able to go. She would like an order to get labs done at the hospital as she wont make the Health fair. She is up to date on well female care and mammogram. She sees dr antoinette mcintyre every year in December. She had a colonoscopy [address] slater and told it was normal and to recehck in 10 years. She had her annual flu vaccine. Has not yet gotten the shingles vaccine. Past Medical History: Diagnosis Date ??? H/O left knee surgery 08/21/[address] Dony Reyes. Left knee unicompartment replacement. ??? Hyperlipidemia ??? Internal hemorrhoids Past Surgical History: Procedure Laterality Date ??? APPENDECTOMY ??? COLONOSCOPY ??? HYSTERECTOMY ??? KNEE SURGERY 08/04/2018 Dr. Reyes. Left knee unicompartment replacement. Medications: Current Outpatient Medications: ??? ALPRAZolam 0.25 MG tablet, Take 1 tab. PO DAILY PRN, Disp: 10 tablet, Rfl: 0 ??? BUPROPION XL 150 MG 24 hr tablet, TAKE 1 TABLET DAILY, Disp: 90 tablet, Rfl: 0 ??? ESTROGEL 0.75 MG/1.25 GM (0.06%) Gel, [...] use drugs. ROS: Review of Systems Constitutional: Negative. Respiratory: Negative for cough and shortness of breath. Cardiovascular: Negative for chest pain, palpitations and leg swelling. Gastrointestinal: Negative for abdominal pain, constipation and diarrhea. Skin: Negative. Neurological: Negative for dizziness and headaches. Psychiatric/Behavioral: See HPI Vitals: Filed Vitals: 03/18/19 1308 BP: 124/78 Pulse: 62 Resp: 16 Temp: 97.9 ??F (36.6 ??C) Weight: 79.8 kg (176 lb) Height: 5' 7.5 (1.715 m) Physical Exam Constitutional: She is oriented to person, place, and time. She appears well- developed and well-nourished. HENT: Head: Normocephalic and atraumatic. Eyes: Conjunctivae are normal. Neck: Neck supple. No thyromegaly present. Cardiovascular: Normal rate and regular rhythm. Pulmonary/Chest: Effort normal and breath sounds normal. Abdominal: Soft. Bowel sounds are normal. Neurological: She is alert and oriented to person, place, and time. Skin: Skin is warm and dry. Psychiatric: She has a normal mood and affect. Nursing note and vitals reviewed. Diagnoses/Impression: Encounter Diagnose(s) ICD-10-CM ICD-9-CM SNOMED CT(R) 1. Anxiety F41.9 300.00 ANXIETY buPROPion XL 150 MG 24 hr tablet 2. Depression, unspecified depression type F32.9 311 DEPRESSIVE DISORDER THYROID STIM HORMONE, TSH VITAMIN D, 25 OH THYROID STIM HORMONE, TSH VITAMIN D, 25 OH 3. Mixed hyperlipidemia E78.2 272.2 MIXED HYPERLIPIDEMIA LIPID PANEL COMPREHENSIVE METABOLIC PANEL CBC W/DIFF AUTOMATED fenofibrate 54 MG tablet LIPID PANEL COMPREHENSIVE METABOLIC PANEL CBC W/DIFF AUTOMATED 4. Hyperglycemia R73.9 790.29 HYPERGLYCEMIA HEMOGLOBIN, GLYCOSYLATED HEMOGLOBIN, GLYCOSYLATED Plan Orders Placed: Orders Placed This Encounter ??? LIPID PANEL ??? COMPREHENSIVE METABOLIC PANEL ??? CBC W/DIFF AUTOMATED ??? THYROID STIM HORMONE, TSH ??? HEMOGLOBIN, GLYCOSYLATED ??? VITAMIN D, 25 OH ??? buPROPion XL 150 MG 24 hr tablet ??? fenofibrate 54 MG tablet She is doing well on her current prescription medications so they were refilled to her mail order pharmacy. Encouraged to get the shingles vaccine at the pharmacy I ordered lab work for her to get done sometime in the next couple months in place of her annual health fair labs. Will make any further recommendations once those labs are reviewed. Encouraged to follow heart healthy diet and exercise regularly Follow-up with Dr. Antoinette Hebert annually as planned LEORA JOYNER 03/18/2019 1:07 PM Cosigned by Mery Witt DO at 03/19/2019 9:51 AM ORTHOPEDICALLY IMPAIRED TEACHER OPEDICALLY IMPAIRED TEACHER OPEDICALLY IMPAIRED TEACHER * Susanna Medina LPN - 03/18/2019 1:00 PM CST Patient notified. OPEDICALLY IMPAIRED TEACHER documented in this encounter Plan of Treatment Not on file documented as of this encounter Procedures Procedure Name Priority Date/Time Associated Diagnosis Comments HEMOGLOBIN, GLYCOSYLATED Routine 03/26/2019 8:15 AM ORTHOPEDICALLY IMPAIRED TEACHER Hyperglycemia COMPREHENSIVE METABOLIC PANEL Routine 03/26/2019 8:15 AM ORTHOPEDICALLY IMPAIRED TEACHER Mixed hyperlipidemia LIPID PANEL Routine 03/26/2019 8:15 AM ORTHOPEDICALLY IMPAIRED TEACHER Mixed hyperlipidemia CBC W/DIFF AUTOMATED Routine 03/26/2019 8:15 AM ORTHOPEDICALLY IMPAIRED TEACHER Mixed hyperlipidemia THYROID STIM HORMONE TSH Routine 03/26/2019 8:15 AM ORTHOPEDICALLY IMPAIRED TEACHER Depression, unspecified depression type VITAMIN D, 25 OH Routine 03/26/2019 8:15 AM ORTHOPEDICALLY IMPAIRED TEACHER Depression, unspecified depression type documented in this encounter Results * VITAMIN D, 25 OH (03/26/2019 8:15 AM ORTHOPEDICALLY IMPAIRED TEACHER) VITAMIN D 25 HYDROXY S/P/B 44 30 - 100 ng/mL [facility] 03/26/2019 8:15 AM ORTHOPEDICALLY IMPAIRED TEACHER 03/26/2019 12:28 PM ORTHOPEDICALLY IMPAIRED TEACHER Radha De La Cruz [facility] Final Result Performing Organization Address [facility] [place] [address] * HEMOGLOBIN, GLYCOSYLATED (03/26/2019 8:15 AM ORTHOPEDICALLY IMPAIRED TEACHER) HGB A1C 6.0 4.2 - 6.3 % [facility] Comment: Note: ??Hemoglobinopathies such as HbF, HbS, etc. may give incorrect results with this test. ESTIMATED AVG GLUCOSE 114 mg/dL [facility] Comment: (This value is a calculated estimate of the mean blood glucose over the last 60 days based on the patient's HgbA1c value. 03/26/2019 8:15 AM ORTHOPEDICALLY IMPAIRED TEACHER 03/26/2019 12:28 PM ORTHOPEDICALLY IMPAIRED TEACHER Radha De La Cruz [facility] Final Result Performing Organization Address [facility] Co de Phone Number [address] [address] * THYROID STIM HORMONE, TSH (03/26/2019 8:15 AM ORTHOPEDICALLY IMPAIRED TEACHER) TSH 2.244 0.358 - 3.740 uIU/mL [facility] Comment: ? TSH INTERPRETATION ?HIGH DOSES OF BIOTIN MAY INTERFERE WITH THIS TEST RESULT. ? CORRELATION TO CLINICAL PRESENTATION RECOMMENDED 03/26/2019 8:15 AM ORTHOPEDICALLY IMPAIRED TEACHER 03/26/2019 12:28 PM ORTHOPEDICALLY IMPAIRED TEACHER Radha De La Cruz MMA FIGHTER LABORATORY Final Result [facility] [address] [place] [address] * CBC W/DIFF AUTOMATED (03/26/2019 8:15 AM ORTHOPEDICALLY IMPAIRED TEACHER) WBC 5.1 4.5 - 11.0 cmm [facility] RBC 4.5 4.0 - 5.2 M/cumm [facility] HGB 12.9 12.0 - 16.0 g/dL [facility] HCT 40.1 36.0 - 46.0 % [facility] MCV 88.5 80.0 - 100 fL [facility] MCH 28.5 26.0 - 34.0 pg [facility] MCHC 32.2 31.0 - 37.0 g/dL [facility] RDW 13.9 11.6 - 14.8 % [facility] PLT 293 140 - 415 cmm [facility] MPV 10 7 - 12 fl [facility] ABS. NEUTROPHILS 3.07 1.50 - 8.00 x10^3 [facility] ABS. LYMPHOCYTES 1.38 0.21 - 5.42 x10^3 [facility] ABS. MONOCYTES 0.46 0.04 - 1.37 x10^3 [facility] ABS. EOSINOPHILS 0.14 0.00 - 0.68 x10^3 [facility] ABS. BASOPHILS 0.03 0.00 - 0.08 x10^3 [facility] ABS. IMMATURE GRANULOCYTES 0.01 0.00 - 0.06 x10^3 [facility] NEUTROPHILS % 60.3 40.0 - 74.0 % [facility] LYMPHOCYTES % 27.1 14.0 - 46.0 % [facility] MONOCYTES % 9.0 4.0 - 13.0 % [facility] EOSINOPHILS % 2.8 0.0 - 7.0 % [facility] BASOPHILS % 0.6 0.0 - 3.0 % [facility] IMMATURE GRANS % 0.20 0.00 - 0.43 % [facility] MANUAL DIFFERENTIAL NOT INDICATED [facility] WBC MORPHOLOGY NOT INDICATED [facility] RBC MORPHOLOGY NOT INDICATED [facility] PLT MORPH. NOT INDICATED [facility] 03/26/2019 8:15 AM ORTHOPEDICALLY IMPAIRED TEACHER 03/26/2019 12:28 PM ORTHOPEDICALLY IMPAIRED TEACHER Radha De La Cruz [facility] Final Result [address] [address] * COMPREHENSIVE METABOLIC PANEL (03/26/2019 8:15 AM ORTHOPEDICALLY IMPAIRED TEACHER) [facility] GLUCOSE 90 70 - 99 mg/dL [facility] SODIUM S/P/B 140 136 - 145 mmol/L [facility] POTASSIUM S/P/B 3.9 3.5 - 5.1 mmol/L [facility] CHLORIDE S/P/B 105 100 - 108 mmol/L [facility] CO2 25 21 - 32 mmol/L [facility] BUN 12 7 - 18 mg/dL [facility] CREATININE S/P/B 1.0 0.5 - 1.2 mg/dL [facility] TOTAL PROTEIN S/P/B 7.3 6.4 - 8.2 g/dL [facility] CALCIUM S/P/B 9.3 8.5 - 10.1 mg/dL [facility] BILIRUBIN TOTAL S/P/B 0.4 0.2 - 1.2 mg/dL [facility] ALKALINE PHOSPHATASE S/P/B 52 50 - 136 U/L [facility] ALBUMIN S/P/B 4.0 3.4 - 5.0 g/dL [facility] AST 18 15 - 37 U/L [facility] ALT 27 14 - 55 U/L [facility] PATIENT'S AGE 58 YEARS [facility] EGFR NON-AFR. AMER. 61 ml/min [facility] EGFR AFR. AMER. 73 ml/min [facility] ANION GAP 14 8 - 20 [facility] Comment: ?GFR INTERPRETATION ?Age(years) ?Average Est GFR by age ?20-29 ? 116 ml/min/1.73m^2 ?30-39 ? 107 ml/min/1.73m^2 ?40-49 ? 99 ??ml/min/1.73m^2 ?50-59 ? 93 ??ml/min/1.73m^2 ?60-69 ? 85 ??ml/min/1.73m^2 ?70+ ? 75 ??ml/min/1.73m^2 ?The MDRD Study equation has not been validated in children (<18 years) ? women, the elderly (>70 years), racial or ethnic subgroubs ?other than Caucasians and Americans. eGFR calculated from the ?MDRD equation was validated in outpatients with stable or slowly ?declining renal function. ??It may not be applicable to acutely ill ?inpatients with rapidly changing renal function or fluid imbalance. 03/26/2019 8:15 AM ORTHOPEDICALLY IMPAIRED TEACHER 03/26/2019 12:28 PM ORTHOPEDICALLY IMPAIRED TEACHER aRdha De La Cruz [facility] LABOR[facility] Final Result Performing Organization Address [facility]/State/[facility] Co de Phone Number [address] [address] * (ABNORMAL) LIPID PANEL (03/26/2019 8:15 AM ORTHOPEDICALLY IMPAIRED TEACHER) CHOLESTEROL 208(H) 0 - 200 mg/dL [facility] TRIGLYCERIDES 93 0 - 150 mg/dL [facility] HDL 75(H) 0 - 40 mg/dL [facility] LDL (CALCULATED) 114 10 - 130 mg/dL [facility] CARDIO RISK 3 [facility] Comment: ?CHOLESTEROL LEVELS AND CHD RISK INTERPRETATIONS ?CHOLESTEROL ?LDL ?DESIRABLE ?< 200 mg/dL ? < 130 mg/dL ?BORDERLINE ? 200-239 mg/dL ? 130-159 mg/dL ?HIGH ? > 240 mg/dL ? > 160 mg/dL ?CHD RISK FACTORS ? CHOL/HDL RATIO ? MALE ?FEMALE ?BELOW AVG. ?< 4.2 ? < 3.9 ?AVERAGE ? 4.2-7.3 ? 3.9-5.7 ?ABOVE AVG.(MODERATE) ?7.4-11.5 ?5.8-9.0 ?ABOVE AVG.(HIGH) ?> 11.5 ?> 9.0 ?LDL AND CHD RATIO ARE INVALID IF TRIGLYCERIDES >450 03/26/2019 8:15 AM ORTHOPEDICALLY IMPAIRED TEACHER 03/26/2019 12:28 PM ORTHOPEDICALLY IMPAIRED TEACHER us Radha De La Cruz [facility] LABORAT[facility] Final Result Performing Organization Address City/State/[facility] de Phone Number [facility] [phone] documented in this encounter Visit Diagnoses Diagnosis Anxiety- Primary Anxiety state, unspecified Depression, unspecified depression type Mixed hyperlipidemia Hyperglycemia Other abnormal glucose documented in this encounter Care Teams Silk Examiner Relationship Specialty Start Date End Date Radha De La Cruz FNP [address] [place] [address] PCP - General Nurse Practitioner Family 01/28/18 documented as of this encounter
--- OUTSIDE RECORDS SUMMARY | 2024-03-30 04:05 | XMS_ITS | Encounter Summary ---
Author Organization [facility] Address [address] [place] [address]. [place], [place] [address] [place] [address] Care Team Providers Care Religion Instructor Name Role Phone Radha De La Cruz HYDRO SPRAYER OPERATOR Primary Care Provider [phone] Reason for Visit * Reason Comments Mammogram (SCAN) Encounter Details Date Type Department Care Team ([facility] Contact Info) Description 01/22/2021 Scan HEALTH INFO SRVCS Scanned, Documents Mammogram (SCAN) Social History Tobacco Use Types [...] COVID-19? No / Unsure 01/23/2021 8:09 AM ROCK DRILL OPERATOR documented as of this encounter Plan of Treatment Not on file documented as of this encounter Procedures Procedure Name Priority Date/Time Associated Diagnosis Comments MAMMOGRAM GENERIC (SCAN ORDER) 01/22/2021 documented in this encounter Results * MAMMOGRAM GENERIC (01/22/2021) Anatomical Region Laterality Modality Other 01/22/2021 Narrative 01/22/2021 Ordered by an unspecified provider. us Documents Scanned SCANNING Final Result documented in this encounter Visit Diagnoses Not on filedocumented in this encounter Care Teams Religion Instructor Relationship Specialty Start Date End Date Radha De La Cruz FNP [address] [place] [address] [place] [address] PCP - General Nurse Practitioner Family 01/28/18 documented as of this encounter
--- OUTSIDE RECORDS SUMMARY | 2024-03-30 04:05 | XMS_ITS | Encounter Summary ---
Author Organization [facility] Address [address] [place] [address]. [place], [place] [address] [place] [address] Care Team Providers Care Overlock Elastic Attacher Name Role Phone Radha De La Cruz [facility] Primary Care Provider [phone] Reason for Visit * Reason Comments Runny Nose All symptoms started 11-12 days ago. She is fully vaccinated, no known to positive exposure Fatigue Sinus Problem Cough Watering Eyes Encounter Details Date Type Department Care Team (Late st Contact Info) Description 10/17/2020 3:20 PM CDT Office Visit [facility] [address] [place] [address] Radha De La Cruz [address] [place] [address] Runny Nose (All symptoms started 11-12 days ago. She is fully vaccinated, no known to positive exposure); Fatigue; Sinus Problem; Cough; Watering Eyes Social History Tobacco Use Types Packs/Day Years [...] have Coronavirus / COVID-19? No / Unsure 10/17/2020 3:20 PM CDT documented as of this encounter Last Filed Vital Signs Vital Sign Reading Time Taken Comments Blood Pressure 122/70 10/17/2020 3:49 PM CDT Pulse 72 10/17/2020 3:49 PM CDT Temperature 37.1 ??C (98.7 ??F) 10/17/2020 3:49 PM CD T Respiratory Rate 16 10/17/2020 3:49 PM CDT Oxygen Saturation 97% 10/17/2020 3:49 PM CDT Inhaled Oxygen Concentration - - Weight - - Height - - Body Mass Index - - documented in this encounter Progress Notes * Radha De La Cruz, [employer] - 10/17/2020 3:20 PM CDT Lisa is a 60-year-old female patient. Reason for Visit: Runny Nose (All symptoms started 11-12 days ago. She is fully vaccinated, no known to positive exposure), Fatigue, Sinus Problem, Cough, and Watering Eyes History of Present Illness: Lisa is a 60-year-old female patient who is here for sinus symptoms. She reports that her symptoms started about 11 days ago. 3 days prior, she was around her granddaughter who had RSV. She assumed she just also had a respiratory virus. After several days her symptoms started to get better and th en worsened. Now she is having a lot of sinus pressure, thick green drainage, sinus headaches, ear fullness, irritated throat. No cough, fever, loss of taste or smell. She has a history of having Covid in November 2019. She has been vaccinated as well. She has been taking Mucinex DM for symptom relief. Past Medical History: Diagnosis Date ??? H/O [...] Medications: Current Outpatient Medications: ??? buPROPion XL 300 MG 24 hr tablet, Take 1 tablet (300 mg total) by mouth daily., Disp: 90 tablet, Rfl: 0 ??? doxycycline hyclate 100 MG capsule, Take 1 capsule (100 mg total) by mouth 2 (two) times daily for 10 days., Disp: 20 capsule, Rfl: 0 ??? FENOFIBRATE 54 MG tablet, TAKE 1 TABLET (54 MG TOTAL) BY MOUTH DAILY WITH BREAKFAST., Disp: 90 tablet, Rfl: 0 ??? Krill Oil 1000 MG Cap, Take 1 capsule by mouth daily., Disp: , Rfl: ??? Multiple Vitamin (ONCE DAILY) Tab, Take 1 tablet by mouth., Disp: , Rfl: ??? ALPRAZolam 0.25 MG tablet, Take 1 tab. PO DAILY PRN, Disp: 10 tablet, Rfl: 0 ??? clobetasol (TEMOVATE) 0.05 % ointment, Apply topically 2 (two) times daily., Disp: 15 g, Rfl: 0 ??? cyclobenzaprine 10 MG tablet, Take one half to one tab QHS prn, Disp: 10 tablet, Rfl: 0 No Known [...] Social Determinants of Health Financial Resource Strain: ??? Difficulty of Paying Living Expenses: Food Insecurity: ??? Worried About Running Out of Food in the Last Year: ??? Ran Out of Food in the Last Year: Transportation Needs: ??? Lack of Transportation (Medical): ??? Lack of Transportation (Non-Medical): Physical Activity: ??? Days of Exercise per Week: ??? Minutes of Exercise per Session: Stress: ??? Feeling of Stress : Social Connections: ??? Frequency of Communication with Friends and Family: ??? Frequency of Social Gatherings with Friends and Family: ??? Attends Restorationist Services: ??? Active Member of Clubs or Organizations: ??? Attends Club or Organization Meetings: ??? Marital Status: Intimate Partner Violence: ??? Fear of Current or Ex-Partner: ??? Emotionally Abused: ??? Physically Abused: ??? Sexually Abused: ROS: Review of Systems Constitutional: Negative for chills and fever. HENT: Positive for congestion, sinus pain and sore throat (Irritated throat). Ear fullness bilaterally Eyes: Negative for discharge. Respiratory: Negative for cough, shortness of breath and wheezing. Cardiovascular: Negative for chest pain and orthopnea. Musculoskeletal: Negative for myalgias. Skin: Negative for rash. Neurological: Positive for headaches (sinus headaches). Negative for dizziness. Vitals: Filed Vitals: 10/17/20 1549 BP: 122/70 Pulse: 72 Resp: 16 Temp: 98.7 ??F (37.1 ??C) TempSrc: Temporal SpO2: 97% Physical Exam Vitals and nursing note reviewed. Constitutional: Appearance: Normal appearance. HENT: Head: Normocephalic and atraumatic. Right Ear: Tympanic membrane, ear canal and external ear normal. Left Ear: Tympanic membrane and ear canal normal. Nose: Congestion present. Right Sinus: Frontal sinus tenderness present. No maxillary sinus tenderness. Left Sinus: Frontal sinus tenderness present. No maxillary sinus tenderness. Cardiovascular: Rate and Rhythm: Normal rate and regular rhythm. Pulmonary: Effort: Pulmonary effort is normal. Breath sounds: Normal breath sounds. Musculoskeletal: Cervical back: Neck supple. Lymphadenopathy: Cervical: No cervical adenopathy. Skin: General: Skin is warm and dry. Neurological: Mental Status: She is alert and oriented to person, place, and time. Psychiatric: Mood and Affect: Mood normal. Results: Results for orders placed or performed in visit on 10/17/20 CORONAVIRUS (COVID-19) ANTIGEN Specimen: NASAL Result Value Ref Range CORONAVIRUS ANTIGEN IA NEGATIVE NEGATIVE Internal Control: VALID VALID Diagnoses/Impression: Encounter Diagnose(s) ICD-10-CM ICD-9-CM SNOMED CT(R) 1. Acute non-recurrent frontal sinusitis J01.10 461.1 ACUTE FRONTAL SINUSITIS doxycycline hyclate 100 MG capsule CORONAVIRUS (COVID-19) ANTIGEN Plan Orders Placed: Orders Placed This Encounter ??? doxycycline hyclate 100 MG capsule ??? CORONAVIRUS (COVID-19) ANTIGEN Her symptoms are consistent with acute sinusitis. We will treat with doxycycline hyclate 100 mg twice daily for 10 days. May continue Mucinex DM for symptom relief Increase oral fluids Tylenol or ibuprofen as needed for sinus headaches. Report back if any worsening symptoms or if symptoms are not resolved within 10 days. LEORA JOYNER 10/17/2020 4:37 PM Cosigned by Mery Witt DO at 10/17/2020 6:41 PM CDT documented in this encounter Plan of Treatment Not on file documented as of this encounter Procedures Procedure Name Priority Date/Time Associated Diagnosis Comments CORONAVIRUS (COVID-19) ANTIGEN Routine 10/17/2020 Acute non-recurrent frontal sinusitis documented in this encounter Results * CORONAVIRUS (COVID-19) ANTIGEN (10/17/2020) CORONAVIRUS ANTIGEN IA NEGATIVE NEGATIVE [facility] [facility] HERCULANEUM Internal Control: VALID VALID [facility] [address]) HERCULANEUM Specimen from nose (specimen) NASAL STRUCTURE / Unknown 10/17/2020 Radha COREY MICROBIOLOGY - GENERAL ORDERA BLES Final Result [facility] [address]), [place] [address], documented in this encounter Visit Diagnoses Diagnosis Acute non-recurrent frontal sinusitis- Primary documented in this encounter Additional Health Concerns Infection Onset Date Last Indicated Resolved Time COVID-19 Rule Out 10/17/2020 10/17/2020 10/17/2020 4:34 PM CDT documented as of this encounter Care Teams Overlock Elastic Attacher Relationship Specialty Start Date End Date Radha De La Cruz FNP [address] [place] [address] [place] [address] PCP - General Nurse Practitioner Family 01/28/18 documented as of this encounter
--- OUTSIDE RECORDS SUMMARY | 2024-03-30 04:05 | XMS_ITS | Encounter Summary ---
Author Organization [facility] Address [address] [place] [address]. [place], [place] [address] [place] [address] Care Team Providers Care Assistant Editor Name Role Phone Radha De La Cruz [facility] Primary Care Provider [phone] Reason for Visit * Reason Onset Date Comments Refill Request 10/28/2018 Encounter Details Date Type Department Care Team (Late st Contact Info) Description 10/28/2018 Telephone [facility] [address] [address] Radha De La Cruz [facility] [address] [place] [address] Refill Request Social History Tobacco Use Types Packs/Day [...] Progress Notes * Suri Jj LPN - 10/28/2018 11:02 AM CDT Refill sent to req. Pharm. * Anum Deutsch - 10/28/2018 10:49 AM CDT Laila, manager clinical pharmacy at [facility], left voicemail. Patient's fenofibrate Rx needs renewed. Reference # [id number] documented in this encounter Plan of Treatment Not on file documented as of this encounter Visit Diagnoses Not on filedocumented in this encounter Care Teams Assistant Editor Relationship Specialty Start Date End Date Radha De La Cruz FNP [address] [place] [address] [place] [address] PCP - General Nurse Practitioner Family 01/28/18 documented as of this encounter
--- OUTSIDE RECORDS SUMMARY | 2024-03-30 04:05 | XMS_ITS | Encounter Summary ---
Author Organization [facility] Address [address] [place] [address]. [place], [place] [address] [place] [address] Care Team Providers Care Child Welfare Social Worker Name Role Phone Radha De La Cruz Primary Care Provider [phone] Encounter Details Date Type Department Care Team (Latest Contact Info) Description 06/05/2018 Scan HEALTH INFO SRVCS Scanned, Documents Social [...] on filedocumented in this encounter Care Teams Child Welfare Social Worker Relationship Specialty Start Date End Date Radha De La Cruz FNP [address] [place] [address] [place], [place] [id number] PCP - General Nurse Practitioner Family 01/28/18 documented as of this encounter
--- OUTSIDE RECORDS SUMMARY | 2024-03-30 04:05 | XMS_ITS | Encounter Summary ---
Author Organization [facility] Address [address] [place] [address]. [place], [place] [address] [place] [address] Care Team Providers Care Planning Coordinator Name Role Phone Radha De La Cruz [facility] Primary Care Provider [phone] Reason for Visit * Reason Onset Date Comments Results 01/23/2021 Mammogram Encounter Details Date Type Department Care Team (Late st Contact Info) Description 01/23/2021 Telephone [facility] [address] [place] [address] Radha De La Cruz [facility] [address] [place] [address] Results (Mammogram) Social History Tobacco Use Types Packs/Day Years [...] COVID-19? No / Unsure 01/23/2021 8:09 AM NET DEVELOPER WITH WCF documented as of this encounter Progress Notes * Reyna Perkins LPN - 01/24/2021 11:23 AM CST Pt notified of results. DEVELOPER WITH WCF * Reyna Perkins LPN - 01/23/2021 4:35 PM CST Mammogram results rec'd from [facility]. Isabela reviewed the results stated ok and repeat in one year. Left message to call the office. DEVELOPER WITH WCF documented in this encounter Plan of Treatment Not on file documented as of this encounter Visit Diagnoses Not on filedocumented in this encounter Additional Health Concerns Assessment Noted Time PHQ-9 Depression Total Score: 0 01/24/20 8:18 AM NET DEVELOPER WITH [employer]CF documented as of this encounter Care Teams Planning Coordinator Relationship Specialty Start Date End Date Radha De La Cruz FNP [address] [place] [address] [place] [address] PCP - General Nurse Practitioner Family 01/28/18 documented as of this encounter
--- OUTSIDE RECORDS SUMMARY | 2024-03-30 04:05 | XMS_ITS | Encounter Summary ---
Author Organization [facility] Address [address] [place] [address]. [place], [place] [address] [place] [address] Care Team Providers Care Cellar Worker Name Role Phone Radha De La Cruz Primary Care Provider [phone] Encounter Details Date Type Department Care Team (Latest Contact Info) Description 08/04/2018 Scan HEALTH INFO SRVCS Scanned, Documents Social [...] on filedocumented in this encounter Care Teams Cellar Worker Relationship Specialty Start Date End Date Radha De La Cruz FNP [address] [place] [address] [address] [place], [place] [id number] PCP - General Nurse Practitioner Family 01/28/18 documented as of this encounter
--- OUTSIDE RECORDS SUMMARY | 2024-03-30 04:05 | XMS_ITS | Encounter Summary ---
Author Organization [facility] Address [address] [place] [address]. [place], [place] [address] [place] [address] Care Team Providers Care Second Officer Name Role Phone Radha De La Cruz ACUTE CARE CLINICAL NURSE SPECIALIST Primary Care Provider [phone] Encounter Details Date Type Department Care Team (Latest Contact Info) Description 10/03/2020 Scan HEALTH INFO SRVCS Scanned, Documents Social [...] documented as of this encounter Care Teams Second Officer Relationship Specialty Start Date End Date Radha De La Cruz FNP [address] [place] [address] [place] [address] PCP - General Nurse Practitioner Family 01/28/18 documented as of this encounter
--- OUTSIDE RECORDS SUMMARY | 2024-03-30 04:05 | XMS_ITS | Encounter Summary ---
Author Organization [facility] Address [address] [place] [address]. [place], [place] [address] [place] [address] Care Team Providers Care Shift Production Associate Name Role Phone Radha De La Cruz BODY DIE MAKER Primary Care Provider [phone] Encounter Details Date Type Department Care Team (Latest Contact Info) Description 05/28/2021 Travel Social History Tobacco Use Types Packs/Day [...] suspected to have Coronavirus/COVID-19? No / Unsure 05/28/2021 10:08 AM CDT documented as of this encounter Plan of Treatment Not on file documented as of this encounter Visit Diagnoses Not on filedocumented in this encounter Additional Health Concerns Assessment Noted Time PHQ-9 Depression Total Score: 0 01/24/20 8:18 AM PACKING LINE OPERATOR documented as of this encounter Care Teams Shift Production Associate Relationship Specialty Start Date End Date Radha De La Cruz FNP [address] [place] [address] [place] [address] PCP - General Nurse Practitioner Family 01/28/18 documented as of this encounter
--- OUTSIDE RECORDS SUMMARY | 2024-03-30 04:05 | XMS_ITS | Encounter Summary ---
Author Organization [facility] Address [address] [place] [address]. [place], [place] [address] [place] [address] Care Team Providers Care Binder Layer Name Role Phone Radha De La Cruz [facility] Primary Care Provider Reason for Visit * Reason Onset Date Comments Medication 01/26/2019 Encounter Details Date Type Department Care Team (Late st Contact Info) Description 01/26/2019 Telephone [facility] [address] [place] [address] Radha De La Cruz [facility] [address] [place] [address] Medication Social History Tobacco Use Types [...] Progress Notes * Suri Jj LPN - 01/26/2019 3:02 PM CST Spoke with [facility] re: Refill. Pt. Overdue for OV. Refill x 1 And pt. Must sched. Appt. Pharm. Will contact pt. As well and let her know OV needed. ON CLASSER * Anum Deutsch - 01/26/2019 11:56 AM CST LEAH, CLAIMS TECHNICIAN WITH [facility], LEFT VOICEMAIL. NEEDS RETURN CALL ON PATIENT'S FENOFIBRATE 54MG. PH [phone]. REFERENCE # [id number]. ON CLASSER documented in this encounter Plan of Treatment Not on file documented as of this encounter Visit Diagnoses Not on filedocumented in this encounter Care Teams Binder Layer Relationship Specialty Start Date End Date Radha De La Cruz FNP [address] [place] [address] [place] [address] PCP - General Nurse Practitioner Family 01/28/18 documented as of this encounter
--- OUTSIDE RECORDS SUMMARY | 2024-03-30 04:05 | XMS_ITS | Encounter Summary ---
Author Organization [facility] Address [address] [place] [address]. [place], [place] [address] [place] [address] Care Team Providers Care Biscuit Maker Name Role Phone Radha De La Cruz [facility] Primary Care Provider [phone] Reason for Visit * Reason Onset Date Comments Medication Request 06/09/2019 Encounter Details Date Type Department Care Team (Late st Contact Info) Description 06/09/2019 Telephone [facility] [address] [place] [address] Radha De La Cruz [facility] [address] [place] [address] Medication Request Social History Tobacco Use [...] Progress Notes * Ruchi Galvin RN - 06/09/2019 2:05 PM CDT 30 day supply sent to [facility] in [place] and 90 day supply sent to [facility]. * Ruchi Galvin RN - 06/09/2019 2:02 PM CDT Patient notified and verbalizes understanding. * LEORA Horne - 06/09/2019 1:34 PM CDT Ok to refill the 300 mg daily. Please ask her to follow up with me in 3 months * Ruchi Galvin RN - 06/09/2019 11:55 AM CDT Called patient. She states that for the last month she has been taking 2 tablets daily of the buproprion Xl 150 mg. Her nephew is a physician and advised that she could increase. She says this has seemed to help her. She questions if she can get new Rx for buproprion XL 300 mg once daily sent to the pharmacy. She took last pill today. She would need a month supply sent to [facility] in [place] and 90day supply sent to [facility] if possible. * Renetta Mejia - 06/09/2019 8:19 AM CDT PATIENT CALLED AND SAID MAIL ORDER STATED THEY DID NOT HAVE A PRESCRIPTION AND PATIENT IS OUT OF MEDICATION. PATIENT STATED THAT SHE HAS BEEN TAKING 2 PILLS A DAY, AND WOULD LIKE [facility] TO REFILLPRESCRIPTION AT 2 PILLS PER DAY. PATIENT PHARMACY IS [facility], BUT IS NEEDING MAIL ORDER PRESCRIPTION SENT ALSO. documented in this encounter Plan of Treatment Not on file documented as of this encounter Visit Diagnoses Diagnosis Anxiety Anxiety state, unspecified documented in this encounter Care Teams Biscuit Maker Relationship Specialty Start Date End Date Radha De La Cruz FNP [address] [place] [address] [place] [address] PCP - General Nurse Practitioner Family 01/28/18 documented as of this encounter
--- OUTSIDE RECORDS SUMMARY | 2024-03-30 04:05 | XMS_ITS | Encounter Summary ---
Author Organization [facility] Address [address] [place] [address]. [place], [place] [address] [place] [address] Care Team Providers Care Steam Crane Operator Name Role Phone Radha De La Cruz Primary Care Provider [phone] Encounter Details Date Type Department Care Team (Latest Contact Info) Description 03/21/2021 Scan HEALTH INFO SRVCS Scanned, Documents Social [...] Total Score: 0 01/24/20 21 8:18 AM FUR SORTER documented as of this encounter Care Teams Steam Crane Operator Relationship Specialty Start Date End Date Radha De La Cruz FNP [address] [place] [address] [place] [address] PCP - General Nurse Practitioner Family 01/28/18 documented as of this encounter
--- OUTSIDE RECORDS SUMMARY | 2024-03-30 04:05 | XMS_ITS | Encounter Summary ---
Author Organization [facility] Address [address] [place] [address]. [place], [place] [address] [place] [address] Care Team Providers Care Gear Hobber Name Role Phone Radha De La Cruz SUPERVISOR [employer]GRIC[employer]URAL EDUCATION Primary Care Provider [phone] Encounter Details Date Type Department Care Team (Latest Contact Info) Description 09/19/2021 Travel Social History Tobacco Use Types Packs/Day [...] documented as of this encounter Care Teams Gear Hobber Relationship Specialty Start Date End Date Radha De La Cruz FNP [address] [place] [address] [place] [address] PCP - General Nurse Practitioner Family 01/28/18 documented as of this encounter
--- OUTSIDE RECORDS SUMMARY | 2024-03-30 04:05 | XMS_ITS | Encounter Summary ---
Author Organization [facility] Address [address] [place] [address]. [place], [place] [address] [place] [address] Care Team Providers Care Chemical Sales Representative Name Role Phone Radha De La Cruz [facility] Primary Care Provider [phone] Reason for Visit * Reason Onset Date Comments Refill Request 03/22/2021 Encounter Details Date Type Department Care Team (Late st Contact Info) Description 03/22/2021 Telephone On license of [facility] [address] [place] [address] Radha De La Cruz [facility] [address] [place] [address] Refill Request Social History Tobacco Use [...] as of this encounter Progress Notes * Lula Ferrera 03/22/2021 2:23 PM CST Patient found medication disregarded request. And it has a refill RAFT MAGNETO MECHANIC * Lula Jernigan - 03/22/2021 1:31 PM CST Refill to [facility] for fenofibrate 54 MG fenofibrate 54 MG RAFT MAGNETO MECHANIC documented in this encounter Plan of Treatment Not on file documented as of this encounter Visit Diagnoses Not on filedocumented in this encounter Additional Health Concerns Assessment Noted Time PHQ-9 Depression Total Score: 0 01/24/20 21 8:18 AM AIRCRAFT MAGNETO MECHANIC documented as of this encounter Care Teams Chemical Sales Representative Relationship Specialty Start Date End Date Radha De La Cruz FNP [address] [place] [address] [place] [address] PCP - General Nurse Practitioner Family 01/28/18 documented as of this encounter
--- OUTSIDE RECORDS SUMMARY | 2024-03-30 04:05 | XMS_ITS | Encounter Summary ---
Author Organization [facility] Address [address] [place] [address]. [place], [place] [address] [place] [address] Care Team Providers Care Telephoto Installer Name Role Phone Radha De La Cruz Primary Care Provider [phone] Encounter Details Date Type Department Care Team (Late st Contact Info) Description 08/24/2018 Abstract [facility] [address] [place] [address] Radha De La Cruz FNP [address] [...] on filedocumented in this encounter Care Teams Telephoto Installer Relationship Specialty Start Date End Date Radha De La Cruz FNP [facility] [place] [address] PCP - General Nurse Practitioner Family 01/28/18 documented as of this encounter
--- OUTSIDE RECORDS SUMMARY | 2024-03-30 04:05 | XMS_ITS | Encounter Summary ---
Author Organization [facility] Address [facility]. [place], [place] [address] [place] [address] Care Team Providers Care Air Traffic Control Operator Name Role Phone Radha De La Cruz Primary Care Provider [phone] Encounter Details Date Type Department Care Team (Late st Contact Info) Description 10/28/2018 Orders Only [facility] [address] [place] [address] Suri Jj LPN Social History Tobacco [...] hyperlipidemia documented in this encounter Care Teams Air Traffic Control Operator Relationship Specialty Start Date End Date Radha De La Cruz FNP [address] [place] [address] PCP - General Nurse Practitioner Family 01/28/18 documented as of this encounter
--- OUTSIDE RECORDS SUMMARY | 2024-03-30 04:05 | XMS_ITS | Encounter Summary ---
Author Organization [facility] Address [address] [place] [address]. [place], [place] [address] [place] [address] Care Team Providers Care Steam Press Operator Name Role Phone Radha De La Cruz [facility] Primary Care Provider [phone] Reason for Visit * Reason Onset Date Comments Medication Request 09/06/2021 Encounter Details Date Type Department Care Team (Late st Contact Info) Description 09/06/2021 Telephone [facility] [address] [place] [address] Radha De La Cruz [facility] [address] [place] [address] Medication Request Social History Tobacco Use [...] of this encounter Progress Notes * Reyna Jamil LPN - 09/07/2021 8:52 AM CDTAddended by: REYNA JAMIL on: 09/07/2021 08:52 AM Modules accepted: Orders * Reyna Jamil LPN - 09/07/2021 8:49 AM CDT Called pt she said that it is very stressful at work and thought the increased med would help. Apptscheduled for 09/18/2021. Pt said that she is needing a refill on her current dose. Isabela aware and verbal order rec'd ok to send in Bupropion 300mg #30. New dose sent to [facility]. * LEORA Horne - 09/07/2021 8:39 AM CDT Her last med management appointment was January 2021. At that time she was on 300 mg but wanted totry decreasing the dose so was down to 150 daily. Is she having additional issues that she wants togo back to 300 mg? Would be best to have a visit about this even if it is a telehealth visit. I am okay with her increasing it to 2 pills daily until we have a chance to talk. At that point, I can change her to a 300 mg tablet if needed * Reyna Jamil LPN - 09/06/2021 4:31 PM CDT Pt is currently on 150mg daily and last OV 06/01/2021. Isabela please advise * Ramona Bentley - 09/06/2021 3:58 PM CDT Pt is asking for a higher dose of bupropion [facility] Pt [id number] documented in this encounter Plan of Treatment Not on file documented as of this encounter Visit Diagnoses Diagnosis Anxiety Anxiety state, unspecified documented in this encounter Additional Health Concerns Assessment Noted Time PHQ-9 Depression Total Score: 0 06/02/19 10:42 AM CDT documented as of this encounter Care Teams Steam Press Operator Relationship Specialty Start Date End Date Radha De La Cruz FNP [address] [place] [address] [place] [address] PCP - General Nurse Practitioner Family 01/28/18 documented as of this encounter
--- OUTSIDE RECORDS SUMMARY | 2024-03-30 04:05 | XMS_ITS | Encounter Summary ---
Author Organization [facility] Address [address] [place] [address]. [place], [place] [address] [place] [address] Care Team Providers Care Foundry Laborer Coreroom Name Role Phone Radha De La Cruz [facility] Primary Care Provider [phone] Reason for Visit * Reason Onset Date Comments COVID-19 11/16/2019 POSITIVE COVID T EST Encounter Details Date Type Department Care Team (Late st Contact Info) Description 11/16/2019 Telephone [facility] [address] [place] [address] Radha De La Cruz [facility] [address] [place], [place] [id number] COVID-19 (POSITIVE COVID TEST) Social History Tobacco Use Types Packs/Day Years [...] encounter Progress Notes * LEORA Horne - 11/16/2019 3:07 PM CDT noted * Srui Jj LPN - 11/16/2019 2:25 PM CDT Pt. Called this afternoon stating that she had Covid testing done on 11/10/2019. Wanted Km De La Cruz to be notified that she is POSITIVE for covid. documented in this encounter Plan of Treatment Not on file documented as of this encounter Visit Diagnoses Not on filedocumented in this encounter Care Teams Foundry Laborer Coreroom Relationship Specialty Start Date End Date Radha De La Cruz FNP [address] [place] [address] [place] [address] PCP - General Nurse Practitioner Family 01/28/18 documented as of this encounter
--- OUTSIDE RECORDS SUMMARY | 2024-03-30 04:05 | XMS_ITS | Encounter Summary ---
Author Organization [facility] Address [address] [place] [address]. [place], [place] [address] [place] [address] Care Team Providers Care Entry Level Sales Associate Name Role Phone Radha De La Cruz [facility] Primary Care Provider [phone] Reason for Visit * Reason Comments Mammogram (SCAN) Encounter Details Date Type Department Care Team ([facility] Contact Info) Description 01/17/2020 Scan HEALTH INFO SRVCS Scanned, Documents Mammogram [...] COVID-19? No / Unsure 02/09/2020 9:25 AM JAVA MANAGER documented as of this encounter Plan of Treatment Not on file documented as of this encounter Procedures Procedure Name Priority Date/Time Associated Diagnosis Comments MAMMOGRAM GENERIC (SCAN ORDER) 01/17/2020 MAMMOGRAM GENERIC (SCAN ORDER) 01/17/2020 documented in this encounter Results * MAMMOGRAM GENERIC (01/17/2020) Anatomical Region Laterality Modality Other 01/17/2020 Narrative 01/17/2020 Ordered by an unspecified provider. us Documents Scanned SCANNING Final Result * MAMMOGRAM GENERIC (01/17/2020) Anatomical Region Laterality Modality Other 01/17/2020 Narrative 01/17/2020 Ordered by an unspecified provider. us Documents Scanned SCANNING Final Result documented in this encounter Visit Diagnoses Not on filedocumented in this encounter Care Teams Entry Level Sales Associate Relationship Specialty Start Date End Date Radha De La Cruz FNP [address] [place] [address] [place] [address] PCP - General Nurse Practitioner Family 01/28/18 documented as of this encounter
--- OUTSIDE RECORDS SUMMARY | 2024-03-30 04:05 | XMS_ITS | Encounter Summary ---
Author Organization [facility] Address [address] [place] [address]. [place], [place] [address] [place] [address] Care Team Providers Care Customer Care Associate Name Role Phone Radha De La Cruz Primary Care Provider [phone] Reason for Visit * Reason Comments Office Documentation (SCAN)* [facility] Encounter Details Date Type Department Care Team (Late st Contact Info) Description 06/16/2018 Scan HEALTH INFO SRVCS Scanned, Documents Office Documentation (SCAN)* ([facility] KNEE) Social History Tobacco Use Types Packs/Day Years [...] on filedocumented in this encounter Care Teams Customer Care Associate Relationship Specialty Start Date End Date Radha De La Cruz FNP [address] [place] [address] [place] [address] PCP - General Nurse Practitioner Family 01/28/18 documented as of this encounter
--- OUTSIDE RECORDS SUMMARY | 2024-03-30 04:05 | XMS_ITS | Encounter Summary ---
Author Organization [facility] Address [address] [place] [address]. [place], [place] [address] [place] [address] Care Team Providers Care Manager Unit Name Role Phone Radha De La Cruz Primary Care Provider [phone] Encounter Details Date Type Department Care Team (Latest Contact Info) Description 07/08/2019 Travel Social History Tobacco Use Types Packs/Day [...] on filedocumented in this encounter Care Teams Manager Unit Relationship Specialty Start Date End Date Radha De La Cruz FNP [address] [place] [address] [address] [place], [place] [id number] PCP - General Nurse Practitioner Family 01/28/18 documented as of this encounter
--- OUTSIDE RECORDS SUMMARY | 2024-03-30 04:05 | XMS_ITS | Encounter Summary ---
Author Organization [facility] Address [address] [place] [address]. [place], [place] [address] [place] [address] Care Team Providers Care Manager E Commerce Name Role Phone Radha De La Cruz Primary Care Provider [phone] Encounter Details Date Type Department Care Team (Late st Contact Info) Description 03/26/2019 Abstract [facility] [address] [place], [place] [phone] Radha De La Cruz FNP [address] [place], [place] [address] Social History Tobacco Use Types Packs/Day Years [...] as of this encounter Care Teams Manager E Commerce Relationship Specialty Start Date End Date Radha De La Cruz FNP [address] [place] [address] [place] [address] PCP - General Nurse Practitioner Family 01/28/18 documented as of this encounter
--- OUTSIDE RECORDS SUMMARY | 2024-03-30 04:05 | XMS_ITS | Encounter Summary ---
Author Organization [facility] Address [address] [place] [address]. [place], [place] [address] [place] [address] Care Team Providers Care Machine Shop Apprentice Name Role Phone Radha De La Cruz [facility] Primary Care Provider [phone] Reason for Visit * Reason Onset Date Comments Medication Request 10/20/2019 Encounter Details Date Type Department Care Team (Late st Contact Info) Description 10/20/2019 Telephone [facility] [address] [place] [address] Radha De La Cruz [facility] [address] [place] [address] Medication Request Social History Tobacco Use [...] Progress Notes * Ruchi Galvin RN - 10/20/2019 11:53 AM CDT This is already at [facility] in [place]. Patient notified. * Suri Martinez - 10/20/2019 11:32 AM CDT Pt would like a refill on her bupropion [facility] GV documented in this encounter Plan of Treatment Not on file documented as of this encounter Visit Diagnoses Not on filedocumented in this encounter Care Teams Machine Shop Apprentice Relationship Specialty Start Date End Date Radha De La Cruz FNP [address] [place] [address] [place] [address] PCP - General Nurse Practitioner Family 01/28/18 documented as of this encounter
--- OUTSIDE RECORDS SUMMARY | 2024-03-30 04:05 | XMS_ITS | Encounter Summary ---
Author Organization [facility] Address [address] [place] [address]. [place], [place] [address] [place] [address] Care Team Providers Care Salon Manager Name Role Phone Radha De La Cruz MANUFACTURING OPERATOR Primary Care Provider [phone] Encounter Details Date Type Department Care Team (Latest Contact Info) Description 10/17/2020 Travel Social History Tobacco Use Types Packs/Day [...] documented as of this encounter Care Teams Salon Manager Relationship Specialty Start Date End Date Radha De La Cruz FNP [address] [place] [address] [place] [address] PCP - General Nurse Practitioner Family 01/28/18 documented as of this encounter
--- OUTSIDE RECORDS SUMMARY | 2024-03-30 04:05 | XMS_ITS | Encounter Summary ---
Author Organization [facility] Address [address] [place] [address]. [place], [place] [address] [place] [address] Care Team Providers Care Stratigraphy Teacher Name Role Phone Radha De La Cruz Primary Care Provider [phone] Encounter Details Date Type Department Care Team (Latest Contact Info) Description 11/02/2018 Scan HEALTH INFO SRVCS Scanned, Documents Social [...] on filedocumented in this encounter Care Teams Stratigraphy Teacher Relationship Specialty Start Date End Date Radha De La Cruz FNP [address] [place] [address] [address] [place], [place] [phone] PCP - General Nurse Practitioner Family 01/28/18 documented as of this encounter
--- OUTSIDE RECORDS SUMMARY | 2024-03-30 04:05 | XMS_ITS | Encounter Summary ---
Author Organization [facility] Address [address] [place] [address]. [place], [place] [address] [place] [address] Care Team Providers Care Matcher Operator Name Role Phone Radha De La Cruz RECORD LIBRARIAN Primary Care Provider [phone] Encounter Details Date Type Department Care Team (Latest Contact Info) Description 06/14/2021 Scan HEALTH INFO SRVCS Scanned, Documents Social [...] documented as of this encounter Care Teams Matcher Operator Relationship Specialty Start Date End Date Radha De La Cruz FNP [address] [place] [address] [place] [address] PCP - General Nurse Practitioner Family 01/28/18 documented as of this encounter
--- OUTSIDE RECORDS SUMMARY | 2024-03-30 04:05 | XMS_ITS | Encounter Summary ---
Author Organization [facility] Address [address] [place] [address]. [place], [place] [address] [place] [address] Care Team Providers Care Inspector Chief Name Role Phone Radha De La Cruz Primary Care Provider [phone] Reason for Visit * Reason Onset Date Comments Refill Request 01/18/2019 fenofibrate Encounter Details Date Type Department Care Team (Late st Contact Info) Description 01/18/2019 Telephone [facility] [address] [facility] [place] [address] Radha De La Cruz FNP [address] [place] [address] Refill Request (fenofibrate) Social History Tobacco Use Types Packs/Day Years [...] encounter Progress Notes * LEORA Horne - 01/20/2019 8:26 AM CST x1 month only. Needs appt ISTICAL REPORTING ANALYST * Miriam Sapp RN - 01/18/2019 8:57 AM CST Pt last OV was 03/2018 and last refill was 10/28/2018, please advise this request. ISTICAL REPORTING ANALYST documented in this encounter Plan of Treatment Not on file documented as of this encounter Visit Diagnoses Diagnosis Hyperlipidemia Other and unspecified hyperlipidemia documented in this encounter Care Teams Inspector Chief Relationship Specialty Start Date End Date Radha De La Cruz FNP [address] [place] [address] [place] [address] PCP - General Nurse Practitioner Family 01/28/18 documented as of this encounter
--- OUTSIDE RECORDS SUMMARY | 2024-03-30 04:05 | XMS_ITS | Encounter Summary ---
Author Organization [facility] Address [address] [place] [address]. [place], [place] [address] [place] [address] Care Team Providers Care Sales Operations Director Name Role Phone Radha De La Cruz Primary Care Provider [phone] Encounter Details Date Type Department Care Team (Late st Contact Info) Description 04/09/2021 8:04 AM BREAKER LAYER - 04/09/2021 11:59 PM [facility] Hospital Encounter [facility] [address] [place] [address] Radha De La Cruz FNP [address] [place] [facility] Discharge Disposition: Home or Self [...] COVID-19? No / Unsure 04/09/2021 8:03 AM BREAKER LAYER documented as of this encounter Medications at Time of Discharge Multiple Vitamin (ONCE DAILY) Tab Take 1 tablet by mouth. buPROPion XL 150 MG 24 hr tabletIndications:An xiety Take 1 tablet (150 mg total) by mouth daily. 90 tablet 1 01/23/2021 2 fenofibrate 54 MG tabletIndications:Mi xed hyperlipidemia Take 1 tablet (54 mg total) by mouth daily with breakfast. 90 tablet 1 01/23/2021 2 Krill Oil 1000 MG Cap Take 1 capsule by mouth daily. 4 documented as of this encounter Plan of Treatment Not on file documented as of this encounter Procedures Procedure Name Priority Date/Time Associated Diagnosis Comments COMPREHENSIVE METABOLIC PANEL Routine 04/09/2021 8:28 AM BREAKER LAYER Mixed hyperlipidemia LIPID PANEL Routine 04/09/2021 8:28 AM BREAKER LAYER Mixed hyperlipidemia CBC W/DIFF AUTOMATED Routine 04/09/2021 8:28 AM BREAKER LAYER Mixed hyperlipidemia documented in this encounter Results * (ABNORMAL) COMPREHENSIVE METABOLIC PANEL (04/09/2021 8:28 AM BREAKER LAYER) [facility] GLUCOSE 98 70 - 99 MG/DL 04/09/2021 9:38 AM [facility] BUN 19(H) 7 - 18 MG/DL 04/09/2021 9:38 AM [facility] CREATININE S/P/B 1.01 0.50 - 1.20 MG/DL 04/09/2021 9:38 AM [facility] SODIUM S/P/B 138 136 - 145 MMOL/L 04/09/2021 9:38 AM [facility] POTASSIUM S/P/B 4.0 3.5 - 5.1 MMOL/L 04/09/2021 9:38 AM [facility] CHLORIDE S/P/B 104 100 - 108 MMOL/L 04/09/2021 9:38 AM [facility] CO2 26.6 21.0 - 32.0 MMOL/L 04/09/2021 9:38 AM [facility] CALCIUM S/P/B 9.3 8.5 - 10.1 MG/DL 04/09/2021 9:38 AM [facility] BILIRUBIN TOTAL S/P/B 0.3 0.2 - 1.2 MG/DL 04/09/2021 9:38 AM [facility] Comment: THIS ASSAY IS NOT RECOMMENDED FOR PATIENTS UNDERGOING TREATMENT WITH ELTROMBOPAG DUE TO THE POTENTIAL FOR FALSELY ELEVATED RESULTS. TOTAL PROTEIN S/P/B 6.7 6.4 - 8.2 G/DL 04/09/2021 9:38 AM [facility] ALBUMIN S/P/B 4.1 3.4 - 5.0 G/DL 04/09/2021 9:38 AM [facility] AST 16 15 - 37 U/L 04/09/2021 9:38 AM [facility] ALT 23 14 - 55 U/L 04/09/2021 9:38 AM [facility] ALKALINE PHOSPHATASE S/P/B 63 50 - 136 U/L 04/09/2021 9:38 AM [facility] ANION GAP 7.4 5.0 - 15.0 MMOL/L 04/09/2021 9:38 AM [facility] BUN CREATININE RATIO 18.8 6 - 26 04/09/2021 9:38 AM [facility] A/G RATIO 1.6 1.0 - 2.5 RATIO 04/09/2021 9:38 AM [facility] EGFR NON-AFR. AMER. 60(L) >90 ML/MIN/1.7 3 M2 04/09/2021 9:38 AM [facility] EGFR AFR. AMER. 70(L) >90 ML/MIN/1.7 3 M2 04/09/2021 9:38 AM [facility] Comment: NOTE: eGFR is not calculated for patients <18 years of age. This is an estimated GFR (CKD EPI) and should not be used for calculating drug doses. 04/09/2021 8:28 AM BREAKER LAYER Radha De La Cruz TOUCH UP WORKER LABORATORY Final Result [facility] [address] [facility] [address] [place] [address], [place] * CBC W/DIFF AUTOMATED (04/09/2021 8:28 AM BREAKER LAYER) WBC 5.2 4.5 - 11.0 x10'3/uL 04/09/2021 8:41 AM BREAKER LAYER [facility] RBC 4.34 4.0 - 5.2 x10'6/uL 04/09/2021 8:41 AM [facility] HGB 12.6 12.0 - 16.0 G/DL 04/09/2021 8:41 AM [facility] HCT 38.7 36.0 - 46.0 % 04/09/2021 8:41 AM [facility] MCV 89.2 80.0 - 100.0 FL 04/09/2021 8:41 AM [facility] MCH 29.0 26.0 - 34.0 PG 04/09/2021 8:41 AM [facility] MCHC 32.6 31.0 - 37.0 G/DL 04/09/2021 8:41 AM [facility] RDW 13.4 11.6 - 14.8 % 04/09/2021 8:41 AM [facility] PLT 243 140 - 415 x10'3/uL 04/09/2021 8:41 AM [facility] MPV 8.8 7.0 - 12.0 FL 04/09/2021 8:41 AM [facility] CBC COMMENT AUTOMATED RBC MORPHOLOGY AND PLATELET EVALUATION NORMAL 04/09/2021 8:41 AM [facility] NEUTROPHILS % 59.0 40.0 - 74.0 % 04/09/2021 8:41 AM [facility] LYMPHOCYTES % 26.9 14.0 - 46.0 % 04/09/2021 8:41 AM [facility] MONOCYTES % 9.9 4.0 - 13.0 % 04/09/2021 8:41 AM [facility] EOSINOPHILS 3.4 0.0 - 7.0 % 04/09/2021 8:41 AM [facility] BASOPHILS 0.6 0.0 - 3.0 % 04/09/2021 8:41 AM [facility] IMMATURE GRANS % 0.2 0.0 - 0.43 % 04/09/2021 8:41 AM [facility] ABS. NEUTROPHILS TOTAL 3.09 1.69 - 7.81 x10'3/uL 04/09/2021 8:41 AM [facility] ABS. LYMPHOCYTES 1.41 0.21 - 5.42 x10'3/uL 04/09/2021 8:41 AM [facility] ABS. MONOCYTES 0.52 0.04 - 1.37 x10'3/uL 04/09/2021 8:41 AM [facility] ABS. EOSINOPHILS 0.18 0.00 - 0.68 x10'3/uL 04/09/2021 8:41 AM [facility] ABS. BASOPHILS 0.03 0.00 - 0.08 x10'3/uL 04/09/2021 8:41 AM [facility] ABS. IMMATURE GRANULOCYTES 0.01 0.00 - 0.06 x10'3/uL 04/09/2021 8:41 AM [facility] 04/09/2021 8:28 AM BREAKER LAYER Radha Eng Jono TOUCH UP WORKER LABORATORY Final Result [facility] [address] [place] [address], * (ABNORMAL) LIPID PANEL (04/09/2021 8:28 AM BREAKER LAYER) [facility] Signature CHOLESTEROL 238(H) 0 - 200 MG/DL 04/09/2021 9:38 AM [facility] TRIGLYCERIDES 104 0 - 150 MG/DL 04/09/2021 9:38 AM [facility] HDL 86 >40 MG/DL 04/09/2021 9:38 AM [facility] Comment: Note: Reference Range Updated TO >40 LDL (CALCULATED) 131(H) <100 MG/DL 04/09/2021 9:38 AM [facility] NON HDL CHOLESTEROL 152(H) 0 - 130 MG/DL 04/09/2021 9:38 AM [facility] Comment: NOTE: WHEN THE TRIGLYCERIDES ARE >200 mg/dL, NON HDL C IS A SECONDARY TARGET OF THERAPY, WITH A GOAL 30 mg/dL HIGHER THAN THE IDENTIFIED LDL C GOAL. CHOL/HDL RATIO 2.8 0.0 - 4.5 04/09/2021 9:38 AM [facility] VLDL CALCULATION 21 5 - 55 MG/DL 04/09/2021 9:38 AM [facility] LIPID INTERPRETATION 04/09/2021 9:38 AM [facility] Comment: NIH CONCENSUS REPORT RECOMMENDATIONS: ?ADULT [...] ?LDL ? >=160 ?>=130 04/09/2021 8:28 AM BREAKER LAYER Radha COREY LABORATORY Final Result Performing Organization Address [facility] Co de Phone Number [facility] [address] documented in this encounter Visit Diagnoses Diagnosis Mixed hyperlipidemia documented in this encounter Additional Health Concerns Assessment Noted Time PHQ-9 Depression Total Score: 0 01/24/20 21 8:18 AM BREAKER LAYER documented as of this encounter Care Teams Sales Operations Director Relationship Specialty Start Date End Date Radha De La Cruz FNP [address] [facility] [place] [address] PCP - General Nurse Practitioner Family 01/28/18 documented as of this encounter
--- OUTSIDE RECORDS SUMMARY | 2024-03-30 04:05 | XMS_ITS | Encounter Summary ---
Author Organization [facility] Address [address] [place] [address]. [place], [place] [address] [place] [address] Care Team Providers Care Bank Note Designer Name Role Phone Radha De La Cruz HOME APPLIANCE TECHNICIAN Primary Care Provider [phone] Reason for Visit * Reason Comments Mammogram (SCAN) Encounter Details Date Type Department Care Team ([facility] Contact Info) Description 12/21/2018 Scan HEALTH INFO SRVCS Scanned, Documents Mammogram [...] Associated Diagnosis Comments MAMMOGRAM GENERIC (SCAN ORDER) Routine 12/21/2018 documented in this encounter Results * MAMMOGRAM (12/21/2018) Anatomical Region Laterality Modality Other us Documents Scanned SCANNING Edited Result - Final documented in this encounter Visit Diagnoses Not on filedocumented in this encounter Care Teams Bank Note Designer Relationship Specialty Start Date End Date Radha De La Cruz FNP [address] [place] [address] [place] [address] PCP - General Nurse Practitioner Family 01/28/18 documented as of this encounter
--- OUTSIDE RECORDS SUMMARY | 2024-03-30 04:05 | XMS_ITS | Encounter Summary ---
Author Organization [facility] Address [address] [place] [address]. [place], [place] [address] [place] [address] Care Team Providers Care Travelers' Aid Worker Name Role Phone Radha De La Cruz [facility] Primary Care Provider [phone] Reason for Visit * Reason Onset Date Comments Question 11/10/2019 Encounter Details Date Type Department Care Team (Late st Contact Info) Description 11/10/2019 Telephone [facility] [address] [place] [address] Radha De La Cruz [facility] [address] [place] [address] Question Social History Tobacco Use Types [...] Progress Notes * Ruchi Galvin RN - 11/10/2019 9:08 AM CDT Patient calls and thinks she should probably be tested for COVID. She has allergy symptoms such as cough, runny nose and congestion. I advised CC to be evaluated and get swab. I advised [facility] does them but you have to call and make appointment and have referral from PCP which we could give her. She has a wedding to go to this weekend and is wanting results by Friday. I advised that she would need to call around to go get a rapid test done. Patient aware and will call if she needs order. * Suri Martinez - 11/10/2019 8:43 AM CDT PT would like Ruchi to call her back please. [phone] documented in this encounter Plan of Treatment Not on file documented as of this encounter Visit Diagnoses Not on filedocumented in this encounter Care Teams Travelers' Aid Worker Relationship Specialty Start Date End Date Radha De La Cruz FNP [address] [place] [address] [place] [address] PCP - General Nurse Practitioner Family 01/28/18 documented as of this encounter
--- OUTSIDE RECORDS SUMMARY | 2024-03-30 04:05 | XMS_ITS | Encounter Summary ---
Author Organization [facility] Address [address] [place] [address]. [place], [place] [address] [place] [address] Care Team Providers Care Inshore Undersea Warfare Officer Name Role Phone Radha De La Cruz Primary Care Provider [phone] Encounter Details Date Type Department Care Team (Latest Contact Info) Description 06/06/2018 Scan HEALTH INFO SRVCS Scanned, Documents Social [...] on filedocumented in this encounter Care Teams Inshore Undersea Warfare Officer Relationship Specialty Start Date End Date Radha De La Cruz FNP [address] [place] [address] [place], [place] [id number] PCP - General Nurse Practitioner Family 01/28/18 documented as of this encounter
--- OUTSIDE RECORDS SUMMARY | 2024-03-30 04:05 | XMS_ITS | Encounter Summary ---
Author Organization [facility] Address [address] [place] [address]. [place], [place] [address] [place] [address] Care Team Providers Care Pipe Covering Molder Name Role Phone Radha De La Cruz [facility] Primary Care Provider Reason for Visit * Reason Onset Date Comments Question 03/09/2019 Encounter Details Date Type Department Care Team (Late st Contact Info) Description 03/09/2019 Telephone [facility] [address] [place] [address] Radha De La Cruz [facility] [address] [place], [place] [id number] Question Social History Tobacco Use Types Packs/Day [...] Progress Notes * Suri Jj LPN - 03/09/2019 11:44 AM CSTAddended by: SURI JJ on: 03/09/2019 11:44 AM Modules accepted: Orders IS WHEEL OPERATOR * Suri Jj LPN - 03/09/2019 11:43 AM CST Sent to [facility]. IS WHEEL OPERATOR * LEORA Horne - 03/09/2019 11:33 AM CST Valtrex 1 gr bid for one day #2 IS WHEEL OPERATOR * Suri Jj LPN - 03/09/2019 10:32 AM CST Spoke with pt. Re: Symptoms. Pt. States that she has fever blister on lip. Req. Valtrex be called in to [facility]. Please advise. IS WHEEL OPERATOR * Renetta Mejia - 03/09/2019 8:13 AM CST PATIENT HAS QUESTION ABOUT MEDICATION, WOULD LIKE TO SPEAK TO NURSE IS WHEEL OPERATOR documented in this encounter Plan of Treatment Not on file documented as of this encounter Visit Diagnoses Diagnosis Fever blister- Primary Herpes simplex without mention of complication documented in this encounter Care Teams Pipe Covering Molder Relationship Specialty Start Date End Date Radha De La Cruz FNP [address] [place] [address] [place] [address] PCP - General Nurse Practitioner Family 01/28/18 documented as of this encounter
--- OUTSIDE RECORDS SUMMARY | 2024-03-30 04:06 | XMS_ITS | Encounter Summary ---
Author Organization [facility] Address [address] [place] [address]. [place], [place] [address] [place] [address] Care Team Providers Care Major League Baseball Umpire Name Role Phone Radha De La CruzP Primary Care Provider [phone] Reason for Visit * Reason Comments Image (SCAN) Encounter Details Date Type Department Care Team (Latest Contact Info) Description 06/05/2018 Scan HEALTH INFO SRVCS Scanned, Documents Image (SCAN) Social History Tobacco Use Types Packs/Day [...] Procedure Name Priority Date/Time Associated Diagnosis Comments IMAGE GENERIC Routine 06/05/2018 documented in this encounter Results * IMAGE STUDY (06/05/2018) Anatomical Region Laterality Modality Other us Documents Scanned SCANNING Edited Result - Final documented in this encounter Visit Diagnoses Not on filedocumented in this encounter Care Teams [employer] Umpire Relationship Specialty Start Date End Date Radha De La Cruz FNP [address] [place] [address] [place] [address] PCP - General Nurse Practitioner Family 01/28/18 documented as of this encounter
--- OUTSIDE RECORDS SUMMARY | 2024-03-30 04:06 | XMS_ITS | Encounter Summary ---
Author Organization [facility] Address [facility] [place], [place] [address] [place] [address] Care Team Providers Care Client Support Associate Name Role Phone Unavailable Primary Care Provider Unavailabl e Encounter Details Date Type Department Care Team (Late st Contact Info) Description 09/19/2017 Abstract [facility] Conversion Md, Generic Conversion, Social History Tobacco Use Types Packs/Day Years Used Date Smoking Tobacco: Never Assessed Comments Unknown Sex and Gender Information Value Date Recorded Sex Assigned at Not on file Legal Sex Female 2:50 AM CDT Gender Identity Not on file Sexual Orientation Not on file documented as of this encounter Plan of Treatment Not on file documented as of this encounter Visit Diagnoses Not on filedocumented in this encounter
--- OUTSIDE RECORDS SUMMARY | 2024-03-30 04:06 | XMS_ITS | Encounter Summary ---
Author Organization [facility] Address [facility]. [place], [place] [address] [place] [address] Care Team Providers Care Claim Clinician Name Role Phone Unavailable Primary Care Provider Unavailabl e Encounter Details Date Type Department Care Team (Late st Contact Info) Description 09/15/2017 Abstract [facility] Conversion Md, Generic Conversion, Social History Tobacco [...]
--- OUTSIDE RECORDS SUMMARY | 2024-03-30 04:06 | XMS_ITS | Encounter Summary ---
Author Organization [facility] Address [facility]. [place], [place] [address] [place] [address] Care Team Providers Care Svp Research And Strategic Analysis Name Role Phone Unavailable Primary Care Provider Unavailabl e Encounter Details Date Type Department Care Team (Late st Contact Info) Description 06/16/2017 Abstract [facility] Conversion Md, Generic Conversion, Social History Tobacco [...]
--- OUTSIDE RECORDS SUMMARY | 2024-03-30 04:06 | XMS_ITS | Encounter Summary ---
Author Organization [facility] Address [facility]. [place], [place] [address] [place] [address] Care Team Providers Care Sanitation Laborer Name Role Phone Unavailable Primary Care Provider Unavailabl e Encounter Details Date Type Department Care Team (Late st Contact Info) Description 11/04/2017 Abstract [facility] Conversion Radha De La Cruz, PALEOBOTANIST [address] [place] [address] Social History Tobacco Use Types Packs/Day Years Used Date Smoking Tobacco: Never Assessed Comments Unknown Sex and Gender Information Value Date Recorded Sex Assigned at Not on file Legal Sex Female 2:50 AM CDT Gender Identity Not on file Sexual Orientation Not on file documented as of this encounter Last Filed Vital Signs Vital Sign Reading Time Taken Comments Blood Pressure 108/70 11/04/2017 10:21 AM CDT Pulse 70 11/04/2017 10:21 AM CDT Temperature - - Respiratory Rate - - Oxygen Saturation - - Inhaled Oxygen Concentration - - Weight 79.4 kg (175 lb) 11/04/2017 10:21 AM CDT Height 171.5 cm (5' 7.5 ) 11/04/2017 10:21 AM CD T Body Mass Index 27 11/04/2017 10:21 AM CDT documented in this encounter Plan of Treatment Not on file documented as of this encounter Visit Diagnoses Not on filedocumented in this encounter
--- OUTSIDE RECORDS SUMMARY | 2024-03-30 04:06 | XMS_ITS | Encounter Summary ---
Author Organization [facility] Address [address] [place] [address]. [place], [place] [address] [place] [address] Care Team Providers Care District Resource Officer Name Role Phone Radha De La Cruz Primary Care Provider [phone] Encounter Details Date Type Department Care Team (Latest Contact Info) Description 06/02/2018 Scan HEALTH INFO SRVCS Scanned, Documents Social [...] on filedocumented in this encounter Care Teams District Resource Officer Relationship Specialty Start Date End Date Radha De La Cruz FNP [address] [place] [address] [place], [place] [id number] PCP - General Nurse Practitioner Family 01/28/18 documented as of this encounter
--- OUTSIDE RECORDS SUMMARY | 2024-03-30 04:06 | XMS_ITS | Encounter Summary ---
Author Organization [facility] Address [address] [place] [address]. [place], [place] [address] [place] [address] Care Team Providers Care Machine Heel Seat Laster Name Role Phone Radha De La Cruz Primary Care Provider [phone] Reason for Visit * Reason Comments Outside Record (SCAN) VISIT RECORD [facility] Encounter Details Date Type Department Care Team (Late st Contact Info) Description 01/13/2018 Scan HEALTH INFO SRVCS Scanned, Documents Outside Record (SCAN) (VISIT RECORD [facility]) Social History Tobacco Use Types Packs/Day Years Used Date Smoking Tobacco: Never Assessed AUDIT-C Answer Date Recorded Frequency of Alcohol [...] filedocumented in this encounter Care Teams Machine Heel Seat Laster Relationship Specialty Start Date End Date Radha De La Cruz FNP [address] [place] [address] [place] [address] PCP - General Nurse Practitioner Family 01/28/18 documented as of this encounter
--- OUTSIDE RECORDS SUMMARY | 2024-03-30 04:06 | XMS_ITS | Encounter Summary ---
Author Organization [facility] Address [facility] [facility] [place], [place] [address] [place] [address] Care Team Providers Care Family Resource Management Professor Name Role Phone Unavailable Primary Care Provider Unavailabl e Encounter Details Date Type Department Care Team (Late st Contact Info) Description 12/10/2016 Abstract [facility] Conversion Md, Generic Conversion, Social History [...]
--- OUTSIDE RECORDS SUMMARY | 2024-03-30 04:06 | XMS_ITS | Encounter Summary ---
Author Organization [facility] Address [address] [place] [address]. [place], [place] [address] [place] [address] Care Team Providers Care Animal Pathology Teacher Name Role Phone Radha De La Cruz FREIGHT ASSOCIATE Primary Care Provider [phone] Encounter Details Date Type Department Care Team (Late st Contact Info) Description 05/23/2016 Abstract [facility] CONVERSION [address] [place], [place] [id number] Jose Willson MD [address] [address] Social History Tobacco Use Types Packs/Day Years [...] documented as of this encounter Care Teams Animal Pathology Teacher Relationship Specialty Start Date End Date Radha De La Cruz FNP [address] [place] [address] [place] [address] PCP - General Nurse Practitioner Family 01/28/18 documented as of this encounter
--- OUTSIDE RECORDS SUMMARY | 2024-03-30 04:06 | XMS_ITS | Encounter Summary ---
Author Organization [facility] Address [facility]. [place], [place] [address] [place] [address] Care Team Providers Care Industrial Eng Name Role Phone Unavailable Primary Care Provider Unavailabl e Encounter Details Date Type Department Care Team (Late st Contact Info) Description 01/28/2016 Abstract [facility] Conversion Md, Generic Conversion, Social [...]
--- OUTSIDE RECORDS SUMMARY | 2024-03-30 04:06 | XMS_ITS | Encounter Summary ---
Author Organization [facility] Address [address] [place] [address]. [place], [place] [address] [place] [address] Care Team Providers Care Poultry Boner Name Role Phone Radha De La Cruz [facility] Primary Care Provider [phone] Reason for Visit * Reason Comments Eye Problem Encounter Details Date Type Department Care Team (Late st Contact Info) Description 02/19/2018 8:00 AM CHECKER LOADER Office Visit [facility] [address] [place] [address] Radha De La Cruz [facility] [address] [place], [place] [id number] Eye Problem Social History Tobacco Use Types Packs/Day [...] Sign Reading Time Taken Comments Blood Pressure 120/70 02/19/2018 8:18 AM CHECKER LOADER Pulse 60 02/19/2018 8:18 AM CHECKER LOADER Temperature - - Respiratory Rate 16 02/19/2018 8:18 AM CHECKER LOADER Oxygen Saturation - - Inhaled Oxygen Concentration - - Weight 79.8 kg (176 lb) 02/19/2018 8:18 AM CHECKER LOADER Height 171.5 cm (5' 7.5 ) 02/19/2018 8:18 AM CHECKER LOADER Body Mass Index 27.16 02/19/2018 8:18 AM CHECKER LOADER documented in this encounter Patient Instructions * Patient Instructions* LEORA Joyner - 02/19/2018 8:00 AM CHECKER LOADER Will schedule MRI for next week Will make additional recommendations once results are reviewed KER LOADER documented in this encounter Progress Notes * LEORA Joyner - 02/19/2018 8:00 AM CST Lisa is a 57-year-old female patient. Reason for Visit: Eye Problem History of Present Illness: She has had a couple episodes in the past several years in which she loses vision for just a few minutes. Over the last 6 months it has happened a little more often. Last Friday it occurred 4 times in 1 day. She noted blurred vision and then lost vision for several minutes. She really could not tell which eye was affected. She had no eye pain, dizziness, or headaches during those episodes. She went to her tube lancer who did a thorough eye exam and did not note any abnormalities. The tube lancer told her it could be ocular migraines and encouraged her to come in here for evaluation. She denies having any other neurological symptoms. She does report a very stressful past year. That is actually a lot better lately. Past Medical History: Diagnosis Date ??? Hyperlipidemia ??? Internal hemorrhoids Past Surgical History: Procedure Laterality Date ??? APPENDECTOMY ??? COLONOSCOPY ??? HYSTERECTOMY ??? KNEE SURGERY Medications: Current Outpatient Medications: ??? ESTROGEL 0.75 MG/1.25 GM (0.06%) Gel, APPLY 1 OR 2 PUMPS TO UPPER ARM EVERY DAY DIRECTED, Disp: , Rfl: 3 ??? fenofibrate 54 MG tablet, Take 1 tablet (54 mg total) by mouth daily., Disp: 90 tablet, Rfl: 0 ??? Krill Oil 1000 MG Cap, Take 1 capsule by mouth daily., Disp: , Rfl: ??? meloxicam 7.5 MG tablet, Take 7.5 mg by mouth daily., Disp: , Rfl: 2 ??? Multiple Vitamin (ONCE DAILY) Tab, Take 1 tablet by mouth., Disp: , Rfl: No Known Allergies No family history on file. No family status information on file. ROS: Review of Systems Constitutional: Negative for chills, fever, malaise/fatigue and weight loss. Eyes: Negative for pain. See HPI Respiratory: Negative for cough and shortness of breath. Cardiovascular: Negative for chest pain, palpitations and leg swelling. Gastrointestinal: Negative for constipation, diarrhea and heartburn. Musculoskeletal: Negative for joint pain and myalgias. Skin: Negative for rash. Neurological: Negative for dizziness, tremors, speech change, focal weakness, seizures, loss of consciousness and headaches. Endo/Heme/Allergies: Does not bruise/bleed easily. Psychiatric/Behavioral: Negative for depression. The patient is not nervous/anxious and does not have insomnia. Stress Vitals: Filed Vitals: 02/19/18 0818 BP: 120/70 Pulse: 60 Resp: 16 Weight: 79.8 kg (176 lb) Height: 5' 7.5 (1.715 m) Physical Exam Constitutional: She is oriented to person, place, and time. She appears well- developed and well-nourished. HENT: Head: Normocephalic and atraumatic. Eyes: Conjunctivae are normal. Pupils are equal, round, and reactive to light. Neck: Normal range of motion. Neck supple. No thyromegaly present. Cardiovascular: Normal rate and regular rhythm. Pulmonary/Chest: Effort normal and breath sounds normal. Neurological: She is alert and oriented to person, place, and time. She displays normal reflexes. No cranial nerve deficit or sensory deficit. Coordination normal. Skin: Skin is warm and dry. Psychiatric: She has a normal mood and affect. Her behavior is normal. Judgment and thought contentnormal. Diagnoses/Impression: Encounter Diagnose(s) ICD-10-CM ICD-9-CM SNOMED CT(R) 1. Visual disturbances H53.9 368.9 VISUAL DISTURBANCE MRI BRAIN WO CON Plan Orders Placed: Orders Placed This Encounter ??? MRI BRAIN WO CON We discussed differential diagnoses for her symptoms. We will proceed with MRI of the brain withoutcontrast for further evaluation. Instructions Patient Instructions Will schedule MRI for next week Will make additional recommendations once results are reviewed LEORA JOYNER 02/19/2018 8:25 AM Cosigned by Mery Witt DO at 02/27/2018 5:28 PM CHECKER LOADER KER LOADER KER LOADER documented in this encounter Plan of Treatment Not on file documented as of this encounter Visit Diagnoses Diagnosis Visual disturbances- Primary Unspecified visual disturbance documented in this encounter Care Teams Poultry Boner Relationship Specialty Start Date End Date Radha De La Cruz FNP [address] [place] [address] [place] [address] PCP - General Nurse Practitioner Family 01/28/18 documented as of this encounter
--- OUTSIDE RECORDS SUMMARY | 2024-03-30 04:06 | XMS_ITS | Encounter Summary ---
Author Organization [facility] Address [address] [place] [address]. [place], [place] [address] [place] [address] Care Team Providers Care Clinical Neuropsychologist Name Role Phone Radha De La Cruz Primary Care Provider [phone] Reason for Referral * Consultation (Routine) - Closed Specialty Diagnoses / Procedures Referred By Doug cartagena Referred To Contact NEUROLOGY Diagnoses Ocular migraine Radha De La Cruz FNP [address] [place] [address] [place] [address] Phone: tel: fax: Referral ID Status Reason Start Date Expiration Date V isits Requested Visits Authorized [id number] Closed Specialty Services 03/25/2018 04/25/2019 1 1 Scheduling Instructions PT WILL SCHEDULE OR CALL BACK WHEN READY TO PROCEED REHENSIVE ADVISOR Reason for Visit * Reason Comments Medication Check follow up Encounter Details Date Type Department Care Team (Late st Contact Info) Description 03/25/2018 8:00 AM COMPREHENSIVE ADVISOR Office Visit [address] [place] [address] Radha De La Cruz FNP [address] [place] [address] [place] [address] Medication Check (follow up) Social History Tobacco Use Types Packs/Day [...] Sign Reading Time Taken Comments Blood Pressure 120/76 03/25/2018 8:03 AM COMPREHENSIVE ADVISOR Pulse 60 03/25/2018 8:03 AM COMPREHENSIVE ADVISOR Temperature 36.5 ??C (97.7 ??F) 03/25/2018 8:03 AM CS T Respiratory Rate 14 03/25/2018 8:03 AM COMPREHENSIVE ADVISOR Oxygen Saturation - - Inhaled Oxygen Concentration - - Weight 80.7 kg (178 lb) 03/25/2018 8:03 AM COMPREHENSIVE ADVISOR Height 171.5 cm (5' 7.5 ) 03/25/2018 8:03 AM COMPREHENSIVE ADVISOR Body Mass Index 27.47 03/25/2018 8:03 AM COMPREHENSIVE ADVISOR documented in this encounter Patient Instructions * Patient Instructions* LEORA Joyner - 03/25/2018 8:00 AM COMPREHENSIVE ADVISOR Take wellbutrin as directed Keep a log on how many ocular migraines occur and see me back in 4-6 weeks. I will consider increasing Wellbutrin to 300 mg if symptoms are not controlled on 150 mg May use Xanax as needed for anxiety attack REHENSIVE ADVISOR documented in this encounter Progress Notes * LEORA Joyner - 03/25/2018 8:00 AM CST Lisa is a 57-year-old female patient. Reason for Visit: Medication Check (follow up) History of Present Illness: She was seen here one month ago. At that time she was having what her grain picker called she was having episodes in which she would lose vision in 1 of her eyes ocular migraines. Especially when she was stressed. I advised that we do an MRI to rule out any other reason for the symptoms and it was normal. Since having the MRI she has had 2 episodes of vision loss and it lasted at most 10 minutes each time. She does not get a headache with it. She has noted increased stress mostly related to work. Since her stress is higher she has noted increased is eye sx. she also feels very anxious at times. she is also building a house so is stressed about that. She was given xanax to use as needed. she really does not think it works that well.. She took wellbutrin in the past About 1 year ago when she was having a lot of family stressors. Sheis unsure whether it worked or not because she did not take it regularly. She is willing to try it again. Past Medical History: Diagnosis Date ??? Hyperlipidemia ??? Internal hemorrhoids Past Surgical History: Procedure Laterality Date ??? APPENDECTOMY ??? COLONOSCOPY ??? HYSTERECTOMY ??? KNEE SURGERY Medications: Current Outpatient Medications: ??? ALPRAZolam 0.25 MG tablet, Take 1 tab. PO DAILY PRN, Disp: 10 tablet, Rfl: 0 ??? ESTROGEL 0.75 MG/1.25 [...] ??? Highest education level: Not on file Social Needs ??? Financial resource strain: Not on file ??? Food insecurity - worry: Not on file ??? Food insecurity - inability: Not on file ??? Transportation needs - medical: Not on file ??? Transportation needs - non-medical: Not on file Occupational History ??? Not [...] Systems Constitutional: Negative. Respiratory: Negative. Cardiovascular: Negative. Skin: Negative. Neurological: Negative. Psychiatric/Behavioral: Negative for depression. The patient is nervous/anxious. The patient does not have insomnia. Vitals: Filed Vitals: 03/25/18 0803 BP: 120/76 Pulse: 60 Resp: 14 Temp: 97.7 ??F (36.5 ??C) Weight: 80.7 kg (178 lb) Height: 5' 7.5 (1.715 m) Physical Exam Constitutional: She is oriented to person, place, and time. She appears well- developed and well-nourished. HENT: Head: Normocephalic and atraumatic. Neck: No thyromegaly present. Cardiovascular: Normal rate and regular rhythm. Pulmonary/Chest: Effort normal and breath sounds normal. Neurological: She is alert and oriented to person, place, and time. Skin: Skin is warm and dry. Psychiatric: She has a normal mood and affect. Judgment and thought content normal. Diagnoses/Impression: Encounter Diagnose(s) ICD-10-CM ICD-9-CM SNOMED CT(R) 1. Anxiety F41.9 300.00 ANXIETY buPROPion 24 hr (WELLBUTRIN XL) 150 MG 24 hr tablet 2. Ocular migraine G43.109 346.80 OPHTHALMIC MIGRAINE AMB REFERRAL TO NEUROLOGY Plan Orders Placed: Orders Placed This Encounter ??? Ambulatory referral to Neurology ??? buPROPion 24 hr (WELLBUTRIN XL) 150 MG 24 hr tablet Will start Wellbutrin 150 mg daily. Report status in 1 month and we may increase it to 300 if needed. May use Xanax as needed which she has. Keep a diary on the number of eye symptoms that she has. See me back in 6 weeks. I advise getting a neurology consult due to her symptoms. Patient will consider this. She will alsoconsider who she would like to see and either make the appointment or call me back. Report back if any new or worsening symptoms. Instructions Patient Instructions Take wellbutrin as directed Keep a log on how many ocular migraines occur and see me back in 4-6 weeks. I will consider increasing Wellbutrin to 300 mg if symptoms are not controlled on 150 mg May use Xanax as needed for anxiety attack LEORA JOYNER 03/25/2018 8:13 AM Cosigned by Mery Witt DO at 03/26/2018 12:56 PM COMPREHENSIVE ADVISOR REHENSIVE ADVISOR REHENSIVE ADVISOR documented in this encounter Plan of Treatment Scheduled Referrals Name Type Priority Associated Diagnoses Orde r Schedule Ambulatory referral to Neurology Referral Routine Ocular migraine Ordered: 03/25/2018 documented as of this encounter Visit Diagnoses Diagnosis Anxiety- Primary Anxiety state, unspecified Ocular migraine Other forms of migraine, without mention of intractable migraine without mention of status migrainosus documented in this encounter Care Teams Clinical Neuropsychologist Relationship Specialty Start Date End Date Radha De La Cruz FNP [address] [place] [address] [place] [address] PCP - General Nurse Practitioner Family 01/28/18 documented as of this encounter
--- OUTSIDE RECORDS SUMMARY | 2024-03-30 04:06 | XMS_ITS | Encounter Summary ---
Author Organization [facility] Address [facility]. [place], [place] [address] [place] [address] Care Team Providers Care Fleet Manager/Dispatch Name Role Phone Radha De La Cruz Primary Care Provider [phone] Encounter Details Date Type Department Care Team (Late st Contact Info) Description 05/19/2018 Orders Only [facility] [address] [place] [address] Suri Jj LPN Social History Tobacco [...] unspecified documented in this encounter Care Teams Fleet Manager/Dispatch Relationship Specialty Start Date End Date Radha De La Cruz FNP [address] [place] [address] PCP - General Nurse Practitioner Family 01/28/18 documented as of this encounter
--- OUTSIDE RECORDS SUMMARY | 2024-03-30 04:06 | XMS_ITS | Encounter Summary ---
Author Organization [facility] Address [facility]6 [facility]. [place], [place] [address] [place] [address] Care Team Providers Care Hand Fur Cleaner Name Role Phone Unavailable Primary Care Provider Unavailabl e Encounter Details Date Type Department Care Team (Late st Contact Info) Description 05/24/2016 Abstract [facility] Conversion Md, Generic Conversion, Social History [...]
--- OUTSIDE RECORDS SUMMARY | 2024-03-30 04:06 | XMS_ITS | Encounter Summary ---
Author Organization [facility] Address [facility]6 [facility]. [place], [place] [address] [place] [address] Care Team Providers Care Intelligence Support Officer Name Role Phone Unavailable Primary Care Provider Unavailabl e Encounter Details Date Type Department Care Team (Late st Contact Info) Description 03/13/2017 Abstract [facility] Conversion Md, Generic Conversion, Social History Tobacco [...]
--- OUTSIDE RECORDS SUMMARY | 2024-03-30 04:06 | XMS_ITS | Encounter Summary ---
Author Organization [facility] Address [address] [place] [address]. [place], [place] [address] [place] [address] Care Team Providers Care Guest Services Ambassador Name Role Phone Radha De La Cruz Primary Care Provider [phone] Encounter Details Date Type Department Care Team (Late st Contact Info) Description 02/23/2018 Abstract [facility] [address] [place] [id number] Radha De La Cruz FNP [address] [place] [address] Social History Tobacco Use Types Packs/Day [...] documented as of this encounter Care Teams Guest Services Ambassador Relationship Specialty Start Date End Date Radha De La Cruz FNP [address] [place] [address] [place] [address] PCP - General Nurse Practitioner Family 01/28/18 documented as of this encounter
--- OUTSIDE RECORDS SUMMARY | 2024-03-30 04:06 | XMS_ITS | Encounter Summary ---
Author Organization [facility] Address [facility] [place] [address] [place] [address] Care Team Providers Care Senior Risk Manager Name Role Phone John De La Cruz [facility] Primary Care Provider [phone] Encounter Details Date Type Department Care Team (Late st Contact Info) Description 02/23/2018 Orders Only [facility] Priority Care - [address] [place] [address] John De La Cruz FNP [address] [place] [address] Social History Tobacco Use Types Packs/Day [...] Progress Notes * Suri Jj LPN - 02/24/2018 1:33 PM CST Pt. Notified. Verbalized understanding. Pt. Wishes to hold off on starting Maxalt @ this time. Wants to research medication and will call back when ready to proceed with medication. CULAR TECHNOLOGIST * Suri Jj LPN - 02/24/2018 12:02 PM CST Mess. Left for pt. To call office. CULAR TECHNOLOGIST documented in this encounter Plan of Treatment Not on file documented as of this encounter Procedures Procedure Name Priority Date/Time Associated Diagnosis Comments MRI BRAIN WO CON 02/23/2018 10:5 8 AM MOLECULAR TECHNOLOGIST documented in this encounter Results * MRI BRAIN WO CON (02/23/2018 10:58 AM MOLECULAR TECHNOLOGIST) Anatomical Region Laterality Modality Head Magnetic Resonan ce 02/23/2018 10:5 8 AM MOLECULAR TECHNOLOGIST Narrative 02/23/2018 10:58 AM MOLECULAR TECHNOLOGIST [facility] Ordering Phy: JOHN DE LA CRUZ ? Attending Phys: ?JOHN DE LA CRUZ MRI BRAIN W/O CONTRAST ? Completed: MRI BRAIN W/O CONTRAST 02/23/2018 MRI OF THE BRAIN WITHOUT CONTRAST CLINICAL HISTORY: Visual disturbance. CONCLUSION: 1. Routine MRI of the brain without contrast 02/23/2018. No comparisons. 2. No intracranial mass or major vessel infarct. No gross abnormality in the brainstem or posterior fossa. 3. Minor punctate areas of increased signal adjacent to the anterior horn of the left lateral ventricle. This may be due to small vessel ischemic change versus sequela of prior trauma. De La Cruz/white differentiation is within normal limits. 4. The globes are intact. No gross abnormality along the optic pathways. No occipital lobe abnormalities. 5. Grossly normal flow voids within the intracranial portions of the vertebrobasilar system and internal carotid arteries in their proximal portions. 6. Mild mucosal thickening in the ethmoid air cells. Midline structures are within normal limits. Normal thickness to the corpus callosum. 7. If ocular disturbance persists, followup with MRI of the orbits. Dictation ID: [id number] dd: 02/23/2018 16:41:46 PCS dt: 02/23/2018 17:19:07 nts Electronically Reviewed and Signed by: Maurisio JACOBSEN M.D. BOARD CERTIFIED [facility] 02/24/18 09:41 Report is preliminary until electronically signed. LISA AMADO Patient Number: [id number] MRI BRAIN W/O CONTRAST Page 2 of 2 Report is preliminary until electronically signed. ?? Procedure Note Md Generic Conversion, - 02/24/2018 [facility] Ordering Phy: JOHN DE LA CRUZ Attending Phys:JOHN DE LA CRUZ MRI BRAIN W/O CONTRAST Completed: MRI BRAIN W/O CONTRAST 02/23/2018 MRI OF THE BRAIN WITHOUT CONTRAST CLINICAL HISTORY: Visual disturbance. CONCLUSION: 1. Routine MRI of the brain without contrast 02/23/2018. Nocomparisons. 2. No intracranial mass or major vessel infarct. No gross abnormality inthe brainstem or posterior fossa. 3. Minor punctate areas of increased signal adjacent to the anterior hornof the left lateral ventricle. This may be due to small vessel ischemic change versus sequela of priortrauma. De La Cruz/white differentiation is within normal limits. 4. The globes are intact. No gross abnormality along the optic pathways.No occipital lobe abnormalities. 5. Grossly normal flow voids within the intracranial portions of thevertebrobasilar system and internal carotid arteries in their proximal portions. 6. Mild mucosal thickening in the ethmoid air cells. Midline structuresare within normal limits. Normal thickness to the corpus callosum. 7. If ocular disturbance persists, followup with MRI of the orbits. Dictation ID: [id number] dd: 02/23/2018 16:41:46 PCS dt: 02/23/2018 17:19:07 nts Electronically Reviewed and Signed by: Maurisio JACOBSEN M.D. BOARD CERTIFIED [facility] 12/18/18 09:41 Report is preliminary until electronically signed. LISA AMADO Patient Number: [id number] MRI BRAIN W/O CONTRAST Page 2 of 2 Report is preliminary until electronically signed. us John COREY MRI Final Result documented in this encounter Visit Diagnoses Not on filedocumented in this encounter Care Teams Senior Risk Manager Relationship Specialty Start Date End Date John De La Cruz FNP [address] [place] [address] [place] [address] PCP - General Nurse Practitioner Family 01/28/18 documented as of this encounter
--- OUTSIDE RECORDS SUMMARY | 2024-03-30 04:06 | XMS_ITS | Encounter Summary ---
Author Organization [facility] Address [address] [place] [address]. [place], [place] [address] [place] [address] Care Team Providers Care Physician Intensivist Name Role Phone Radha De La Cruz [facility] Primary Care Provider [phone] Reason for Visit * Reason Onset Date Comments Results 02/24/2018 returning nurse call Encounter Details Date Type Department Care Team (Late st Contact Info) Description 02/24/2018 Telephone [facility] [address] [place] [address] Radha De La Cruz [facility] [address] [place] [address] Results (returning nurse call) Social History Tobacco Use Types Packs/Day Years [...] Notes * Suri Jj LPN - 02/24/2018 2:12 PM CST Spoke with pt. Earlier re: Test results. TS COORDINATOR * Lula Jernigan - 02/24/2018 1:47 PM CST Patient calls returning nurse call from Suri. TS COORDINATOR documented in this encounter Plan of Treatment Not on file documented as of this encounter Visit Diagnoses Not on filedocumented in this encounter Care Teams Physician Intensivist Relationship Specialty Start Date End Date Radha De La Cruz FNP [address] [place] [address] [place] [address] PCP - General Nurse Practitioner Family 01/28/18 documented as of this encounter
--- OUTSIDE RECORDS SUMMARY | 2024-03-30 04:06 | XMS_ITS | Encounter Summary ---
Author Organization [facility] Address [address] [place] [address]. [place], [place] [address] [place] [address] Care Team Providers Care Painter And Paperhanger Apprentice Name Role Phone Unavailable Primary Care Provider Unavailabl e Encounter Details Date Type Department Care Team (Late st Contact Info) Description 10/05/2016 Abstract [facility] Conversion Md, Generic Conversion, Social History [...] Sign Reading Time Taken Comments Blood Pressure 104/60 10/05/2016 9:42 AM CDT Pulse 78 10/05/2016 9:42 AM CDT Temperature - - Respiratory Rate - - Oxygen Saturation - - Inhaled Oxygen Concentration - - Weight 79.4 kg (175 lb) 10/05/2016 9:42 AM CDT Height 171.5 cm (5' 7.5 ) 10/05/2016 9:42 AM CDT Body Mass Index 27 10/05/2016 9:42 AM CDT documented in this encounter Plan of Treatment Not on file documented as of this encounter Visit Diagnoses Not on filedocumented in this encounter
--- OUTSIDE RECORDS SUMMARY | 2024-03-30 04:06 | XMS_ITS | Encounter Summary ---
Author Organization [facility] Address [facility]6 [facility]. [place], [place] [address] [place] [address] Care Team Providers Care Differential Specialist Name Role Phone Radha De La Cruz Primary Care Provider [phone] Encounter Details Date Type Department Care Team (Late st Contact Info) Description 12/11/2015 Abstract [facility] [address] [place] [id number] Radha De La Cruz FNP [address] [place], [place] [id number] Social History Tobacco Use Types Packs/Day Years [...] documented as of this encounter Care Teams Differential Specialist Relationship Specialty Start Date End Date Radha De La Cruz FNP [address] [place] [address] [place] [address] PCP - General Nurse Practitioner Family 01/28/18 documented as of this encounter
--- OUTSIDE RECORDS SUMMARY | 2024-03-30 04:06 | XMS_ITS | Encounter Summary ---
Author Organization [facility] Address [facility] [facility]. [place], [place] [address] [place] [address] Care Team Providers Care Bait Packer Name Role Phone Unavailable Primary Care Provider Unavailabl e Encounter Details Date Type Department Care Team (Late st Contact Info) Description 02/13/2017 Abstract [facility] Conversion Radha De La Cruz, [facility] [address] [place] [address] Social History Tobacco Use Types Packs/Day Years Used Date Smoking Tobacco: Never Assessed Comments Unknown Sex and Gender Information Value Date Recorded Sex Assigned at Not on file Legal Sex Female 2:50 AM CDT Gender Identity Not on file Sexual Orientation Not on file documented as of this encounter Last Filed Vital Signs Vital Sign Reading Time Taken Comments Blood Pressure 138/80 02/13/2017 1:15 PM STRINGER UP SOLDERING MACHINE Pulse 74 02/13/2017 1:15 PM STRINGER UP SOLDERING MACHINE Temperature - - Respiratory Rate - - Oxygen Saturation - - Inhaled Oxygen Concentration - - Weight 80.7 kg (178 lb) 02/13/2017 1:15 PM STRINGER UP SOLDERING MACHINE Height 171.5 cm (5' 7.5 ) 02/13/2017 1:15 PM STRINGER UP SOLDERING MACHINE Body Mass Index 27.47 02/13/2017 1:15 PM STRINGER UP SOLDERING MACHINE documented in this encounter Plan of Treatment Not on file documented as of this encounter Visit Diagnoses Not on filedocumented in this encounter
--- OUTSIDE RECORDS SUMMARY | 2024-03-30 04:06 | XMS_ITS | Encounter Summary ---
Author Organization [facility] Address [facility]6 [facility]. [place], [place] [address] [place] [address] Care Team Providers Care Fiscal Analyst Name Role Phone Unavailable Primary Care Provider Unavailabl e Encounter Details Date Type Department Care Team (Late st Contact Info) Description 04/07/2017 Abstract [facility] Conversion Md, Generic Conversion, Social History [...]
--- OUTSIDE RECORDS SUMMARY | 2024-03-30 04:06 | XMS_ITS | Encounter Summary ---
Author Organization [facility] Address [facility]6 [facility]. [place], [place] [address] [place] [address] Care Team Providers Care Fire Extinguisher Mechanic Name Role Phone Unavailable Primary Care Provider Unavailabl e Encounter Details Date Type Department Care Team (Late st Contact Info) Description 09/30/2016 Abstract [facility] Conversion Md, Generic Conversion, Social History [...]
--- OUTSIDE RECORDS SUMMARY | 2024-03-30 04:06 | XMS_ITS | Encounter Summary ---
Author Organization [facility] Address [facility]. [place], [place] [address] [place] [address] Care Team Providers Care Diagnostic Cardiac Sonographer Name Role Phone Unavailable Primary Care Provider Unavailabl e Encounter Details Date Type Department Care Team (Late st Contact Info) Description 03/14/2017 Abstract [facility] Conversion Radha De La Cruz, [facility] [address] [place] [address] Social History Tobacco Use Types Packs/Day Years Used Date Smoking Tobacco: Never Assessed Comments Unknown Sex and Gender Information Value Date Recorded Sex Assigned at Not on file Legal Sex Female 2:50 AM CDT Gender Identity Not on file Sexual Orientation Not on file documented as of this encounter Last Filed Vital Signs Vital Sign Reading Time Taken Comments Blood Pressure 140/80 03/14/2017 3:42 PM TIRE DUSTER Pulse 74 03/14/2017 3:42 PM TIRE DUSTER Temperature - - Respiratory Rate - - Oxygen Saturation - - Inhaled Oxygen Concentration - - Weight 80.7 kg (178 lb) 03/14/2017 3:42 PM TIRE DUSTER Height 171.5 cm (5' 7.5 ) 03/14/2017 3:42 PM TIRE DUSTER Body Mass Index 27.47 03/14/2017 3:42 PM TIRE DUSTER documented in this encounter Plan of Treatment Not on file documented as of this encounter Visit Diagnoses Not on filedocumented in this encounter
--- OUTSIDE RECORDS SUMMARY | 2024-03-30 04:06 | XMS_ITS | Encounter Summary ---
Author Organization [facility] Address [facility]. [place], [place] [address] [place] [address] Care Team Providers Care Physical Education Professor Name Role Phone Unavailable Primary Care Provider Unavailabl e Encounter Details Date Type Department Care Team (Late st Contact Info) Description 11/06/2016 Abstract [facility] Conversion Md, Generic Conversion, Social History [...]
--- OUTSIDE RECORDS SUMMARY | 2024-03-30 04:06 | XMS_ITS | Encounter Summary ---
Author Organization [facility] Address [address] [place] [address]. [place], [place] [address] [place] [address] Care Team Providers Care Recreational Aide Name Role Phone Radha De La Cruz [facility] Primary Care Provider [phone] Reason for Visit * Reason Onset Date Comments Follow Up Call 03/16/2018 Encounter Details Date Type Department Care Team (Late st Contact Info) Description 03/16/2018 Telephone [facility] [address] [place] [address] Radha De La Cruz [facility] [address] [place] [address] Follow Up Call Social History Tobacco Use Types Packs/Day Years [...] Progress Notes * Suri Jj LPN - 03/18/2018 10:39 AM CSTAddended by: SURI JJ on: 03/18/2018 10:39 AM Modules accepted: Orders CY DIRECTOR * Suri Jj LPN - 03/18/2018 10:39 AM CST Pt. Notified. Med. Called to [facility] [place] per pt. Req. Appt. sched. CY DIRECTOR * LEORA Horne - 03/17/2018 5:11 PM CST Xanax 0.25 mg daily as needed #10. Lets get ov to discuss daily preventative med CY DIRECTOR * Shanelle Quinn LPN - 03/16/2018 3:51 PM CST Pt called asking for anxiety medication, said she is having stress related migraines again. [phone]. CY DIRECTOR documented in this encounter Plan of Treatment Not on file documented as of this encounter Visit Diagnoses Diagnosis Anxiety- Primary Anxiety state, unspecified documented in this encounter Care Teams Recreational Aide Relationship Specialty Start Date End Date Radha De La Cruz FNP [address] [place] [address] [place] [address] PCP - General Nurse Practitioner Family 01/28/18 documented as of this encounter
--- OUTSIDE RECORDS SUMMARY | 2024-03-30 04:06 | XMS_ITS | Encounter Summary ---
Author Organization [facility] Address [address] [place] [address]. [place], [place] [address] [place] [address] Care Team Providers Care Manager Hair Name Role Phone Radha De La Cruz Primary Care Provider Reason for Visit * Reason Onset Date Comments Refill Request 01/23/2018 Encounter Details Date Type Department Care Team (Late st Contact Info) Description 01/23/2018 Telephone [facility] [address] [facility] [place] [address] Radha De La Cruz FNP [address] [place] [address] Refill Request Social History Tobacco Use Types Packs/Day Years Used Date Smoking Tobacco: Never Assessed Comments Unknown Sex and Gender Information Value Date Recorded Sex Assigned at Not on file Legal Sex Female 2:50 AM CDT Gender Identity Not on file Sexual Orientation Not on file documented as of this encounter Progress Notes * Suri Jj LPN - 01/23/2018 1:14 PM CST Refill sent to [facility]. ALL OPERATOR * LEORA Horne - 01/23/2018 12:59 PM CST Ok to refill x 90 days. Encourage pt to get HF labs ALL OPERATOR * Shanelle Quinn LPN - 01/23/2018 10:17 AM CST Tonny from [facility] called for a refill Fenofibrate 54mg. Last refill 10/22/17 #90 0RF. Last OV 11/04/17 acute. Last med management 04/25/17. Last Lipid done 05/24/16 at [facility]. [phone]. ALL OPERATOR documented in this encounter Plan of Treatment Not on file documented as of this encounter Visit Diagnoses Not on filedocumented in this encounter Care Teams Manager Hair Relationship Specialty Start Date End Date Radha De La Cruz FNP [address] [place] [address] [place] [address] PCP - General Nurse Practitioner Family 01/28/18 documented as of this encounter
--- OUTSIDE RECORDS SUMMARY | 2024-03-30 04:06 | XMS_ITS | Encounter Summary ---
Author Organization [facility] Address [facility]. [place], [place] [address] [place] [address] Care Team Providers Care Etl Database Developer Name Role Phone Unavailable Primary Care Provider Unavailabl e Encounter Details Date Type Department Care Team (Late st Contact Info) Description 06/09/2017 Abstract [facility] Conversion Md, Generic Conversion, Social History Tobacco [...]
--- OUTSIDE RECORDS SUMMARY | 2024-03-30 04:06 | XMS_ITS | Encounter Summary ---
Author Organization [facility] Address [address] [place] [address]. [place], [place] [address] [place] [address] Care Team Providers Care Information Systems Operator Name Role Phone Radha De La Cruz COMMUNITY ORGANIZATION AIDE Primary Care Provider [phone] Encounter Details Date Type Department Care Team (Late st Contact Info) Description 05/23/2017 Abstract [facility] CONVERSION [address] [place], [place] [id number] Jose Willson MD [address] [address] Social History Tobacco Use Types Packs/Day Years [...] documented as of this encounter Care Teams Information Systems Operator Relationship Specialty Start Date End Date Radha De La Cruz FNP [address] [place] [address] [place] [address] PCP - General Nurse Practitioner Family 01/28/18 documented as of this encounter
--- OUTSIDE RECORDS SUMMARY | 2024-03-30 04:06 | XMS_ITS | Encounter Summary ---
Author Organization [facility] Address [address] [place] [address]. [place], [place] [address] [place] [address] Care Team Providers Care Network Contract Manager Name Role Phone Unavailable Primary Care Provider Unavailabl e Encounter Details Date Type Department Care Team (Late st Contact Info) Description 09/23/2016 Abstract [facility] Conversion Kim Rojas, [facility] [address] [place] [id number] Social History Tobacco Use Types Packs/Day Years Used Date Smoking Tobacco: Never Assessed Comments Unknown Sex and Gender Information Value Date Recorded Sex Assigned at Not on file Legal Sex Female 2:50 AM CDT Gender Identity Not on file Sexual Orientation Not on file documented as of this encounter Last Filed Vital Signs Vital Sign Reading Time Taken Comments Blood Pressure 124/60 09/23/2016 11:21 AM CDT Pulse 64 09/23/2016 11:21 AM CDT Temperature - - Respiratory Rate - - Oxygen Saturation - - Inhaled Oxygen Concentration - - Weight 79.8 kg (176 lb) 09/23/2016 11:21 AM CDT Height 171.5 cm (5' 7.5 ) 09/23/2016 11:21 AM CD T Body Mass Index 27.16 09/23/2016 11:21 AM CDT documented in this encounter Plan of Treatment Not on file documented as of this encounter Procedures Procedure Name Priority Date/Time Associated Diagnosis Comments URINALYSIS AUTO DIP Routine 09/30/2016 5 :06 PM CDT URINALYSIS AUTO DIP Routine 09/23/2016 1 1:54 AM CDT documented in this encounter Results * URINALYSIS AUTO DIP (09/30/2016 5:06 PM CDT) URINE GLUCOSE Negative [facility] UP TO EPIC CONVERSION BILIRUBIN (U) Negative [facility] UP TO EPIC CONVERSION KETONES MG/DL (U) Negative [facility] TO EPIC CONVERSION SPECIFIC GRAVITY (U) 1.020 [facility] TO EPIC CONVERSION U BLOOD trace-intact [facility] P TO EPIC CONVERSION PROTEIN (U) Negative [facility] TO EPIC CONVERSION UROBILINOGEN 0.2 [facility] P TO EPIC CONVERSION NITRITES Negative [facility] T O EPIC CONVERSION LEUK ESTERASE (U) Negative [facility] TO EPIC CONVERSION TRANSPARENCY clear [facility] P TO EPIC CONVERSION COLOR (U) yellow [facility] T O EPIC CONVERSION 09/30/2016 5:06 PM CDT 09/30/2016 5:06 PM CDT Narrative [facility] TO EPIC CONVERSION - 09/30/2016 5:06 PM CDT This lab was migrated from [facility] and may be missing annotations or result text, please check the Media tab for the most complete results. us Generic Conversion Md PITTS URINE ORDERABLES Final Result [facility] TO EPIC CONVERSION * URINALYSIS AUTO DIP (09/23/2016 11:54 AM CDT) URINE GLUCOSE Negative [facility] UP TO EPIC CONVERSION BILIRUBIN (U) Negative [facility] UP TO EPIC CONVERSION KETONES MG/DL (U) Negative [facility] TO EPIC CONVERSION SPECIFIC GRAVITY (U) 1.015 [facility] TO EPIC CONVERSION U BLOOD moderate [facility] T O EPIC CONVERSION PH (U) 6.0 [facility] T O EPIC CONVERSION PROTEIN (U) 30 mg/dl [facility] TO EPIC CONVERSION UROBILINOGEN 0.2 [facility] P TO EPIC CONVERSION NITRITES Positive [facility] T O EPIC CONVERSION LEUK ESTERASE (U) Moderate [facility] TO EPIC CONVERSION TRANSPARENCY cloudy [facility] P TO EPIC CONVERSION COLOR (U) yellow [facility] T O EPIC CONVERSION 09/23/2016 11:5 4 AM CDT 09/23/2016 11:54 AM CDT Narrative [facility] TO EPIC CONVERSION - 09/23/2016 11:54 AM CDT This lab was migrated from [facility] and may be missing annotations or result text, please check the Media tab for the most complete results. us Kim Rojas DATABASE ADMINISTRATION ASSOCIATE URINE ORDERABLES Final Re sult [facility] TO EPIC CONVERSION documented in this encounter Visit Diagnoses Not on filedocumented in this encounter
--- OUTSIDE RECORDS SUMMARY | 2024-03-30 04:06 | XMS_ITS | Encounter Summary ---
Author Organization [facility] Address [address] [place] [address]. [place], [place] [address] [place] [address] Care Team Providers Care Cement Paver Name Role Phone Radha De La Cruz DIVERSIONAL THERAPIST Primary Care Provider Encounter Details Date Type Department Care Team (Late st Contact Info) Description 05/24/2016 Abstract [facility] CONVERSION [address] [place], [place] [id number] Jose Willson MD [address] [address] Social History Tobacco Use Types Packs/Day Years [...] documented as of this encounter Care Teams Cement Paver Relationship Specialty Start Date End Date Radha De La Cruz FNP [address] [place] [address] [place] [address] PCP - General Nurse Practitioner Family 01/28/18 documented as of this encounter
--- OUTSIDE RECORDS SUMMARY | 2024-03-30 04:06 | XMS_ITS | Encounter Summary ---
Author Organization [facility] Address [address] [place] [address]. [place], [place] [address] [place] [address] Care Team Providers Care Formula Room Worker Name Role Phone Radha De La Cruz Primary Care Provider [phone] Reason for Visit * Reason Comments Outside Record (SCAN) VISIT RECORD [facility] Encounter Details Date Type Department Care Team (Late st Contact Info) Description 11/25/2017 Scan HEALTH INFO SRVCS Scanned, Documents Outside Record (SCAN) (VISIT RECORD [facility]) Social History Tobacco Use Types [...] on filedocumented in this encounter Care Teams Formula Room Worker Relationship Specialty Start Date End Date Radha De La Cruz FNP [address] [place] [address] [place] [address] PCP - General Nurse Practitioner Family 01/28/18 documented as of this encounter
--- OUTSIDE RECORDS SUMMARY | 2024-03-30 04:06 | XMS_ITS | Encounter Summary ---
Author Organization [facility] Address [facility]. [place], [place] [address] [place] [address] Care Team Providers Care Educational Assistant Teacher Name Role Phone Unavailable Primary Care Provider Unavailabl e Encounter Details Date Type Department Care Team (Late st Contact Info) Description 10/30/[address] [facility] Clin[facility] Conversion Radha De La Cruz, [facility] [address] [place] [address] Social History Tobacco Use Types Packs/Day Years Used Date Smoking Tobacco: Never Assessed Comments Unknown Sex and Gender Information Value Date Recorded Sex Assigned at Not on file Legal Sex Female 2:50 AM CDT Gender Identity Not on file Sexual Orientation Not on file documented as of this encounter Last Filed Vital Signs Vital Sign Reading Time Taken Comments Blood Pressure 128/78 10/30/2016 8:05 AM CDT Pulse 70 10/30/2016 8:05 AM CDT Temperature - - Respiratory Rate - - Oxygen Saturation - - Inhaled Oxygen Concentration - - Weight 80.7 kg (178 lb) 10/30/2016 8:05 AM CDT Height 171.5 cm (5' 7.5 ) 10/30/2016 8:05 AM CDT Body Mass Index 27.47 10/30/2016 8:05 AM CDT documented in this encounter Plan of Treatment Not on file documented as of this encounter Visit Diagnoses Not on filedocumented in this encounter
--- OUTSIDE RECORDS SUMMARY | 2024-03-30 04:06 | XMS_ITS | Encounter Summary ---
Author Organization [facility] Address [facility]. [place], [place] [address] [place] [address] Care Team Providers Care Feather Curling Machine Operator Name Role Phone Unavailable Primary Care Provider Unavailabl e Encounter Details Date Type Department Care Team (Late st Contact Info) Description 04/25/2017 Abstract [facility] Conversion Radha eD La Cruz, [facility] [address] [place] [address] Social History Tobacco Use Types Packs/Day Years Used Date Smoking Tobacco: Never Assessed Comments Unknown Sex and Gender Information Value Date Recorded Sex Assigned at Not on file Legal Sex Female 2:50 AM CDT Gender Identity Not on file Sexual Orientation Not on file documented as of this encounter Last Filed Vital Signs Vital Sign Reading Time Taken Comments Blood Pressure 118/82 04/25/2017 1:43 PM GRANITE INSTALLER Pulse 64 04/25/2017 1:43 PM GRANITE INSTALLER Temperature - - Respiratory Rate - - Oxygen Saturation - - Inhaled Oxygen Concentration - - Weight 81.2 kg (179 lb) 04/25/2017 1:43 PM GRANITE INSTALLER Height 171.5 cm (5' 7.5 ) 04/25/2017 1:43 PM GRANITE INSTALLER Body Mass Index 27.62 04/25/2017 1:43 PM GRANITE INSTALLER documented in this encounter Plan of Treatment Not on file documented as of this encounter Visit Diagnoses Not on filedocumented in this encounter
--- OUTSIDE RECORDS SUMMARY | 2024-03-30 04:06 | XMS_ITS | Encounter Summary ---
Author Organization [facility] Address [facility]6 [facility]. [place], [place] [address] [place] [address] Care Team Providers Care Backup Operator Name Role Phone Unavailable Primary Care Provider Unavailabl e Encounter Details Date Type Department Care Team (Late st Contact Info) Description 06/23/[address] [facility] Conversion Md, Generic Conversion, Social History [...]
--- OUTSIDE RECORDS SUMMARY | 2024-03-30 04:06 | XMS_ITS | Encounter Summary ---
Author Organization [facility] Address [facility]. [place], [place] [address] [place] [address] Care Team Providers Care Postal Support Employee Name Role Phone Unavailable Primary Care Provider Unavailabl e Encounter Details Date Type Department Care Team (Late st Contact Info) Description 01/23/2018 Orders Only [place] [address] [place] [address] Suri Jj LPN Social History Tobacco Use [...] as of this encounter Visit Diagnoses Diagnosis Hyperlipidemia- Primary Other and unspecified hyperlipidemia documented in this encounter
--- OUTSIDE RECORDS SUMMARY | 2024-03-30 04:06 | XMS_ITS | Encounter Summary ---
Author Organization [facility] Address [address] [place] [address]. [place], [place] [address] [place] [address] Care Team Providers Care Actuarial Assistant Name Role Phone Radha De La Cruz Primary Care Provider [phone] Reason for Visit * Reason Comments Consult Encounter Details Date Type Department Care Team (Latest Contact Info) Description 05/18/2018 Scan HEALTH INFO SRVCS Scanned, Documents Consult Social History Tobacco Use Types Packs/Day [...] on filedocumented in this encounter Care Teams Actuarial Assistant Relationship Specialty Start Date End Date Radha De La Cruz FNP [address] [place] [address] [place] [address] PCP - General Nurse Practitioner Family 01/28/18 documented as of this encounter
--- OUTSIDE RECORDS SUMMARY | 2024-03-30 04:06 | XMS_ITS | Encounter Summary ---
Author Organization [facility] Address [facility]. [place] [address] [place] [address] Care Team Providers Care Linux Unix System Administrator Name Role Phone Unavailable Primary Care Provider Unavailabl e Encounter Details Date Type Department Care Team (Late st Contact Info) Description 12/12/2015 Abstract [facility] Conversion Md, Generic Conversion, Social [...]
--- OUTSIDE RECORDS SUMMARY | 2024-03-30 04:07 | XMS_ITS | Encounter Summary ---
Author Organization [facility] Address [facility]. [place], [place] [address] [place] [address] Care Team Providers Care Project Lead Name Role Phone Unavailable Primary Care Provider Unavailabl e Encounter Details Date Type Department Care Team (Late st Contact Info) Description 04/13/2012 Abstract [facility] Conversion Md, Generic Conversion, Social History [...]
--- OUTSIDE RECORDS SUMMARY | 2024-03-30 04:07 | XMS_ITS | Encounter Summary ---
Author Organization [facility] Address [facility]6 [facility]. [place], [place] [address] [place] [address] Care Team Providers Care Cadmium Plater Name Role Phone Radha De La Cruz ANESTHESIA TECH Primary Care Provider [phone] Encounter Details Date Type Department Care Team (Late st Contact Info) Description 02/04/2012 Abstract [facility] [address] [place] [address] Mery Witt DO [address] [place] [address] Social History Tobacco Use Types [...] documented as of this encounter Care Teams Cadmium Plater Relationship Specialty Start Date End Date Radha De La Cruz FNP [address] [place] [address] [place] [address] PCP - General Nurse Practitioner Family 01/28/18 documented as of this encounter
--- OUTSIDE RECORDS SUMMARY | 2024-03-30 04:07 | XMS_ITS | Encounter Summary ---
Author Organization [facility] Address [facility]. [place], [place] [address] [place] [address] Care Team Providers Care Field Merchandiser Name Role Phone Unavailable Primary Care Provider Unavailabl e Encounter Details Date Type Department Care Team (Late st Contact Info) Description 07/23/2011 Abstract [facility] Clinics Conversion Md, Generic Conversion, [...]
--- OUTSIDE RECORDS SUMMARY | 2024-03-30 04:07 | XMS_ITS | Encounter Summary ---
Author Organization [facility] Address [facility]. [place], [place] [address] [place] [address] Care Team Providers Care Batt Packer Name Role Phone Unavailable Primary Care Provider Unavailabl e Encounter Details Date Type Department Care Team (Late st Contact Info) Description 09/14/2015 Abstract [facility] Conversion Radha De La Cruz, [facility] [address] [place] [address] Social History Tobacco Use Types Packs/Day Years Used Date Smoking Tobacco: Never Assessed Comments Unknown Sex and Gender Information Value Date Recorded Sex Assigned at Not on file Legal Sex Female 2:50 AM CDT Gender Identity Not on file Sexual Orientation Not on file documented as of this encounter Last Filed Vital Signs Vital Sign Reading Time Taken Comments Blood Pressure 138/80 09/14/2015 2:25 PM CDT Pulse 78 09/14/2015 2:25 PM CDT Temperature - - Respiratory Rate - - Oxygen Saturation - - Inhaled Oxygen Concentration - - Weight 79.8 kg (176 lb) 09/14/2015 2:25 PM CDT Height 171.5 cm (5' 7.5 ) 09/14/2015 2:25 PM CDT Body Mass Index 27.16 09/14/2015 2:25 PM CDT documented in this encounter Plan of Treatment Not on file documented as of this encounter Visit Diagnoses Not on filedocumented in this encounter
--- OUTSIDE RECORDS SUMMARY | 2024-03-30 04:07 | XMS_ITS | Encounter Summary ---
Author Organization [facility] Address [facility]6 [facility]. [place], [place] [address] [place] [address] Care Team Providers Care Aircraft Shipping Checker Name Role Phone Unavailable Primary Care Provider Unavailabl e Encounter Details Date Type Department Care Team (Late st Contact Info) Description 01/03/2014 Abstract [facility] Conversion Md, Generic Conversion, Social History [...]
--- OUTSIDE RECORDS SUMMARY | 2024-03-30 04:07 | XMS_ITS | Encounter Summary ---
Author Organization [facility] Address [facility]. [place], [place] [address] [place] [address] Care Team Providers Care Production Operations Inspector Name Role Phone Radha De La Cruz PLUG OVERWRAP MACHINE TENDER Primary Care Provider [phone] Encounter Details Date Type Department Care Team (Late st Contact Info) Description 08/28/2010 Abstract [facility] [address] [place] [address] Mery Witt DO [address] [place] [address] Social History Tobacco Use Types Packs/Day [...] as of this encounter Care Teams Production Operations Inspector Relationship Specialty Start Date End Date Radha De La Cruz FNP [address] [place] [address] [place] [address] PCP - General Nurse Practitioner Family 01/28/18 documented as of this encounter
--- OUTSIDE RECORDS SUMMARY | 2024-03-30 04:07 | XMS_ITS | Encounter Summary ---
Author Organization [facility] Address Replaced by [facility]. [place], [place] [address] [place] [address] Care Team Providers Care Cnc Set Up Operator Name Role Phone Unavailable Primary Care Provider Unavailabl e Encounter Details Date Type Department Care Team (Late st Contact Info) Description 09/17/2013 Abstract [facility] Conversion Md, Generic Conversion, [...]
--- OUTSIDE RECORDS SUMMARY | 2024-03-30 04:07 | XMS_ITS | Encounter Summary ---
Author Organization [facility] Address [facility]. [place], [place] [address] [place] [address] Care Team Providers Care Mini Shifter Name Role Phone Unavailable Primary Care Provider Unavailabl e Encounter Details Date Type Department Care Team (Late st Contact Info) Description 02/04/2012 Abstract [facility] Conversion Md, Generic Conversion, Social [...]
--- OUTSIDE RECORDS SUMMARY | 2024-03-30 04:07 | XMS_ITS | Encounter Summary ---
Author Organization [facility] Address [address] [place] [address]. [place], [place] [address] [place] [address] Care Team Providers Care Outboard Motor Assembler Name Role Phone Unavailable Primary Care Provider Unavailabl e Encounter Details Date Type Department Care Team (Late st Contact Info) Description 04/01/2014 Abstract [facility] Conversion Radha De La Cruz, [facility] [address] [place] [address] Social History Tobacco Use Types Packs/Day Years Used Date Smoking Tobacco: Never Assessed Comments Unknown Sex and Gender Information Value Date Recorded Sex Assigned at Not on file Legal Sex Female 2:50 AM CDT Gender Identity Not on file Sexual Orientation Not on file documented as of this encounter Last Filed Vital Signs Vital Sign Reading Time Taken Comments Blood Pressure 126/70 04/01/2014 1:43 PM GREEN FEED ATTENDANT Pulse 78 04/01/2014 1:43 PM GREEN FEED ATTENDANT Temperature - - Respiratory Rate - - Oxygen Saturation - - Inhaled Oxygen Concentration - - Weight 78.9 kg (174 lb) 04/01/2014 1:43 PM GREEN FEED ATTENDANT Height - - Body Mass Index 26.85 06/18/2013 1:03 PM CDT documented in this encounter Plan of Treatment Not on file documented as of this encounter Visit Diagnoses Not on filedocumented in this encounter
--- OUTSIDE RECORDS SUMMARY | 2024-03-30 04:07 | XMS_ITS | Encounter Summary ---
Author Organization [facility] Address [facility]6 [facility]. [place], [place] [address] [place] [address] Care Team Providers Care Machine Stemmer Name Role Phone Unavailable Primary Care Provider Unavailabl e Encounter Details Date Type Department Care Team (Late st Contact Info) Description 03/23/2015 Abstract [facility] Clinics Conversion Md, Generic Conversion, [...]
--- OUTSIDE RECORDS SUMMARY | 2024-03-30 04:07 | XMS_ITS | Encounter Summary ---
Author Organization [facility] Address [facility]6 [facility]. [place], [place] [address] [place] [address] Care Team Providers Care Aircraft Refueller Name Role Phone Unavailable Primary Care Provider Unavailabl e Encounter Details Date Type Department Care Team (Late st Contact Info) Description 12/02/2014 Abstract [facility] Conversion Md, Generic Conversion, Social [...]
--- OUTSIDE RECORDS SUMMARY | 2024-03-30 04:07 | XMS_ITS | Encounter Summary ---
Author Organization [facility] Address [facility]6 [facility]. [place], [place] [address] [place] [address] Care Team Providers Care Crop And Soil Technician Name Role Phone Radha De La Cruz REHABILITATION TECH Primary Care Provider [phone] Encounter Details Date Type Department Care Team (Late st Contact Info) Description 06/11/2005 Abstract [facility] [address] [place] [address] Mery Witt DO [address] [place] [address] Social History Tobacco Use Types [...] documented as of this encounter Care Teams Crop And Soil Technician Relationship Specialty Start Date End Date Radha De La Cruz FNP [address] [place] [address] [place] [address] PCP - General Nurse Practitioner Family 01/28/18 documented as of this encounter
--- OUTSIDE RECORDS SUMMARY | 2024-03-30 04:07 | XMS_ITS | Encounter Summary ---
Author Organization [facility] Address [facility]6 [facility]. [place], [place] [address] [place] [address] Care Team Providers Care Application Tester Name Role Phone Unavailable Primary Care Provider Unavailabl e Encounter Details Date Type Department Care Team (Late st Contact Info) Description 05/20/2011 Abstract [facility] Conversion Md, Generic Conversion, Social History [...]
--- OUTSIDE RECORDS SUMMARY | 2024-03-30 04:07 | XMS_ITS | Encounter Summary ---
Author Organization [facility] Address [facility]6 [facility] [place], [place] [address] [place] [address] Care Team Providers Care English Faculty Member Name Role Phone Unavailable Primary Care Provider Unavailabl e Encounter Details Date Type Department Care Team (Late st Contact Info) Description 04/27/2012 Abstract [facility] Conversion Md, Generic Conversion, Social [...]
--- OUTSIDE RECORDS SUMMARY | 2024-03-30 04:07 | XMS_ITS | Encounter Summary ---
Author Organization [facility] Address [facility]6 [facility]. [place], [place] [address] [place] [address] Care Team Providers Care Head Waiter/Waitress Name Role Phone Unavailable Primary Care Provider Unavailabl e Encounter Details Date Type Department Care Team (Late st Contact Info) Description 12/27/2013 Abstract [facility] Clin[facility] Conversion Md, Generic Conversion, [...]
--- OUTSIDE RECORDS SUMMARY | 2024-03-30 04:07 | XMS_ITS | Encounter Summary ---
Author Organization [facility] Address [facility] [facility]. [place], [place] [address] [place] [address] Care Team Providers Care Knocker Off Name Role Phone Unavailable Primary Care Provider Unavailabl e Encounter Details Date Type Department Care Team (Late st Contact Info) Description 11/24/2013 Abstract [facility] Conversion Md, Generic Conversion, Social [...]
--- OUTSIDE RECORDS SUMMARY | 2024-03-30 04:07 | XMS_ITS | Encounter Summary ---
Author Organization [facility] Address [facility]. [place], [place] [address] [place] [address] Care Team Providers Care Supply Chain Systems Manager Name Role Phone Radha De La Cruz PARKING LOT LABORER Primary Care Provider [phone] Encounter Details Date Type Department Care Team (Late st Contact Info) Description 05/26/2013 Abstract [facility] [address] [place] [address] Mery Witt DO [address] [place] [address] Social History Tobacco Use Types [...] documented as of this encounter Care Teams Supply Chain Systems Manager Relationship Specialty Start Date End Date Radha De La Cruz FNP [address] [place] [address] [place] [address] PCP - General Nurse Practitioner Family 01/28/18 documented as of this encounter
--- OUTSIDE RECORDS SUMMARY | 2024-03-30 04:07 | XMS_ITS | Encounter Summary ---
Author Organization [facility] Address [facility]. [place], [place] [address] [place] [address] Care Team Providers Care Rolled Materials Worker Name Role Phone Unavailable Primary Care Provider Unavailabl e Encounter Details Date Type Department Care Team (Late st Contact Info) Description 10/17/2015 Abstract [facility] Conversion Radha De La Cruz, [facility] [address] [place] [address] Social History Tobacco Use Types Packs/Day Years Used Date Smoking Tobacco: Never Assessed Comments Unknown Sex and Gender Information Value Date Recorded Sex Assigned at Not on file Legal Sex Female 2:50 AM CDT Gender Identity Not on file Sexual Orientation Not on file documented as of this encounter Last Filed Vital Signs Vital Sign Reading Time Taken Comments Blood Pressure 122/74 10/17/2015 8:16 AM CDT Pulse 74 10/17/2015 8:16 AM CDT Temperature - - Respiratory Rate - - Oxygen Saturation - - Inhaled Oxygen Concentration - - Weight 79.4 kg (175 lb) 10/17/2015 8:16 AM CDT Height 171.5 cm (5' 7.5 ) 10/17/2015 8:16 AM CDT Body Mass Index 27 10/17/2015 8:16 AM CDT documented in this encounter Plan of Treatment Not on file documented as of this encounter Visit Diagnoses Not on filedocumented in this encounter
--- OUTSIDE RECORDS SUMMARY | 2024-03-30 04:07 | XMS_ITS | Encounter Summary ---
Author Organization [facility] Address [facility]6 [facility]. [place], [place] [address] [place] [address] Care Team Providers Care Bending Roll Hand Name Role Phone Unavailable Primary Care Provider Unavailabl e Encounter Details Date Type Department Care Team (Late st Contact Info) Description 05/04/2012 Abstract [facility] Conversion Md, Generic Conversion, Social [...]
--- OUTSIDE RECORDS SUMMARY | 2024-03-30 04:07 | XMS_ITS | Encounter Summary ---
Author Organization [facility] Address [facility] [place], [place] [address] [place] [address] Care Team Providers Care Air Value Tester Name Role Phone Unavailable Primary Care Provider Unavailabl e Encounter Details Date Type Department Care Team (Late st Contact Info) Description 11/22/2013 Abstract [facility] [place] Clin[facility] Conversion Radha De La Cruz, [facility] [address] [place] [id number] Social History Tobacco Use Types Packs/Day Years [...] Procedure Name Priority Date/Time Associated Diagnosis Comments LIPID PANEL Routine 11/22/2013 12:27 PM CDT HEPATIC FUNCTION PANEL Routine 11/22/2013 12:27 PM CDT documented in this encounter Results * (ABNORMAL) LIPID PANEL (11/22/2013 12:27 PM CDT) CHOLESTEROL 172 120 - 200 mg/dL [facility] TO EPIC CONVERSION TRIGLYCERIDES 93 20 - 200 mg/dL [facility] CONVERSION HDL 74(H) 0 - 65 mg/dL [facility] CONVERSION LDL (CALCULATED) 79 10 - 130 mg/dL [facility] TO [facility] CONVERSION RISK 2 [facility] O EPIC CONVERSION 11/22/2013 12:2 7 PM CDT 11/22/2013 12:27 PM CDT Narrative [facility] TO [facility] CONVERSION - 11/22/2013 1:17 PM CDT This lab was migrated from [facility] and may be missing annotations or result text, please check the Media tab for the most complete results. Radha De La Cruz YARN MERCERIZER OPERATOR HELPER LABORATORY Final Result [facility] TO [facility] CONVERSION * HEPATIC FUNCTION PANEL (11/22/2013 12:27 PM CDT) BILIRUBIN TOTAL S/P/B 0.3 0.1 - 1.2 mg/dL [facility] TO EPIC CONVERSION BILIRUBIN DIRECT S/P/B 0.1 0.0 - 0.3 mg/dL [facility] TO [facility] CONVERSION ALKALINE PHOSPHATASE S/P/B 71 35 - 104 U/L [facility] TO EPIC CONVERSION ALBUMIN S/P/B 4.6 3.5 - 5.2 g/dL [facility] TO [facility] CONVERSION AST 22 0 - 32 U/L [facility] TO EP[facility] CONVERSION ALT 22 0 - 33 U/L [facility] TO [facility] CONVERSION TOTAL PROTEIN S/P/B 7.2 6.6 - 8.7 g/dL [facility] TO [facility] CONVERSION 11/22/2013 12:2 7 PM CDT 11/22/2013 12:27 PM CDT Narrative [facility] TO EP[facility] CONVERSION - 11/22/2013 1:17 PM CDT This lab was migrated from [facility] and may be missing annotations or result text, please check the Media tab for the most complete results. Radha De La Cruz YARN MERCERIZER OPERATOR HELPER LABORATORY Final Result [facility] TO EP[facility] CONVERSION documented in this encounter Visit Diagnoses Not on filedocumented in this encounter
--- OUTSIDE RECORDS SUMMARY | 2024-03-30 04:07 | XMS_ITS | Encounter Summary ---
Author Organization [facility] Address [facility]. [place], [place] [address] [place] [address] Care Team Providers Care Destination Coordinator Name Role Phone Unavailable Primary Care Provider Unavailabl e Encounter Details Date Type Department Care Team (Late st Contact Info) Description 12/11/2015 Abstract [facility] Conversion Radha De La Cruz, [facility] [address] [place] [id number] Social History Tobacco Use Types Packs/Day Years [...] Date/Time Associated Diagnosis Comments LIPID PANEL Routine 12/11/2015 12:12 PM CDT HEPATIC FUNCTION PANEL Routine 12/11/2015 12:12 PM CDT documented in this encounter Results * HEPATIC FUNCTION PANEL (12/11/2015 12:12 PM CDT) BILIRUBIN TOTAL S/P/B 0.5 0.1 - 1.2 mg/dL [facility] TO [facility] CONVERSION BILIRUBIN DIRECT S/P/B 0.1 0.0 - 0.3 mg/dL [facility] TO EPIC CONVERSION ALKALINE PHOSPHATASE S/P/B 67 35 - 104 U/L [facility] TO EPIC CONVERSION ALBUMIN S/P/B 4.8 3.5 - 5.2 g/dL [facility] TO EP[facility] CONVERSION AST 21 0 - 32 U/L [facility] TO EPIC CONVERSION ALT 17 0 - 33 U/L [facility] TO EP[facility] CONVERSION TOTAL PROTEIN S/P/B 7.2 6.6 - 8.7 g/dL [facility] TO [facility] CONVERSION 12/11/2015 12:1 2 PM CDT 12/11/2015 12:12 PM CDT Narrative [facility] TO EPIC CONVERSION - 12/11/2015 1:11 PM CDT This lab was migrated from [facility] and may be missing annotations or result text, please check the Media tab for the most complete results. us Radha [facility] Final Result Performing Organization Address City/[facility]/ZIP Co de Phone Number [facility] TO EPIC CONVERSION * (ABNORMAL) LIPID PANEL (12/11/2015 12:12 PM CDT) [facility] [address] CHOLESTEROL 215(H) 120 - 200 mg/dL [facility] TO EPIC CONVERSION TRIGLYCERIDES 103 20 - 200 mg/dL [facility] TO EPIC CONVERSION HDL 72(H) 0 - 65 mg/dL [facility] TO [facility] CONVERSION LDL (CALCULATED) 122 10 - 130 mg/dL [facility] TO [facility] CONVERSION RISK 3 [facility] T O EPIC CONVERSION 12/11/2015 12:1 2 PM CDT 12/11/2015 12:12 PM CDT Narrative [facility] TO EP[facility] CONVERSION - 12/11/2015 1:11 PM CDT This lab was migrated from [facility] and may be missing annotations or result text, please check the Media tab for the most complete results. us Radha [facility] Final Result [facility] TO EPIC CONVERSION documented in this encounter Visit Diagnoses Not on filedocumented in this encounter
--- OUTSIDE RECORDS SUMMARY | 2024-03-30 04:07 | XMS_ITS | Encounter Summary ---
Author Organization [facility] Address [facility]6 [facility] [place], [place] [address] [place] [address] Care Team Providers Care Saw Offbearer Name Role Phone Radha De La Cruz Primary Care Provider Encounter Details Date Type Department Care Team (Late st Contact Info) Description 05/22/2015 Abstract [facility] [address] [place], [place] [phone] Radha De La Cruz FNP [address] [place], [place] [id number] Social History Tobacco Use Types Packs/Day Years [...] documented as of this encounter Care Teams Saw Offbearer Relationship Specialty Start Date End Date Radha De La Cruz FNP [address] [place] [address] [place] [address] PCP - General Nurse Practitioner Family 01/28/18 documented as of this encounter
--- OUTSIDE RECORDS SUMMARY | 2024-03-30 04:07 | XMS_ITS | Encounter Summary ---
Author Organization [facility] Address [facility]6 [facility]. [place], [place] [address] [place] [address] Care Team Providers Care Motorized Squad Lieutenant Name Role Phone Unavailable Primary Care Provider Unavailabl e Encounter Details Date Type Department Care Team (Late st Contact Info) Description 03/25/2011 Abstract [facility] Conversion Md, Generic Conversion, Social [...]
--- OUTSIDE RECORDS SUMMARY | 2024-03-30 04:07 | XMS_ITS | Encounter Summary ---
Author Organization [facility] Address [address] [place] [address]. [place], [place] [address] [place] [address] Care Team Providers Care Workforce Planner Name Role Phone Radha De La Cruz LEAD C DEVELOPER Primary Care Provider [phone] Encounter Details Date Type Department Care Team (Late st Contact Info) Description 05/24/2002 Abstract [facility] [address] [place], [place] [id number] Dwight Cadena MD 602 [facility] [address] [place] [phone] Social History Tobacco Use Types Packs/Day Years [...] documented as of this encounter Care Teams Workforce Planner Relationship Specialty Start Date End Date Radha De La Cruz FNP [address] [place] [address] [place] [address] PCP - General Nurse Practitioner Family 01/28/18 documented as of this encounter
--- OUTSIDE RECORDS SUMMARY | 2024-03-30 04:07 | XMS_ITS | Encounter Summary ---
Author Organization [facility] Address [address] [place] [address]. [place], [place] [address] [place] [address] Care Team Providers Care Mold Cutting Machine Operator Name Role Phone Unavailable Primary Care Provider Unavailabl e Encounter Details Date Type Department Care Team (Late st Contact Info) Description 06/18/2013 Abstract [facility] Conversion Radha De La Cruz, [facility] [address] [place] [address] Social History Tobacco Use Types Packs/Day Years Used Date Smoking Tobacco: Never Assessed Comments Unknown Sex and Gender Information Value Date Recorded Sex Assigned at Not on file Legal Sex Female 2:50 AM CDT Gender Identity Not on file Sexual Orientation Not on file documented as of this encounter Last Filed Vital Signs Vital Sign Reading Time Taken Comments Blood Pressure 122/68 06/18/2013 1:03 PM CDT Pulse 78 06/18/2013 1:03 PM CDT Temperature - - Respiratory Rate - - Oxygen Saturation - - Inhaled Oxygen Concentration - - Weight 78.5 kg (173 lb) 06/18/2013 1:03 PM CDT Height 171.5 cm (5' 7.5 ) 06/18/2013 1:03 PM CD T Body Mass Index 26.7 06/18/2013 1:03 PM CDT documented in this encounter Plan of Treatment Not on file documented as of this encounter Visit Diagnoses Not on filedocumented in this encounter
--- OUTSIDE RECORDS SUMMARY | 2024-03-30 04:07 | XMS_ITS | Encounter Summary ---
Author Organization [facility] Address [facility]6 [facility]. [place], [place] [address] [place] [address] Care Team Providers Care Strategic Account Executive Name Role Phone Unavailable Primary Care Provider Unavailabl e Encounter Details Date Type Department Care Team (Late st Contact Info) Description 02/03/2012 Abstract [facility] Clinics Conversion Md, Generic Conversion, Social [...]
--- OUTSIDE RECORDS SUMMARY | 2024-03-30 04:07 | XMS_ITS | Encounter Summary ---
Author Organization [facility] Address [facility]6 [facility]. [place], [place] [address] [place] [address] Care Team Providers Care Coil Winding Machines Set Up Mechanic Name Role Phone Radha De La Cruz Primary Care Provider [phone] Encounter Details Date Type Department Care Team (Late st Contact Info) Description 11/22/2013 Abstract [facility] [address] [place], [place] [id number] Radha De La Cruz FNP [address] [place], [place] [id number] Social History Tobacco Use Types Packs/Day Years [...] documented as of this encounter Care Teams Coil Winding Machines Set Up Mechanic Relationship Specialty Start Date End Date Radha De La Cruz FNP [address] [place] [address] [place] [address] PCP - General Nurse Practitioner Family 01/28/18 documented as of this encounter
--- OUTSIDE RECORDS SUMMARY | 2024-03-30 04:07 | XMS_ITS | Encounter Summary ---
Author Organization [facility] Address [facility]6 [facility]. [place], [place] [address] [place] [address] Care Team Providers Care Service Liaison Representative Name Role Phone Unavailable Primary Care Provider Unavailabl e Encounter Details Date Type Department Care Team (Late st Contact Info) Description 05/21/2011 Abstract [facility] Conversion Md, Generic Conversion, Social [...]
--- OUTSIDE RECORDS SUMMARY | 2024-03-30 04:07 | XMS_ITS | Encounter Summary ---
Author Organization [facility] Address [facility] hospital6 [facility] [place], [place] [address] [place] [address] Care Team Providers Care Palm And Back Forger Name Role Phone Unavailable Primary Care Provider Unavailabl e Encounter Details Date Type Department Care Team (Late st Contact Info) Description 05/28/2015 Abstract [facility] Conversion Md, Generic Conversion, Social [...]
--- OUTSIDE RECORDS SUMMARY | 2024-03-30 04:07 | XMS_ITS | Encounter Summary ---
Author Organization [facility] Address [facility]6 [facility]. [place], [place] [address] [place] [address] Care Team Providers Care Ton Cylinder Inspector Name Role Phone Unavailable Primary Care Provider Unavailabl e Encounter Details Date Type Department Care Team (Late st Contact Info) Description 04/20/2012 Abstract [facility] Conversion Md, Generic Conversion, [...]
--- OUTSIDE RECORDS SUMMARY | 2024-03-30 04:07 | XMS_ITS | Encounter Summary ---
Author Organization [facility] Address [facility]6 [facility]. [place], [place] [address] [place] [address] Care Team Providers Care Leather Worker Name Role Phone Unavailable Primary Care Provider Unavailabl e Encounter Details Date Type Department Care Team (Late st Contact Info) Description 05/21/2013 Abstract [facility] Conversion Md, Generic Conversion, Social History Tobacco [...]
--- OUTSIDE RECORDS SUMMARY | 2024-03-30 04:07 | XMS_ITS | Encounter Summary ---
Author Organization [facility] Address [facility]6 [facility]. [place], [place] [address] [place] [address] Care Team Providers Care Quality Liaison Name Role Phone Unavailable Primary Care Provider Unavailabl e Encounter Details Date Type Department Care Team (Late st Contact Info) Description 06/22/2013 Abstract [facility] Conversion Md, Generic Conversion, Social History [...]
--- OUTSIDE RECORDS SUMMARY | 2024-03-30 04:07 | XMS_ITS | Encounter Summary ---
Author Organization [facility] Address [facility]6 [facility] [place], [place] [address] [place] [address] Care Team Providers Care Rn Wound Care Name Role Phone Radha De La Cruz BIOMEDICAL ENGINEERING TECHNOLOGIST Primary Care Provider [phone] Encounter Details Date Type Department Care Team (Late st Contact Info) Description 06/30/2007 Abstract [facility] [address] [place] [address] [place] [address] [place] [address] Social History Tobacco Use Types Packs/Day Years [...] as of this encounter Care Teams Rn Wound Care Relationship Specialty Start Date End Date Radha De La Cruz FNP [address] [place] [address] [place] [address] PCP - General Nurse Practitioner Family 01/28/18 documented as of this encounter
--- OUTSIDE RECORDS SUMMARY | 2024-03-30 04:07 | XMS_ITS | Encounter Summary ---
Author Organization [facility] Address [facility]ly [facility]. [place], [place] [address] [place] [address] Care Team Providers Care Academic Manager Name Role Phone Unavailable Primary Care Provider Unavailabl e Encounter Details Date Type Department Care Team (Late st Contact Info) Description 05/22/2015 Abstract [facility] Conversion Radha De La Cruz, [facility] [address] [place] [phone] Social History Tobacco Use Types Packs/Day Years [...] Procedure Name Priority Date/Time Associated Diagnosis Comments AST/SGOT Routine 05/22/2015 12:50 PM CDT LIPID PANEL Routine 05/22/2015 12:50 PM CDT ALT/SGPT Routine 05/22/2015 12:50 PM CDT documented in this encounter Results * ALT/SGPT (05/22/2015 12:50 PM CDT) ALT 17 0 - 33 U/L [facility] TO EPIC CONVERSION 05/22/2015 12:5 0 PM CDT 05/22/2015 12:50 PM CDT Narrative [facility] TO EPIC CONVERSION - 05/22/2015 1:33 PM CDT This lab was migrated from [facility] and may be missing annotations or result text, please check the Media tab for the most complete results. Radha De La Cruz [facility] Final Result Performing Organization Address City/[facility]/ZIP Co de Phone Number [facility] TO EPIC CONVERSION * (ABNORMAL) LIPID PANEL (05/22/2015 12:50 PM CDT) CHOLESTEROL 179 120 - 200 mg/dL [facility] TO EPIC CONVERSION TRIGLYCERIDES 131 20 - 200 mg/dL [facility] TO EPIC CONVERSION HDL 67(H) 0 - 65 mg/dL [facility] TO EPIC CONVERSION LDL (CALCULATED) 86 10 - 130 mg/dL [facility] TO EPIC CONVERSION RISK 3 [facility] T O EPIC CONVERSION 05/22/2015 12:5 0 PM CDT 05/22/2015 12:50 PM CDT Narrative [facility] TO EPIC CONVERSION - 05/22/2015 1:32 PM CDT This lab was migrated from [facility] and may be missing annotations or result text, please check the Media tab for the most complete results. Radha De La Cruz ANNEALING OPERATOR LABORATORY Final Result Performing Organization Address [facility] de Phone Number [facility] TO EPIC CONVERSION * AST/SGOT (05/22/2015 12:50 PM CDT) AST 21 0 - 32 U/L [facility] TO EPIC CONVERSION 05/22/2015 12:5 0 PM CDT 05/22/2015 12:50 PM CDT Narrative [facility] TO EPIC CONVERSION - 05/22/2015 1:33 PM CDT This lab was migrated from [facility] and may be missing annotations or result text, please check the Media tab for the most complete results. Radha [facility] Final Result Performing Organization Address City/[facility]/ZIP Co de Phone Number [facility] TO EPIC CONVERSION documented in this encounter Visit Diagnoses Not on filedocumented in this encounter
--- OUTSIDE RECORDS SUMMARY | 2024-03-30 04:07 | XMS_ITS | Encounter Summary ---
Author Organization [facility] Address Critical access hospital6 [facility]. [place], [place] [address] [place] [address] Care Team Providers Care Recreation Attendant Name Role Phone Radha De La Cruz FREIGHT CAR LOADER Primary Care Provider [phone] Encounter Details Date Type Department Care Team (Late st Contact Info) Description 06/11/2007 Abstract [facility] Diagnostic Imaging [address] [place] [address] Mery Witt, DO [address] [place] [address] Social History Tobacco Use Types Packs/Day [...] documented as of this encounter Care Teams Recreation Attendant Relationship Specialty Start Date End Date Radha De La Cruz FNP [address] [place] [address] [place] [address] PCP - General Nurse Practitioner Family 01/28/18 documented as of this encounter
--- OUTSIDE RECORDS SUMMARY | 2024-03-30 04:07 | XMS_ITS | Encounter Summary ---
Author Organization [facility] Address [address] [place] [address]. [place], [place] [address] [place] [address] Care Team Providers Care Seismic Prospecting Observer Helper Name Role Phone Unavailable Primary Care Provider Unavailabl e Encounter Details Date Type Department Care Team (Late st Contact Info) Description 06/06/2015 Abstract [facility] Clinics Conversion Radha De La Cruz, [facility] [address] [place] [phone] Social History Tobacco Use Types Packs/Day Years Used Date Smoking Tobacco: Never Assessed Comments Unknown Sex and Gender Information Value Date Recorded Sex Assigned at Not on file Legal Sex Female 2:50 AM CDT Gender Identity Not on file Sexual Orientation Not on file documented as of this encounter Last Filed Vital Signs Vital Sign Reading Time Taken Comments Blood Pressure 144/90 06/06/2015 1:27 PM CDT Pulse 70 06/06/2015 1:27 PM CDT Temperature - - Respiratory Rate - - Oxygen Saturation - - Inhaled Oxygen Concentration - - Weight 81.2 kg (179 lb) 06/06/2015 1:27 PM CDT Height - - Body Mass Index 27.62 06/18/2013 1:03 PM CDT documented in this encounter Plan of Treatment Not on file documented as of this encounter Procedures Procedure Name Priority Date/Time Associated Diagnosis Comments HEMOGLOBIN, GLYCOSYLATED Routine 06/06/2015 2:06 PM CDT documented in this encounter Results * HEMOGLOBIN, GLYCOSYLATED (06/06/2015 2:06 PM CDT) HGB A1C 5.7 4.8 - 5.9 % [facility] TO EPIC CONVERSION Comment: Note: ??Hemoglobinopathies such as HbF, HbS, etc. may give incorrect results with this test. GLUCOSE 104 mg/dL [facility] T O EPIC CONVERSION 06/06/2015 2:0 6 PM CDT 06/06/2015 2:06 PM CDT Narrative [facility] TO EPIC CONVERSION - 06/06/2015 2:37 PM CDT This lab [facility] from [facility] and may be missing annotations or result text, please check the Media tab for the most complete results. us Radha [facility] Final Result [facility] TO EPIC CONVERSION documented in this encounter Visit Diagnoses Not on filedocumented in this encounter
--- OUTSIDE RECORDS SUMMARY | 2024-03-30 04:07 | XMS_ITS | Encounter Summary ---
Author Organization [facility] Address [facility]6 [facility]. [place], [place] [address] [place] [address] Care Team Providers Care Lining Stitcher Name Role Phone Radha De La Cruz INSPECTOR CRYSTAL Primary Care Provider [phone] Encounter Details Date Type Department Care Team (Late st Contact Info) Description 04/01/2007 Abstract [facility] Diagnostic Imaging [address] [place] [phone] Kareem Coles MD [address] [place] [address] Social History Tobacco Use Types Packs/Day [...] documented as of this encounter Care Teams Lining Stitcher Relationship Specialty Start Date End Date Radha De La Cruz FNP [address] [place] [address] [place] [address] PCP - General Nurse Practitioner Family 01/28/18 documented as of this encounter
--- OUTSIDE RECORDS SUMMARY | 2024-03-30 04:07 | XMS_ITS | Encounter Summary ---
Author Organization [facility] Address [facility]6 [facility]. [place], [place] [address] [place] [address] Care Team Providers Care Miner Operator Name Role Phone Unavailable Primary Care Provider Unavailabl e Encounter Details Date Type Department Care Team (Late st Contact Info) Description 03/13/2011 Abstract [facility] Clinics Conversion Md, Generic Conversion, Social [...]
--- OUTSIDE RECORDS SUMMARY | 2024-03-30 04:07 | XMS_ITS | Encounter Summary ---
Author Organization [facility] Address [facility]6 [facility]. [place], [place] [address] [place] [address] Care Team Providers Care Base Brander Name Role Phone Radha De La Cruz Primary Care Provider [phone] Encounter Details Date Type Department Care Team (Late st Contact Info) Description 06/06/2015 Abstract [facility] [address] [facility] [place] [phone] Radha De La Cruz FNP [address] [place] [phone] Social History Tobacco Use Types Packs/Day Years [...] documented as of this encounter Care Teams Base Brander Relationship Specialty Start Date End Date Radha De La Cruz FNP [address] [place] [address] [place] [address] PCP - General Nurse Practitioner Family 01/28/18 documented as of this encounter
--- OUTSIDE RECORDS SUMMARY | 2024-03-30 04:07 | XMS_ITS | Encounter Summary ---
Author Organization [facility] Address [facility]6 [facility]. [place], [place] [address] [place] [address] Care Team Providers Care Cover Marker Name Role Phone Radha De La Cruz FLIGHT STEWARD Primary Care Provider [phone] Encounter Details Date Type Department Care Team (Late st Contact Info) Description 06/07/2005 Abstract [facility] [address] [place] [address] Mery Witt DO [address] [place] [address] Social History Tobacco Use Types [...] documented as of this encounter Care Teams Cover Marker Relationship Specialty Start Date End Date Radha De La Cruz FNP [address] [place] [address] [place] [address] PCP - General Nurse Practitioner Family 01/28/18 documented as of this encounter
--- OUTSIDE RECORDS SUMMARY | 2024-03-30 04:07 | XMS_ITS | Encounter Summary ---
Author Organization [facility] Address [facility]6 [facility]. [place], [place] [address] [place] [address] Care Team Providers Care Auto Dismantler Name Role Phone Unavailable Primary Care Provider Unavailabl e Encounter Details Date Type Department Care Team (Late st Contact Info) Description 06/05/2015 Abstract [facility] Conversion Md, Generic Conversion, Social [...]
--- OUTSIDE RECORDS SUMMARY | 2024-03-30 04:07 | XMS_ITS | Encounter Summary ---
Author Organization [facility] Address [facility]6 [facility]. [place], [place] [address] [place] [address] Care Team Providers Care Vocal Music Teacher Name Role Phone Unavailable Primary Care Provider Unavailabl e Encounter Details Date Type Department Care Team (Late st Contact Info) Description 01/02/2015 Abstract [facility] Clinics Conversion Md, Generic Conversion, [...]
--- OUTSIDE RECORDS SUMMARY | 2024-03-30 04:07 | XMS_ITS | Encounter Summary ---
Author Organization [facility] Address [facility]6 [facility]. [place], [place] [address] [place] [address] Care Team Providers Care Motorcycle Deliverer Name Role Phone Unavailable Primary Care Provider Unavailabl e Encounter Details Date Type Department Care Team (Late st Contact Info) Description 05/28/2013 Abstract [facility]ics Conversion Md, Generic Conversion, Social [...]
--- OUTSIDE RECORDS SUMMARY | 2024-03-30 04:08 | XMS_ITS | Encounter Summary ---
Author Organization [facility] Address [address] [place] [address]. [place], [place] [address] [place] [address] Care Team Providers Care Management Lead Name Role Phone Radha De La Cruz Primary Care Provider [phone] Encounter Details Date Type Department Care Team (Late st Contact Info) Description 05/19/2002 Abstract [facility] CONVERSION [address] [place] [address] , Generic MD [place] Social History Tobacco Use Types Packs/Day Years [...] on filedocumented in this encounter Care Teams Management Lead Relationship Specialty Start Date End Date Radha De La Cruz FNP [address] [place] [address] [place] [address] PCP - General Nurse Practitioner Family 01/28/18 documented as of this encounter
== END 2024-03-24 11:00 | disposition home or self-care (01) ==
LOC: ANHSURGERY 09:16 → ANH3MEDSUR 16:18
PROVIDERS: Physician Assistant Surgical; PCP Nurse Practitioner; Visit Provider Orthopaedic Surgery
PROC: (CPT 27447; principal; 2024-03-23 11:30)
DX: M17.11 Unilateral primary osteoarthritis, right knee (principal); F12.90 Cannabis use, unspecified, uncomplicated
CPT/HCPCS: 27447; 36415; 73560; 80048; 85025; 86850; 86900; 86901; 97110; 97161; 97165; C1776; A9270; C1713; J0171; J0690; J1100; J1885; J2003; J2250; J2270; J2405; J2704; J2795; J3010; J7120; J7512

== ENCOUNTER 2024-04-14 10:12 | Outpatient (CLI) | payer BC, SELFPAY ==
--- NOTE | ~2024-04-14 | XR_ITS ---
Right Knee Technique: AP, lateral, and sunrise views were obtained. Clinical History: Artificial knee Findings: No fracture or dislocation is seen. Right knee arthroplasty in place. No hardware complicat ion is evident.. Soft tissues are unremarkable. No joint effusion is seen. Impression: No acute abnormality. Right knee arthroplasty in place. Reviewed, dictated and finalized at location [facility] Impression: No acute abnormality. Right knee arthroplasty in place.
--- OUTSIDE RECORDS SUMMARY | 2024-04-14 11:17 | XMS_ITS | Encounter Summary ---
Author Organization [facility] Address [address] [place] [address] Care Team Providers Care Wind Tunnel Engineer Name Role Phone Unavailable Primary Care Provider Unavailabl e Encounter Details Date Type Department Care Team (Late st Contact Info) Description 05/06/2022 Lab Requisition [facility] [address] [facility] [place] [id number] Enrique Bourne MD [address] [place] [address] Social History Tobacco Use Types [...] Comments DERMATOPATHOLOGY Routine 05/06/2022 12:0 0 AM RADIO FREQUENCY DESIGN ENGINEER documented in this encounter Results * DERMATOPATHOLOGY (05/06/2022 12:00 AM RADIO FREQUENCY DESIGN ENGINEER) Case Report Dermatopathology Report ? Case: [id number] ? Authorizing Provider: ??Enrique Bourne MD ?Collected: ? 05/06/2022 12:00 AM ? Ordering Location: ? [facility] ?Received: ?05/06/2022 03:45 PM ? Pathologist: ? Kimberli Beyer, ? MD ? Specimen: ?Skin, right abdomen ? 3 1:28 PM [facility] Final Diagnosis Specimen A. SKIN, right abdomen: BASAL CELL CARCINOMA, SUPERFICIAL MULTIFOCAL (C44.519) NOT PRESENT AT SAMPLED MARGIN 3 1:28 PM [facility] Clinical History R/O Benign Nevus vs. Neoplasm. Please Check Margins. 3 1:28 PM [facility] Gross Description Specimen A: Received is one formalin filled container labeled with the patient's name and designated right abdomen. The specimen consists of a shave biopsy measuring [id number] and it is inked. Jar 0. 3 1:28 PM [facility] Microscopic Description Specimen A. SKIN, right abdomen: Attached to the undersurface of the epidermis, there are small aggregates of basaloid cells with a high nuclear to cytoplasmic ratio and peripheral palisading. This lesion is not present at the sampled margin of the specimen. 3 1:28 PM [facility] Disclaimer An external and internal positive and negative controls are appropriate for the histochemical, immunohistochemical and immunofluorescence stain(s) in this case (if any), except where stated explicitly. The performance characteristics of the stain(s) cited in this report were developed and its performance characteristic determined by the Dermatopathology Laboratory at [facility], directed by Dr. Jayna Guzman. These tests need not be, and therefore are not, approved by the [place] Food and Drug Administration. The tests are used for clinical purposes. Billing Codes Specimen Charges Stain Charges 99247 1 3 1:28 PM [facility] Embedded Images 3 1:28 PM [facility] Pathology/Cytolog y TISSUE SPECIMEN FROM SKIN / Unknown 05/06/2022 05/06/2022 3:45 PM RADIO FREQUENCY DESIGN ENGINEER Enrique Bourne MD LAB - PATHOLOGY/CYTO LOGY ORDERABLES DERMATOPATHOLOGY LABORATORY [facility] - Department of Dermatology [address], [address] [phone] documented in this encounter Visit Diagnoses Not on filedocumented in this encounter
--- OUTSIDE RECORDS SUMMARY | 2024-04-14 11:17 | XMS_ITS | Clinical Summary ---
Author Organization [facility] Address [address] [place] [address] Care Team Providers Care Liquor Grinding Mill Operator Name Role Phone Unavailable Primary Care Provider Unavailabl e Source Comments [facility],non-owned Affiliates and Associated Physician Practices is amultiple site organization consisting of ambulatory clinics and hospital sitesin [place], [place], [place] and [place]. This disclosure is being madepursuant to the Care Everywhere program and may not contain all information available regarding this patient. Last updated 17.[facility] Social History Tobacco Use Types Packs/Day Years [...]
--- OUTSIDE RECORDS SUMMARY | 2024-04-14 11:17 | XMS_ITS | Encounter Summary ---
Author Organization [facility] Address [address] [place] [address] Care Team Providers Care Sheep Farm Worker Name Role Phone Unavailable Primary Care Provider Unavailabl e Encounter Details Date Type Department Care Team (Late st Contact Info) Description 11/09/2020 Lab Requisition [facility] [address] [place] [address] Enrique Bourne MD [address] [place] [address] Social History Tobacco Use Types [...] CDT) Case Report Dermatopathology Report ? Case: [id number] ? Authorizing Provider: ??Enrique Bourne MD ?Collected: ? 11/08/2020 03:33 AM ? Ordering Location: ? [facility] ?Received: ?11/09/2020 06:56 AM ? Pathologist: ? Cathy Jernigan MD ? Specimen: ?Skin, right knee ? 11:10 AM [facility] Final Diagnosis Specimen A. SKIN, right knee: SQUAMOUS CELL CARCINOMA, WELL DIFFERENTIATED (C44.722) 11:10 AM [facility] Clinical History R/O verruca vs SCC. 11:10 AM [facility] Gross Description Specimen A: Received is one formalin filled container labeled with the patient's name and designated right knee. The specimen consists of a shave biopsy measuring [id number]. Jar 0. 11:10 AM [facility] Microscopic Description Specimen A. SKIN, right knee: Arising in the epidermis and extending into the dermis there are irregularly shaped aggregates of keratinocytes showing evidence of premature cornification. 11:10 AM [facility] Disclaimer An external and internal positive and negative controls are appropriate for the histochemical, immunohistochemical and immunofluorescence stain(s) in this case (if any), except where stated explicitly. The performance characteristics of the stain(s) cited in this report were developed and its performance characteristic determined by the Dermatopathology Laboratory at [facility], directed by Dr. Jayna Guzman. These tests need not be, and therefore are not, approved by the [place] Food and Drug Administration. The tests are used for clinical purposes. Billing Codes Specimen Charges Stain Charges 05202 1 09/03/202 1 11:10 AM CDT DERMATOPATHOLOGY LABORATORY Embedded Images 1 11:10 AM CDT DERMATOPATHOLOGY LABORATORY Pathology/Cytolo gy TISSUE SPECIMEN FROM SKIN / Unknown 11/08/2020 3:33 AM CDT 11/09/2020 6:56 AM CDT Enrique Bourne MD LAB - PATHOLOGY/CYTO LOGY ORDERABLES DERMATOPATHOLOGY LABORATORY [facility] - Department of Dermatology [facility] [address] [place] [address], [address] [phone] documented in this encounter Visit Diagnoses Not on filedocumented in this encounter
--- OUTSIDE RECORDS SUMMARY | 2024-04-14 11:17 | XMS_ITS | Clinical Summary ---
Author Organization [facility] Address [address] [place] [address] Care Team Providers Care Flooring Professional Name Role Phone Radha De La Cruz SALESPERSON RECREATIONAL VEHICLES Primary Care Provider [phone] Allergies No known active allergies Medications Multiple Vitamin (ONCE DAILY) Tab Take 1 tablet by mouth. Active tirzepatide (ZEPBOUND) 2.5 MG/0.5ML injectionIndic ations:Overwei ght (BMI 25.0-29.9),Lorena ounter for weight management Inject 2.5 mg [...] Encounters Date Type Department Care Team Description 03/23/2024 Scan [facility] Scanned, Doc Med Group Image (SCAN); Procedure (SCAN) from Last 3 Months Immunizations Name Administration [...] Date Last Done Comments Hepatitis C 1978 COVID-19 Vaccine ( season) 2023 06/19/2020 Influenza Adult (#1) 2023 01/04/2022, 01/23/2021, 01/17/2020, Additional history exists PHQ-2 (Physician Eyak) 03/10/2024 07/08/2022 Annual Physical 05/07/2024 05/07/2023 Mammogram Screening 04/02/2025 04/02/2023, 02/08/2022, 01/22/2021, Additional history exists Colorectal Cancer Screening FIT-DNA (3 Years) 07/06/2026 07/07/2023, 07/07/2023 DTaP, Tdap and Td Vaccines (2 - Td or Tdap) 09/16/2027 09/15/2017, 10/19/2007, 10/19/2007 RSV Immunization or 60+ Years (1 - 1-dose 75+ series) 05/09/2035 Zoster Vaccines Completed 05/29/2021, 03/06/2021 Meningococcal B Vaccine Aged Out No l onger eligible based on patient's age to complete this topic Meningococcal Vaccine Aged Out No latasha julien [...] Priority Date/Time Associated Diagnosis Comments IMAGE GENERIC 03/23/2024 PROCEDURE GENERIC (SCAN ORDER) 03/23/2024 COLOGUARD (EXACT SCIENCE) Routine 07/07/2023 9:30 AM CDT Colon cancer screening MAMMOGRAM GENERIC (SCAN ORDER) 04/02/2023 from Last 3 Months or Most Recently Relevant to Health Maintenance Results * IMAGE GENERIC (03/23/2024) Anatomical Region Laterality Modality Other 03/23/2024 [facility] Scanned SCANNING Final Resu lt * PROCEDURE GENERIC (SCAN ORDER) (03/23/2024) 03/23/2024 [facility] Scanned SCANNING Final Resu lt * COLOGUARD (EXACT SCIENCE) (07/07/2023 9:30 AM CDT) COLOGUARD RESULT Negative Negative [facility] (CLIA #:[id number]) Comment: NEGATIVE TEST RESULT. A negative Cologuard [...] screened with both Cologuard and colonoscopy. (Etta Kingston et al, N Engl J Med 2014;370(14):1286- 1297) The normal value (reference range) for this assay is negative. COLOGUARD RE-SCREENING RECOMMENDATION: Periodic colorectal cancer screening is an important part of preventive healthcare for asymptomatic individuals at average risk for colorectal cancer. ??Following a negative Cologuard result, the [place] [employer] Society and U.S. Multi-Society Task Force screening guidelines recommend a Cologuard re-screening interval of 3 years. References: [place] [employer] Guideline for Colorectal Cancer Screening: https://www.cancer.org/cancer/qliit-btorcg-cxugif/qmakiivuj-refozhjdv-idhsfeu/ac s-rec ommendations.html.; Herman DK, Rom KNIGHT, Durga LLOYD, Colorectal Cancer Screening: Recommendations for Physicians and Patients from the U.S. Multi-Society Task Force on Colorectal Cancer Screening , Am J Gastroenterology 2017; 112:4724-4426. TEST DESCRIPTION: Composite algorithmic analysis of stool [...] Estrada. et al, N Engl J Med 2014;370(14):4366-6746.) Cologuard may produce a false negative or false positive result (no colorectal cancer or precancerous polyp present at colonoscopy follow up). A negative Cologuard test result does not guarantee the absence of CRC or advanced adenoma (pre-cancer). The current Cologuard screening interval is every 3 years. ([place] [employer] and U.S. Multi-Society Task Force). Cologuard performance data in a 10,000 patient pivotal study using colonoscopy as the reference method can be accessed at the following location: www.WorkProducts/results. Additional description of the Cologuard test process, warnings and precautions can be found at www.GeneAssessrd.com. STOOL STOOL SPECIMEN / Unknown 07/07/2023 9:30 AM CDT 07/10/2023 10:57 AM CDT us Radha De La Cruz SALESPERSON RECREATIONAL VEHICLES BODY FLUIDS AND STOOLS ORDERA BLES Final Result [facility] [address] [place] [address], [place] [phone] [employer] (CLIA #:[id number]) [address] [place] [address] * MAMMOGRAM GENERIC (SCAN ORDER) (04/02/2023) Anatomical Region Laterality Modality Other 04/02/2023 us [facility] Scanned SCANNING Final Resu lt from Last 3 Months or Most Recently Relevant to Health Maintenance [place] [place] [address] Care Teams Flooring Professional Relationship Specialty Start Date End Date Radha De La Cruz FNP [address] [place] [address] [place] [address] PCP - General Nurse Practitioner Family 01/28/18
--- OUTSIDE RECORDS SUMMARY | 2024-04-14 11:17 | XMS_ITS | Patient Health Summary ---
Author Organization [facility] Address [address] [facility] [place] [address] Care Team Providers Care Hand Ornament Maker Name Role Phone Unavailable Primary Care Provider Unavailabl e Note from [facility] [place],non-owned Affiliates and Associated Physician Practices is amultiple site organization consisting of ambulatory clinics and hospital sitesin [place], [place], [place] and [place]. This disclosure is being madepursuant to the Care Everywhere program and may not contain all information available regarding this patient. Last updated 17.[facility] Social History Tobacco Use Types Packs/Day Years Used Date Smoking Tobacco: Never Assessed Sex and Gender Information Value Date Recorded Sex Assigned at Not on file Gender Identity Not on file Sexual Orientation Not on file Procedures * DERMATOPATHOLOGY(Performed 05/06/2022) * DERMATOPATHOLOGY(Performed 11/08/2020) * DERMATOPATHOLOGY(Performed 05/18/2018) Results * DERMATOPATHOLOGY (05/06/2022 12:00 AM ARMORED CAR DRIVER) Only the most recent of3 resultswithin the time period is included. Case Report Dermatopathology Report ? Case: [id number] ? Authorizing Provider: ??Enrique Bourne MD ?Collected: ? 05/06/2022 12:00 AM ? Ordering Location: ? [facility] Care DermPath Lab ?Received: ?05/06/2022 03:45 PM ? Pathologist: ? Kimberli Beyer, ? MD ? Specimen: ?Skin, right abdomen ? 3 1:28 PM [facility] DERMATOPATHOLOGY LABORATORY Final Diagnosis Specimen A. SKIN, right abdomen: BASAL CELL CARCINOMA, SUPERFICIAL MULTIFOCAL (C44.519) NOT PRESENT AT SAMPLED MARGIN 3 1:28 PM [facility] DERMATOPATHOLOGY LABORATORY Clinical History R/O Benign Nevus vs. Neoplasm. Please Check Margins. 3 1:28 PM [facility] DERMATOPATHOLOGY LABORATORY Gross Description Specimen A: Received is one formalin filled container labeled with the patient's name and designated right abdomen. The specimen consists of a shave biopsy measuring [id number] and it is inked. Jar 0. 3 1:28 PM [facility] DERMATOPATHOLOGY LABORATORY Microscopic Description Specimen A. SKIN, right abdomen: Attached to the undersurface of the epidermis, there are small aggregates of basaloid cells with a high nuclear to cytoplasmic ratio and peripheral palisading. This lesion is not present at the sampled margin of the specimen. 3 1:28 PM [facility] DERMATOPATHOLOGY LABORATORY Disclaimer An external and internal positive and negative controls are appropriate for the histochemical, immunohistochemical and immunofluorescence stain(s) in this case (if any), except where stated explicitly. The performance characteristics of the stain(s) cited in this report were developed and its performance characteristic determined by the Dermatopathology Laboratory at [facility], directed by Dr. Jayna Guzman. These tests need not be, and therefore are not, approved by the [place] Food and Drug Administration. The tests are used for clinical purposes. Billing Codes Specimen Charges Stain Charges 89684 1 3 1:28 PM ARMORED CAR DRIVER DERMATOPATHOLOGY LABORATORY Embedded Images 3 1:28 PM ARMORED CAR DRIVER DERMATOPATHOLOGY LABORATORY Pathology/Cytolog y TISSUE SPECIMEN FROM SKIN / Unknown 05/06/2022 05/06/2022 3:45 PM ARMORED CAR DRIVER Enrique Bourne MD LAB - PATHOLOGY/CYTO LOGY ORDERABLES DERMATOPATHOLOGY LABORATORY [facility] - Department of Dermatology [address], [address] [phone]
--- OUTSIDE RECORDS SUMMARY | 2024-04-14 11:17 | XMS_ITS | Referral Summary ---
Author Organization [facility] Address [address] [facility] [place] [address] Care Team Providers Care Hotel Attendant Name Role Phone Unavailable Primary Care Provider Unavailabl e Source Comments [facility],non-owned Affiliates and Associated Physician Practices is amultiple site organization consisting of ambulatory clinics and hospital sitesin [place], [place], [place] and [place]. This disclosure is being madepursuant to the Care Everywhere program and may not contain all information available regarding this patient. Last updated 17.[facility] [employer] Social History Tobacco Use Types Packs/Day Years Used Date Smoking Tobacco: Never Assessed Sex and Gender Information Value Date Recorded Sex Assigned at Not on file Gender Identity Not on file Sexual Orientation Not on file Plan of Treatment Not on file
--- OUTSIDE RECORDS SUMMARY | 2024-04-14 11:17 | XMS_ITS | Encounter Summary ---
Author Organization [facility] Address [address] [facility] [place] [address] Care Team Providers Care Wad Printing Machine Operator Name Role Phone Unavailable Primary Care Provider Unavailabl e Encounter Details Date Type Department Care Team (Late st Contact Info) Description 05/19/2018 Lab Requisition [facility] Care DermPath Lab [address] [phone] Enrique Lubin MD [address] [place], [place] [phone] Social History Tobacco Use Types Packs/Day Years [...] CDT) Case Report Dermatopathology Report ? Case: [id number] ? Authorizing Provider: ??Enrique Lubin MD ? [...] specimen consists of a shave biopsy measuring [id number]. Jar 0. 1:40 PM T DERMATOPATHOLOGY LABORATORY [...] characteristic determined by the Dermatopathology Laboratory at [facility], directed by Dr. Jayna Guzman. These tests need not be, and therefore are not, approved by the [place] Food and Drug Administration. The tests are used for clinical purposes. Billing Codes Specimen Charges Stain Charges 38809 1 1:40 PM CDT DERMATOPATHOLOGY LABORATORY Embedded Images 1:40 PM CDT DERMATOPATHOLOGY LABORATORY Pathology/Cytolog y TISSUE SPECIMEN FROM SKIN / Unknown 05/18/2018 05/19/2018 9:10 AM CDT Enrique Lubin MD LAB - PATHOLOGY/CYTO LOGY ORDERABLES DERMATOPATHOLOGY LABORATORY [facility] - Department of Dermatology [address] [place] [address] 5th Floor Lab [address] [phone] documented in this encounter Visit Diagnoses Not on filedocumented in this encounter
== END 2024-04-14 10:13 | disposition home or self-care (01) ==
PROVIDERS: PCP Nurse Practitioner; Visit Provider Orthopaedic Surgery
DX: Z96.651 Presence of right artificial knee joint (principal)
CPT/HCPCS: 73562

== ENCOUNTER 2024-04-29 15:26 | Outpatient (CLI) | payer BC, SELFPAY ==
--- NOTE | ~2024-04-29 | MM_ITS ---
EXAMINATION: MM screening matthew BI w bianca HISTORY: Screening TECHNIQUE: Craniocaudal and mediolateral oblique 3-D tomosynthesis images were obtained and synthetic 2-D images were generated. CAD analysis was submitted and interpreted. COMPARISON: Comparison to multiple prior studies sequentially, with oldest reviewed study dated 10/2017. BREAST PARENCHYMAL COMPOSITION: Dense: The breasts are heterogeneously dense, which may obscure small masses FINDINGS: There is no evidence of suspicious mass, calcification, or architectural distortion to sugg est malignancy in either breast. There has been no suspicious interval change. IMPRESSION: 1. No mammographic evidence of malignancy. 2. Recommend routine screening mammography in one year. BI-RADS Category 1: Negative Reviewed, dictated and finalized at location B. NT SERVICES ANALYST
--- OUTSIDE RECORDS SUMMARY | 2024-04-29 15:30 | XMS_ITS | Encounter Summary ---
Author Organization [facility] Address [address] [place] [address] Care Team Providers Care Rehabilitation Physician Name Role Phone Unavailable Primary Care Provider Unavailabl e Encounter Details Date Type Department Care Team (Late st Contact Info) Description 05/06/2022 Lab Requisition [facility] DermPath Lab [address] [place] [phone] Enrique Bourne MD [address] [place] [address] Social History Tobacco Use Types [...] Comments DERMATOPATHOLOGY Routine 05/06/2022 12:0 0 AM NEWSROOM INTERN documented in this encounter Results * DERMATOPATHOLOGY (05/06/2022 12:00 AM NEWSROOM INTERN) Case Report Dermatopathology Report Case: [id number] Authorizing Provider: Enrique Bourne MD Collected: 05/06/2022 12:00 AM Ordering Location: [facility] DermPath Lab Received: 05/06/2022 03:45 PM Pathologist: Kimberli Beyer MD Specimen: Skin, right abdomen 3 1:28 PM [facility]SRO[facility]N DERMATOPATHOLOGY LABORATORY Final Diagnosis Specimen A. SKIN, right abdomen: BASAL CELL CARCINOMA, SUPERFICIAL MULTIFOCAL (C44.519) NOT PRESENT AT SAMPLED MARGIN 3 1:28 PM [facility]N DERMATOPATHOLOGY LABORATORY Clinical History R/O Benign Nevus vs. Neoplasm. Please Check Margins. 3 1:[address] [facility] DERMATOPATHOLOGY LABORATORY Gross Description Specimen A: Received is one formalin filled container labeled with the patient's name and designated right abdomen. The specimen consists of a shave biopsy measuring [id number] and it is inked. Jar 0. 1:[address] [facility] DERMATOPATHOLOGY LABORATORY Microscopic Description Specimen A. SKIN, right abdomen: Attached to the undersurface of the epidermis, there are small aggregates of basaloid cells with a high nuclear to cytoplasmic ratio and peripheral palisading. This lesion is not present at the sampled margin of the specimen. 3 1:[address] [facility] DERMATOPATHOLOGY LABORATORY Disclaimer An external and internal positive and negative controls are appropriate for the histochemical, immunohistochemical and immunofluorescence stain(s) in this case (if any), except where stated explicitly. The performance characteristics of the stain(s) cited in this report were developed and its performance characteristic determined by the Dermatopathology Laboratory at [facility], directed by Dr. Jayna Guzman. These tests need not be, and therefore are not, approved by the [place] Food and Drug Administration. The tests are used for clinical purposes. Billing Codes Specimen Charges Stain Charges 32805 1 3 1:[address] [facility] DERMATOPATHOLOGY LABORATORY Embedded Images 1:[address] [facility] DERMATOPATHOLOGY LABORATORY Pathology/Cytolog y TISSUE SPECIMEN FROM SKIN / Unknown 05/06/2022 05/06/2022 3:45 PM NEWSROOM INTERN Enrique Bourne MD LAB - PATHOLOGY/CYTO LOGY ORDERABLES DERMATOPATHOLOGY LABORATORY [facility] - Department of Dermatology [address], [address] [phone] documented in this encounter Visit Diagnoses Not on filedocumented in this encounter
--- OUTSIDE RECORDS SUMMARY | 2024-04-29 15:30 | XMS_ITS | Clinical Summary ---
Author Organization [facility] Address [address] [place] [address] Care Team Providers Care Horse Identifier Name Role Phone Radha De La Cruz MODELER Primary Care Provider [phone] Allergies No known active allergies Medications Multiple Vitamin (ONCE DAILY) Tab Take 1 tablet by mouth. Active tirzepatide (ZEPBOUND) 2.5 MG/0.5ML injectionIndic ations:Overwei ght (BMI 25.0-29.9),Loerna ounter for weight management Inject 2.5 mg [...] Encounters Date Type Department Care Team Description 04/14/2024 Scan [facility] Scanned, [facility] Image (SCAN) 03/23/2024 Scan [facility] Scanned, [...] 68 11/27/2023 3:00 PM CDT Temperature 36.7 C (98 F) 11/27/2023 3:00 PM CDT Respiratory Rate 18 [...] 01/23/2021, 01/17/2020, Additional history exists PHQ-2 (Physician [place]) 03/10/2024 07/08/2022 Annual Physical 05/07/2024 05/07/2023 Mammogram [...] Priority Date/Time Associated Diagnosis Comments IMAGE GENERIC 04/14/2024 IMAGE GENERIC 03/23/2024 PROCEDURE GENERIC (SCAN ORDER) 03/23/2024 COLOGUARD (EXACT SCIENCE) Routine 07/07/2023 9:30 AM CDT Colon cancer screening MAMMOGRAM GENERIC (SCAN ORDER) 04/02/2023 from Last 3 Months or Most Recently Relevant to Health Maintenance Results * IMAGE GENERIC (04/14/2024) Only the most recent of2 resultswithin the time period is included. Anatomical Region Laterality Modality Other 04/14/2024 [facility] Scanned SCANNING Final Resu lt * PROCEDURE GENERIC (SCAN ORDER) (03/23/2024) 03/23/2024 [facility] Scanned SCANNING Final Resu lt * COLOGUARD (EXACT SCIENCE) (07/07/2023 9:30 AM CDT) COLOGUARD RESULT Negative Negative [email or web address] (CLIA #:[id number]) Comment: NEGATIVE TEST RESULT. A negative Cologuard result indicates a low likelihood that a colorectal cancer (CRC) or advanced adenoma (adenomatous polyps with more advanced pre-malignant features) is present. The chance that a person with a negative Cologuard test has a colorectal cancer is less than 1 in 1500 (negative predictive value >99.9%) or has an advanced adenoma is less than 5.3% (negative predictive value 94.7%). These data are based on a prospective cross-sectional study of 10,000 individuals at average risk for colorectal cancer who were screened with both Cologuard and colonoscopy. (Etta Cortés al, N Engl J Med 2014;370(14):2945-3533) The normal value (reference range) for this assay is negative. COLOGUARD RE-SCREENING RECOMMENDATION: Periodic colorectal cancer screening is an important part of preventive healthcare for asymptomatic individuals at average risk for colorectal cancer. Following a negative Cologuard result, the [place] Cancer Society and U.S. Multi-Society Task Force screening guidelines recommend a Cologuard re-screening interval of 3 years. References: [place] [employer] Guideline for Colorectal Cancer Screening: https://www.cancer.org/cancer/kzfps-nxupai-ftybvr/bjmdquxhz-mafnhkgxn-lihgrha/ac s-rec ommendations.html.; Herman DK, Rom CR, Durga CarlinK, Colorectal Cancer Screening: Recommendations for Physicians and Patients from the U.S. Multi-Society Task Force on Colorectal Cancer Screening , Am J Gastroenterology 2017; 112:7265-7582. TEST DESCRIPTION: Composite algorithmic analysis of stool DNA-biomarkers with hemoglobin immunoassay. Quantitative values of individual biomarkers are not [...] (Etta Cortés al, N Engl J Med 2014;370(14):8575-9034.) Cologuard may produce a false negative or false positive result (no colorectal cancer or precancerous polyp present at colonoscopy follow up). A negative Cologuard test result does not guarantee the absence of CRC or advanced adenoma (pre-cancer). The current Cologuard screening interval is every 3 years. ([place] [employer] Society and U.S. Multi-Society Task Force). Cologuard performance data in a 10,000 patient pivotal study using colonoscopy as the reference method can be accessed at the following location: www.[employer].com/results. Additional description of the Cologuard test process, warnings and precautions can be found at www.[employer].com. STOOL STOOL SPECIMEN / Unknown 07/07/2023 9:30 AM CDT 07/10/2023 10:57 AM CDT Radha De La Cruz MODELER BODY FLUIDS AND STOOLS ORDERA BLES Final Result [facility] [address] [place] [address], [place] (CLIA #:[id number]) [address] [place] [address] * MAMMOGRAM GENERIC (SCAN ORDER) (04/02/2023) Anatomical Region Laterality Modality Other 04/02/2023 [facility] Scanned SCANNING Final Resu lt from Last 3 Months or Most Recently Relevant to Health Maintenance [place] [address] [place] [address] Care Teams Horse Identifier Relationship Specialty Start Date End Date Radha De La Cruz FNP [address] [place] [address] [place] [address] PCP - General Nurse Practitioner Family 01/28/18
--- OUTSIDE RECORDS SUMMARY | 2024-04-29 15:30 | XMS_ITS | Clinical Summary ---
Author Organization [facility] Address [address] [place] [address] Care Team Providers Care Hospice Music Therapist Name Role Phone Unavailable Primary Care Provider Unavailabl e Source Comments [facility],non-owned Affiliates and Associated Physician Practices is amultiple site organization consisting of ambulatory clinics and hospital sitesin [place], [place], [place] and [place]. This disclosure is being madepursuant to the Care Everywhere program and may not contain all information available regarding this patient. Last updated 17.[facility] Social History Tobacco Use Types Packs/Day Years [...]
--- OUTSIDE RECORDS SUMMARY | 2024-04-29 15:30 | XMS_ITS | Encounter Summary ---
Author Organization [facility] Address [address] [facility] [place] [address] Care Team Providers Care Director Of Vendor Management Name Role Phone Unavailable Primary Care Provider Unavailabl e Encounter Details Date Type Department Care Team (Late st Contact Info) Description 05/19/2018 Lab Requisition [facility] Care DermPath Lab [address] [place] [phone] Enrique Lubin MD [address] [place], [place] [phone] Social History Tobacco Use Types Packs/Day Years [...] 12:00 AM CDT) Case Report Dermatopathology Report Case: [id number] Authorizing Provider: Enrique Lubin MD Collected: 05/18/2018 12:00 AM Pathologist: Cassi Espinoza MD Received: 05/19/2018 09:10 AM Specimen: Skin, right forearm 9 1:40 PM CDT DERMATOPATHOLOGY LABORATORY Final Diagnosis Specimen A. SKIN, right forearm: NON-INFLAMMATORY PURPURA (D69.2) (see microscopic description and comment) 9 1:40 PM CDT DERMATOPATHOLOGY LABORATORY Clinical History R/O neoplasia. 1:40 PM CDT DERMATOPATHOLOGY LABORATORY Gross Description Specimen A: Received is one formalin filled container labeled with the patient's name and designated right forearm. The specimen consists of a shave biopsy measuring [id number]. Jar 0. 1:40 PM T DERMATOPATHOLOGY LABORATORY [...] characteristic determined by the Dermatopathology Laboratory at [facility], directed by Dr. Jayna Guzman. These tests need not be, and therefore are not, approved by the [place] Food and Drug Administration. The tests are used for clinical purposes. Billing Codes Specimen Charges Stain Charges 25065 1 1:40 PM T DERMATOPATHOLOGY LABORATORY Embedded Images 1:40 PM T DERMATOPATHOLOGY LABORATORY Pathology/Cytolog y TISSUE SPECIMEN FROM SKIN / Unknown 05/18/2018 05/19/2018 9:10 AM CDT Enrique Lubin MD LAB - PATHOLOGY/CYTO LOGY ORDERABLES DERMATOPATHOLOGY LABORATORY [facility] - Department of Dermatology [address] [place] [address], [address] [place] [address], [facility] [phone] documented in this encounter Visit Diagnoses Not on filedocumented in this encounter
--- OUTSIDE RECORDS SUMMARY | 2024-04-29 15:30 | XMS_ITS | Patient Health Summary ---
Author Organization [facility] Address [address] [facility] [address] Care Team Providers Care Career Professional Name Role Phone Unavailable Primary Care Provider Unavailabl e Note from [facility],non-owned Affiliates and Associated Physician Practices is amultiple site organization consisting of ambulatory clinics and hospital sitesin [place], [place], [place] and [place]. This disclosure is being madepursuant to the Care Everywhere program and may not contain all information available regarding this patient. Last updated 17.[facility] Social History Tobacco Use Types Packs/Day Years Used Date Smoking Tobacco: Never Assessed Sex and Gender Information Value Date Recorded Sex Assigned at Not on file Gender Identity Not on file Sexual Orientation Not on file Procedures * DERMATOPATHOLOGY(Performed 05/06/2022) * DERMATOPATHOLOGY(Performed 11/08/2020) * DERMATOPATHOLOGY(Performed 05/18/2018) Results * DERMATOPATHOLOGY (05/06/2022 12:00 AM [facility]) Only the most recent of3 resultswithin the time period is included. Case Report Dermatopathology Report Case: [id number] Authorizing Provider: Enrique Bourne MD Collected: 05/06/2022 12:00 AM Ordering Location: [facility] DermPath Lab Received: 05/06/2022 03:45 PM Pathologist: Kimberli Beyer MD Specimen: Skin, right abdomen 3 1:28 PM [facility] DERMATOPATHOLOGY LABORATORY Final Diagnosis Specimen A. SKIN, right abdomen: BASAL CELL CARCINOMA, SUPERFICIAL MULTIFOCAL (C44.519) NOT PRESENT AT SAMPLED MARGIN 3 1:28 PM [facility] DERMATOPATHOLOGY LABORATORY Clinical History R/O Benign Nevus vs. Neoplasm. Please Check Margins. 3 1:28 PM [facility] DERMATOPATHOLOGY LABORATORY Gross Description Specimen A: Received is one formalin filled container labeled with the patient's name and designated right abdomen. The specimen consists of a shave biopsy measuring [id number] and it is inked. Jar 0. 1:28 PM [facility] DERMATOPATHOLOGY LABORATORY Microscopic Description Specimen A. SKIN, right abdomen: Attached to the undersurface of the epidermis, there are small aggregates of basaloid cells with a high nuclear to cytoplasmic ratio and peripheral palisading. This lesion is not present at the sampled margin of the specimen. 3 1:28 PM [facility] DERMATOPATHOLOGY LABORATORY Disclaimer An external and internal positive and negative controls are appropriate for the histochemical, immunohistochemical and immunofluorescence stain(s) in this case (if any), except where stated explicitly. The performance characteristics of the stain(s) cited in this report were developed and its performance characteristic determined by the Dermatopathology Laboratory at [facility], directed by Dr. Jayna Guzman. These tests need not be, and therefore are not, approved by the [place] Food and Drug Administration. The tests are used for clinical purposes. Billing Codes Specimen Charges Stain Charges 26150 1 3 1:28 PM [facility] DERMATOPATHOLOGY LABORATORY Embedded Images 3 1:28 PM [facility] DERMATOPATHOLOGY LABORATORY Pathology/Cytolog y TISSUE SPECIMEN FROM SKIN / Unknown 05/06/2022 05/06/2022 3:45 PM [facility] Enrique Bourne MD LAB - PATHOLOGY/CYTO LOGY ORDERABLES DERMATOPATHOLOGY LABORATORY [facility] - Department of Dermatology [address], [address] [phone]
--- OUTSIDE RECORDS SUMMARY | 2024-04-29 15:30 | XMS_ITS | Referral Summary ---
Author Organization [facility] Address [address] [place] [address] Care Team Providers Care Horse Racing Analyst Name Role Phone Unavailable Primary Care Provider Unavailabl e Source Comments [facility],non-owned Affiliates and Associated Physician Practices is amultiple site organization consisting of ambulatory clinics and hospital sitesin [place], [place], [place] and [place]. This disclosure is being madepursuant to the Care Everywhere program and may not contain all information available regarding this patient. Last updated 17.[facility] A vida é feita de [place] Social History Tobacco Use Types Packs/Day Years Used Date Smoking Tobacco: Never Assessed Sex and Gender Information Value Date Recorded Sex Assigned at Not on file Gender Identity Not on file Sexual Orientation Not on file Plan of Treatment Not on file
--- OUTSIDE RECORDS SUMMARY | 2024-04-29 15:30 | XMS_ITS | Encounter Summary ---
Author Organization [facility] Address [address] [facility] [place] [address] Care Team Providers Care Client Consultant Name Role Phone Unavailable Primary Care Provider Unavailabl e Encounter Details Date Type Department Care Team (Late st Contact Info) Description 11/09/2020 Lab Requisition [facility] [address] [place] [phone] Enrique Bourne MD [address] [place] [address] Social History Tobacco Use Types [...] 3:33 AM CDT) Case Report Dermatopathology Report Case: [id number] Authorizing Provider: Enrique Bourne MD Collected: 11/08/2020 03:33 AM Ordering Location: [facility] Received: 11/09/2020 06:56 AM Pathologist: Cathy Jernigan MD Specimen: Skin, right knee 11:10 AM CDT DERMATOPATHOLOGY LABORATORY Final Diagnosis Specimen A. SKIN, right knee: SQUAMOUS CELL CARCINOMA, WELL DIFFERENTIATED (C44.722) 11:10 AM CDT DERMATOPATHOLOGY LABORATORY Clinical History R/O verruca vs SCC. 11:10 AM CDT DERMATOPATHOLOGY LABORATORY Gross Description Specimen A: Received is one formalin filled container labeled with the patient's name and designated right knee. The specimen consists of a shave biopsy measuring [id number]. Jar 0. 11:10 AM CDT DERMATOPATHOLOGY LABORATORY Microscopic Description Specimen A. SKIN, right knee: Arising in the epidermis and extending into the dermis there are irregularly shaped aggregates of keratinocytes showing evidence of premature cornification. 11:10 AM CDT DERMATOPATHOLOGY LABORATORY Disclaimer An external and internal positive and negative controls are appropriate for the histochemical, immunohistochemical and immunofluorescence stain(s) in this case (if any), except where stated explicitly. The performance characteristics of the stain(s) cited in this report were developed and its performance characteristic determined by the Dermatopathology Laboratory at [facility], directed by Dr. Jayna Guzman. These tests need not be, and therefore are not, approved by the [place] Food and Drug Administration. The tests are used for clinical purposes. Billing Codes Specimen Charges Stain Charges 44512 1 11:10 AM CDT DERMATOPATHOLOGY LABORATORY Embedded Images 11:10 AM CDT DERMATOPATHOLOGY LABORATORY Pathology/Cytolo gy TISSUE SPECIMEN FROM SKIN / Unknown 11/08/2020 3:33 AM CDT 11/09/2020 6:56 AM CDT Enrique Bourne MD LAB - PATHOLOGY/CYTO LOGY ORDERABLES DERMATOPATHOLOGY LABORATORY [facility] - Department of Dermatology [address], [address] [phone] documented in this encounter Visit Diagnoses Not on filedocumented in this encounter
== END 2024-04-29 15:27 | disposition home or self-care (01) ==
LOC: ANHIMG 15:27
PROVIDERS: PCP Nurse Practitioner; Visit Provider Obstetrics & Gynecology
DX: Z12.31 Encounter for screening mammogram for malignant neoplasm of breast (principal)
CPT/HCPCS: 77063; 77067

== ENCOUNTER 2024-05-19 08:49 | Outpatient (CLI) | payer BC, SELFPAY ==
--- NOTE | ~2024-05-19 | XR_ITS ---
EXAMINATION: XR knee RT 3V DATE: 05/19/2024 09:01 INDICATION: Presence of right artificial knee joint. TECHNIQUE: 3 views of right knee including standing views were obtained. COMPARISON: Right knee radiographs 04/14/2024 FINDINGS: There is a total right knee arthroplasty with patellar resurfacing in near-anatomic alignme nt. No fracture. No periprosthetic lucency to suggest loosening or infection. No knee joint effusion. IMPRESSION: 1. Total right knee arthroplasty in near-anatomic alignment. Reviewed, dictated and finalized at location B.
--- OUTSIDE RECORDS SUMMARY | 2024-05-19 09:14 | XMS_ITS | Referral Summary ---
Author Organization [facility] Address [address] [facility] [place] [address] Care Team Providers Care Director Of Institutional Giving Name Role Phone Unavailable Primary Care Provider Unavailabl e Source Comments [facility],non-owned Affiliates and Associated Physician Practices is amultiple site organization consisting of ambulatory clinics and hospital sitesin [place], [place], [place] and [place]. This disclosure is being madepursuant to the Care Everywhere program and may not contain all information available regarding this patient. Last updated 17.[facility] [employer] Social History Tobacco Use Types Packs/Day Years Used Date Smoking Tobacco: Never Assessed Sex and Gender Information Value Date Recorded Sex Assigned at Not on file Gender Identity Not on file Sexual Orientation Not on file Plan of Treatment Not on file
--- OUTSIDE RECORDS SUMMARY | 2024-05-19 09:14 | XMS_ITS | Patient Health Summary ---
Author Organization [facility] Address [address] [facility] [place] [address] Care Team Providers Care Heavy Media Operator Name Role Phone Unavailable Primary Care Provider Unavailabl e Note from [facility],non-owned Affiliates and Associated Physician Practices is amultiple site organization consisting of ambulatory clinics and hospital sitesin [place], [place], [place] and [place]. This disclosure is being madepursuant to the Care Everywhere program and may not contain all information available regarding this patient. Last updated 17.[facility] Social History Tobacco Use Types Packs/Day Years Used Date Smoking Tobacco: Never Assessed Sex and Gender Information Value Date Recorded Sex Assigned at Not on file Gender Identity Not on file Sexual Orientation Not on file Procedures * DERMATOPATHOLOGY(Performed 05/06/2022) * DERMATOPATHOLOGY(Performed 11/08/2020) * DERMATOPATHOLOGY(Performed 05/18/2018) Results * DERMATOPATHOLOGY (05/06/2022 12:00 AM MARINE CARGO SPECIALIST) Only the most recent of3 resultswithin the time period is included. Case Report Dermatopathology Report Case: [id number] Authorizing Provider: Enrique Bourne MD Collected: 05/06/2022 12:00 AM Ordering Location: [facility]erm[facility] Lab Received: 05/06/2022 03:45 PM Pathologist: Kimberli Beyer MD Specimen: Skin, right abdomen 3 1:28 PM MARINE CARGO SPECIALIST DERMATOPATHOLOGY LABORATORY Final Diagnosis Specimen A. SKIN, right abdomen: BASAL CELL CARCINOMA, SUPERFICIAL MULTIFOCAL (C44.519) NOT PRESENT AT SAMPLED MARGIN 3 1:28 PM MARINE CARGO SPECIALIST DERMATOPATHOLOGY LABORATORY Clinical History R/O Benign Nevus vs. Neoplasm. Please Check Margins. 3 1:28 PM [facility] DERMATOPATHOLOGY LABORATORY Gross Description Specimen A: Received is one formalin filled container labeled with the patient's name and designated right abdomen. The specimen consists of a shave biopsy measuring [id number] and it is inked. Jar 0. 1:28 PM [facility] DERMATOPATHOLOGY LABORATORY Microscopic Description Specimen A. SKIN, right abdomen: Attached to the undersurface of the epidermis, there are small aggregates of basaloid cells with a high nuclear to cytoplasmic ratio and peripheral palisading. This lesion is not present at the sampled margin of the specimen. 3 1:28 PM [facility] DERMATOPATHOLOGY LABORATORY Disclaimer An external and internal positive and negative controls are appropriate for the histochemical, immunohistochemical and immunofluorescence stain(s) in this case (if any), except where stated explicitly. The performance characteristics of the stain(s) cited in this report were developed and its performance characteristic determined by the Dermatopathology Laboratory at [facility], directed by Dr. Jayna Guzman. These tests need not be, and therefore are not, approved by the [place] Food and Drug Administration. The tests are used for clinical purposes. Billing Codes Specimen Charges Stain Charges 83634 1 3 1:28 PM [facility] DERMATOPATHOLOGY LABORATORY Embedded Images 3 1:28 PM [facility] DERMATOPATHOLOGY LABORATORY Pathology/Cytolog y TISSUE SPECIMEN FROM SKIN / Unknown 05/06/2022 05/06/2022 3:45 PM MARINE CARGO SPECIALIST Enrique Bourne MD LAB - PATHOLOGY/CYTO LOGY ORDERABLES DERMATOPATHOLOGY LABORATORY [facility] - Department of Dermatology [address], [address] [phone]
--- OUTSIDE RECORDS SUMMARY | 2024-05-19 09:14 | XMS_ITS | Clinical Summary ---
Author Organization [facility] Address [address] [place] [address] Care Team Providers Care Internal Communications Manager Name Role Phone Radha De La Cruz SANITATION OFFICER Primary Care Provider [phone] Allergies No known active allergies Medications Multiple Vitamin (ONCE DAILY) Tab Take 1 tablet by mouth. Active tirzepatide (ZEPBOUND) 2.5 MG/0.5ML injectionIndica tions:Overweigh t (BMI 25.0-29.9),Enco unter for weight management Inject 2.5 mg into the skin once a week. 2 mL 4 Active vitamin D3 (CHOLECALCIFERO L) 25 mcg tablet Take 2 tablets (50 mcg total) by mouth daily. Active buPROPion XL (WELLBUTRIN XL) 300 MG 24 hr tabletIndicatio ns:Anxiety take 1 tablet by mouth every day 90 tablet 1 4 05/13/19 25 Discontinue d(Discontin ued by another clinician) Active Problems Problem Noted Date Diagnosed Date Vitamin D deficiency 05/12/2024 Primary hypertension 02/15/2022 Family history of heart dise ase in male family member before age 55 02/15/2022 Cervical spinal stenosis 01/04/2022 H/O left knee surgery 08/21/2018 Overview (08/24/2018): Left knee surgery by Dr. Dony Reyes. Left knee unicompartment replacement. Hyperlipidemia 04/01/2014 Overview (02/19/2018): Date Onset: 06/18/2013 Resolved Problems Problem Noted Date Diagnosed Date Resolved Date Prediabetes 03/14/2022 05/12/2024 Situational stress 03/14/2022 Mild episode of recurrent ma susie depressive disorder 07/08/2019 05/12/2024 Encounters Date Type Department Care Team Description 05/12/2024 9:20 AM SHIFT MANAGER Office Visit [facility] [address] [place] [address] Radha De La Cruz, SANITATION OFFICER Blood Pressure (Concerns with elevated blood pressure since having knee replacement ; 7 weeks post op ) 05/12/2024 Travel 04/29/2024 Scan [facility] SRV[facility] Scanned, Doc [facility] Mammogram (SCAN) 04/14/2024 Scan [facility] SRVCS Scanned, [...] Date Recorded Patient Health Questionnaire-2 Score 0 05/12/2024 Comments No Sex and Gender Information Value Date Recorded Sex Assigned at Not on file Legal Sex Female 2:50 AM CDT Gender Identity Not on file Sexual Orientation Not on file Last Filed Vital Signs Vital Sign Reading Time Taken Comments Blood Pressure 136/78 05/12/2024 9:52 AM SHIFT MANAGER Pulse 86 05/12/2024 9:28 AM SHIFT MANAGER Temperature 36.2 C (97.2 F) 05/12/2024 9:28 AM SHIFT MANAGER Respiratory Rate 16 05/12/2024 9:28 AM SHIFT MANAGER Oxygen Saturation 98% 05/12/2024 9:28 AM SHIFT MANAGER Inhaled Oxygen Concentration - - Weight 71.2 kg (157 lb) 05/12/2024 9:28 AM SHIFT MANAGER Height 170.2 cm (5' 7 ) 05/12/2024 9:28 AM SHIFT MANAGER Body Mass Index 24.59 05/12/2024 9:28 AM SHIFT MANAGER Plan of Treatment Health Maintenance Due Date Last Done Comments Hepatitis C 1978 COVID-19 Vaccine ( season) 2023 06/19/2020 Influenza Adult (#1) 2023 01/04/2022, 01/23/2021, 01/17/2020, Additional history exists Annual Physical 05/07/2024 05/07/2023 Mammogram Screening 04/29/2026 04/29/2024, 04/02/2023, 02/08/2022, Additional history exists Colorectal Cancer Screening FIT-DNA (3 Years) 07/06/2026 07/07/2023, 07/07/2023 DTaP, Tdap and Td Vaccines (2 - Td or Tdap) 09/16/2027 09/15/2017, 10/19/2007, 10/19/2007 RSV Immunization or 60+ Years (1 - 1-dose 75+ series) 05/09/2035 Zoster Vaccines Completed 05/29/2021, 03/06/2021 PHQ-2 (Physician Martin) Completed 05/12/2024 Meningococcal B Vaccine Aged Out No l [...] Associated Diagnosis Comments MAMMOGRAM GENERIC (SCAN ORDER) 04/29/2024 IMAGE GENERIC 04/14/2024 IMAGE GENERIC 03/23/2024 PROCEDURE GENERIC (SCAN ORDER) 03/23/2024 COLOGUARD (EXACT SCIENCE) Routine 07/07/2023 9:30 AM CDT Colon cancer screening from Last 3 Months or Most Recently Relevant to Health Maintenance Results * MAMMOGRAM GENERIC (SCAN ORDER) (04/29/2024) Anatomical Region Laterality Modality Other 04/29/2024 [facility] Scanned SCANNING Final Resu lt * IMAGE GENERIC (04/14/2024) Only the most recent of2 resultswithin the time period is included. Anatomical Region Laterality Modality Other 04/14/2024 [facility] Scanned SCANNING Final Resu lt * PROCEDURE GENERIC (SCAN ORDER) (03/23/2024) 03/23/2024 Ang[facility]roid [facility] Group Scanned SCANNING Final Resu lt * COLOGUARD (EXACT SCIENCE) (07/07/2023 9:30 AM CDT) COLOGUARD RESULT Negative Negative [employer] (CLIA #:[id number]) Comment: NEGATIVE TEST RESULT. A negative Cologuard [...] (Etta Cortés al, N Engl J Med 2014;370(14):3778-2405) The normal value (reference range) for this assay is negative. COLOGUARD RE-SCREENING RECOMMENDATION: Periodic colorectal cancer screening is an important part of preventive healthcare for asymptomatic individuals at average risk for colorectal cancer. Following a negative Cologuard result, the [place] Cancer Society and U.S. Multi-Society Task Force screening guidelines recommend a Cologuard re-screening interval of 3 years. References: [place] Cancer Society Guideline for Colorectal Cancer Screening: https://www.cancer.org/cancer/kgvjp-ypgiid-nudxpu/ylcuxnvsb-dfmzweubv-knecryt/ac s-rec ommendations.html.; Herman DK, Rom KNIGHT, Durga CarlinK, Colorectal Cancer Screening: Recommendations for Physicians and Patients from the U.S. Multi-Society Task Force on Colorectal Cancer Screening , Am J Gastroenterology 2017; 112:3042-9270. TEST DESCRIPTION: Composite algorithmic analysis of stool [...] colonoscopy. (Etta Sauer, N Engl J Med 2014;370(14):2293-3320.) Cologuard may produce a false negative or false positive result (no colorectal cancer or precancerous polyp present at colonoscopy follow up). A negative Cologuard test result does not guarantee the absence of CRC or advanced adenoma (pre-cancer). The current Cologuard screening interval is every 3 years. ([place] Cancer Society and U.S. Multi-Society Task Force). Cologuard performance data in a 10,000 patient pivotal study using colonoscopy as the reference method can be accessed at the following location: www.[employer]/results. Additional description of the Cologuard test process, warnings and precautions can be found at www.cologPluto Mediard.com. STOOL STOOL SPECIMEN / Unknown 07/07/2023 9:30 AM CDT 07/10/2023 10:57 AM CDT us Radha GLEZP BODY FLUIDS AND STOOLS ORDERA BLE[employer]ftab Final Result Performing Organization Address City/State/[facility] Co de Phone Number Search to Phone [address] [place] [address], [employer] (CLIA #:[id number]) [address] [place] [phone] from Last 3 Months or Most Recently Relevant to Health Maintenance Insurance [facility] Care Teams Internal Communications Manager Relationship Specialty Start Date End Date Radha De La Cruz FNP [address] [place] [address] [place] [address] PCP - General Nurse Practitioner Family 01/28/18
--- OUTSIDE RECORDS SUMMARY | 2024-05-19 09:14 | XMS_ITS | Encounter Summary ---
Author Organization [facility] Address [address] [facility] [place] [address] Care Team Providers Care Commissary Officer Name Role Phone Unavailable Primary Care Provider Unavailabl e Encounter Details Date Type Department Care Team (Late st Contact Info) Description 05/06/2022 Lab Requisition [facility] [address] [place] [phone] Enrique Bourne MD [address] [place] [address] Social History Tobacco Use Types [...] Comments DERMATOPATHOLOGY Routine 05/06/2022 12:0 0 AM TRAFFIC AND TRANSPORT PLANNER documented in this encounter Results * DERMATOPATHOLOGY (05/06/2022 12:00 AM TRAFFIC AND TRANSPORT PLANNER) Case Report Dermatopathology Report Case: [id number] Authorizing Provider: Enrique Bourne MD Collected: 05/06/2022 12:00 AM Ordering Location: [facility] Received: 05/06/2022 03:45 PM Pathologist: Kimberli Beyer MD Specimen: Skin, right abdomen 3 1:28 PM TRAFFIC AND TRANSPORT PLANNER DERMATOPATHOLOGY LABORATORY Final Diagnosis Specimen A. SKIN, right abdomen: BASAL CELL CARCINOMA, SUPERFICIAL MULTIFOCAL (C44.519) NOT PRESENT AT SAMPLED MARGIN 3 1:28 PM TRAFFIC AND TRANSPORT PLANNER DERMATOPATHOLOGY LABORATORY Clinical History R/O Benign Nevus vs. Neoplasm. Please Check Margins. 3 1:28 PM [facility] DERMATOPATHOLOGY LABORATORY Gross Description Specimen A: Received is one formalin filled container labeled with the patient's name and designated right abdomen. The specimen consists of a shave biopsy measuring [id number] and it is inked. Jar 0. 1:28 PM [facility] DERMATOPATHOLOGY LABORATORY Microscopic Description Specimen A. SKIN, right abdomen: Attached to the undersurface of the epidermis, there are small aggregates of basaloid cells with a high nuclear to cytoplasmic ratio and peripheral palisading. This lesion is not present at the sampled margin of the specimen. 3 1:28 PM [facility] DERMATOPATHOLOGY LABORATORY Disclaimer An external and internal positive and negative controls are appropriate for the histochemical, immunohistochemical and immunofluorescence stain(s) in this case (if any), except where stated explicitly. The performance characteristics of the stain(s) cited in this report were developed and its performance characteristic determined by the Dermatopathology Laboratory at [facility], directed by Dr. Jayna Guzman. These tests need not be, and therefore are not, approved by the [place] Food and Drug Administration. The tests are used for clinical purposes. Billing Codes Specimen Charges Stain Charges 72240 1 3 1:28 PM [facility] DERMATOPATHOLOGY LABORATORY Embedded Images 1:28 PM [facility] DERMATOPATHOLOGY LABORATORY Pathology/Cytolog y TISSUE SPECIMEN FROM SKIN / Unknown 05/06/2022 05/06/2022 3:45 PM TRAFFIC AND TRANSPORT PLANNER Enrique Bourne MD LAB - PATHOLOGY/CYTO LOGY ORDERABLES DERMATOPATHOLOGY LABORATORY [facility] - Department of Dermatology [address] [phone] documented in this encounter Visit Diagnoses Not on filedocumented in this encounter
--- OUTSIDE RECORDS SUMMARY | 2024-05-19 09:14 | XMS_ITS | Encounter Summary ---
Author Organization [facility] Address [address] [place] [address] Care Team Providers Care Survey Engineer Name Role Phone Unavailable Primary Care Provider Unavailabl e Encounter Details Date Type Department Care Team (Late st Contact Info) Description 11/09/2020 Lab Requisition [facility] DermPath Lab [address] [place] [phone] Enrique Bourne MD [address] [place] [address] Social History Tobacco Use Types [...] AM CDT) Case Report Dermatopathology Report Case: [id number] Authorizing Provider: Enrique Bourne MD Collected: 11/08/2020 03:33 AM Ordering Location: [facility] Derm[facility] Lab Received: 11/09/2020 06:56 AM Pathologist: [...] specimen consists of a shave biopsy measuring [id number]. Jar 0. 11:10 AM CDT DERMATOPATHOLOGY LABORATORY [...] characteristic determined by the Dermatopathology Laboratory at [facility], directed by Dr. Jayna Guzman. These tests need not be, and therefore are not, approved by the [place] Food and Drug Administration. The tests are used for clinical purposes. Billing Codes Specimen Charges Stain Charges 04101 1 11:10 AM CDT DERMATOPATHOLOGY LABORATORY Embedded Images 11:10 AM CDT DERMATOPATHOLOGY LABORATORY Pathology/Cytolo gy TISSUE SPECIMEN FROM SKIN / Unknown 11/08/2020 3:33 AM CDT 11/09/2020 6:56 AM CDT Enrique Bourne MD LAB - PATHOLOGY/CYTO LOGY ORDERABLES DERMATOPATHOLOGY LABORATORY [facility] - Department of Dermatology [address], [address] [phone] documented in this encounter Visit Diagnoses Not on filedocumented in this encounter
--- OUTSIDE RECORDS SUMMARY | 2024-05-19 09:14 | XMS_ITS | Encounter Summary ---
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 Jar 0. 1:40 PM T DERMATOPATHOLOGY LABORATORY [...] characteristic determined by the Dermatopathology Laboratory at [facility], directed by Dr. Jayna Guzman. These tests need not be, and therefore are not, approved by the [place] Food and Drug Administration. The tests are used for clinical purposes. Billing Codes Specimen Charges Stain Charges 53116 1 1:40 PM T DERMATOPATHOLOGY LABORATORY Embedded Images 1:40 PM T DERMATOPATHOLOGY LABORATORY Pathology/Cytolog y TISSUE SPECIMEN FROM SKIN / Unknown 05/18/2018 05/19/2018 9:10 AM CDT Enrique Lubin MD LAB - PATHOLOGY/CYTO LOGY ORDERABLES DERMATOPATHOLOGY LABORATORY [facility] - Department of Dermatology [address] [place] [address], [address] [place] [address], [facility] [phone] documented in this encounter Visit Diagnoses Not on filedocumented in this encounter
--- OUTSIDE RECORDS SUMMARY | 2024-05-19 09:14 | XMS_ITS | Clinical Summary ---
Author Organization [facility] Address [address] [facility] [place] [address] Care Team Providers Care Film Booker Name Role Phone Unavailable Primary Care Provider Unavailabl e Source Comments [facility],non-owned Affiliates and Associated Physician Practices is amultiple site organization consisting of ambulatory clinics and hospital sitesin [place], [place], [place] and [place]. This disclosure is being madepursuant to the Care Everywhere program and may not contain all information available regarding this patient. Last updated 17.[facility] Social History Tobacco Use Types Packs/Day Years [...] to complete this topic MENINGOCOCCAL (Group B) VACC INE SHARED DECISION-MAKING Aged Out No longer eligibl e based on patient's age to complete this topic MENINGOCOCCAL GROUPS A/C/Y/W VACCINE Aged Out No longer eligible b ased on patient's age to complete this topic PNEUMOCOCCAL VACCINE Aged Out No long er eligible based on patient's age to complete this topic
== END 2024-05-19 08:50 | disposition home or self-care (01) ==
PROVIDERS: PCP Nurse Practitioner; Visit Provider Orthopaedic Surgery
DX: Z96.651 Presence of right artificial knee joint (principal)
CPT/HCPCS: 73562